=== PATIENT | male | born 1975 | race Caucasian/White ===

== ENCOUNTER 2025-01-15 21:58 | Emergency (ER) | payer SELFPAY ==
--- OUTSIDE RECORDS SUMMARY | 2025-01-15 22:04 | XMS REPORT | Continuity of Care Document ---
Author Name Unknown Address [address] [facility] [address] [place] [address] [facility] Address [address] [place] [address] Care Team Providers Care Splitting Machine Feeder Name Role Phone Pcp, Patient Does Not Have A Primary Care Physic lola Zulma LUCAS, Amol Lucio Attending Clinician [phone] Goldy Hutchinson DO Attending Clinician [phone] Sivan Suh MD Attending Clinician [phone] Orin Kumari MD Attending Clinician [phone] Doctor Unassigned, [place] Attending Clinician U michi Pearson MD, Robert Ornelas Attending Clinician [phone] Zahra Rodriguez MD, Leonard Attending Clinician [phone] Sivan Brock Attending Clinician [phone] SIVAN WOODS Attending Clinician Unavailable Goldy Hutchinson DO Admitting Clinician [phone] SIVAN WOODS Admitting Clinician Unavailable Payers Payer Name Policy Type Policy Number Effective Date Expirati on Date Source Problems Condition Name Condition Details Condition Category Status Onset Date Resolution Date Last Treatment Date Treating Clinician Comments Source GIB (gastroint estinal bleeding) GIB (gastroint estinal bleeding) Disease Active 12-30 00:00: 00 [facility] Hematochez ia Hematochez ia Disease Active 12-30 00:00: 00 [facility] Pancolitis Pancolitis Disease Active 4-13 00:00: 00 [facility] 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 Active 2018-09 022 00:00: 00 [facility] RUQ pain RUQ pain Disease Active 2018-09 020 00:00: 00 [facility] Peptic ulcer disease with hemorrhage Peptic ulcer disease with hemorrhage Disease Active 2018-09 00:00: 00 [facility] Gallbladde r hydrops Gallbladde r hydrops Disease Active 2018-09 00:00: 00 [facility] Acute cholecysti tis Acute cholecysti tis Disease Resolve d 2018-09 00:00: 00 2019-07-08 00:00:00 2019-07-08 18:46:24 [facility] Allergies, Adverse Reactions, Alerts Allergy Name Allergy Type Status Severity Reaction(s) Onset Date Inactive Date Treating Clinician Comments Source Codeine Propensi ty to adverse reaction s Active Itching 3- 00:00: 00 [facility] Morphine Propensi ty to adverse reaction s Active Nausea and/or Vomiting 3-06 00:00: 00 [facility] CODEINE DRUG INGREDI Active ITCHING 3-06 00:00: 00 [facility] MORPHINE DRUG INGREDI Active N/V 3-06 00:00: 00 [facility] Penicill ins Propensi ty to adverse reaction s Active Hives 2018-09 00:00: 00 [facility] PENICILL INS Drug Class Active Hives 2018-09 020 00:00: 00 [facility] Social History Social Habit Start Date Stop Date Quantity Comments Source Exposure to SARS-CoV-2 (event) Not sure [facility] History of tobacco use Smokes tobacco daily [facility] Alcoholic beverage intake 2025-01-04 00:00:00 2025-01-04 00:00:00 Ex-drinker (finding) [facility] Tobacco Comment 2024-12-30 00:00:00 2024-12-30 00:00:00 Pt informed this author that he does not smoke and has never smoked anything. [facility] Alcohol intake 2020-11-22 00:00:00 2020-11-22 00:00:00 Ex-drinker (finding) [facility] History of Social function 2020-04-23 00:00:00 2020-04-23 00:00:00 [facility] Sex assigned at 1975 00:00:00 1975 00:00:00 [facility] Smoking Status Start Date Stop Date Source Smokes tobacco daily 2024-12-30 00:00:00 [facility] Medications Ordered Medication Name Filled Medication Name Start Date Stop Date Current Medication? Ordering Clinician Indication Dosage Frequency Signature (SIG) Comments Components Source ergocalcife rol, vitamin d2, 1,250 mcg (50,000 unit) capsule ergocalcife rol, vitamin d2, 1,250 mcg (50,000 unit) capsule 01-15 00:00: 00 Yes [id number] Take 1 capsule by mouth weekly. [facility] DULoxetine 20 mg capsule DULoxetine 20 mg capsule 01-11 00:00: 00 Yes [id number] 20mg Take 1 capsule by mouth in the morning. [facility] pantoprazol e 40 mg EC tablet pantoprazol e 40 mg EC tablet 01-11 00:00: 00 Yes [id number] 40mg Take 1 tablet by mouth in the morning. [facility] sulfamethox azole-trime thoprim (BACTRIM DS) 800-160 mg per tablet sulfamethox azole-trime thoprim (BACTRIM DS) 800-160 mg per tablet 01-11 00:00: 00 02-07 04:59 :00 Yes [id number] 1{tbl} Take 1 tablet by mouth every Tuesday, Tuesday and Tuesday in the evening for 26 days. [facility] predniSONE (DELTASONE) tablet 40 mg predniSONE (DELTASONE) tablet 40 mg 01-10 14:00: 00 Yes 40mg 40 mg, Oral, DAILY, First dose on Graciela 01/10/25 at 0900, Until Discontinu ed, Routine [facility] HYDROcodone -acetaminop hen 5-325 mg tablet HYDROcodone -acetaminop hen 5-325 mg tablet 01-10 00:00: 00 Yes [id number] 1{tbl} Take 1 tablet by mouth every 8 (eight) hours as needed for Pain (scale 4-6). Indication s: acute pain [facility] Syringe with Needle, Disp, (BD LUER-JENAE SYRINGE) 3 mL 25 x 1 1/2 " Syrg 01-10 00:00: 00 Yes [id number] Use as directed with cyanocobal recio [facility] cyanocobala min 1,000 mcg/mL injection cyanocobala min 1,000 mcg/mL injection 01-10 00:00: 00 03-11 04:59 :00 Yes [id number] 1 mL every 24 (twenty-fo ur) hours for 3 days, THEN 1 mL weekly for 56 days. [facility] predniSONE 5 mg tablet predniSONE 5 mg tablet 01-10 00:00: 00 02-28 04:59 :00 Yes [id number] Take 8 tablets by mouth daily for 6 days, THEN 7 tablets daily for 7 days, THEN 6 tablets daily for 7 days, THEN 5 tablets daily for 7 days, THEN 4 tablets daily for 7 days, THEN 3 tablets daily for 7 days, THEN 2 tablets daily for 7 days. [facility] ondansetron 4 mg tablet ondansetron 4 mg tablet 01-10 00:00: 00 02-10 04:59 :00 Yes [id number] 4mg Take 1 tablet by mouth every 8 (eight) hours as needed for Nausea and Vomiting (N/V) for up to 30 days. [facility] methocarbam oL 500 mg tablet methocarbam oL 500 mg tablet 01-10 00:00: 00 01-25 04:59 :00 Yes [id number] 500mg Take 1 tablet by mouth 4 (four) times daily for 14 days. [facility] acetaminoph en 500 mg tablet acetaminoph en 500 mg tablet 01-10 00:00: 00 01-18 04:59 :00 Yes [id number] 1000mg Take 2 tablets by mouth every 8 (eight) hours as needed for Pain for up to 7 days. [facility] HYDROcodone -acetaminop hen (NORCO 5) tablet 1 tablet HYDROcodone -acetaminop hen (NORCO 5) tablet 1 tablet 01-09 14:10: 54 Yes 1{tbl} 1 tablet, Oral, Q8HPRN, Starting on Tue01/09/25 at 0910, Until Discontinu ed, Routine, Pain (scale 4-6) [facility] acetaminoph en (TYLENOL) tablet 1,000 mg acetaminoph en (TYLENOL) tablet 1,000 mg 01-09 01:00: 00 Yes 1000mg 1,000 mg, Oral, TID, First dose on Tue01/08/25 at 2000, Until Discontinu ed, Routine [facility] methocarbam oL (ROBAXIN) tablet 500 mg methocarbam oL (ROBAXIN) tablet 500 mg 01-08 21:00: 00 Yes 500mg 500 mg, Oral, QID, First dose on Tue01/08/25 at 1600, Until Discontinu ed, Routine [facility] dicyclomine (BENTYL) tablet 20 mg dicyclomine (BENTYL) tablet 20 mg 01-08 21:00: 00 01-10 21:27 :26 Yes 20mg 20 mg, Oral, QID, First dose on Tue01/08/25 at 1600, Until Discontinu ed, Routine [facility] DULoxetine (CYMBALTA) capsule 20 mg DULoxetine (CYMBALTA) capsule 20 mg 01-08 20:45: 00 Yes 20mg 20 mg, Oral, DAILY, First dose (after last modificati on) on Tue01/08/25 at 1545, Until Discontinu ed, Routine [facility] methocarbam oL (ROBAXIN) injection 1,000 mg methocarbam oL (ROBAXIN) injection 1,000 mg 01-08 20:30: 00 01-08 19:57 :00 Yes 1000mg 1,000 mg, Slow IV Push, ONCE, 1 dose, On Tue01/08/25 at 1530, Administer over 3-5 Minutes [facility] morpHINE injection 2 mg morpHINE injection 2 mg 01-08 15:15: 00 01-08 14:34 :00 Yes 2mg 2 mg, Slow IV Push, ONCE, 1 dose, On Tue01/08/25 at 1015, Routine [facility] cyanocobala min (DODEX) injection 1,000 mcg cyanocobala min (DODEX) injection 1,000 mcg 01-07 21:15: 00 01-14 21:14 :00 Yes 1000ug 1,000 mcg, Intramuscu lar, Q24H, 7 doses, First dose (after last modificati on) on Tue01/07/25 at 1615, Last dose on Tue01/13/25 at 1615, Routine [facility] pantoprazol e (PROTONIX) EC tablet 40 mg pantoprazol e (PROTONIX) EC tablet 40 mg 01-07 14:45: 00 Yes 40mg 40 mg, Oral, DAILY, First dose on Tue01/07/25 at 0945, Until Discontinu ed, Routine [facility] acetaminoph en (OFIRMEV) IV piggyback 1,000 mg acetaminoph en (OFIRMEV) IV piggyback 1,000 mg 01-06 22:30: 00 01-06 22:56 :00 Yes 1000mg 1,000 mg, IV Piggyback, at 400 mL/hr Administer over 15 Minutes, ONCE, 1 dose, On Tue01/06/25 at 1730, Routine, Is the patient strict NPO and unable to tolerate oral medication s? Yes [facility] methylpredn isolone sod succ (SOLU-MEDRO L) injection 60 mg methylpredn isolone sod succ (SOLU-MEDRO L) injection 60 mg 01-04 22:15: 01-09 22:02 :42 Yes 60mg 60 mg, Intravenou s, Q24H, First dose (after last reorder) on Tue01/04/25 at 1715, Until Discontinu ed, 2 mL [facility] enoxaparin (LOVENOX) injection 40 mg enoxaparin (LOVENOX) injection 40 mg 01-04 22:00: 00 01-10 21:27 :26 Yes 40mg 40 mg, Subcutaneo us, DAILY AT 1700, First dose on Tue01/04/25 at 1700, Until Discontinu ed, Routine [facility] morpHINE injection 2 mg morpHINE injection 2 mg 01-04 04:45: 00 01-04 03:53 :00 Yes 2mg 2 mg, Slow IV Push, ONCE, 1 dose, On Tue01/03/25 at 2345, Routine [facility] acetaminoph en (OFIRMEV) IV piggyback 1,000 mg acetaminoph en (OFIRMEV) IV piggyback 1,000 mg 01-04 04:45: 00 01-04 08:06 :00 Yes 1000mg 1,000 mg, IV Piggyback, at 400 mL/hr Administer over 15 Minutes, ONCE, 1 dose, On Tue01/03/25 at 2345, Routine, Is the patient strict NPO and unable to tolerate oral medication s? Yes [facility] morpHINE injection 4 mg morpHINE injection 4 mg 01-04 03:49: 32 01-08 20:34 :52 Yes 4mg 4 mg, Slow IV Push, Q6HPRN, Starting on Tue01/03/25 at 2249, Until Tue01/08/25 at 1534, Routine, Pain (scale 7-10) [facility] proMETHazin e (PHENERGAN) 25 mg in NS 50 mL IV piggyback (CNR) proMETHazin e (PHENERGAN) 25 mg in NS 50 mL IV piggyback (CNR) 01-04 03:48: 26 01-07 14:30 :57 Yes 25mg 25 mg, IV Piggyback, at 200 mL/hr Administer over 15 Minutes, Q4HPRN, Starting on Tue01/03/25 at 2248, Until Tue01/07/25 at 0930, Routine, N/V unresponsi ve to Ondansetro n [facility] methylpredn isolone sod succ (SOLU-MEDRO L) injection 60 mg methylpredn isolone sod succ (SOLU-MEDRO L) injection 60 mg 01-03 19:30: 00 01-03 19:00 :00 Yes 60mg 60 mg, Intravenou s, ONCE, 1 dose, On Tue01/03/25 at 1430, 2 mL [facility] simethicone (GAS RELIEF (SIMETHICON E)) 40 mg/0.6 mL drops 01-03 14:59: 00 01-03 16:10 :22 No PRN, Starting on Tue01/03/25 at 0959, Until Tue01/03/25 at 1110, Routine, Intra-op [facility] Potassium Bicarb-Citr ic Acid (EFFER-K) effervescen t tablet 20 mEq Potassium Bicarb-Citr ic Acid (EFFER-K) effervescen t tablet 20 mEq 01-03 13:00: 00 01-03 16:45 :00 Yes 20meq 20 mEq, Oral, Q2H, 2 doses, First dose on Tue01/03/25 at 0800, Last dose on Tue01/03/25 at 1000, Routine [facility] morpHINE injection 2 mg morpHINE injection 2 mg 01-03 11:08: 13 01-04 03:49 :25 Yes 2mg 2 mg, Slow IV Push, Q4HPRN, Starting on Tue01/03/25 at 0608, Until Tue01/03/25 at 2249, Routine, Pain (scale 7-10) [facility] morpHINE injection 6 mg morpHINE injection 6 mg 01-02 15:36: 15 01-03 11:08 :29 Yes 6mg 6 mg, Slow IV Push, Q4HPRN, Starting on Tue01/02/25 at 1036, Until Tue01/03/25 at 0608, Routine, Pain (scale 7-10) [facility] bisacodyL (DULCOLAX) tablet 10 mg 01-02 02:15: 00 01-02 03:09 :00 No 10mg 10 mg, Oral, Once, 1 dose, On Tue01/01/25 at 2115, Routine [facility] ondansetron (ZOFRAN (PF)) injection 4 mg ondansetron (ZOFRAN (PF)) injection 4 mg 01-02 02:06: 42 01-10 21:27 :26 Yes 4mg 4 mg, Slow IV Push, Q6HPRN, Starting on Tue01/01/25 at 2106, Until Tue01/10/25 at 1627, Administer over 2-5 Minutes, 2 mL [facility] acetaminoph en (TYLENOL) tablet 650 mg 01-02 00:55: 02 01-08 20:34 :52 No 650mg 650 mg, Oral, Q6HPRN, Starting on Tue01/01/25 at 1955, Until Tue01/08/25 at 1534, Routine, Pain (scale 1-3), Temp > 38 C [facility] ergocalcife rol (vitamin d2) (CALCIFEROL ) capsule 50,000 Units ergocalcife rol (vitamin d2) (CALCIFEROL ) capsule 50,000 Units 01-01 14:00: 00 Yes [id number] 50,000 Units, Oral, QWEEKLY, First dose on Tue01/01/25 at 0900, Until Discontinu ed, Routine [facility] multivitami n tablet 01-01 14:00: 00 01-10 21:27 :26 No 1{tbl} 1 tablet, Oral, DAILY, First dose on Tue01/01/25 at 0900, Until Discontinu ed, Routine [facility] KCL (KLOR-CON M20) tablet 40 mEq KCL (KLOR-CON M20) tablet 40 mEq 01-01 11:30: 00 01-01 11:38 :00 Yes 40meq 40 mEq, Oral, ONCE, 1 dose, On Tue01/01/25 at 0630, Routine [facility] lactated ringers IV infusion 1,000 mL 12-31 23:45: 00 01-03 18:40 :43 No 1000mL at 100 mL/hr, 1,000 mL, IV Infusion, CONTINUOUS , Starting on Tue12/31/24 at 1845, Until Tue01/03/25 at 1340, Routine [facility] HYDROcodone -acetaminop hen (NORCO 5) tablet 1 tablet HYDROcodone -acetaminop hen (NORCO 5) tablet 1 tablet 12-31 14:58: 23 01-09 14:11 :04 Yes 1{tbl} 1 tablet, Oral, Q6HPRN, Starting on Tue12/31/24 at 0958, Until Tue01/09/25 at 0911, Routine, Pain (scale 4-6) [facility] morpHINE injection 4 mg morpHINE injection 4 mg 12-31 14:57: 55 01-02 15:36 :28 Yes 4mg 4 mg, Slow IV Push, Q4HPRN, Starting on Tue12/31/24 at 0957, Until Tue01/02/25 at 1036, Routine, Pain (scale 7-10) [facility] fentanyl PF (SUBLIMAZE (PF)) injection 12.5 mcg fentanyl PF (SUBLIMAZE (PF)) injection 12.5 mcg 12-31 06:45: 00 12-31 06:38 :00 Yes 12.5ug 12.5 mcg, Slow IV Push, ONCE, 1 dose, On Tue12/31/24 at 0145, DARCIE [facility] KCL (KLOR-CON M20) tablet 40 mEq KCL (KLOR-CON M20) tablet 40 mEq 12-31 04:45: 00 12-31 04:18 :00 Yes 40meq 40 mEq, Oral, ONCE, 1 dose, On Tue12/30/24 at 2345, Routine [facility] potassium chloride in water (KCL) 20 mEq/100 mL IV infusion 20 mEq [id number] 4-14 04:15: 00 12-31 10:08 :00 Yes 20meq 20 mEq, IV Infusion, at 50 mL/hr Administer over 2 Hours, Q2H ES, 3 doses, First dose on Tue12/30/24 at 2315, Last dose on Tue12/31/24 at 0315, Routine [facility] heparin (porcine) injection 5,000 Units [id number] 4-14 01:00: 00 01-04 16:16 :55 Yes 5000U 5,000 Units, Subcutaneo us, Q12H, First dose on Tue12/30/24 at 1999, Until Discontinu ed, Routine [facility] D5W-LR IV infusion 1,000 mL 12-31 00:50: 00 12-31 13:41 :39 No 1000mL at 50 mL/hr, IV Infusion, CONTINUOUS , Starting on Tue12/30/24 at 2000, Until Tue12/31/24 at 0841, Routine [facility] ondansetron (ZOFRAN (PF)) injection 4 mg ondansetron (ZOFRAN (PF)) injection 4 mg 12-31 00:11: 56 01-04 03:49 :25 Yes 4mg 4 mg, Slow IV Push, Q6HPRN, Starting on Tue12/30/24 at 191, Until Graciela 01/03/25 at 2249, Administer over 2-5 Minutes, 2 mL [facility] acetaminoph en (TYLENOL) tablet 650 mg acetaminoph en (TYLENOL) tablet 650 mg 12-31 00:11: 56 01-02 00:55 :24 Yes 650mg 650 mg, Oral, Q6HPRN, Starting on Tue12/30/24 at 191, Until Tue01/01/25 at 1955, Routine, Pain (scale 1-3) [facility] diazePAM (VALIUM) tablet 5 mg 3-07 02:15: 00 11-23 01:24 :00 No 5mg 5 mg, Oral, ONCE, 1 dose, 11/22/20 at 2014, DARCIE [facility] traMADoL (ULTRAM) tablet 50 mg 11-23 02:15: 00 11-23 01:24 :00 No 50mg 50 mg, Oral, ONCE NOW, 1 dose, 11/22/20 at 2015, Routine [facility] methocarbam oL 500 mg tablet 11-22 00:00: 00 12-30 00:00 :00 No [id number] 500mg Take 1 tablet by mouth 4 (four) times daily. [facility] Vital Signs Vital Name Observation Time Observation Value Comments S ource Systolic blood pressure 2025-01-10 20:00:00 128 mm[Hg] [facility] Diastolic blood pressure 2025-01-10 20:00:00 84 mm[Hg] [facility] Heart rate 2025-01-10 20:00:00 73 /min [facility] Body temperature 2025-01-10 20:00:00 36.61 Zita [facility] Respiratory rate 2025-01-10 20:00:00 14 /min [facility] Oxygen saturation in Arterial blood by Pulse oximetry 2025-01-10 20:00:00 95 /min [facility] Body height 2024-12-31 00:09:00 167.6 cm [facility] Body weight 2024-12-31 00:09:00 60.782 kg [facility] BMI 2024-12-31 00:09:00 21.63 kg/m2 [facility] Systolic blood pressure 2025-01-03 13:54:00 133 mm[Hg] [facility] Diastolic blood pressure 2025-01-03 13:54:00 87 mm[Hg] [facility] Heart rate 2025-01-03 13:54:00 92 /min [facility] Body temperature 2025-01-03 13:54:00 36 Zita [facility] Respiratory rate 2025-01-03 13:54:00 20 /min [facility] Oxygen saturation in Arterial blood by Pulse oximetry 2025-01-03 13:54:00 99 /min [facility] Body height 2024-12-31 00:09:00 167.6 cm [facility] Body weight 2024-12-31 00:09:00 60.782 kg [facility] BMI 2024-12-31 00:09:00 21.63 kg/m2 [facility] Systolic blood pressure 2020-11-23 02:00:00 126 mm[Hg] [facility] Diastolic blood pressure 2020-11-23 02:00:00 85 mm[Hg] [facility] Heart rate 2020-11-23 02:00:00 74 /min [facility] Body temperature 2020-11-23 02:00:00 36.44 Zita [facility] Respiratory rate 2020-11-23 02:00:00 13 /min [facility] Oxygen saturation in Arterial blood by Pulse oximetry 2020-11-23 02:00:00 100 /min [facility] Body height 2020-11-23 00:31:00 167.6 cm [facility] Body weight 2020-11-23 00:31:00 60.782 kg [facility] BMI 2020-11-23 00:31:00 21.63 kg/m2 [facility] Systolic blood pressure 2025 20:34:00 131 mm[Hg] [facility] Diastolic blood pressure 2025 20:34:00 83 mm[Hg] [facility] Heart rate 2025 20:34:00 78 /min [facility] Body temperature 2025 20:34:00 37.06 Zita [facility] Respiratory rate 2025 20:34:00 19 /min [facility] Oxygen saturation in Arterial blood by Pulse oximetry 2025 20:34:00 96 /min [facility] Body height 2024-12-31 00:09:00 167.6 cm [facility] Body weight 2024-12-31 00:09:00 60.782 kg [facility] BMI 2024-12-31 00:09:00 21.63 kg/m2 [facility] Procedures Procedure Date / Time Performed Performing Clinician Source MAGNESIUM 2025-01-10 08:52:00 Lilian Carney [facility] BASIC METABOLIC PANEL (NA, K, CL, CO2, GLUCOSE, BUN, CREATININE, CA) 2025-01-10 08:52[facility] 2025-01-10 08:52:00 Lilian Carney [facility] MAGNESIUM 2025-01-09 09:02:00 Rommel [facility] C-REACTIVE PROTEIN 2025-01-09 09:02:00 [facility]OLIC [facility] (NA, K, CL, CO2, GLUCOSE, BUN, CREATININE, CA) 2025-01-09 09:02:00 [facility] 2025-01-09 09:02[facility] 2025-01-09 00:07:23 Nicola Regan [facility] MAGNESIUM 2025-01-08 10:09:00 Rommel [facility] C-REACTIVE PROTEIN 2025-01-08 10:09:00 Maria Teresa Regan ae [facility] BASIC METABOLIC PANEL (NA, K, CL, CO2, GLUCOSE, BUN, CREATININE, CA) 2025-01-08 10:09:00 Rommel [facility] CBC WITH DIFF 2025-01-08 10:09:00 [facility] 2025-01-07 14:41:46 Doctor Unassigned, [place] [facility] MAGNESIUM 2025-01-07 08:56:00 Rommel [facility] VITAMIN B12, LEVEL 2025-01-07 08:56:00 Maria Teresa Regan ae [facility] FOLATE 2025-01-07 08:56:00 Maria Teresa Regan [facility] BASIC METABOLIC PANEL (NA, K, CL, CO2, GLUCOSE, BUN, CREATININE, CA) 2025-01-07 08:56:00 Rommel [facility] CBC WITH DIFF 2025-01-07 08:56:00 Lilian Carney [facility] MAGNESIUM 2025-01-05 08:10:00 Krish [facility] TRANSFERRIN 2025-01-05 08:10:00 Maria Teresa Regan [facility] C-REACTIVE PROTEIN 2025-01-05 08:10:00 Dianne Ha [facility] BASIC METABOLIC PANEL (NA, K, CL, CO2, GLUCOSE, BUN, CREATININE, CA) 2025-01-05 08:10:00 [facility] CBC WITHOUT DIFF 2025-01-05 08:10:00 Krish [facility] MAGNESIUM 2025-01-04 08:10:00 Rommel [facility] BASIC METABOLIC PANEL (NA, K, CL, CO2, GLUCOSE, BUN, CREATININE, CA) 2025-01-04 08:10:00 Rommel [facility] CBC WITH DIFF 2025-01-04 08:10:00 Lilian Carney [facility] MAGNESIUM 2025-01-04 08:10:00 Rommel [facility] BASIC METABOLIC PANEL (NA, K, CL, CO2, GLUCOSE, BUN, CREATININE, CA) 2025-01-04 08:10:00 Rommel [facility] CBC WITH DIFF 2025-01-04 08:10:00 Rommel [facility] COLONOSCOPY (ENDO) 2025-01-03 15:19:00 Sivan Suh [facility] COLONOSCOPY (ENDO) 2025-01-03 15:19:00 Sivan Suh [facility] SURGICAL PATHOLOGY EXAM 2025-01-03 14:56:00 Jm Pearson [facility] SURGICAL PATHOLOGY EXAM 2025-01-03 14:56:00 Jm Pearson [facility] COLONOSCOPY 2025-01-03 14:27:00 [facility] 2025-01-03 14:27:00 Robert Pearson [facility] XR KUB 2025-01-03 11:51:39 Rommel [facility] XR KUB 2025-01-03 11:51:39 Rommel [facility] MAGNESIUM 2025-01-03 09:41:00 Rommel [facility] BASIC METABOLIC PANEL (NA, K, CL, CO2, GLUCOSE, BUN, CREATININE, CA) 2025-01-03 09:41:00 Rommel [facility] CBC WITH DIFF 2025-01-03 09:41:00 Lilian Carney [facility] MAGNESIUM 2025-01-03 09:41:00 Rommel [facility] BASIC METABOLIC PANEL (NA, K, CL, CO2, GLUCOSE, BUN, CREATININE, CA) 2025-01-03 09:41:00 [facility] 2025-01-03 09:41:00 Lilian Carney [facility] XR KUB 2025-01-03 07:38:55 Rahul Esquivel [facility] XR KUB 2025-01-03 07:38:55 Sierra Rahul [facility] XR ABDOMEN 1 VW 2025-01-03 07:12:09 Sierra [facility] XR ABDOMEN 1 VW 2025-01-03 07:12:09 Sierra [facility] CBC WITH DIFF 2025 09:18:00 [facility] (NA, K, CL, CO2, GLUCOSE, BUN, CREATININE, CA) 2025 09:18:00 Rommel [facility] MAGNESIUM 2025 09:18:00 Rommel [facility] MAG[facility]ESIUM [facility]25 [facility] (NA, K, CL, CO2, GLUCOSE, BUN, CREATININE, CA) 2025 09:18:00 Rommel [facility] CBC WITH DIFF 2025 09:18:00 Rommel [facility] MAGNESIUM 2025 09:18:00 Rommel [facility] BASIC METABOLIC PANEL (NA, K, CL, CO2, GLUCOSE, BUN, CREATININE, CA) 2025 09:18:00 Rommel [facility] CBC WITH DIFF 2025 09:18:00 Rommel [facility] CALPROTECTIN, FECAL 2025-01-01 09:38:00 Maria Teresa Regan [facility] CLOSTRIDIUM DIFFICILE TOXIN 2025-01-01 09:38:00 Guerra [facility] CLOSTRIDIUM DIFFICILE TOXIN 2025-01-01 09:38:00 Guerra [facility] CALPROTECTIN, FECAL 2025-01-01 09:38:00 Maria Teresa Regan [facility] CLOSTRIDIUM DIFFICILE TOXIN 2025-01-01 09:38:00 Guerra, [facility] CALPROTECTIN, FECAL 2025-01-01 09:38:00 Maria Teresa Regan [facility] VITAMIN D, 25-[place] 2025-01-01 09:37:00 Maria Teresa Regan [facility] CBC WITH DIFF 2025-01-01 09:37:00 Maria Teresa Regan [facility] MAGNESIUM 2025-01-01 09:37:00 Maria Teresa Regan [facility] BASIC METABOLIC PANEL (NA, K, CL, CO2, GLUCOSE, BUN, CREATININE, CA) 2025-01-01 09:37:00 Maria Teresa Regan [facility] PHOSPHORUS 2025-01-01 09:37:00 Maria Teresa Regan [facility] PHOSPHORUS 2025-01-01 09:37:00 Maria Teresa Regan [facility] MAGNESIUM 2025-01-01 09:37:00 Maria Teresa Regan [facility] BASIC METABOLIC PANEL (NA, K, CL, CO2, GLUCOSE, BUN, CREATININE, CA) 2025-01-01 09:37:00 Maria Teresa Regan [facility] CBC WITH DIFF 2025-01-01 09:37:00 Maria Teresa Regan [facility] VITAMIN D, 25-[place] 2025-01-01 09:37:00 Maria Teresa Regan Mayela [facility] PHOSPHORUS 2025-01-01 09:37:00 Maria Teresa Regan [facility] MAGNESIUM 2025-01-01 09:37:00 Maria Teresa Regan [facility] BASIC METABOLIC PANEL (NA, K, CL, CO2, GLUCOSE, BUN, CREATININE, CA) 2025-01-01 09:37:00 Maria Teresa Regan [facility] CBC WITH DIFF 2025-01-01 09:37:00 Maria Teresa Regan [facility] VITAMIN D, 25-[place] 2025-01-01 09:37:00 Maria Teresa Regan [facility] US GALL BLADDER 2025-01-01 01:01:00 Maria Teresa Regan [facility] US GALL BLADDER 2025-01-01 01:01:00 Maria Teresa Regan [facility] US GALL BLADDER 2025-01-01 01:01:00 Maria Teresa Regan Mayela [facility] CBC WITH DIFF 2024-12-31 11:17:00 Amol Guerra [facility] BASIC METABOLIC PANEL (NA, K, CL, CO2, GLUCOSE, BUN, CREATININE, CA) 2024-12-31 11:17:00 Amol Guerra [facility] MAGNESIUM 2024-12-31 11:17:00 Amol Guerra [facility] GLYCOSYLATED HEMOGLOBIN (A1C) 2024-12-31 11:17:00 Maria Teresa Regan [facility] THYROID STIMULATING HORMONE 2024-12-31 11:17:00 Maria Teresa Regan [facility] LIPASE 2024-12-31 11:17:00 Maria Teresa Regan [facility] LIPASE 2024-12-31 11:17:00 Maria Teresa Regan [facility] MAGNESIUM 2024-12-31 11:17:00 Amol Guerra [facility] THYROID STIMULATING HORMONE 2024-12-31 11:17:00 Maria Teresa Regan [facility] BASIC METABOLIC PANEL (NA, K, CL, CO2, GLUCOSE, BUN, CREATININE, CA) 2024-12-31 11:17:00 Charlie [facility] CBC WITH DIFF 2024-12-31 11:17:00 Amol Guerra [facility] GLYCOSYLATED HEMOGLOBIN (A1C) 2024-12-31 11:17:00 Maria Teresa Regan [facility] LIPASE 2024-12-31 11:17:00 Maria Teresa Regan [facility] MAGNESIUM 2024-12-31 11:17:00 Amol Guerra [facility] THYROID STIMULATING HORMONE 2024-12-31 11:17:00 Maria Teresa Regan [facility] BASIC METABOLIC PANEL (NA, K, CL, CO2, GLUCOSE, BUN, CREATININE, CA) 2024-12-31 11:17:00 Charlie [facility] CBC WITH DIFF 2024-12-31 11:17:00 Charlie [facility] GLYCOSYLATED HEMOGLOBIN (A1C) 2024-12-31 11:17:00 Maria Teresa Regan [facility] ABORH CONFIRMATION (LAB ONLY) 2024-12-31 11:16:00 [place], [facility] ABORH CONFIRMATION (LAB ONLY) 2024-12-31 11:16:00 Evangelina [facility] ABORH CONFIRMATION (LAB ONLY) 2024-12-31 11:16:00 Evangelina [facility] URINALYSIS 2024-12-31 07:58:00 Guerra, [facility] FECAL PATHOGENS BY PCR 2024-12-31 07:58:00 Guerra, Awais [facility] URINALYSIS 2024-12-31 07:58:00 Guerra, [facility] FECAL PATHOGENS BY PCR 2024-12-31 07:58:00 Guerra, Awais [facility] URINALYSIS 2024-12-31 07:58:00 Guerra, [facility] FECAL PATHOGENS BY PCR 2024-12-31 07:58:00 Guerra, Awais [facility] CT ABDOMEN PELVIS W CONTRAST 2024-12-31 05:56:08 Guerra, [facility] CT ABDOMEN PELVIS W CONTRAST 2024-12-31 05:56:08 Guerra, [facility] CT ABDOMEN PELVIS W CONTRAST 2024-12-31 05:56:08 Guerra, [facility] BLOOD CULTURE SCREEN 2024-12-31 03:13:00 Guerra, [facility] BLOOD CULTURE SCREEN 2024-12-31 03:13:00 Guerra, [facility] BLOOD CULTURE SCREEN 2024-12-31 03:13:00 Guerra, [facility] HCV ANTIBODY 2024-12-31 03:03:00 Guerra, [facility] IRON PANEL 2024-12-31 03:03:00 Guerra, [facility] IRON PANEL 2024-12-31 03:03:00 Guerra, [facility] PROTHROMBIN TIME / INR 2024-12-31 03:03:00 GuerraAwais [facility] ACTIVATED PARTIAL THRMPLAS WILBUR 2024-12-31 03:03:00 Guerra, [facility] HEPATITIS B SURFACE ANTIBODY 2024-12-31 03:03:00 Guerra, [facility] HCV ANTIBODY 2024-12-31 03:03:00 Charlie [facility] HBC ANTIBODY (IGM & IGG) 2024-12-31 03:03:00 Humberto Guerra [facility] IRON PANEL 2024-12-31 03:03:00 Charlie [facility] PROTHROMBIN TIME / INR 2024-12-31 03:03[facility]AS WILBUR 2024-12-31 03:03:00 Guerra, [facility] HEPATITIS B SURFACE ANTIBODY 2024-12-31 03:03:00 Guerra, [facility] HCV ANTIBODY 2024-12-31 03:03:00 Charlie [facility] HBC ANTIBODY (IGM & IGG) 2024-12-31 03:03:00 Humberto Guerra [facility] PROTHROMBIN TIME / INR 2024-12-31 03:03:00 Awais Guerra [facility] ACTIVATED PARTIAL THRMPLAS WILBUR 2024-12-31 03:03:00 Charlie [facility] HEPATITIS B SURFACE ANTIBODY 2024-12-31 03:03:00 Charlie [facility] HBC ANTIBODY (IGM & IGG) 2024-12-31 03:03:00 Humberto Guerra [facility] C-REACTIVE PROTEIN 2024-12-31 03:02:00 Amol Guerra [facility] SEDIMENTATION RATE 2024-12-31 03:02:00 Amol Guerra [facility] CBC WITH DIFF 2024-12-31 03:02:00 Amol Guerra [facility] HB ABO GROUPING 2024-12-31 03:02:00 Charlie [facility] THIOPURINE METHYLTRANSFERASE, RBC 2024-12-31 03:02:00 Charlie [facility] C-REACTIVE PROTEIN 2024-12-31 03:02:00 Amol Guerra [facility] SEDIMENTATION RATE 2024-12-31 03:02:00 Charlie [facility] CBC WITH DIFF 2024-12-31 03:02:00 Charlie [facility] HB ABO GROUPING 2024-12-31 03:02:00 Charlie [facility] THIOPURINE METHYLTRANSFERASE, RBC 2024-12-31 03:02:00 Charlie [facility] CBC WITH DIFF 2024-12-31 03:02:00 Charlie [facility] HB ABO GROUPING 2024-12-31 03:02:00 Charlie [facility] SEDIMENTATION RATE 2024-12-31 03:02:00 Amol Guerra [facility] C-REACTIVE PROTEIN 2024-12-31 03:02:00 Amol Guerra [facility] PHOSPHORUS 2024-12-31 03:01:00 Cahrlie [facility] FERRITIN SERUM 2024-12-31 03:01:00 Charlie [facility] HEPATIC FUNCTION PANEL ([id number]) (ALB,T.PRO,BILI T,BU/BC,ALT,AST,ALK PHOS) 2024-12-31 03:01:00 Charlie [facility] BASIC METABOLIC PANEL (NA, K, CL, CO2, GLUCOSE, BUN, CREATININE, CA) 2024-12-31 03:01:00 Charlie [facility] LIPID PANEL ([id number])(TOTAL CHOLESTEROL, TRIGLYCERIDES, HDL) 2024-12-31 03:01:00 Charlie [facility] HEPATITIS B SURFACE ANTIGEN 2024-12-31 03:01:00 Charlie [facility] HAV ANTIBODY (IGG AND IGM) 2024-12-31 03:01:00 Charlie [facility] QUANTIFERON-TB ASSAY 2024-12-31 03:01:00 Charlie [facility] HIV 1/2 AG-AB WITH REFLEX 2024-12-31 03:01:00 Charlie [facility] PHOSPHORUS 2024-12-31 03:01:00 Charlie [facility] FERRITIN SERUM 2024-12-31 03:01:00 Charlie [facility] HEPATIC FUNCTION PANEL (66816) (ALB,T.PRO,BILI T,BU/BC,ALT,AST,ALK PHOS) 2024-12-31 03:01:00 Guerra, [facility] BASIC METABOLIC PANEL (NA, K, CL, CO2, GLUCOSE, BUN, CREATININE, CA) 2024-12-31 03:01:00 Guerra, [facility] LIPID PANEL (59966)(TOTAL CHOLESTEROL, TRIGLYCERIDES, HDL) 2024-12-31 03:01:00 Guerra, [facility] HEPATITIS B SURFACE ANTIGEN 2024-12-31 03:01:00 Guerra, [facility] HAV ANTIBODY (IGG AND IGM) 2024-12-31 03:01:00 Guerra, [facility] QUANTIFERON-TB ASSAY 2024-12-31 03:01:00 Guerra, [facility] HIV 1/2 AG-AB WITH REFLEX 2024-12-31 03:01:00 Guerra, [facility] BASIC METABOLIC PANEL (NA, K, CL, CO2, GLUCOSE, BUN, CREATININE, CA) 2024-12-31 03:01:00 Guerra, [facility] HEPATIC FUNCTION PANEL (67850) (ALB,T.PRO,BILI T,BU/BC,ALT,AST,ALK PHOS) 2024-12-31 03:01:00 Guerra, [facility] PHOSPHORUS 2024-12-31 03:01:00 Guerra, [facility] LIPID PANEL (69849)(TOTAL CHOLESTEROL, TRIGLYCERIDES, HDL) 2024-12-31 03:01:00 Guerra, [facility] QUANTIFERON-TB ASSAY 2024-12-31 03:01:00 Guerra, [facility] HAV ANTIBODY (IGG AND IGM) 2024-12-31 03:01:00 Guerra, [facility] HEPATITIS B SURFACE ANTIGEN 2024-12-31 03:01:00 Guerra, [facility] FERRITIN SERUM 2024-12-31 03:01:00 Guerra, [facility] HIV 1/2 AG-AB WITH REFLEX 2024-12-31 03:01:00 Guerra, Amol [facility] BLOOD CULTURE SCREEN 2024-12-31 03:00:00 Amol Guerra [facility] BLOOD CULTURE SCREEN 2024-12-31 03:00:00 Amol Guerra [facility] BLOOD CULTURE SCREEN 2024-12-31 03:00:00 Amol Guerra [facility] XR LUMBAR SPINE 3 VW 2020-11-23 01:53:41 Sivan Woods [facility] XR CERVICAL SPINE 3 VW 2020-11-23 01:53:41 Liya Woods [facility] XR PELVIS <3 VW 2020-11-23 01:53:41 [facility] CONTRAST 2020-11-23 01:41:51 Sivan Woods [facility] CT HEAD WO CONTRAST 2020-11-23 01:41:51 Sivan Woods [facility] Encounters Start Date/Time End Date/Time Encounter Type Admission Type Attending [facility] Care Department Encounter ID Source 2024-12-30 19:05:00 2025-01-10 16:15:00 Hospital Encounter Amol Maya, Goldy Suh, Orin Morris [facility] ([place]) 1.0.114 350.1.13.10 4.2.7.2.686 [id number] [facility] 2025-01-07 00:00:00 2025-01-08 02:04:31 Orders Only Doctor Unassigned, [place] Doctor Unassigned, [place] [facility] ([place]) 1.20.114 350.1.13.10 4.2.7.2.686 [id number] [facility] 2025-01-03 08:37:00 2025-01-03 09:35:00 Surgery Robert Pearson [facility] [employer] [facility] 1.2840.114 350.1.13.10 4.2.7.2.686 [id number] [facility] 2025 10:55:31 2025 10:55:31 Anesthesia Event Pascual Sweeney [facility] ([place]) 1.2.840.114 350.1.13.10 4.2.7.2.686 [id number] [facility] 2024-12-30 00:00:00 2024-12-30 00:00:00 Travel 1.2.840.1 83411.1.1 3.104.2.7 .[id number] .8 1.2.840.114 350.1.13.10 4.2.7.3.698 [id number] [facility] 2020-11-22 18:30:00 2020-11-22 22:17:00 Emergency Sivan Woods [facility] 1.2.840.114 350.1.13.10 4.2.7.2.686 [id number] [facility] 2020-11-22 18:30:00 2020-11-22 22:17:00 Emergency X SIVAN WOODS [facility] [id number] [facility] Results Test Description Test Time Test Comments Results Resul t Comments Source US Scrotum and contents 2024-12-19 3 13:44:17 EXAM: US SCROTUM AND CONTENTS HISTORY: 50 years-old Male; Provided indication: evaluate for hydrocele . TECHNIQUE: Ultrasound imaging with color Doppler of the scrotum wasperformed. [employer] images were obtained for the record. COMPARISON: None FINDINGS: Right Testicle: The right testicle is normal in size, shape, andechotexture. The right testicle measures 4.2 x 2.0 x 2.8 cm, with a volumeof 12.0 mL. The blood flow is normal. No focal lesion is seen. Left Testicle: The left testicle is normal in size, shape, and echotexture.The left testicle measures 4.4 x 1.7 x 2.8 cm, with a volume of 10.9 mL.The blood flow is normal. No focal lesion is seen. Right Epididymis: The right epididymal head is normal in size anddemonstrates normal blood flow. Left Epididymis: The left epididymal head is normal in size anddemonstrates normal blood flow. No sonographic evidence of varicocele is seen. Small to moderate bilateralhydrocele. [facility] [id number] 14:41:46Ordered by an unspecified provider.[facility] [id number] 16:22:03* Test Item Value Reference Range Interpretation Comme [facility] TRANSFERRN (test code = 0161026698) 114 mg/dL 168-336 L Lab Interpretation (test cod e = 08414-5) Abnormal [facility]2025-04-19 08:36:38* Test Item Value Reference Range Interpretation Comme nts MAGNESIUM (test code = 3704054258) 2.3 mg/dL 1.7-2.4 Lab Interpretation (test cod e = 77756-2) Normal [facility] (NA, K, CL, CO2, GLUCOSE, BUN, CREATININE, CA)2025-01-05 08:36:37* Test Item Value Reference Range Interpretation Comme nts NA (test code = 6323284780) 135 mmol/L 135-145 K (test code = 4586105888) 3.8 mmol/L 3.5-5.0 CL (test code = 6563639795) 96 mmol/L 98-108 L CO2 TOTAL (test code = 9843854302) 34 mmol/L 23-31 H AGAP (test code = 5626210868) 5 2-16 BUN (test code = 3505378143) 14 mg/dL 7-23 GLUCOSE (test code = 2040418053) 157 mg/dL 70-110 H CREATININE (test code = 2160-0) 0.68 mg/dL 0.60-1.25 CALCIUM (test code = 7641106940) 7.5 mg/dL 8.6-10.6 L eGFR (test code = 90152-4) 111.8 mL/min/1.73m2 CKD-EPI eGFR (2020). Assuming creatinine has been stable day-to-day for at least three months, the eGFR indicates Category G1 (>= 90 mL/min/1.73 m2) Lab Interpretation (test code = 27008-9) Abnormal [facility]bc without [id number] 08:24:32* Test Item Value Reference Range Interpretation Comme nts WBC (test code = 6690-2) 6.36 4.20-10.70 RBC (test code = 789-8) 3.61 4.26-5.52 L HGB (test code = 718-7) 11.5 g/dL 12.2-16.4 L HCT (test code = 4544-3) 33.5 % 38.4-49.3 L MCH (test code = 785-6) 31.9 pg 26.1-32.7 MCV (test code = 787-2) 92.8 fL 81.7-95.6 MCHC (test code = 786-4) 34.3 g/dL 31.2-35.0 PLT (test code = 777-3) 465 150-328 H MPV (test code = 03131-0) 8.4 fL 9.8-13.0 L RDW-CV (test code = 788-0) 13.6 % 12.1-15.4 RDW-SD (test code = 15696-7) 46.7 fL 38.5-51.6 NRBC x10^3 (test code = 6373127838) See_Comment [Automated messa ge] The system which generated this result transmitted reference range: 10*3/?L. The reference range was not used to interpret this result as normal/abnormal. NRBC/100 WBC (test code = 7712508704) 0 0.0-10.0 IPF % (test code = 4255510704) Lab Interpretation (test code = 32857-0) Abnormal [facility] [id number] 16:38:51* Test Item Value Reference Range Interpretation Comme [facility] Case Report (test code = 6412079346) Surgical Pathology ?Case: [id number] ? Authorizing Provider: ?Robert Pearson MD ? ? ?Collected: ? 01/03/2025 0956 ?Ordering Location: ? ? GI Endoscopy OR Department Received: ?01/03/2025 1307 ?Pathologist: ? Kyleigh Huddleston MD ? Specimens: ? A) - LARGE INTESTINE, SIGMOID COLON, Sigmoid colon Bx eval for IBD ? B) - RECTUM, Rectal Bx eval for IBD ? Final Diagnosis (test code = 0946488686) [id number] FuZzEwMzNcZnRuYmpcdWMx IHtccnRmMVxhbnNpXGRlZm dmqxyvRFPeBXV0hmZxVAEi OWA2NOZ8XkNdUXXhRgXqMM O5RRBxv8ate2GygMIheFEe TFlezCXidbCanh25bRV5sR 40AQ0xUSDfIqG5LQZooiB8 Hyk2FQHgOZXvzDLzQ485r2 ddb3oyqoFazRX5mBehQHRo hjvgVmK7MQuwUWOukwbdHT r5VYccSGCjvEW8PVMsaIUj J2NiAFSxDM8spft3YQQ6MY vaPXBhBuT9ADKtzHRkKMWl oKhzBVstl931WXX9GtMaCO VprkJemPhfkV5gInRsYCyc IXHsRW1hPYXEW6LuSY9OXB SUJZ7TOZRPTLjJV0uUTHYT EZ5DDDTMSE2AR6j3BHIkax TiSMNfKRFAG5iICsuUPZ1S K33IFRSIFVAAHPPFWLFGIL JNR4IDP2CkMGBKGTCZFClA KKDNRFNBFPTSU1dKNRGNQW AFHNqkXWsVVF2TAJmOKszr VCHaMMAlRG4dHz8zV2DYRx YFQ23XHB2XYQGKH9AJRAZV QSBJREVOVElGSUVEICBccG FyXGZzMjJccGFyXGZzMjAg Lj6fUiYPNZADYQUSHZ0OX5 x3UZIvfzZhYSExMFXGMGPB XBhaDPCZA8IPKZjNHRrcVZ zVJXcINKaMT1ZNWKWGNDJO GJ7PZH2YSVVAOCJJTUWDEt BJTkZJTFRSQVRFIElOXHBh hiJwRDDzBJHkDYQFUA4PWC ARR0ODQUXgkTTsTAPjPHRv KM4KXIKHWNoLKRPUII6QPI CRF0GRESADFFEDFMGVGHgB SUVEICBccGFyXHBhcmRccG DaZMAogbxxTVT5a9ngaSWf XHNzdGVjZjIyMDAwXGFuc2 lcZGVmbGFuZzEwMzNcZnRu YiqbhRNmHENfFoWot2kxq2 67xUKdv6vyJSPlCyW9bZMs QOBzyKrqxip0nZwoNpBmIC Acf5wnymByJyErPTGkCVEb HHSowPYkM455HVRdWBqdp2 zja2VwNVXzgEFmn3W9ZSAK THokHhFlA930e3wma1gbif IylLK8CFPfHFY0HWxyezUt ozZ7REokkQWcCnB4FVhpwv PaEQrobeNtngHgAqd8DFLn R383UIR4uHlqg6ogJZP9YI PjMZLdTzrjGa1tiPUgV803 ZLWkECAGSFQkhFb4VWKnpi VnfcClpBLKy545P912g1fc JHUehsSvoVqSeduiw0nxL6 19XHBhcGVydzEyMjQwXHBh pBPgrJZ7HSZeCT8ovjbnTN yoLCjlLOUhybI1VSZnzVWb K6QeUULfOH6ecxnpDNU8QG auVWPkUVN5JuKzIENxw3Or hxf2YoWlzy8miv62CDI2e0 LdsXhyZGA0VDS0JeRdFo7s iJIoRPSsEE4gShRvzTIkKL Vues48mQhkQDaicyJxaW9g PcIlCHVpsEAbETRdMN6rnC UaJXCiyM3pfggwBTUxDcPh gjdrRKLiqElafcFiGd7ulH uoFBE2XLoxV2jmvB6cDrL3 UIhwS2zdyP2yONt2GVmnsH A9VEDfoL6fJS2btcjtj1ax QOkwLZsbCRYoapT9euT2XQ EghVTqQ5RzhI7jNXXxGS4r qpuwd6zdMUM7LCopAAMwPX L9PuMaABTrc8Atfii2JgYg y7MrrALtDKfcG75gi504UV KgwuNhK5mqwSNcajrjiHSk uiceULwyabW6ALDwGSOkRM luXGYxXGZzMjBcbGFuZzEw MzNcaGljaFxmMVxkYmNoXG JhPLudV6bsOvLvE0CdCXWf ZkDqbDRhJRlmvKU6NROrIL Ybh71hfAh9MJScuogkn3Zo OVHozGWlvNRaeH6vaiAin4 caOPHhYDQfLYSpL4MxNOO4 iXMvEUWzjPOfeJU3FF3hju SbKV7vMMHrPeuhukLsjZOs otUdMKHdVAqwz2pgQO0mMY MtaBhtpQ8vqZB6GVYqe7fu jNOnmCPcx3gka4HusdGmZB hiKXWuLSpwQCGiFAQpVN4p GASipSSwdhPzp8J7VapktQ TxvwqjOukfomP0SGgccyjo LFZjCBhuC8hqLuQcZRArvT ulDfckt0IuHMIfYJLnVeko dQGzjN93ZKI0VwGmp9Y2ZC WrTlSyWXMpOM8pvXseNSEj LF5pYFSnX1jwkG6gwkk7Is AdYOPbMeP2ENNzzuA8Iug2 ROVbNPijc4gmj7PfY4MxgI HefVg0i3hoBPMrLrK9iOGc KRseE1sfdsUxlDZrIAMsWH g4lS79LLNgmT1yxWKmZXcp qnGyYnK1JFwvKVSoEtU7QL BjtHIwWLAuZ2vrRLGnPJto VYSdGCkqgOGqRVS9fKhcc6 S1uYIulYYslEgvVnYfBwEc MEQXx3VkTLe9jWqkU0MfXC GvTwJ7rWPlFZBmYCvrGMSp OBXspwK5cX58JMqtjpI4hY Gtu8Xlt06ik507yH9cmNYx CBO2AVXbGJVksMYfOCZiRG N3BMXepPWfX8qlRGRiMA9m hhdvDCykPNcfAFLcsIU0QF ZjqJZrB6FtFUUbMSpdMEVd xsw3MqVoPh7fkASnkGuaKK vvg5cdy3okuLItVce9MYTd CeYjUbctPEhnr7Diu6dqDB Xtgz43cJOcaZGgsWFbyx7a zyAzkSUhuRRxZJL9mWHzsi KlUAFdjTFlMNEiRM5bdODt UANqgV9tawcuMLJiUnWhbz slROGsvVhuxgZvAb6xnSjd LXI6AJzpJ0wmgD0hNpX3VZ hkY5evvS5iQAa5ZMmqzJG6 RAZzpO4mDN3fuczlh8lzTF xeNUsbURObsxR0sbV5YPNj rLWlT4MfdM0zMKAcBV2kkk luj4rgYKX9QCqfQEGdXLH2 LxBoPCLcr4Axuxg7FeDhw1 VmdFOnPMomZ75qr458NGRh jwKzC7zztCOymdfnzCQagt okJOfwfyG1AWZhucBrm1Ti GRTcPUU1GYaxPFcitVLpLU SjpPkje6gnQ2WuzUMyRSHq YWluXGYxXGZzMjBcbGFuZz EwMzNcaGljaFxmMVxkYmNo DIScZXfoN9crBmJxE3JsMK IxXnUifAGnP7qchUGpZKdd rUP0YNYmSHPev23gtHg1ZS Qttkdbz1XzAFRkfEEfqUAu dP7rsbSew0srEUQlQRTsEU VaU3WtJIH2mDMtLPMytGUr lRD5QZ3tmmVqSQ1tMNGvQi kgcmVzaWRlbnRzLCBmZWxs r8koAH1ePIOsxUgueZ0flI I3RUVwh8pidXMfyDVog1nh q1LqppEwLNziLBLcVHjcUL ZzFXTxEC1pHXJajZSqpxHg h4Q5TtsmaBCzfitoRCrgbc LoZBvchzemVMNoJNcdK3xp ChVfZOXijWfbLVktr0JxEG YxXGNmMlxmczIwXHBhclxw YXJccGFyXHNhMTYwXHNsMj G2PDEgrOEkkGTnzVwcjG2i ZjBcZnMyNFxwbGFpblxmMV hwncF4IQbheobeLSZrVWsg V2dmLoOgRMLkgDnbFQawd6 EhCEZzEVWtWtrgsdJ1SSi4 ttVqYKCrcOifxZ1owII9VA Xtj7Umf4Zsu68exNZyc62p k63htlSymNWzLf7qyOQhIK O1BXHDAASiQFVfI1YrGRGx vNutO9LtwOFmSHMhDeUbKH g2pODwKrWeJKrzuVLKh8M2 dIbrCVDrF8WlUYEdkDadYS XEIDt0ULgaKRKcZLvdSGIk XGZzMjBcbGFuZzEwMzNcaG ljaFxmMVxkYmNoXGYxXGxv Q0tyMmDcB7VyGLUjIbOnuP MoB3xjfNEicU1= Clinical Information (test code = [id number]) Jin Jiménez is a 50 year old male1. 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 Rectal Bx eval for IBD Gross Description (test code = [id number]) l6lkzNMaRLPzlWIHTCTaKK JyMA2enXutpHu0sUwrVGFu xrJ7dJJzSYfcm9mgWSI9q7 krfhGRYstfKPTnLB6pPRzp GEIkQD2lOiZeKSDbIbOyQH BhcGVydzEyMjQwXHBhcGVy oZA5TNBySN3iqsqiHPsrSD vuBMNneiC1CNSryZGaQ6Vt PYObEX3mkfksVMF6NNSLXc smUe1pmQBqyFqoJnQsTgCt KROqWTMaSPUfs2qszrPSyy pviMy3oG0HRLDxH3PcNT9A q8ooAQEjvLTwBMJ1FUrrg9 qeBVifRFZ1OWHcFXZfJFMd EG7JNwGoZHU4OEY5SWP8Gf Z3UDs2VEZUHXXvVGtpNEKl TRM9FGp3OOXkBR9gRBebrA LlJVxiCdyfQTzpY133CAqd IVQiK4WrX7AyPWfiVeOcTA yvXBXeNUVnOMwvBEQtO4ZL NSNxAUw7GTObQkKoKFc7XQ z6RB5TRePqREHtIGr6QmLo OVIgZGl6NNtaQV7WLZZuVB SsYYH0RNgkYKVwLXauOEs8 IDIgXFxzcyAzIFxcZmwgXF xxR22gdRMfIPOQEdorfYBp blxmczIwIFNQRUNJTUVOIE KzqNZwA5bvSjKzWqcjHBJj DQpccGFyZCANClxwbGFpbl xsdHJjaFxmczIyXGVwaWNO CKH8OI3bGPKREsltdZSyST Jrg6BsRSqhvIbzSVJeUxNq BPnVsTTnpL8sewGTGTejFD JuB3MfmwEcXKtyXXUzbg9f bGluLCBsYWJlbGVkIHdpdG ggdGhlIHBhdGllbnQncyBu IQ2sNZLLVLOyeR9lMNAsGM DpZHUrGRSlihTia2FaapSp GLVjZ23krHVcE36yx97uEX PnO66wmLSiV04gq07pVjku LVOihAYgy5VqBLEPAjPfwe XgG42it3ewqGHqe7VgZzZ5 GZ7dtZeqsnYlipBiY6NeUR Ekr14jeTC6xANapNReRsZo A68gcgPoMRbbOtYgXIYqOe AoI72ddP0kX9YhSTWzk2Mw ZMmyWI6fvZ8vFUHiOaywbJ IxAzQpmTEgErBiS86emD8t AAyiioIvEOGmCW5yVOSfXO ZlpNYvkR4bgbVpdvWruNo2 ZXJlZCBpbnRvIGEgYmlvcH N4QKVqMhIhduCgt5GeyHv7 bOWwNLlmHEOhnC8xqV7tZE GqZJscWZXpA69wu6DKs0Id o8cxeZaeh7SgxEUvUD3okS XqEB8Gi5pyIQUquTQmVYU6 VTpoz3clBDxkQRI2SSOhHj BtMAVlUA7VNdZeGGQ7JJD1 LVF7IrZ5UXq0GYIMQqFxCg IkPkc4LzumKRIiOUf8ZMj1 GTjZPzCaWtezVaJyLRA9TE Y6OdK9XXayzYKsYXjba2Kz HdCcBWNqXFalagN7VCVgjb Fpf7KmYIPcXFPmP7gmJcSx NSANClxmczIwIFNQRUNJTU VOIEJcZnMyMlxwYXIgDQpc cGFyZCANClxwbGFpblxsdH JjaFxmczIyXGVwaWNOZXN0 UA2vNZXMMqfivIZcXYBqt1 IzMFxlcGljWHNiMzAgDQpT gBBoaA0eeeRWJSkwZLQgD8 UvmtVtTGpfOWYliv0pzEni LCBsYWJlbGVkIHdpdGggdG wdCPGcmZrrveVnonIdVV4r FYASGFSmbX9yQGKbHAFdFS Z6bU9wEORrL1QogNPODEOm dmFsIGZvciBJQkQiIGFuZC Guh60ouOS1vrUdQkRxaJj2 bMQdKQY3GG3ipNetzsWkaj AwO3FxMUGxx90frZP1bTGj jGUwUqMwJ61fhkMjHRrfYx OuYT09WIHeWCsuIKazWSA6 BKN2QIXqlMIaf8hafpsmLA 9pOFbbTG2rXFakGE0vRWDx XGejCNOkJ1CdD4L5CKeqWN IYrDWnd0FwH4vaVB9taMDi GxkraMTvJUWsxH20dsEcNX Nmq5OrwPHfZFwrAP8oACL0 Hq9boTSnYPXmcwL2w0AoGG luIEIxLlxwYXIgDQpccGFy ZFxsdHJwYXIgDQpccGFyIA 0KSGFvdGlhbiBXdSwgUEEo NSBCNSjedDQnTK0QJESpj3 CwU5M2NEHtVNorg4vmYRHn LZaja5FfFGjFHNTAEL5GVY 0qhEH3PLoHI6BVZ1oFtNQb YOWrPKzlyEKRZI72DSr7jA W2iA84WBFyLLPxrLCjTYxz H057MW2gFu1sLJZ1EMJcEd J4y7zuzXWiIXxnLhxfeZYp rcJ0UZbJBFKOKWiRWcPxNB 2mFUiHKazQDgR0VtIdJLQu oPI6FWRPKCvuxXh0EAc5bS ceRergphMllVAfQnVDqE1z hDqvgL9bkFEtO2jyWoPzEd ldODOhOVoqi2QtANrrrExh IWVxUwBkODcySMNhW78es6 SXy4Eey3lrrHwdz6JkdUGz SL96OKUkfZSrMZH8XQ3giG xwYXIgDQpccGFyZCANClxw bGFpbiANCn0= Disclaimer (test code = [id number]) j4wimHFqXNIjy0blJILdnE FuZzEwMzNcZnRuYmpcdWMx YFojrnKdQSdbk3HbM7YsNb AwMFxhbnNpXGRlZmxhbmcx XFApDAN2rhHqCKHoNVwwJC DfPUwaPr3arURkzDedZxPy ZLVkf4yfscRVQRxvXmNaO1 93GMDlHSfwz8jnv1MgBWNg vOYps1Y4EYLFqyizkYz5oE hvA22rf5A2EjueP2kgZWQx AQSgX0TxBO6zUZYbVen5CT W3EAO6EQWjIYKdA8DdJM6s WEIfnOWkJHj1i6hmcKjiFD BbJUT9r8kzNDxrjuSeIW8c de7erPa6y3mmmuGcDASeNP FlwVPTMCTgW8QbsHkzQc9f lYh8fCifQofuEBE3Wna4KR 8jgo07jop9tVoaADDkptfn BeN3PJvrZTLvgopjJVf1NJ jzTWFpcCD7YGNooNFfC9Ur SWXmCW8nkfb9QAX4CIfxZD KnXaS5DFXcrOQyDIMnqFzb ECbqt396OFK3FaZbSY9uY6 Vdh3Q1dA8wgEBxNJPpcLVd OyOrHDIxqg0laJEaFFnec1 FsWFC1ecA4kLKklXCyTSPe SD44Kicen3XeHbhfu5LfI7 7isNZ1OMxjy6ymZK8rReJ6 qgRvRLpzq4ynxH1zWsS8RA woJQ9hGS8mUIZoqB3ctfxq XHBnYnJkcmhlYWRccGdicm KlMs8riHmlHXP9PWdyY3gq eF8gWbC7JQtpG9tltY6vOY r3VPuguQO7FKHmyA1nZO9k hpcmx9uzMRzkVIanVQOjag I3weE0FZDtaXFzC9SprL4a JOAqVT9wfambn4baJSZ9EC cdNCEqVLN8BsEnTRLxk9Hu lqg9TxYln2FtfOUwDImsF5 9rd878DBWgkyXaK9wbnNCk evezeHMttwqqHAavzfS1TN CflhThl6AuJOVaKHH3KFok GHxfqITtXTNtvVwvz0gmP0 RscGFyXHBsYWluXGYxXGZz MjBcbGFuZzEwMzNcaGljaF rmEKkySgMuFMRxIZxyC3ip JqTcW1NtDJFqQzLzxQLnW7 ggVGhpcyByZXBvcnQgbWF5 EMnsB8l9LPNpawPeuMu1ul XzVkZzXNTuAVK6UXcwcPIv FDOlz2FsktgeoZApIs8goH MvNIUzxL2pYJVrZYYxJOjz FG2rmAa0LRZHiTDonOBcXs EUZGRtYA04uqCrHEIMozwx r9A8OHghXNUoc3MzqXKqJ8 ags8DcJKHbt77sRS9qd7B9 e6jfBIQ4TC0kd9YxUOMkrZ VyuBTgOBOxf9Rpjhwkf5Gt KGRjdyEjq8ZsTSQbteQwxP DfBJCmlyLsjd7aabYlHLJa XUEkN2RotlumfThrwiKyOU Oirb0osrLdEER1GWDSSNIc YICkj9UppH5bgXBXTAU5rH Qrbx4whuODjIZoTJYvat44 PPDvRG4pI2guPSDgOINspg GtbUAri3VrXGXzhGJ9kIOq JR0DWcGJw38aPVEzYZVHro NzPXAxsTfccTU1pgK3hS8p IChGREEpLlx+IFRoZSBGRE FmGB8cgoUuz9GoauXpnGjn YRFpgXEpp3EqnUBuh5LbsF vtc4CgbCZtvKIrQU1hPQGe clxwYXIgVVRNQiBMYWJvcm C7v0NtTYRxBZTnXTX4dZde sew6MFZlxQ0vHWFsW6fciu qwKNujCZIbz3SplW1rlCWC eLUhi8VknOClbTQEdRYfAV 2bonSwHRiUTPzMWCU6brGm VFLor8CkFZvmV4mhD18xeH ybjTa7wWX3AFQ6gL9uFgb+ IFxwYXJccGFyIEFwcHJvcH WvNWHdiWumcwRwM2JpdhJz qX3icMNzojZzAU0dIE0mF6 P9sHXrQORqevSde0ceSAde dmUgYmVlbiByZXZpZXdlZC Eze9KsYBmpVRN8FJayzwEr bmNsdWRpbmcgSCZFLCBTcG GxaJEnJBU4HMfrbbQpreAb FL5pzU1smOjtyW7vzUYvzL D5rbghWGAbXMToyCxtHZGy NN2nhNtszU1hAiUdGlHcGB wjLA6kWWRnP0jwvTOcEQQh MDCzH9cnKvMjsG8fpHgqQT xjZjJcZnMyMFxwYXJccGFy XHBsYWluXGYxXGZzMjBcbG FuZzEwMzNcaGljaFxmMVxk TrRmIELxPKihD2anLeDcN6 VcXZVwYtDiyGXxU6hxSIqe ADP8RBOhGS0nkZSiFX93kJ Mho5veDOfffKfcus4eV64u sVYgRIhvmKssOLUro12wd3 RgLDLsiwJftl7aJNBabwL1 gC2wINVoePelVOCmlFXoYO Wlx2SrRNjiiVExvdGuMEkf SOWvKNLglBEkdcE5loXmeh FywvVcUCVkhRnsQEGzv7Tv AOUwLCdvr2Kxxh6ujWKlBR HfieEByXvlmYLpaE5aS6Yz ZRNaFARecm9qZWYehX1vYQ tzs7EqikdcLYHkIHViPGWn kdZvsd1bOIFazLQUPW4WSR ozaHOwu1WygtErJ7qFKFM9 NUQwNjYwMjgxKSBleGNlcH UmNEMtmd96WLGqbZ9leGun MHKheU0rcR9vdDdmnD5aLj NoTrFvLNeuLU3iEWUkQ1et kRDqKLHoNBNuW1xlMaYmdA 9jaFxmMVxjZjJcZnMyMFxw YXJ9fQ== Embedded Images (test code = [id number]) [facility] [id number] 16:38:51* Test Item Value Reference Range Interpretation Comme nts Case Report (test code = [id number]) Surgical Pathology ?Case: [id number] ? Authorizing Provider: ?Robert Pearson MD ? ? ?Collected: ? 01/03/2025 0956 ?Ordering Location: ? ? GI Endoscopy OR Department Received: ?01/03/2025 1307 ?Pathologist: ? Kyleigh Huddleston MD ? Specimens: ? A) - LARGE INTESTINE, SIGMOID COLON, Sigmoid colon Bx eval for IBD ? B) - RECTUM, Rectal Bx eval for IBD ? Final Diagnosis (test code = [id number]) s3amtPZeYEYdh0vsRWTvvP FuZzEwMzNcZnRuYmpcdWMx IHtccnRmMVxhbnNpXGRlZm ijkcvdITYxQVC1zdKuQQZx GXI2WBV2OrTuDUFfDjUgXV N2TQVya0tyw5GojYMmyATv MTixyWGfflAzfz58aMH5eM 09KN6zFLWcOdI3JWAatdH8 Esk9LIKtDBOpxOUbJ040x0 uul1kwwgHscYA3uZqpLZRz fwedOgA3WJplWXIzgvloZK l8ORfyAAWjnEE5CEKfwMQj U5CmFZYoOW3woad8XGM2QZ mnRRQuPeP5DDXmgNAcMODg hRqzKXibh969ILP5SvRyLH JallUeiVmaeC4xOmGyLXju PCIpFO6hHFUGW5KdJC2KPU RTCJ7UANSGIYeLK2jMHLRT WT5OWLLFWV1JH9i6CGMgis QtHYRePFNWS0dBXydHLA6D Z86HBBRNRUNYVSCMMPLANJ LKD4JKV2FmWFGEVNLHIUrO VGBYHCFYHJXBD0aZQLPNIE JMDZseLUcLEF6NEIjFUtzn PCZwIKTxNT4wLe5wW2FFVz YUN33PPM3VKGXTP4PFVPRX QSBJREVOVElGSUVEICBccG FyXGZzMjJccGFyXGZzMjAg Wx3nDkUDRFBZXDGRKF8QX0 z0ULMajuLoEQQsNHMBNUSW PEfpMJFNU0SQNIwQKOxiHB vLHQtGZZwVJ6QKSSXPENOV NG7JUK2CPYMKAOIOGUQBHs BJTkZJTFRSQVRFIElOXHBh rdNqUMYnIZGaRZDPNR0MEC YZD4FEJIGepFAsNAGqFTYg GW1QBRXYSSfAJMMOBU2MSG PDN5HVTVSZIUAHZINDZTfI SUVEICBccGFyXHBhcmRccG DfFKLdyrxfUOP7b0iwiYAs XHNzdGVjZjIyMDAwXGFuc2 lcZGVmbGFuZzEwMzNcZnRu KrjzuZAnTEUqQdSzp6hfl3 21wMNbq4fjHALvArK8eVFy CPMojWnwciv7tOirJlQtCK Ctn5ksxfBrLaBkCADtTGJk LAWwvKHzC987GPCoQHxih6 fcl5SuFOSqnCFwj8E9ZTRC XJtkIaYcI119c1kne1ndkr HgcHD4JJZfYSH0XDztrzFg boZ2IIjbjTMoBuC2AFxrpy XnQQfmfqYzjfGhUqa3MZQn J137CVV0aFghl9hjQUI3IU ThGZTfLbajOo8jxBDkP669 SGIlFJNWDCChzRr6NKPsqe OvqmNlaUTXw208D594n9cz WUQhbqEyyWqQxuiey0bpY1 19XHBhcGVydzEyMjQwXHBh eSNuoEY5YPMuVU3fqkddAG msBZhcZWWxueV5AMMmbWPx W5LeMRMdBG9xqozrQFM1AW mbZJNnSHH1ZaVpGHJsx0Bt vgt3WwBxqq3nbr55VWT1m7 VipTuhQXT7AHI6NiFuBf5k vSDrUQIlJV8jBoZfoSIyGF Qpoc18jCkrIGuuopFkxW8x TbObJULjpDOtQFSaQB3lsZ QpOOVguT2yrjlkSFXnRoDi lprhQHNdjUlmdtMrHq8suU gsEZK5PLoaY3izjC1sEvO9 QKmnK1madX6zBGa2DTfxfB R6KKWrfH6iBX7zdyhaw1ew QXskSIzfBPHwbdC5kwU9KQ XfxNDbF5JdpI6fBNAlBG9i uktjf9qcJQZ4QNstATUtAN X1JzNkJCLfu0Pbjdb8QnRc u4RsoFNyCXxdR02ot897DC HyrbLhM1gswJUeqthmsFKk rvbmWXpevtK8OWTeBIJvBZ luXGYxXGZzMjBcbGFuZzEw MzNcaGljaFxmMVxkYmNoXG BoWVbbG7acJwWtR4VaSSLl JsLsdQEtQLwupRF0EYLdSY Btn51gcKh5PMPemdygh1Ux JBPeeWUbiEIpiS2fglKht3 nlQAHrIRTjUBQwU5UsJFH2 kZGoVSOncFCzvWJ5FF3rpw NlLG5xEYQdJmdvvzUheMIu tzRbHXYnCMtmf9eeAX6lFM CrrQgdsV5itJR6UXWqw6ab iKXanIWcf9bgu6RwhtAnGR axCLRxKSmvKGFeCRYuMG2v RZWpeIZlkeZno5W1XsmkeK JqygnxQrnwfyS0PZupguyq PWCzCGyaL0xsRlXiPSRphR xnYrtvm0IwHCVmSZXhCtno iNEuzV70SYL7XqAvz9E9EC McBdRhVLZjDG2dmYcbKYQh ZA6pGZYhO3fmhV4hmax9Gb WrZVQoDiU8IHIqqiY5Twi3 TKAhBDven6idh3UiA7UaiI DapPt5h9vkEJMoWiL5oMYo KOdmZ6xrozWcrMIyAYJbCA z5vX05ZMQnfQ2gyFLxOVkf otLaHhT9VFpeBSOcSqL9EB FdvWVaJEXzS4yjPYXzRKrn XDAuJEcgmBMrTDT1cTkrb0 R2qULgtTUfbUteTvSfWoNx DZRYc3WoRZk8gCqiS6AvZH AhZlS3sVElTOEoEOumNMWm JIJbjbA4mM18QHspfeG3yE Iuf8Ume47zb172vN7shVXh VOA8WYIdQHNhpLCsEIQeNQ Z9SLKgeFLmM3oqGHWxFJ8w dsgyKSuaPVihPDYajIQ2ZG DyxRRpA9PnKYMaLArlGRXo qsm1RxFgYf8yvRHidJyhKQ wro9vvq4vibQQiGgw5XWKm FfLrPaqfECrmt2Tdq8eiAR Gkaf92iPUjjRRrrNLxsz2a ziGbfUGffZMiBIF7cNSaut SlGQVfnVGoJKEzVA8otOZo RHMjmJ3bglzcLJThLyGtml lxBIVihBeoqwCvSe2rlSvc OUX7PTtaB7syaJ8zPaG5SI wuS1jldD4uQIf8RYbzeHG4 AGLglI6eTL8vikpcg9tuNN qaEWukGYGxvgT6znT2QPEl vGFmB0EyfS9xJDPpKB2mra olq0nqQRZ0FBfeOBRpUDU8 FpDiQJLph4Czekr3FyTyz0 JffNOzNPyrJ14rh860OXAl bkVlG3bzyCNjayldsJSimy hiQKseawM8AGKdwlZig5Dk RBYfQTZ9ZFioPYmycEEpLA RjyYgft8jkU9BsyKOxRZWv YWluXGYxXGZzMjBcbGFuZz EwMzNcaGljaFxmMVxkYmNo YFSvKJotH3yyTqYhR3HoXT CuZdYdfMLdR0hetRNnTKgy wDU0WHNtCOHbe68icTg1OX Ylyriau2SuHFAitUMbzVZq uG1dvlWgs2mnVZDsUPFnTD ReA2YzSVZ6wZUbMJIbfFFg cPC0UF6fimMdSS2kQHQfXl kgcmVzaWRlbnRzLCBmZWxs j2dsTA6lKKOhiBpacB2blX L0EIOvb9iauGZorHQrr4ad s5FdgyTmDMipQGBcLGswXN IzSASnBB5kBLSymXAvzrVm j2S4RsnuwVDpgyswAEoewm CdVPkvpcrqKTGiTAqnA1ai TfWqCCNtbXoqEVwng2NcCL YxXGNmMlxmczIwXHBhclxw YXJccGFyXHNhMTYwXHNsMj M0EKHwaZWhpDDqfXkzdG7g ZjBcZnMyNFxwbGFpblxmMV fkzrM2AVyjrhpwWSDpLSzp X2czThNeALKziYpqMPygq5 AcADGcDEIuOmkcteG5WGc1 ueBxPDLmjZkrlL3pdEM9MA Tlb5Mnp2Mfx55duYQwq06b h53sjbBupQPuSu5ivOFmCR Q9KXJXRCDmMQBgD9LiHNLt hTmnC2GbjKVfDIJhTnKkFQ h3uUWhCkTjFNusaARWl2F3 jUseNOXgS6WcZNCgzUuiJT IMIPf9BMqtFBGhCWdwKWZy XGZzMjBcbGFuZzEwMzNcaG ljaFxmMVxkYmNoXGYxXGxv S0rqLoSpA4QnOQJgFbUgtY HfH1hafTRiqM8= Clinical Information (test code = [id number]) Jin Jiménez is a 50 year old male1. 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 Rectal Bx eval for IBD Gross Description (test code = [id number]) m9ivjCImDLPofZPJBFOvGM OlKI6ibFtknTg9kIbqWZZh nyB1pWKxYCvcy9noWGU5d8 nkfwFEHtxrKLKmWX5xDPab QUEmKJ2qGaRpOCUpNzBxHK BhcGVydzEyMjQwXHBhcGVy lKK7LIBqRU7lkmsyWCevVY riDMJdqbS2FPImyUCiY6Lw YGKqRT8edxlrMWU1PCVWOm cwNv9jpVRreStzDjYpAdYp TLPcAPUyNTByw1besaYOge acvHv3wO4SBJVrH4KlAC4C n3gnJSKgtERpYXO3GGman4 saYSdrMWU2QBSkDZDyMOSb CW3GRbQwKHT0QBC5MEL0Hk Y5SLc9GUREZLVvVHzeBNKa BJD6LXu4DZTzMN8lHGubgR XfQVkrIdayGZbuR047HBku GDAiJ0AaQ8AbHGanQnHjXO odMXOdOQDxAHlvCJCkT8PX ZAErLWz9AEAsPyRhOEn0IC f7UJ2EGoGoANXkEJf7UnVf JCIzDGw6ZGddQU8XJGUeWV UbKSF9ZXjqAVRmOFhtEHw5 IDIgXFxzcyAzIFxcZmwgXF jfA92azPNyVHZTHuxvkJIr blxmczIwIFNQRUNJTUVOIE XemBTqT2kiBjJeNeplDFGg DQpccGFyZCANClxwbGFpbl xsdHJjaFxmczIyXGVwaWNO LGX0XK6bLHMKGteujXTyXX Iol3BvXLpfbWknQVPvLdCm JOgYoTPjgD0iboVRYEpiDI LqU4YlzfAtHOtuKVXznm4e bGluLCBsYWJlbGVkIHdpdG ggdGhlIHBhdGllbnQncyBu SR5yXLLUGWWamV6bBKIhNY WsGJEoEWFyypNyb7UktmPr ECWeZ08cnXJaY11ez86lSY QaJ35rpAUaM43wq83zEsvw EPOarAIil4EaBWBHYdPcnx ZrL27be0cdqJZfz6BwCbH9 JU7qzPnmwvXfebVlF3AbYF Gra84tfJY8xLOzlYAzJiHq S41ttcPvABhqBcTsTKTyCj ReJ18tcQ4lM9CpOSWcm9Ic CThrLR4ukL6cWKRhVkuzvM BeWqOmrMOzYfCmQ86sfA6r FYfbziHeAFKqZU9aSYNnTK MlrJEjvL5vacMiocJulEt0 ZXJlZCBpbnRvIGEgYmlvcH R6SSBcAmJxzbEep2DwdNz5 aATeIPakZEUteZ4zeN4eZO OuWLzyKJMaG41ry0LBk5Tm w2clmEqzd6GjqVNtOV7ceI QoHK6Xd5vhWYJkwYOcMEA7 BFyti1gzVUpyFZS3SRWpTq ZvBXStOG6MPwSdMEY2ADG2 MVM4QlQ0KVh4OLUYGbUzCw XdKio5LgkxXMRlKLz2HTp5 LPqTFvEbEnfwPjSrJLD7TX O0BuT4UAkciEJgMCygw0Lp MfJrTNOoIWialvR8GZKurc Loc6JrQPWlMTQsN9tpXjAi NSANClxmczIwIFNQRUNJTU VOIEJcZnMyMlxwYXIgDQpc cGFyZCANClxwbGFpblxsdH JjaFxmczIyXGVwaWNOZXN0 RX4eIHSXLdwhnZUkPPNxv6 IzMFxlcGljWHNiMzAgDQpT mPYnmB1abzEDUKanBRZoB1 UuntQmGIgvHUImhj8moFzt LCBsYWJlbGVkIHdpdGggdG mkCKSokJajyrJzgeKlKN7m WJVZHEVqrL0lKPGiVCSrRU C8iJ4zHATpA8ZuyABHUDUk dmFsIGZvciBJQkQiIGFuZC Zde14trAO2jdElUsAphMm5 kEMqVUA1RN3nwLgufqXhxq VgN2AlGMKuz13otKN7yXOw tPHiDxGdZ47xpiVpKZctWq PtHM14TVTaQEuiSHauGVL2 TTI5JOLaqGUwe9qnranfNG 3iSCtwGH5jPQwxMC8hXFYf EVicUYSfY5IoC9U6XZmkRT NViYRbw4ApN9phAG8krSZg MbqheZGyMNLlqK96yeXgOQ Yvb7NxjQMoQNffTJ0qHPZ8 Fk2tlZItZQDkbqS4m1GkWI luIEIxLlxwYXIgDQpccGFy ZFxsdHJwYXIgDQpccGFyIA 0KSGFvdGlhbiBXdSwgUEEo ZEXIAGudbRCdUE4SCWGvr5 GzG0W7WPFwMGdtz3sgYSVq VIwce0GdUCaVTOFAMR6MKO 2xmXE9UDcUA3XHN7dKrNYi DDCsWLcmsINANJ98TFm5rL P1zP38RINtTLZxkZDtOZkn B412WF0iHx6fSRO1BLRtRi I0r7wmhQXjVUosYxtzbNKz bhE0WSjBCWGXAWsROuCcZL 2gTCuYImxQMtH5VaHzEEGr xAJ6OSBQFKuhiGr4CYo1nT siZzxyrzMrkVEuLmNAjU3o tKcqcR7owSFsD0kdDkBrBa wmIBOkRUzag6PrQSthlGad XBCxHwJuKBpyDMMzV34tn6 YUu5Jji5veaRcew1ZaeFOo NF99NUXqzMLwVRY4DC0ywW xwYXIgDQpccGFyZCANClxw bGFpbiANCn0= Disclaimer (test code = [id number]) p5dxkJBuUDJqs6ktLWXbkQ FuZzEwMzNcZnRuYmpcdWMx SHkjfhIdUKlkv7HjM4PgXv AwMFxhbnNpXGRlZmxhbmcx LEPyRJV1vdOsDARdFQzyNY UtIJyjSy9odWZatSzgTxGz EEYgs0kylzDPNAuiMwQvC8 09JVJrUXues0ddg3DePRFj tHRaj9H3UHUXgbopmOi7zZ yrP23dx3U2KhnvB5bxNIEx VHJrA6QzUR8qOWQcSod9BH P2LYT1MXVeDVZbB7YmRD6y GCBceRZhPZj9u4zsqHpkUK OsJWE4q6bfUJmmqlRrEB0n eg1flWy9v8ooigWtCZIlQX RigVANQAKvR1BuaDdiCq2p jRp7gTepAfdnUFR7Jaz2ZW 1zub86uld3gNudAYTmiyng QqV9SPxhEZChstawUHh2ZI egZAMbqCL8QQJxxURaL6Tz NISiZL9jbwy3EMH0UIcjRC OxQzB1NQSgnUUhBYLeeFne UDbes248UDA8LhKdBB7wV9 Ecd4R9oO5oxACjOHJeuAHs VkUqPKDvve6ykEBeVSxib1 JlCOY5meA6oGIojVCvEWBi HY51Qtavg0GoYwnel8OxT3 3nsHF4RGegp7ldQK7qXoD6 yeUiZYfit8vrbW4nFyW6BA alSZ6uAE9jLZRokT7lenjy XHBnYnJkcmhlYWRccGdicm EnRn2drFlfTCJ7FRmjK2se qN0zFcQ8PXjpO8kxvE9mHR g8ILhjsBL7RPQwbK5sQO9t jdtwe7woQJxhTQwlJAXyeh G3fyQ0CJBawBApF0IwrL1b OSXrXB0navdvj7vsEOL8GX feDZWiQST9WdXlEHEtz8Kf qvl0CgHof5KrcOIyGVjjG9 7ku770QDAtkiBrD6ocvCQz lifnbYUybhfcNHjrfqP1CA LxneAuo3WrLHKuZPI8DWjm TXzjwSPdFMFteEcmr7ziR7 RscGFyXHBsYWluXGYxXGZz MjBcbGFuZzEwMzNcaGljaF hcJVrjYdUzKDUvJMbuC1ou JsTtC0DwNRXcIpYosLCpQ0 ggVGhpcyByZXBvcnQgbWF5 EKxpY0q3AZAiwuVfoHs6rp MuDePxAJGwDTI5VUjouZCb XKTyo1EjsooeoNRgXc5wsG PxSKDhjO0nKZPiPDYqLSgf SL4vhCj3HDVAySWjkURyHf DXDTJkFY51vaPrYYKDfzpu k7I2MXvgDXZxl0IupDNoC1 wrw9UgZIFoe28wEB9uu6L7 n1pcWUG7EN3lp9FsAGNnmD HpcVHuJOZdu7Ikdsqzb3Vh RBLmfkTvm6DmVLSsxbVsmD VfOYWafuBoei7crhIvSQRn GBYwW3BibrdlqImcjiPzPS Zzmo9vlrCqVZY9UWNPRKAq BNVte9NddY5wiNLMSLZ8xF Ezvc2tksJKrZClYZYrzj56 WVJaUN8zQ5ejTUJzKTSpar LdhHMhe5YmJRQzbIJ4qNWq OB9FCjKZw50uLOPgEFIKkf HpJFMsvZylbCO3pwR1rK1b IChGREEpLlx+IFRoZSBGRE HmTU4eajZbt8AwhbLysKkb PADmoUOey8ZyoMWxs4OdeC ijr0AnfUQsiENeRT5lIFXu clxwYXIgVVRNQiBMYWJvcm V3s4MkPDImVAMzIXE0fBlc fat5ZKPdqH0lPAJdS3hday yuWIemQHZfe2IccX6vbSBX yMQbw2FljNQwfDAXzWLxAP 1qgiPtQWoBOZuYEFV8eqOz VGWzj4AxUUyiD8jhZ82kzY gzkNo8mUA4DTC0uF5nAnz+ IFxwYXJccGFyIEFwcHJvcH BwVRPhaFzarxQvN3KnbkXb nU1enSHtytZdMV3pQD3kG6 W7kBOnLXHnufWcy8wdAVap dmUgYmVlbiByZXZpZXdlZC Yfg1GhXErcHIJ1VGtgqnKq bmNsdWRpbmcgSCZFLCBTcG IxgYLfPJE5VDavcyKpgzZj SF0xvZ1bqAsmpX9nxPQvtE X2townEEWgMQWstNsuOOSm PE3fzGffhR6gIeGoPxYvOW eyJY0mQBEvA4wjaCViVOBk RGNtM7euTdPefY0lbXurCO xjZjJcZnMyMFxwYXJccGFy XHBsYWluXGYxXGZzMjBcbG FuZzEwMzNcaGljaFxmMVxk YkWuXGZxDSydX0enJuGuR0 ArQAXmOkNgjGYqQ1xlXMtu ABK5NUZyGF3rwLPrPD20zD Qfx2gnLBppaIkola7yX78y rWStDTtmsNvpRZLsd41gy8 WyVBOdxxDwjt9nKTTkfaD6 qY2fIDHfmDuyMTRzfAYiEM Zzm1BtGJnbxETbalDnOXtr IFNeCAAyyUBddvX3gmHlnv JahaYrQZYyfVajRUAai8Ae UCAnSLwmv8Yolu1aeCAjEM CumnIAxJegtATawL0mJ4Su JPIhGZHnnq6zXTLzdA1pEE vab8RubvzlXBRuUNViWPGu dsUlmb0kGYXxzOINHU2RHE xjfQCaw4UtmfFhV4mLJCW7 NUQwNjYwMjgxKSBleGNlcH PzDEQnqr42TSVhrC2lyQus ADXpnP3nzH4zhKsgqU4mSw AmVlIxNBrwMX4wITJmQ1pn hPScULZqLDHdG7raByNpkE 9jaFxmMVxjZjJcZnMyMFxw YXJ9fQ== Embedded Images (test code = 8807123112) [facility] with [id number] 09:46:24* Test Item Value Reference Range Interpretation Comme nts WBC (test code = 6690-2) 6.28 4.20-10.70 RBC (test code = 789-8) 3.65 4.26-5.52 L HGB (test code = 718-7) 11.7 g/dL 12.2-16.4 L HCT (test code = 4544-3) 33.5 % 38.4-49.3 L MCV (test code = 787-2) 91.8 fL 81.7-95.6 MCH (test code = 785-6) 32.1 pg 26.1-32.7 MCHC (test code = 786-4) 34.9 g/dL 31.2-35.0 RDW-SD (test code = 95380-8) 45.9 fL 38.5-51.6 RDW-CV (test code = 788-0) 13.5 % 12.1-15.4 PLT (test code = 777-3) 439 150-328 H MPV (test code = 15377-0) 8.5 fL 9.8-13.0 L NRBC/100 WBC (test code = 5052437380) 0 0.0-10.0 NRBC x10^3 (test code = 3880229510) See_Comment [Automated message] The system which generated this result transmitted reference range: 10*3/?L. The reference range was not used to interpret this result as normal/abnormal. GRAN MAT (NEUT) % (test code = 770-8) 72.4 % IMM GRAN % (test code = 2593260956) 2.2 % LYMPH % (test code = 736-9) 15 % MONO % (test code = 5905-5) 9.6 % EOS % (test code = 713-8) 0 % BASO % (test code = 706-2) 0.8 % GRAN MAT x10^3(ANC) (test code = 8261824524) 4.55 10*3/uL 1.99-6.95 IMM GRAN x10^3 (test code = 4548320427) 0.14 10*3/uL 0.00-0.06 H LYMPH x10^3 (test code = 731-0) 0.94 10*3/uL 1.09-3.23 L MONO x10^3 (test code = 742-7) 0.6 10*3/uL 0.36-1.02 EOS x10^3 (test code = 711-2) 0.06-0.53 L BASO x10^3 (test code = 704-7) 0.05 10*3/uL 0.01-0.09 BANDS (test code = 0762593257) MARKED INCREASED A DOHLE BODIES (test code = 7792-5) Present A TOXIC CHANGES (test code = 803-7) Present A Lab Interpretation (test code = 01403-5) Abnormal [facility] with [id number] 09:46:24* Test Item Value Reference Range Interpretation Comme nts WBC (test code = 6690-2) 6.28 4.20-10.70 RBC (test code = 789-8) 3.65 4.26-5.52 L HGB (test code = 718-7) 11.7 g/dL 12.2-16.4 L HCT (test code = 4544-3) 33.5 % 38.4-49.3 L MCV (test code = 787-2) 91.8 fL 81.7-95.6 MCH (test code = 785-6) 32.1 pg 26.1-32.7 MCHC (test code = 786-4) 34.9 g/dL 31.2-35.0 RDW-SD (test code = 01827-9) 45.9 fL 38.5-51.6 RDW-CV (test code = 788-0) 13.5 % 12.1-15.4 PLT (test code = 777-3) 439 150-328 H MPV (test code = 50710-8) 8.5 fL 9.8-13.0 L NRBC/100 WBC (test code = 1466170976) 0 0.0-10.0 NRBC x10^3 (test code = 1008977370) See_Comment [Automated message] The system which generated this result transmitted reference range: 10*3/?L. The reference range was not used to interpret this result as normal/abnormal. GRAN MAT (NEUT) % (test code = 770-8) 72.4 % IMM GRAN % (test code = 9760620712) 2.2 % LYMPH % (test code = 736-9) 15 % MONO % (test code = 5905-5) 9.6 % EOS % (test code = 713-8) 0 % BASO % (test code = 706-2) 0.8 % GRAN MAT x10^3(ANC) (test code = 8687214006) 4.55 10*3/uL 1.99-6.95 IMM GRAN x10^3 (test code = 8348975721) 0.14 10*3/uL 0.00-0.06 H LYMPH x10^3 (test code = 731-0) 0.94 10*3/uL 1.09-3.23 L MONO x10^3 (test code = 742-7) 0.6 10*3/uL 0.36-1.02 EOS x10^3 (test code = 711-2) 0.06-0.53 L BASO x10^3 (test code = 704-7) 0.05 10*3/uL 0.01-0.09 BANDS (test code = 0039226128) MARKED INCREASED A DOHLE BODIES (test code = 7792-5) Present A TOXIC CHANGES (test code = 803-7) Present A Lab Interpretation (test code = 64423-8) Abnormal [facility] Metabolic Panel (NA, K, CL, CO2, GLUCOSE, BUN, CREATININE, CA)2025-01-04 09:02:34* Test Item Value Reference Range Interpretation Comme nts NA (test code = 1219135154) 135 mmol/L 135-145 K (test code = 1115577552) 3.5 mmol/L 3.5-5.0 CL (test code = 7750239554) 93 mmol/L 98-108 L CO2 TOTAL (test code = 3854218471) 39 mmol/L 23-31 H AGAP (test code = 9342084284) 3 2-16 BUN (test code = 0604764958) 9 mg/dL 7-23 GLUCOSE (test code = 6757817466) 138 mg/dL 70-110 H CREATININE (test code = 2160-0) 0.81 mg/dL 0.60-1.25 CALCIUM (test code = 8214257752) 7.6 mg/dL 8.6-10.6 L eGFR (test code = 21397-6) 106.1 mL/min/1.73m2 CKD-EPI eGFR (2020). Assuming creatinine has been stable day-to-day for at least three months, the eGFR indicates Category G1 (>= 90 mL/min/1.73 m2) Lab Interpretation (test code = 86569-3) Abnormal [facility]2025-04-18 09:02:34* Test Item Value Reference Range Interpretation Comme nts MAGNESIUM (test code = 1517326922) 2.2 mg/dL 1.7-2.4 Lab Interpretation (test cod e = 54567-9) Normal [facility] Metabolic Panel (NA, K, CL, CO2, GLUCOSE, BUN, CREATININE, CA)2025-01-04 09:02:34* Test Item Value Reference Range Interpretation Comme nts NA (test code = 7789664015) 135 mmol/L 135-145 K (test code = 8860883749) 3.5 mmol/L 3.5-5.0 CL (test code = 6157735311) 93 mmol/L 98-108 L CO2 TOTAL (test code = 5294534603) 39 mmol/L 23-31 H AGAP (test code = 6588467680) 3 2-16 BUN (test code = 9872286227) 9 mg/dL 7-23 GLUCOSE (test code = 7647625669) 138 mg/dL 70-110 H CREATININE (test code = 2160-0) 0.81 mg/dL 0.60-1.25 CALCIUM (test code = 0664954591) 7.6 mg/dL 8.6-10.6 L eGFR (test code = 46726-5) 106.1 mL/min/1.73m2 CKD-EPI eGFR (2020). Assuming creatinine has been stable day-to-day for at least three months, the eGFR indicates Category G1 (>= 90 mL/min/1.73 m2) Lab Interpretation (test code = 99520-7) Abnormal [facility]2025-04-18 09:02:34* Test Item Value Reference Range Interpretation Comme nts MAGNESIUM (test code = 0271820931) 2.2 mg/dL 1.7-2.4 Lab Interpretation (test cod e = 63134-9) [facility] [id number] 14:48:38EXAM: XR KUB, XR KUB HISTORY: 50 years-old Male with confirm NGT TECHNIQUE: Supine radiographic view /s of the abdomen. COMPARISON: None FINDINGS: (01/03/2025, 2:17 AM) Interval advancement of the gastric tube with the sidehole and the tipprojecting over the fundus. Nonobstructive bowel gas pattern. Partially visualized gas-filled largebowel loop. (01/03/2025, 6:31 AM) Retraction of the gastric tube with the sidehole projecting near the GEjunction and tip over the gastric fundus. Diffuse large bowel wall thickening and mild dilatation, likely related todiffuse pancolitis as seen on recent CT. Prior fusion across the bilateral sacral iliac joint and left acetabularroof with unchanged broken inferior screw traversing bilateral SI joint.[facility] [id number] 14:48:38EXAM: XR KUB, XR KUB HISTORY: 50 years-old Male with confirm NGT TECHNIQUE: Supine radiographic view/s of the abdomen. COMPARISON: None FINDINGS: (01/03/2025, 2:17 AM) Interval advancement of the gastric tube with the sidehole and the tipprojecting over the fundus. Nonobstructive bowel gas pattern. Partially visualized gas- filled largebowel loop. (01/03/2025, 6:31 AM) Retraction of the gastric tube with the sidehole projecting near the GEjunction and tip over the gastric fundus. Diffuse large bowel wall thickening and mild dilatation, likely related todiffuse pancolitis as seen on recent CT. Prior fusion across the bilateral sacral iliac joint and left acetabularroof with unchanged broken inferior screw traversing bilateral SI joint[facility] To confirm nasogastric tube placement.2025-01-03 12:58:03EXAM: XR ABDOMEN 1 VW HISTORY: 50 years-old Male; confirm NGT placement . TECHNIQUE: Frontal views of the abdomen and pelvis [facility] nas[facility] tube placement. 2025-01-03 12:58:03EXAM: XR ABDOMEN 1 VW HISTORY: 50 years-old Male; confirm NGT placement . TECHNIQUE: Frontal views of the abdomen and pelvis COMPARISON: None [facility] [id number] 16:09:39* Test Item Value Reference Range Interpretation Comme nts Nil (test code = 84003-8) 0.127 IU/mL TB1 minus Nil (test code = 78208-8) 0.008 IU/mL TB2 minus Nil (test code = 7754610978) 0.003 IU/mL Mitogen minus Nil (test code = 39272-8) 6.153 IU/mL QFT Gold Plus Result (test code = 41140-3) Negative Negative PEACE (test code = PEACE) The QuantiFERON? TB Gold Plus (in Tube) assay is intended for use as an aid in diagnosis of TB infection. This test uses a peptide cocktail of CD4+ and CD8+ T cell antigens to stimulate cells in whole blood. ?Detection of interferon-gamma is used to identify in vitro responses to these peptide antigens that are associated with Mycobacterium tuberculosis infection. A negative result suggests that M. tuberculosis infection is unlikely. ?However, in patients with high suspicion of exposure, a negative test should be repeated on a new sample. A positive result indicates an interferon-gamma response to M. tuberculosis antigens, suggesting infection with M. tuberculosis. Positive results in patients at low-risk for tuberculosis should be interpreted with caution and repeat testing on a new sample is advised. ?If repeat testing is positive, treatment may be indicated. ?Consult Infectious Disease Services for further recommendations. False positive results may occur in patients with prior infection with M. marinum, M. szulgai, or M. kansasii. For an indeterminate result, the likelihood of determining infection with M. tuberculosis cannot be determined. ?If clinically indicated, repeat testing on a new sample is advised. Diagnosing or excluding tuberculosis disease, and assessing the probability of LTBI, requires a combination of epidemiological, historical, medical, and diagnostic findings that should be considered when interpreting QFT-Plus results. ?See general guidance on the diagnosis and treatment of TB disease and LTBI https://www.cdc.gov/tb/pu blications/guidelines/def smiley.htm. [facility] [id number] 16:09:39* Test Item Value Reference Range Interpretation Comme nts Nil (test code = 71408-8) 0.127 IU/mL TB1 minus Nil (test code = 70530-4) 0.008 IU/mL TB2 minus Nil (test code = 2753470055) 0.003 IU/mL Mitogen minus Nil (test code = 09286-5) 6.153 IU/mL QFT Gold Plus Result (test code = 03271-8) Negative Negative PEACE (test code = PEACE) The QuantiFERON? TB Gold Plus (in Tube) assay is intended for use as an aid in diagnosis of TB infection. This test uses a peptide cocktail of CD4+ and CD8+ T cell antigens to stimulate cells in whole blood. ?Detection of interferon-gamma is used to identify in vitro responses to these peptide antigens that are associated with Mycobacterium tuberculosis infection. A negative result suggests that M. tuberculosis infection is unlikely. ?However, in patients with high suspicion of exposure, a negative test should be repeated on a new sample. A positive result indicates an interferon-gamma response to M. tuberculosis antigens, suggesting infection with M. tuberculosis. Positive results in patients at low-risk for tuberculosis should be interpreted with caution and repeat testing on a new sample is advised. ?If repeat testing is positive, treatment may be indicated. ?Consult Infectious Disease Services for further recommendations. False positive results may occur in patients with prior infection with M. marinum, M. szulgai, or M. k[place]ii. For an indeterminate result, the likelihood of determining infection with M. tuberculosis cannot be determined. ?If clinically indicated, repeat testing on a new sample is advised. Diagnosing or excluding tuberculosis disease, and assessing the probability of LTBI, requires a combination of epidemiological, historical, medical, and diagnostic findings that should be considered when interpreting QFT-Plus results. ?See general guidance on the diagnosis and treatment of TB disease and LTBI https://www.cdc.gov/tb/pu blications/guidelines/def smiley.htm. [facility] Gall [id number] 05:51:38EXAM: US GALL BLADDER HISTORY: 49 years-old Male with C/f gallbladder pancreatitis . TECHNIQUE: Gallbladder ultrasound was performed. 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 COMPARISON: CTdated 12/30/2024. FINDINGS: GALLBLADDER:No cholelithiasis. Gallbladder sludge is noted.Normal gallbladder wall thickness, 3 mm.Negative Benavides's sign. BILE DUCTS:No intra- or extrahepatic biliary dilatation..Common Duct diameter: 2 mm. PANCREAS: Limited visualization due to shadowing from bowel gas.. OTHER: None.[facility] Gall [id number] 05:51:38EXAM: US GALL BLADDER HISTORY: 49 years-old Male with C/f gallbladder pancreatitis . TECHNIQUE: Gallbladder ultrasound was performed. 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 COMPARISON: CTdated 12/30/2024. FINDINGS: GALLBLADDER:No cholelithiasis. Gallbladder sludge is noted.Normal gallbladder wall thickness, 3 mm.Negative Benavides's sign. BILE DUCTS:No intra- or extrahepatic biliary dilatation..Common Duct diameter: 2 mm. PANCREAS: Limited visualization due to shadowing from bowel gas.. OTHER: None.[facility] Abdomen pelvis w contrast 2024-12-31 22:23:11Interpretation of outside imaging, ?CT ABDOMEN PELVIS W CONTRAST [facility] 12/30/2024.Today's date 12/31/2024 5:13 PM HISTORY: pancolitis COMPARISON: None. PROCEDURE: Axial images of abdomen and pelvis are obtained afterintravenous administration of contrast. Sagittal and coronal reformats areprovided. Findings: ?Agree with outside report. Acute diffuse pancolitis evidence by wall thickening, vascular congestionand mild surrounding pericolonic edema. Fluid-filled and mildly dilatedterminal ileum with wall thickening suggestive of associated terminalileitis. Few subcentimeter reactive appearing mesenteric lymph nodes. Small fat-containing right inguinal hernia. Bilateral small renal cyst up to 3 cm on the left. A couple of 2 mm right nephrolithiasis. Bladder wall thickening, could be secondary to cystitis. Bilateral SI joint fixation and screws and right femoral shaft janna are inplace. A left hemipelvis 1 cm metallic density is noted.[facility] Abdomen pelvis w [id number] 22:23:11Interpretation of outside imaging, ?CT ABDOMEN PELVIS W CONTRAST [facility] 12/30/2024. Today's date 12/31/2024 5:13 PM HISTORY: pancolitis COMPARISON: None. PROCEDURE: Axial images of abdomen and pelvis are obtained afterintravenous administration of contrast. Sagittal and coronal reformats areprovided. Findings: ?Agree with outside report. Acute diffuse pancolitis evidence by wall thickening, vascular congestionand mild surrounding pericolonic edema. Fluid-filled and mildly dilatedterminal ileum with wall thickening suggestive of associated terminalileitis. Few subcentimeter reactive appearing mesenteric lymph nodes. Small fat-containing right inguinal hernia. Bilateral small renal cyst up to 3 cm on the left. A couple of 2 mm right nephrolithiasis. Bladder wall thickening, could be secondary to cystitis. Bilateral SI joint fixation and screws and right femoral shaft janna are inplace. A left hemipelvis 1 cm metallic density is noted. [facility]-Reactive [id number] 13:35:33* Test Item Value Reference Range Interpretation Comme nts CRP (test code = 4943638311) 26.7 mg/dL <=0.8 H Lab Interpretation (test cod e = 17089-3) Abnormal [facility]-Reactive [id number] 13:35:33* Test Item Value Reference Range Interpretation Comme nts CRP (test code = 0163912540) 26.7 mg/dL <=0.8 H Lab Interpretation (test cod e = 37582-5) Abnormal [facility]wayABORH Confirmation (Lab Only)2024-12-31 11:21:00* Test Item Value Reference Range Interpretation Comme nts ABO & RH (test code = 20) O Negative [facility] Confirmation (Lab Only)2024-12-31 11:21:00* Test Item Value Reference Range Interpretation Comme nts ABO & RH (test code = 20) O Negative [facility]wayHIV 1/2 Ag-Ab with [id number] 07:24:49* Test Item Value Reference Range Interpretation Comme nts HIV Semi-quantitative (test code = 99169-6) 0.13 Negative PEACE (test code = PEACE) Non-reactive for HIV-1 antigen and HIV-1/HIV-2 antibodies. ?No laboratory evidence of HIV infection. ?Repeat in 2-4 weeks if acute HIV infection is suspected. [facility] 1/2 Ag-Ab with [id number] 07:24:49* Test Item Value Reference Range Interpretation Comme nts HIV Semi-quantitative (test code = 11641-8) 0.13 Negative PEACE (test code = PEACE) Non-reactive for HIV-1 antigen and HIV-1/HIV-2 antibodies. ?No laboratory evidence of HIV infection. ?Repeat in 2-4 weeks if acute HIV infection is suspected. [facility] Antibody (IgG and IgM)2024-12-31 04:40:22 * Test Item Value Reference Range Interpretation Comme nts HAV Total (test code = 1910264794) Negative HAVT Semi-Quantitative (test code = 2219027630) [facility]2024-12-31 04:40:22 * Test Item Value Reference Range Interpretation Comme nts HAV Total (test code = 7097271344) Negative HAVT Semi-Quantitative (test code = 5286912433) 1.5 [facility] LakewayFerritin [id number] 04:29:01* Test Item Value Reference Range Interpretation Comme nts FERRITIN (test code = 5564234569) 126 ng/mL 18.0-464.0 PEACE (test code = PEACE) Biotin has been reported to cause a negative bias, interpret results relative to patient's use of biotin. Lab Interpretation (test code = 44366-7) Normal [facility]wayFerritin [id number] 04:29:01* Test Item Value Reference Range Interpretation Comme nts FERRITIN (test code = 2634627718) 126 ng/mL 18.0-464.0 PEACE (test code = PEACE) Biotin has been reported to cause a negative bias, interpret results relative to patient's use of biotin. Lab Interpretation (test code = 13572-1) Normal [facility] LakewayHepatitis B Surface [id number] 04:25:00 * Test Item Value Reference Range Interpretation Comme nts HBsAg Semi-Quantitative (kamaljit t code = 5195-3) 0.06 Negative [facility] B Surface [id number] 04:25:00 * Test Item Value Reference Range Interpretation Comme nts HBsAg Semi-Quantitative (kamaljit t code = 5195-3) 0.06 Negative [facility] LakewayProthrombin Time / [id number] 04:08:38* Test Item Value Reference Range Interpretation Comme nts PROTIME PATIENT (test code = 5964-2) 13 10.1-12.6 H INR (test code = 6301-6) 1.2 <=4.5 Normal INR <1.1; Warfarin Therapeutic range 2.0 to 3.0 or 2.5 to 3.5, depending upon the indications. Lab Interpretation (test code = 41505-2) [facility] 04:08:38* Test Item Value Reference Range Interpretation Comme nts APTT Patient (test code = 3173-2) 25 26-36 L Lab Interpretation (test cod e = 76933-0) Abnormal [facility]wayProthrombin Time / [id number] 04:08:38* Test Item Value Reference Range Interpretation Comme nts PROTIME PATIENT (test code = 5964-2) 13 10.1-12.6 H INR (test code = 6301-6) 1.2 <=4.5 Normal INR <1.1; Warfarin Therapeutic range 2.0 to 3.0 or 2.5 to 3.5, depending upon the indications. Lab Interpretation (test code = 28280-2) [facility] 04:08:38* Test Item Value Reference Range Interpretation Comme nts APTT Patient (test code = 3173-2) 25 26-36 L Lab Interpretation (test cod e = 54905-3) [facility]normal [facility] (NA, K, CL, CO2, GLUCOSE, BUN, CREATININE, CA)2024-12-31 04:01:34* Test Item Value Reference Range Interpretation Comme nts NA (test code = 6874519140) 132 mmol/L 135-145 L K (test code = 6457863971) 2.6 mmol/L 3.5-5.0 LL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 Outcome: Adequate for discharge 01/10/2025 1350 by Matilde Campbell RN Outcome: Adequate for discharge Problem: Skin integrity Impaired (Risk or Actual) Goal: Wound healing 01/10/2025 1524 by Matilde Campbell RN Outcome: Adequate for discharge 01/10/2025 1350 by Matilde Campbell RN Outcome: Adequate for discharge Goal: Prevention of new skin breakdown 01/10/2025 1524 by Matilde Campbell RN Outcome: Adequate for discharge 01/10/2025 1350 by Matilde Campbell RN Outcome: Adequate for discharge Matilde Campbell RN [facility] 2025-01-10 13:51:02 Problem: Pain Goal: Control of pain at or below patient's documented comfort goal Outcome: Adequate for discharge Goal: Reduction in pain sensation Outcome: Adequate for discharge Problem: Infection Risk Goal: Absence of infection Outcome: Adequate for discharge Problem: Bleeding, Risk of Goal: Absence of impaired coagulation signs and symptoms Outcome: Adequate for discharge Goal: Absence of active bleeding Outcome: Adequate for discharge Problem: Falls, Risk of Goal: Absence of falls Outcome: Adequate for discharge Problem: Discharge Planning Goal: Adequate for discharge Outcome: Adequate for discharge Goal: Effective communication Outcome: Adequate for discharge Problem: Skin integrity Impaired (Risk or Actual) Goal: Wound healing Outcome: Adequate for discharge Goal: Prevention of new skin breakdown Outcome: Adequate for discharge [facility] 2025-01-10 11:50:33 Images from the original note were not included. CARE MANAGEMENT Care Coordinators/Social Workers/CM Specialists/Utilization Review/Patient Placement & Transfer Center 01/10/2025 11:50 AM Care Management Discharge Disposition Note (DCDN) 5-2-1 Interventions: Disease specific education, Intensive medication reconciliation/management, Teach back, Follow-up appointments, Follow-up phone calls 5-2-1 Providers: Physician, Supply Chain Intern/Telemarketer Supervisor, Nurse 5-2-1 Patient Capacity Improvements: Avoidance of adverse events/readmission Discussed with patient/patient s family involved in decision making: Patient's family or support contact: Discharge Plan for ongoing care and services: Home/Caregiver Home Discharge Location: Discharge Disposition (for note) - 01/01/25 1145 Home/Caregiver address [address] [place] [address] Other Living arrangements: [address] [place] [address] Transportation: [employer] (Voucher # [id number] - [employer] [phone]) Ambulance Service: EMS Date Called: EMS Time Called: EMS ETA: Prior authorization obtained for ambulance: Authorization number: CPT code: Discharge Medications Will the patient be able to obtain his medications? Yes Does the patient have transportation to to obtain the prescription medications? No Expected discharge date: 01/10/25 Time: 1600 Name of RN informed of discharge: Matilde Campbell Additional Information: Post-Acute Care Transition Education: Post-Acute Care Transition Education Completed: Yes Name and Relationship of Person Educated: Patient - Jin Type of Post-Acute Care Service Education Complete: Other (see comments) (county resources) CM/SW Name & Contact number: Sonya Hurtado RN Ph. [phone] The following information has been provided to the facility noted above: reason for the patient discharge or transfer; patient s physical and psychosocial status; summary of care, treatment, services provided to patient; and the patient progress toward goals. [facility] 2025-01-10 04:09:19 Problem: Pain Goal: Control of pain at or below patient's documented comfort goal Outcome: Progressing as expected Goal: Reduction in pain sensation Outcome: Progressing as expected Problem: Infection Risk Goal: Absence of infection Outcome: Progressing as expected Problem: Bleeding, Risk of Goal: Absence of impaired coagulation signs and symptoms Outcome: Progressing as expected Goal: Absence of active bleeding Outcome: Progressing as expected Problem: Falls, Risk of Goal: Absence of falls Outcome: Progressing as expected Problem: Discharge Planning Goal: Adequate for discharge Outcome: Progressing as expected Goal: Effective communication Outcome: Progressing as expected Problem: Skin integrity Impaired (Risk or Actual) Goal: Wound healing Outcome: Progressing as expected Goal: Prevention of new skin breakdown Outcome: Progressing as expected T Evonne Lovell RN [facility] 2025-01-09 15:57:46 Problem: Pain Goal: Control of pain at or below patient's documented comfort goal Outcome: Progressing as expected Goal: Reduction in pain sensation Outcome: Progressing as expected Problem: Infection Risk Goal: Absence of infection Outcome: Progressing as expected Problem: Bleeding, Risk of Goal: Absence of impaired coagulation signs and symptoms Outcome: Progressing as expected Goal: Absence of active bleeding Outcome: Progressing as expected Problem: Falls, Risk of Goal: Absence of falls Outcome: Progressing as expected Problem: Discharge Planning Goal: Adequate for discharge Outcome: Progressing as expected Goal: Effective communication Outcome: Progressing as expected Problem: Skin integrity Impaired (Risk or Actual) Goal: Wound healing Outcome: Progressing as expected Goal: Prevention of new skin breakdown Outcome: Progressing as expected [facility] 2025-01-09 00:28:44 Problem: Pain Goal: Control of pain at or below patient's documented comfort goal Outcome: Progressing as expected Goal: Reduction in pain sensation Outcome: Progressing as expected Problem: Infection Risk Goal: Absence of infection Outcome: Progressing as expected Problem: Bleeding, Risk of Goal: Absence of impaired coagulation signs and symptoms Outcome: Progressing as expected Goal: Absence of active bleeding Outcome: Progressing as expected Problem: Falls, Risk of Goal: Absence of falls Outcome: Progressing as expected Problem: Discharge Planning Goal: Adequate for discharge Outcome: Progressing as expected Goal: Effective communication Outcome: Progressing as expected Problem: Skin integrity Impaired (Risk or Actual) Goal: Wound healing Outcome: Progressing as expected Goal: Prevention of new skin breakdown Outcome: Progressing as expected [facility] 2025-01-08 12:22:34 Problem: Pain Goal: Control of pain at or below patient's documented comfort goal Outcome: Progressing as expected Goal: Reduction in pain sensation Outcome: Progressing as expected Problem: Infection Risk Goal: Absence of infection Outcome: Progressing as expected Problem: Bleeding, Risk of Goal: Absence of impaired coagulation signs and symptoms Outcome: Progressing as expected Goal: Absence of active bleeding Outcome: Progressing as expected Problem: Falls, Risk of Goal: Absence of falls Outcome: Progressing as expected Problem: Discharge Planning Goal: Adequate for discharge Outcome: Progressing as expected Goal: Effective communication Outcome: Progressing as expected Problem: Skin integrity Impaired (Risk or Actual) Goal: Wound healing Outcome: Progressing as expected Goal: Prevention of new skin breakdown Outcome: Progressing as expected Oliva Elizabeth RN [facility] 2025-01-08 02:39:35 Resuming care for pt at this time. Pt assessed and no changes noted from charted shift assessment. Md notified of testicular edema and pain. Dilan Andrew RN [facility] 2025-01-08 01:52:39 Problem: Pain Goal: Control of pain at or below patient's documented comfort goal 01/08/2025151 by Peter Velasquez RN Outcome: Progressing as expected 01/08/2025150 by Peter Velasquez RN Outcome: Progressing as expected Goal: Reduction in pain sensation 01/08/2025151 by Peter Velasquez RN Outcome: Progressing as expected 01/08/2025 015 by Peter Velasquez RN Outcome: Progressing as expected Problem: Infection Risk Goal: Absence of infection 01/08/2025 015 by Peter Velasquez RN Outcome: Progressing as expected 01/08/2025 015 by Peter Velasquez RN Outcome: Progressing as expected Problem: Bleeding, Risk of Goal: Absence of impaired coagulation signs and symptoms 01/08/2025 015 by Peter Velasquez RN Outcome: Progressing as expected 01/08/2025 015 by Peter Velasquez RN Outcome: Progressing as expected Goal: Absence of active bleeding 01/08/2025 015 by Peter Velasquez RN Outcome: Progressing as expected 01/08/2025150 by Peter Velasquez RN Outcome: Progressing as expected Problem: Falls, Risk of Goal: Absence of falls 01/08/2025151 by Peter Velasquez RN Outcome: Progressing as expected 01/08/2025 015 by Peter Velasquez RN Outcome: Progressing as expected Problem: Discharge Planning Goal: Adequate for discharge 01/08/2025151 by Peter Velasquez RN Outcome: Progressing as expected 01/08/2025150 by Peter Velasquez RN Outcome: Progressing as expected Goal: Effective communication 01/08/2025151 by Peter Velasquez RN Outcome: Progressing as expected 01/08/2025150 by Peter Velasquez RN Outcome: Progressing as expected Problem: Skin integrity Impaired (Risk or Actual) Goal: Wound healing 01/08/2025 015 by Peter Velasquez RN Outcome: Progressing as expected 01/08/2025 015 by Peter Velasquez RN Outcome: Progressing as expected Goal: Prevention of new skin breakdown 01/08/2025151 by Peter Velasquez RN Outcome: Progressing as expected 01/08/2025150 by Peter Velasquez RN Outcome: Progressing as expected Peter Velasquez RN [facility] 2025-01-08 01:51:24 Problem: Pain Goal: Control of pain at or below patient's documented comfort goal Outcome: Progressing as expected Goal: Reduction in pain sensation Outcome: Progressing as expected Problem: Infection Risk Goal: Absence of infection Outcome: Progressing as expected Problem: Bleeding, Risk of Goal: Absence of impaired coagulation signs and symptoms Outcome: Progressing as expected Goal: Absence of active bleeding Outcome: Progressing as expected Problem: Falls, Risk of Goal: Absence of falls Outcome: Progressing as expected Problem: Discharge Planning Goal: Adequate for discharge Outcome: Progressing as expected Goal: Effective communication Outcome: Progressing as expected Problem: Skin integrity Impaired (Risk or Actual) Goal: Wound healing Outcome: Progressing as expected Goal: Prevention of new skin breakdown Outcome: Progressing as expected [facility] 2025-01-07 19:16:58 Problem: Infection Risk Goal: Absence of infection Outcome: Progressing as expected Problem: Bleeding, Risk of Goal: Absence of impaired coagulation signs and symptoms Outcome: Progressing as expected Goal: Absence of active bleeding Outcome: Progressing as expected Problem: Falls, Risk of Goal: Absence of falls Outcome: Progressing as expected Problem: Discharge Planning Goal: Adequate for discharge Outcome: Progressing as expected Goal: Effective communication Outcome: Progressing as expected Problem: Skin integrity Impaired (Risk or Actual) Goal: Wound healing Outcome: Progressing as expected Goal: Prevention of new skin breakdown Outcome: Progressing as expected Problem: Pain Goal: Control of pain at or below patient's documented comfort goal Outcome: Not progressing as expected Goal: Reduction in pain sensation Outcome: Not progressing as expected Christopher Gutierrez RN [facility] 2025-01-07 03:21:00 Problem: Pain Goal: Control of pain at or below patient's documented comfort goal Outcome: Progressing as expected Goal: Reduction in pain sensation Outcome: Progressing as expected Problem: Infection Risk Goal: Absence of infection Outcome: Progressing as expected Problem: Bleeding, Risk of Goal: Absence of impaired coagulation signs and symptoms Outcome: Progressing as expected Goal: Absence of active bleeding Outcome: Progressing as expected Problem: Falls, Risk of Goal: Absence of falls Outcome: Progressing as expected Problem: Discharge Planning Goal: Adequate for discharge Outcome: Progressing as expected Goal: Effective communication Outcome: Progressing as expected Problem: Skin integrity Impaired (Risk or Actual) Goal: Wound healing Outcome: Progressing as expected Goal: Prevention of new skin breakdown Outcome: Progressing as expected [facility] 2025-01-06 19:46:37 Problem: Infection Risk Goal: Absence of infection Outcome: Progressing as expected Problem: Bleeding, Risk of Goal: Absence of impaired coagulation signs and symptoms Outcome: Progressing as expected Goal: Absence of active bleeding Outcome: Progressing as expected Problem: Falls, Risk of Goal: Absence of falls Outcome: Progressing as expected Problem: Discharge Planning Goal: Adequate for discharge Outcome: Progressing as expected Goal: Effective communication Outcome: Progressing as expected Problem: Skin integrity Impaired (Risk or Actual) Goal: Wound healing Outcome: Progressing as expected Goal: Prevention of new skin breakdown Outcome: Progressing as expected Problem: Pain Goal: Control of pain at or below patient's documented comfort goal Outcome: Not progressing as expected Goal: Reduction in pain sensation Outcome: Not progressing as expected [facility] 2025-01-05 20:31:24 Problem: Pain Goal: Control of pain at or below patient's documented comfort goal Outcome: Progressing as expected Goal: Reduction in pain sensation Outcome: Progressing as expected Problem: Infection Risk Goal: Absence of infection Outcome: Progressing as expected Problem: Bleeding, Risk of Goal: Absence of impaired coagulation signs and symptoms Outcome: Progressing as expected Goal: Absence of active bleeding Outcome: Progressing as expected Problem: Falls, Risk of Goal: Absence of falls Outcome: Progressing as expected Problem: Discharge Planning Goal: Adequate for discharge Outcome: Progressing as expected Goal: Effective communication Outcome: Progressing as expected Problem: Skin integrity Impaired (Risk or Actual) Goal: Wound healing Outcome: Progressing as expected Goal: Prevention of new skin breakdown Outcome: Progressing as expected Vania Flynn RN [facility] 2025-01-05 10:34:27 Problem: Pain Goal: Control of pain at or below patient's documented comfort goal Outcome: Progressing as expected Goal: Reduction in pain sensation Outcome: Progressing as expected Problem: Infection Risk Goal: Absence of infection Outcome: Progressing as expected Problem: Bleeding, Risk of Goal: Absence of impaired coagulation signs and symptoms Outcome: Progressing as expected Goal: Absence of active bleeding Outcome: Progressing as expected Problem: Falls, Risk of Goal: Absence of falls Outcome: Progressing as expected Problem: Discharge Planning Goal: Adequate for discharge Outcome: Progressing as expected Goal: Effective communication Outcome: Progressing as expected Problem: Skin integrity Impaired (Risk or Actual) Goal: Wound healing Outcome: Progressing as expected Goal: Prevention of new skin breakdown Outcome: Progressing as expected ET Damon Son RN [facility] 2025-01-04 20:14:13 No vomiting overnight. Appears to be tolerating meals- had 3/4 of dinner. Continues to have loose slightly maroon colored stool. C/o of pain especially while/ after passing stool. Problem: Pain Goal: Control of pain at or below patient's documented comfort goal Outcome: Progressing as expected Goal: Reduction in pain sensation Outcome: Progressing as expected Problem: Infection Risk Goal: Absence of infection Outcome: Progressing as expected Problem: Bleeding, Risk of Goal: Absence of impaired coagulation signs and symptoms Outcome: Progressing as expected Goal: Absence of active bleeding Outcome: Progressing as expected Problem: Falls, Risk of Goal: Absence of falls Outcome: Progressing as expected Problem: Discharge Planning Goal: Adequate for discharge Outcome: Progressing as expected Goal: Effective communication Outcome: Progressing as expected Problem: Skin integrity Impaired (Risk or Actual) Goal: Wound healing Outcome: Progressing as expected Goal: Prevention of new skin breakdown Outcome: Progressing as expected [facility] 2025-01-04 12:51:53 Problem: Pain Goal: Control of pain at or below patient's documented comfort goal Outcome: Progressing as expected Goal: Reduction in pain sensation Outcome: Progressing as expected Problem: Infection Risk Goal: Absence of infection Outcome: Progressing as expected Problem: Bleeding, Risk of Goal: Absence of impaired coagulation signs and symptoms Outcome: Progressing as expected Goal: Absence of active bleeding Outcome: Progressing as expected Problem: Falls, Risk of Goal: Absence of falls Outcome: Progressing as expected Problem: Discharge Planning Goal: Adequate for discharge Outcome: Progressing as expected Goal: Effective communication Outcome: Progressing as expected Problem: Skin integrity Impaired (Risk or Actual) Goal: Wound healing Outcome: Progressing as expected Goal: Prevention of new skin breakdown Outcome: Progressing as expected [facility] [employer] [employer] 2025-01-03 22:12:35 Had 3-4 loose BM overnight Problem: Pain Goal: Control of pain at or below patient's documented comfort goal Outcome: Progressing as expected Goal: Reduction in pain sensation Outcome: Progressing as expected Problem: Falls, Risk of Goal: Absence of falls Outcome: Progressing as expected Problem: Discharge Planning Goal: Adequate for discharge Outcome: Progressing as expected Goal: Effective communication Outcome: Progressing as expected Problem: Skin integrity Impaired (Risk or Actual) Goal: Wound healing Outcome: Progressing as expected Goal: Prevention of new skin breakdown Outcome: Progressing as expected [facility] [employer] 2025-01-03 13:35:29 Problem: Pain Goal: Control of pain at or below patient's documented comfort goal Outcome: Progressing as expected Goal: Reduction in pain sensation Outcome: Progressing as expected Problem: Infection Risk Goal: Absence of infection Outcome: Progressing as expected Problem: Bleeding, Risk of Goal: Absence of impaired coagulation signs and symptoms Outcome: Progressing as expected Goal: Absence of active bleeding Outcome: Progressing as expected Problem: Falls, Risk of Goal: Absence of falls Outcome: Progressing as expected Problem: Discharge Planning Goal: Adequate for discharge Outcome: Progressing as expected Goal: Effective communication Outcome: Progressing as expected Problem: Skin integrity Impaired (Risk or Actual) Goal: Wound healing Outcome: Progressing as expected Goal: Prevention of new skin breakdown Outcome: Progressing as expected [facility] 2025-01-03 09:47:16 BRIEF OPERATIVE NOTE Date of Surgery: 01/03/2025 Surgeons and Role: * Robert Pearson MD - Primary * Dirk Anderson MD - Fellow Pre-Op Diagnosis: Pancolitis [K51.00] Post-Op Diagnosis Codes: * Pancolitis [K51.00] Procedures: Procedure(s) (LRB): COLONOSCOPY (N/A) CPT: CODINGHELP, Any Complications Encounters: None Estimated Blood Loss: Minimal Specimens Removed: ID Type Source Tests Collected by Time Destination 1 : Sigmoid colon Bx eval for IBD Tissue LARGE INTESTINE, SIGMOID COLON SURGICAL PATHOLOGY EXAM Dirk Anderson MD 01/03/2025 0956 2 : Rectal Bx eval for IBD Tissue RECTUM SURGICAL PATHOLOGY EXAM Dirk Anderson MD 01/03/2025 0957 * No implants in log * Patient's Condition: Stable Findings: - Preparation of the colon was poor. - Hemorrhoids found on perianal exam. - Scattered severe inflammation was found in the rectum, in the recto-sigmoid colon and in the sigmoid colon. Biopsied. - Stool in the rectum, in the recto-sigmoid colon and in the sigmoid colon. Any other important information: - [facility] patient to [facility] for [facility] care. - Resume previous diet. - Continue present medications. - Use methylprednisolone 60mg IV once a day today. - Repeat colonoscopy date to be determined after pending pathology results are reviewed because the bowel preparation was poor. Please see dictated operative report for additional detail. Dirk Anderson MD Gastroenterology and hepatology fellow, PGY-6 [facility] 2025-01-03 03:34:47 Problem: Pain Goal: Control of pain at or below patient's documented comfort goal Outcome: Progressing as expected Goal: Reduction in pain sensation Outcome: Progressing as expected Problem: Infection Risk Goal: Absence of infection Outcome: Progressing as expected Problem: Bleeding, Risk of Goal: Absence of impaired coagulation signs and symptoms Outcome: Progressing as expected Goal: Absence of active bleeding Outcome: Progressing as expected Problem: Falls, Risk of Goal: Absence of falls Outcome: Progressing as expected Problem: Discharge Planning Goal: Adequate for discharge Outcome: Progressing as expected Goal: Effective communication Outcome: Progressing as expected Problem: Skin integrity Impaired (Risk or Actual) Goal: Wound healing Outcome: Progressing as expected Goal: Prevention of new skin breakdown Outcome: Progressing as expected [facility] Ambar Moseley RN [facility] 2025 10:38:09 Problem: Pain Goal: Control of pain at or below patient's documented comfort goal Outcome: Progressing as expected Goal: Reduction in pain sensation Outcome: Progressing as expected Problem: Infection Risk Goal: Absence of infection Outcome: Progressing as expected Problem: Bleeding, Risk of Goal: Absence of impaired coagulation signs and symptoms Outcome: Progressing as expected Goal: Absence of active bleeding Outcome: Progressing as expected Problem: Falls, Risk of Goal: Absence of falls Outcome: Progressing as expected Problem: Discharge Planning Goal: Adequate for discharge Outcome: Progressing as expected Goal: Effective communication Outcome: Progressing as expected Problem: Skin integrity Impaired (Risk or Actual) Goal: Wound healing Outcome: Progressing as expected Goal: Prevention of new skin breakdown Outcome: Progressing as expected [facility] 2025 04:05:40 Problem: Pain Goal: Control of pain at or below patient's documented comfort goal Outcome: Progressing as expected Goal: Reduction in pain sensation Outcome: Progressing as expected Problem: Infection Risk Goal: Absence of infection Outcome: Progressing as expected Problem: Bleeding, Risk of Goal: Absence of impaired coagulation signs and symptoms Outcome: Progressing as expected Goal: Absence of active bleeding Outcome: Progressing as expected Problem: Falls, Risk of Goal: Absence of falls Outcome: Progressing as expected Problem: Discharge Planning Goal: Adequate for discharge Outcome: Progressing as expected Goal: Effective communication Outcome: Progressing as expected Problem: Skin integrity Impaired (Risk or Actual) Goal: Wound healing Outcome: Progressing as expected Goal: Prevention of new skin breakdown Outcome: Progressing as expected [facility] 2025-01-01 18:03:23 Problem: Pain Goal: Control of pain at or below patient's documented comfort goal Outcome: Progressing as expected Goal: Reduction in pain sensation Outcome: Progressing as expected Problem: Infection Risk Goal: Absence of infection Outcome: Progressing as expected Problem: Bleeding, Risk of Goal: Absence of impaired coagulation signs and symptoms Outcome: Progressing as expected Goal: Absence of active bleeding Outcome: Progressing as expected Problem: Falls, Risk of Goal: Absence of falls Outcome: Progressing as expected Problem: Discharge Planning Goal: Adequate for discharge Outcome: Progressing as expected Goal: Effective communication Outcome: Progressing as expected Problem: Skin integrity Impaired (Risk or Actual) Goal: Wound healing Outcome: Progressing as expected Goal: Prevention of new skin breakdown Outcome: Progressing as expected [facility] [employer] 2025-01-01 00:25:39 Problem: Pain Goal: Control of pain at or below patient's documented comfort goal Outcome: Progressing as expected Goal: Reduction in pain sensation Outcome: Progressing as expected Problem: Infection Risk Goal: Absence of infection Outcome: Progressing as expected Problem: Bleeding, Risk of Goal: Absence of impaired coagulation signs and symptoms Outcome: Progressing as expected Goal: Absence of active bleeding Outcome: Progressing as expected Problem: Falls, Risk of Goal: Absence of falls Outcome: Progressing as expected Problem: Discharge Planning Goal: Adequate for discharge Outcome: Progressing as expected Goal: Effective communication Outcome: Progressing as expected Problem: Skin integrity Impaired (Risk or Actual) Goal: Wound healing Outcome: Progressing as expected Goal: Prevention of new skin breakdown Outcome: Progressing as expected [facility] [employer] 2024-12-31 21:19:11 Name/ MRN / Age / Gender: Jin Jiménez, [id number] 49 year old male BMI: Estimated body mass index is 21.63 kg/m? as calculated from the following: Height as of this encounter: 1.676 m (5' 6"). Weight as of this encounter: 60.8 kg (134 lb). Allergies: Codeine and Pcn [penicillins] Last Vitals: BP Readings from Last 1 Encounters: 12/31/24 124/77 Pulse Readings from Last 1 Encounters: 12/31/24 81 SpO2 Readings from Last 1 Encounters: 12/31/24 98% Date of Surgery: 01/01/2025 Surgeon: Robert Pearson MD Procedure: COLONOSCOPY (Rectum) OR Location: ENDOSCOPY ([facility]) OR LOCATION Anesthesia Preop Screen (no physical exam) Anesthesia Preop: Chart Review Anesthesia History Anesthesia History Negative Previous Anesthetics/Airways Cardiovascular Negative Cardiac ROS Pulmonary Negative Pulmonary ROS (+) Tobacco use Neuro/Musculoskeletal (+) Chronic pain: (back pain from fall) GI/Hepatic Comments: Date of Service: 12/31/2024 CHIEF COMPLAINT: Abdominal pain and hematochezia x 1 week History of Present Illness Jin Jiménez is a 49 year old male with PMH of tobacco and marijuana use who presents with abdominal pain x 1 week associated with nausea, vomiting and red, bloody diarrhea x week. Patient reports constant abdominal pain for over one week. The pain is located in the mid epigastric region and is a 7/10. Patient reports the pain occurs in episodes following small bowel resection after trauma in 2018. He also reports nausea and vomiting for over one week. He denies hematemesis. He reports bloody diarrhea for over one week. He states he has had multiple, red, bloody bowel movements each day. He reports prior episodes of bloody bowel movements in the past, lasting weeks-months. He reports a weight loss of 10 lbs over the past week. He "frequently" uses NSAIDs for pain relief. Denies anticoagulation and alcohol use. Reports a history of smoking and marijuana use. Hematology Hematology ROS Negative per Chart Review Comments: 12/31/24 06:17 WBC x10 3 : 4.77 RBC x10 6 : 4.09 (L) HGB: 13.2 HCT: 37.2 (L) MCV: 91.0 MCH: 32.3 MCHC: 35.5 (H) RDW-SD: 43.8 RDW-CV: 13.2 PLT x10 3 : 383 (H) (L): Data is abnormally low (H): Data is abnormally high Renal Comments: 12/31/24 06:17 NA: 131 (L) K: 3.8 CL: 96 (L) CO2 TOTAL: 33 (H) AGAP: 2 BUN: 8 GLUCOSE: 128 (H) CREATININE: 0.72 (L): Data is abnormally low (H): Data is abnormally high Skin (+) Current IV access Endo/Other Negative Endo/Other ROS Other Comments: Occasional marijuana use. Denies EtOH use and illicit drug use. 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 Hold on DOS. Phentermine: Alert [facility] anesthesiologist SGLT2 Inhibitors: "gliflozins" to be held for 3 days prior to elective surgeries GLP1 Agonosit: stop 7 days prior to surgery MAC Cases: Continue taking SIMON inhibitors and ARBs ASA Classification ASA: 2 Labs: Chemistry 12/31/2024 CBC 12/31/2024 131 (L) 96 (L) 8 128 (H) 4.77 13.2 383 (H) 3.8 33 (H) 0.72 37.2 (L) eGFR: 110.6 Date: 12/31/2024 ANC: 3.32 Date: 12/31/2024 LFTs 12/30/2024 Coags AST: 16 AP: 54 Prot: 5.2 (L) Ca: 7.7 (L) PT: 13.0 (H) Date: 12/30/2024 ALT: 13 T [place]: 0.8 Alb: 2.5 (L) PTT: 25 (L) Date: 12/30/2024 PO4: 2.7 Date: 12/30/2024 INR: 1.2 Date: 12/30/2024 Cardiac Endocrine & other pBNP: - Date: - A1C: 5.2 Date: 12/31/2024 Trop I: - Date: - POCT A1C: - Date: - CK: - Date: - TSH: 0.69 Date: 12/31/2024 CKMB: - Date: - FT4: - Date: - LDL: 46 Date: 12/30/2024 Lact: - Date: - Procal: - Date: - Respiratory -|-|-|-|- D-dimer: - ABG Date: - Date: - Miscellaneous Type and Screen: O Negative Antibody: Negative Date: 12/31/2024 POCT : - Date: - Current Medications: No outpatient medications have been marked as taking for the 12/30/24 encounter (Hospital Encounter). Previous Surgeries: Past Surgical History: Procedure Laterality Date BOWEL RESECTION ESOPHAGOGASTRODUODENOSCOPY N/A 07/10/2019 Surgeon: Dirk Pedraza MD; Location: Endoscopy ([facility]) OR Location HAND/FINGER SURGERY UNLISTED TOTAL HIP ARTHROPLASTY Physical Exam Anesthesia Plan ASA Status: 2 Anesthetic plan on DOS: TIVA Plan to include: IV induction and face mask Post-Operative Analgesia: routine analgesia & antiemetics Recovery Plan: PACU Additional comments: AN-ANESTHESIOLOGY ANESTHESIOLOGIST [facility] 2024-12-31 19:11:01 Problem: Pain Goal: Control of pain at or below patient's documented comfort goal Outcome: Progressing as expected Goal: Reduction in pain sensation Outcome: Progressing as expected Problem: Infection Risk Goal: Absence of infection Outcome: Progressing as expected Problem: Bleeding, Risk of Goal: Absence of impaired coagulation signs and symptoms Outcome: Progressing as expected Goal: Absence of active bleeding Outcome: Progressing as expected Problem: Falls, Risk of Goal: Absence of falls Outcome: Progressing as expected Problem: Discharge Planning Goal: Adequate for discharge Outcome: Progressing as expected Goal: Effective communication Outcome: Progressing as expected Problem: Skin integrity Impaired (Risk or Actual) Goal: Wound healing Outcome: Progressing as expected Goal: Prevention of new skin breakdown Outcome: Progressing as expected [facility] 2024-12-30 23:47:06 Problem: Pain Goal: Control of pain at or below patient's documented comfort goal Outcome: Progressing as expected Goal: Reduction in pain sensation Outcome: Progressing as expected Problem: Infection Risk Goal: Absence of infection Outcome: Progressing as expected Problem: Bleeding, Risk of Goal: Absence of impaired coagulation signs and symptoms Outcome: Progressing as expected Goal: Absence of active bleeding Outcome: Progressing as expected [facility]
[2025-01-15 23:57] LABS: Absolute Lymphocytes (CBC) 1.5 K/uL (0.7-4.9); Absolute Monocytes 0.6 K/uL (0.1-1.3); Basophils % 0.1 % (0-1.3); Eosinophils % 0.4 % (0-4.4); Hematocrit 33.5 % (39.6-49.0); Hemoglobin 11.7 g/dL (13.6-17.9); Lymphocytes % 29.4 % (15.3-44.8); MCH 32.3 pg (27.0-35.0); MCHC 34.9 g/dL (32.0-36.0); MCV 92.4 fL (80-100); MPV 6.4 fL (7.6-11.3); Monocytes % 11.5 % (3.3-12.3); Neutrophils % 58.6 % (41.7-73.7); Nucleated Red Blood Cells % 0.1 % (0-0); Platelets 676 thou/uL (152-406); RBC Red Blood Cell Count 3.62 M/uL (4.33-5.43); Red Cell Distribution Width 14.9 % (12.1-15.2)
[2025-01-16] MEDS ORDERED: METOCLOPRAMIDE 10 MG/2mL INJ ONE (00:04)
[2025-01-16] MEDS ORDERED: ONDANSETRON 4 MG/2 ML VIAL ONE (00:04)
[2025-01-16] MEDS ORDERED: droPERidol 5 MG/2 ML VIAL ONE (00:04)
[2025-01-16] MEDS ORDERED: KETOROLAC 30 MG/ML INJ ONE (00:04)
[2025-01-16] MEDS ORDERED: MORPHINE 4 MG/ML SYR ONE (00:05)
[2025-01-16] MEDS ORDERED: FAMOTIDINE 20 MG/2 ML VIAL IV ONE (00:05)
[2025-01-16] MEDS ORDERED: NA CHLORIDE 0.9% 1,000 ML ONE ×2 (00:05→02:07)
[2025-01-16 00:12] LABS: ALT/SGPT 15 U/L (16-61); Albumin 1.5 g/dL (3.4-5.0); Albumin/Globulin Ratio 0.4 (1.1-1.8); Alkaline Phosphatase 69 U/L (45-117); Anion Gap 7.6 mEq/L (5.0-15.0); BUN Blood Urea Nitrogen 13 mg/dL (7-18); Bicarbonate 31 mEq/L (21-32); Bilirubin Total 0.8 mg/dL (0.2-1.0); Glomerular Filtration Rate 110 ml/min (=/>90); Glucose Level 102 mg/dL (74-106); Lipase 12 U/L (13-75); Potassium 3.6 mEq/L (3.5-5.1); Protein, Total 5.5 g/dL (6.4-8.2); Sodium Level 133 mEq/L (136-145)
[2025-01-16 00:16] LABS: AST/SGOT < 10 U/L (15-37)
[2025-01-16] MEDS ORDERED: HYDROCORTISONE SUC 100 MG INJ ONE (02:07)
--- NOTE | 2025-01-16 03:00 | RAD REPORT ---
EXAM: CT Chest, Abdomen and Pelvis With Intravenous Contrast CLINICAL HISTORY: The patient is 50 years old and is Male; CHEST PAIN TECHNIQUE: Axial computed tomography images of the chest, abdomen and pelvis with intravenous contr ast. Sagittal and coronal reformatted images were created and reviewed. This CT exam was performed using one or more of the following dose reduction techniques: automated exposure control, adjustment of the mA and/or kV according to patient size, and/or use of iterative reconstruction technique. COMPARISON: No relevant prior studies available. FINDINGS: CHEST: Lungs: Emphysematous changes in the lungs. No mass. No consolidation. Pleural space: Unremarkable. No significant effusion. No pneumothorax. Heart: Unremarkable. No cardiomegaly. No significant pericardial effusion. No significant c oronary artery calcifications. Mediastinum: There is some mild diffuse mucosal thickening involving the esophagus. ABDOMEN: Liver: Unremarkable. No mass. Gallbladder and bile ducts: Unremarkable. No calcified stones. No ductal dilation. Pancreas: Unremarkable. No ductal dilation. No mass. Spleen: Unremarkable. No splenomegaly. Adrenals: Unremarkable. No mass. Kidneys and ureters: Simple cysts in the kidneys. No follow-up imaging is recommended. No hydronephrosis. No solid mass. Stomach and bowel: There is some mucosal thickening involving a segment of the sigmoid colon. No obstruction. PELVIS: Appendix: No findings to suggest acute appendicitis. Bladder: Diffuse bladder wall thickening. Reproductive: Unremarkable as visualized. CHEST, ABDOMEN and PELVIS: Intraperitoneal space: Unremarkable. No significant fluid collection. No free air. Bones/joints: Postsurgical changes in the bony pelvis. Postsurgical changes in the right femur. No acute fracture. No dislocation. Soft tissues: Unremarkable. Vasculature: Unremarkable. No aortic aneurysm. Lymph nodes: Unremarkable. No enlarged lymph nodes. IMPRESSION: 1. Emphysematous changes in the lungs. 2. There is some mild diffuse mucosal thickening involving the esophagus. 3. Diffuse bladder wall thickening. Correlate with any concern for cystitis, chronic bladder outl et obstruction, or other infiltrative process. 4. There is some mucosal thickening involving a segment of the sigmoid colon. Correlate with any concern for focal colitis or neoplasm. 5. Additional non-emergent findings as above. Electronically signed by: Amol Monique MD 01/16/2025 02:45 AM CDT 8 Due to temporary technical issues with the [employer] reporting system, reports are being alethea d by the in-house radiologist without review as a courtesy to ensure prompt reporting the interpreting radiologist is fully responsible for the content of the report. Transcribed Date/Time: 01/16/2025 3:00 AM
--- NOTE | 2025-01-16 04:44 | ER ---
Nurse's Notes [facility] Name: Weston Jiménez Age: 50 yrs Sex: Male : 1975 Arrival Date: 01/15/2025 Time: 21:58 Bed 2 Private MD: Diagnosis: Inflammatory bowel disease, Suspected Crohn's colitis, intractable nausea vomiting and diarrhea, unintentional weight loss Presentation: 01/15 23:10 Chief complaint: Patient states: I have been sick for 2 weeks, losing weight, feel vc1 weak, vomiting and diarrhea. Coronavirus screen: Client denies travel out of the [place] in the last 14 days. At this time, the client does not indicate any symptoms associated with coronavirus-19. Ebola Screen: Patient negative for fever greater than or equal to 101.5 degrees Fahrenheit, and additional compatible Ebola Virus Disease symptoms Patient denies exposure to infectious person. Patient denies travel to an Ebola-affected area in the 21 days before illness onset. No symptoms or risks identified at this time. Initial Sepsis Screen: Does the patient meet any 2 criteria? HR > 90 bpm. Does the patient have a suspected source of infection? No. Patient's initial sepsis screen is negative. Risk Assessment: Do you want to hurt yourself or someone else? Patient reports no desire to harm self or others. Onset of symptoms is unknown. 23:10 Method Of Arrival: Wheelchair vc1 23:10 Acuity: SUSIE 3 vc1 Historical: - Allergies: 23:13 PENICILLINS; vc1 - Home Meds: 23:13 duloxetine 20 mg oral capsule,delayed release (e.c.) [Active]; ergocalciferol (vitamin vc1 D2) oral every week [Active]; Zofran Oral 4 mg every 8 hours [Active]; Bactrim DS 800-160 mg Oral tablet MW [Active]; methocarbamol 500 mg Oral tablet 4 times per day [Active]; pantoprazole 40 mg oral tablet, delayed release (enteric coated) [Active]; Prednisone Oral 1 dose pk [Active]; cyanocobalamin (vitamin B-12) 1,000 mcg/mL injection Kit [Active]; - PMHx: 23:13 Broken back; vc1 - PSHx: 23:13 bowel resection; Rods and pins in back; vc1 - Immunization history:: Client reports receiving the 2nd dose of the Covid vaccine. - Infectious Disease History:: Denies. - Social history:: Smoking status: Patient reports the use of cigarette tobacco products, denies chronic smoking, but will smoke occasionally. Screenin:18 [facility] ED Fall Risk Assessment (Adult). Abuse screen: Denies threats or abuse. vc1 Nutritional screening: No deficits noted. Tuberculosis screening: No symptoms or risk factors identified. 01/16 00:00 [facility] ED Fall Risk Assessment (Adult) History of falling in the last 3 months, al5 including since admission No falls in past 3 months (0 pts) Confusion or Disorientation No (0 pts) Intoxicated or Sedated No (0 pts) Impaired Gait No (0 pts) Mobility Assist Device Used No (0 pt) Altered Elimination No (0 pt) Score/Fall Risk Level 0 - 2 = Low Risk Oriented to surroundings, Maintained a safe environment, Hourly rounding (assess needs \T\ fall precautionary measures) done. Assessment: 00:00 General: Appears in no apparent distress. comfortable, Behavior is calm, cooperative. al5 Pain: Complains of pain in abdomen. Neuro: Level of Consciousness is awake, alert, obeys commands, Oriented to person, place, time, situation. Cardiovascular: Capillary refill Patient's skin is warm and dry. Respiratory: Airway is patent Respiratory effort is even, unlabored, Respiratory pattern is regular, symmetrical. GI: Abdomen is flat, non-distended, Reports lower abdominal pain, upper abdominal pain, diarrhea, nausea, vomiting. : No signs and/or symptoms were reported regarding the genitourinary system. EENT: No signs and/or symptoms were reported regarding the EENT system. Derm: Skin is intact, is healthy with good turgor, Skin is pink, warm \T\ dry. normal. Musculoskeletal: No signs and/or symptoms reported regarding the musculoskeletal system. 01:26 Reassessment: Patient appears in no apparent distress at this time. Patient and/or al5 family updated on plan of care and expected duration. Pain level reassessed. Patient is alert, oriented x 3, equal unlabored respirations, skin warm/dry/pink. Patient states feeling better. 02:39 Reassessment: Patient appears in no apparent distress at this time. Patient and/or al5 family updated on plan of care and expected duration. Pain level reassessed. Patient is alert, oriented x 3, equal unlabored respirations, skin warm/dry/pink. Patient states feeling better. Patient states symptoms have improved. 03:39 Reassessment: Patient appears in no apparent distress at this time. No changes from al5 previously documented assessment. Patient and/or family updated on plan of care and expected duration. Pain level reassessed. Patient is alert, oriented x 3, equal unlabored respirations, skin warm/dry/pink. 06:28 Reassessment: Patient appears in no apparent distress at this time. No changes from al5 previously documented assessment. Patient and/or family updated on plan of care and expected duration. Pain level reassessed. Patient is alert, oriented x 3, equal unlabored respirations, skin warm/dry/pink. Vital Signs: 01/15 23:00 BP 111 / 80; Pulse 93; Resp 18; Pulse Ox 99% ; al5 23:10 BP 117 / 74; Pulse 102; Resp 20; Temp 98.4; Pulse Ox 100% ; Weight 56.7 kg; Height 5 vc1 ft. 6 in. ; 23:30 BP 112 / 78; Pulse 89; Resp 16; Pulse Ox 96% ; al5 0430 00:00 BP 110 / 79; Pulse 85; Resp 15; Pulse Ox 97% ; al5 00:30 BP 116 / 70; Pulse 89; Resp 16; Pulse Ox 97% ; al5 01:00 BP 105 / 68; Pulse 85; Resp 15; Pulse Ox 98% ; al5 01:30 BP 102 / 67; Pulse 85; Resp 15; Pulse Ox 99% ; al5 02:00 BP 100 / 69; Pulse 81; Resp 14; Pulse Ox 98% ; al5 02:30 BP 99 / 67; Pulse 80; Resp 15; Pulse Ox 98% ; al5 03:00 BP 103 / 66; Pulse 79; Resp 16; Pulse Ox 99% ; al5 03:30 BP 106 / 67; Pulse 79; Resp 14; Pulse Ox 99% ; al5 04:00 BP 104 / 69; Pulse 79; Resp 15; Pulse Ox 98% ; al5 04:30 BP 112 / 69; Pulse 79; Resp 15; Pulse Ox 98% ; al5 05:00 BP 110 / 69; Pulse 81; Resp 14; Pulse Ox 99% ; al5 05:30 BP 103 / 70; Pulse 79; Resp 14; Pulse Ox 97% ; al5 06:00 BP 107 / 67; Pulse 84; Resp 16; Pulse Ox 97% ; al5 06:15 BP 98 / 71; Pulse 76; Resp 16; Pulse Ox 97% ; al5 01/15 23:10 Body Mass Index 20.18 (56.70 kg, 167.64 cm) vc1 Geary Coma Score: 02:52 Eye Response: spontaneous(4). Motor Response: obeys commands(6). Verbal Response: sp4 oriented(5). Total: 15. ED Course: 01/15 22:01 Patient arrived in ED. jj6 22:17 Benedict Donahue MD is Attending Physician. sp4 23:07 Inserted saline lock: 20 gauge in right forearm, using aseptic technique. Flushed with vk 10 mL NS. 23:12 Triage completed. vc1 23:18 Arm band placed on right wrist. vc1 23:19 Patient has correct armband on for positive identification. Bed in low position. Call vc1 light in reach. Provided Education on: Plan of care. Pulse ox on. NIBP on. 23:42 Initial lab(s) drawn, by me, sent to lab. vk 23:42 Missed attempt(s): 24 gauge MISSED ATTEMPT X2 STRAIGHT STICK 25 GAUGE. vk 23:45 Lipase Sent. vk 23:45 CMP Sent. vk 23:45 CBC with Diff Sent. vk 01/16 00:33 Bernice Malik, RN is Primary Nurse. al5 01:08 CT Chest, Abdomen, Pelvis - W/Contrast In Process Unspecified. EDMS 02:40 No provider procedures requiring assistance completed. al5 04:43 Servando Carney MD is Referral Physician. sp4 06:28 IV discontinued, intact, bleeding controlled, No redness/swelling at site. Pressure al5 dressing applied. Administered Medications: 00:28 Drug: Famotidine IVP 20 mg IVP once; dilute with 10 mL 0.9% NaCl; give over 2 minutes al5 Route: IVP; Site: right antecubital; 02:12 Follow up: Response: No adverse reaction; Pain is decreased al5 00:28 Drug: Ondansetron IVP 4 mg IVP once; over 2 minutes Route: IVP; Site: right antecubital;al5 02:13 Follow up: Response: No adverse reaction; Nausea is decreased al5 00:28 Drug: NS 0.9% IV 1000 ml IV at 1 bolus Per protocol; to be given as a bolus over 60 al5 minutes Route: IV; Rate: 1 bolus; Site: right antecubital; 02:13 Follow up: Response: No adverse reaction; IV Status: Completed infusion; IV Intake: al5 1000ml 00:28 Drug: morphine IVP or IV 4 mg IVP once over 4 mins Route: IVP; Infused Over: 4 mins; al5 Site: right antecubital; 02:12 Follow up: Response: No adverse reaction; Pain is decreased al5 00:28 Drug: Ketorolac IVP 15 mg IVP once Route: IVP; Site: right antecubital; al5 02:12 Follow up: Response: No adverse reaction; Pain is decreased al5 00:28 Drug: Droperidol IVP 2.5 mg IVP once Route: IVP; Site: right antecubital; al5 02:12 Follow up: Response: No adverse reaction; Pain is decreased; Nausea is decreased al5 00:28 Drug: metoCLOPramide IVP 10 mg IVP once; over 1 to 2 minutes Route: IVP; Site: right al5 antecubital; 02:12 Follow up: Response: No adverse reaction; Nausea is decreased al5 02:12 Drug: Solu-CORTEF IVP 100 mg IVP once Route: IVP; Site: right antecubital; al5 06:28 Follow up: Response: No adverse reaction al5 02:12 Drug: NS 0.9% IV 1000 ml IV at 1000 ml once; to be given as a bolus over 60 minutes al5 Route: IV; Rate: 1000 ml; Site: right antecubital; 06:28 Follow up: Response: No adverse reaction; IV Status: Completed infusion; IV Intake: al5 1000ml Medication: 01/15 23:19 VIS not applicable for this client. vc1 Intake: 01/16 02:13 IV: 1000ml; Total: 1000ml. al5 06:28 IV: 1000ml; Total: 2000ml. al5 Outcome: 04:43 Discharge ordered by MD. jo 06:28 Discharged to home ambulatory, al5 06:28 Condition: good 06:28 Discharge instructions given to patient, Instructed on discharge instructions, follow up and referral plans. medication usage, Demonstrated understanding of instructions, follow-up care, medications, Prescriptions given X 2 06:29 Patient left the ED. al5 Signatures: Dispatcher [employer] EDMS Chrissy Alvarado jj6 Mae Tran, RN RN vc1 Benedict Donahue MD MD sp4 Ana Sutton Amanda, RN RN al5
--- NOTE | 2025-01-16 04:44 | EDPHYS ---
Physician Documentation [facility] Name: Weston Jiménez Age: 50 yrs Sex: Male : 1975 Arrival Date: 01/15/2025 Time: 21:58 Bed 2 Private MD: ED Physician Benedict Donahue HPI: 01/15 22:17 This 50 yrs old Other Race Male presents to ER via Unassigned with complaints of sp4 Weakness, Nausea/Vomiting/Diarrhea. 01/16 01:43 Patient presents with complaint of 2 weeks of nausea vomiting diarrhea generalized sp4 weakness and weight loss. Patient apparently was at [facility] from 01/01/2024 until 01/10/2025. Patient was diagnosed with acute pancreatitis and terminal ileitis. CT abdomen pelvis revealed acute pancreatitis and terminal ileitis. Ultrasound of the gallbladder revealed gallbladder sludge without evidence of cholecystitis. No biliary ductal dilatation. Hospital course paperwork reports that patient has history of tobacco and marijuana use and presented with abdominal pain associated with nausea vomiting diarrhea and bloody diarrhea. Patient prior to that was diagnosed at an outside hospital with acute pancolitis and moderate gaseous distention of abdomen. He was transferred to [facility] for pancolitis and GI consult. Infectious workup was negative for age hepatitis C, hepatitis B, HIV, and negative for fecal pathogens, negative for Clostridium. Patient was given DVT prophylaxis. Flexible sigmoidoscope showed scattered inflammation in the rectum and the rectosigmoid colon. Biopsies showed crypt abscesses and increased lymphoplasmacytic infiltrate but no dysplasia. Ultrasound of the scrotum showed bilateral hydroceles. Patient was given IV steroids and transition with oral steroid taper. Patient was clinically stable for discharge with GI follow-up in 3 weeks. Patient's medications on discharge acetaminophen 1000 mg every 8 hours as needed pain, cyanocobalamin mean daily, duloxetine 20 mg daily, ergocalciferol 50,000 unit weekly, hydrocodone/acetaminophen as needed, methocarbamol as needed, ondansetron 4 mg every 8 hours as needed, Protonix 40 mg daily, prednisone 5 mg taper, prednisone taper as follows 8 tablets by mouth daily for 6 days 7 tablets by mouth for 7 days 6 tablets by mouth for 7 days 5 tablets by mouth for 7 days 4 tablets by mouth for 7 days 3 tablets by mouth for 7 days 2 tablets daily for 7 days total of 237 tablets. Additional medication includes Bactrim twice a day and cyanocobalamin injections. Final diagnosis based on paperwork is Crohn's colitis with rectal bleeding.. Historical: - Allergies: 01/15 23:13 PENICILLINS; vc1 - Home Meds: 23:13 duloxetine 20 mg oral capsule,delayed release (e.c.) [Active]; ergocalciferol (vitamin vc1 D2) oral every week [Active]; Zofran Oral 4 mg every 8 hours [Active]; Bactrim DS 800-160 mg Oral tablet MW [Active]; methocarbamol 500 mg Oral tablet 4 times per day [Active]; pantoprazole 40 mg oral tablet, delayed release (enteric coated) [Active]; Prednisone Oral 1 dose pk [Active]; cyanocobalamin (vitamin B-12) 1,000 mcg/mL injection Kit [Active]; - PMHx: 23:13 Broken back; vc1 - PSHx: 23:13 bowel resection; Rods and pins in back; vc1 - Immunization history:: Client reports receiving the 2nd dose of the Covid vaccine. - Infectious Disease History:: Denies. - Social history:: Smoking status: Patient reports the use of cigarette tobacco products, denies chronic smoking, but will smoke occasionally. ROS: 01/16 02:52 Constitutional: Negative for fever, chills, positive for generalized weakness, positive sp4 for nausea vomiting and diarrhea. Positive for unintentional weight loss All other systems are negative, Exam: 02:52 Constitutional: This is a well developed, well nourished patient who is awake, alert, sp4 and in no acute distress. Head/Face: Normocephalic, atraumatic. Eyes: Pupils equal round and reactive to light, extra-ocular motions intact. Lids and lashes normal. Conjunctiva and sclera are not injected. Cornea within normal limits. Periorbital areas with no swelling, redness, or edema. ENT: Nares patent. No nasal discharge, no septal abnormalities noted. Tympanic membranes are normal and external auditory canals are clear. Oropharynx with no redness, swelling, or masses, exudates, or evidence of obstruction, uvula midline. Mucous membranes moist. Neck: Trachea midline, no thyromegaly or masses palpated, and no cervical lymphadenopathy. Supple, full range of motion without nuchal rigidity, or vertebral point tenderness. Chest/axilla: Normal chest wall appearance and motion. Nontender with no deformity. No lesions are appreciated. Cardiovascular: Regular rate and rhythm with a normal S1 and S2. No gallops, murmurs, or rubs. Normal PMI, no JVD. No pulse deficits. Respiratory: Lungs have equal breath sounds bilaterally, clear to auscultation and percussion. No rales, rhonchi or wheezes noted. No increased work of breathing, no retractions or nasal flaring. Abdomen/GI: Soft, with normal bowel sounds. No distension or tympany. No guarding or rebound. No evidence of tenderness throughout. Back: No spinal tenderness. No costovertebral tenderness. Skin: Warm, dry with normal turgor. Normal color with no rashes, no lesions, and no evidence of cellulitis. MS/ Extremity: Pulses equal, no cyanosis. Neurovascular intact. Full, normal range of motion. Neuro: Awake and alert, GCS 15, oriented to person, place, time, and situation. Cranial nerves II-XII grossly intact. Motor strength 5/5 in all extremities. Sensory grossly intact. Psych: Awake, alert, with orientation to person, place and time. Behavior, mood, and affect are within normal limits Vital Signs: 01/15 23:00 BP 111 / 80; Pulse 93; Resp 18; Pulse Ox 99% ; al5 23:10 BP 117 / 74; Pulse 102; Resp 20; Temp 98.4; Pulse Ox 100% ; Weight 56.7 kg; Height 5 vc1 ft. 6 in. ; 23:30 BP 112 / 78; Pulse 89; Resp 16; Pulse Ox 96% ; al5 0430 00:00 BP 110 / 79; Pulse 85; Resp 15; Pulse Ox 97% ; al5 00:30 BP 116 / 70; Pulse 89; Resp 16; Pulse Ox 97% ; al5 01:00 BP 105 / 68; Pulse 85; Resp 15; Pulse Ox 98% ; al5 01:30 BP 102 / 67; Pulse 85; Resp 15; Pulse Ox 99% ; al5 02:00 BP 100 / 69; Pulse 81; Resp 14; Pulse Ox 98% ; al5 02:30 BP 99 / 67; Pulse 80; Resp 15; Pulse Ox 98% ; al5 03:00 BP 103 / 66; Pulse 79; Resp 16; Pulse Ox 99% ; al5 03:30 BP 106 / 67; Pulse 79; Resp 14; Pulse Ox 99% ; al5 04:00 BP 104 / 69; Pulse 79; Resp 15; Pulse Ox 98% ; al5 04:30 BP 112 / 69; Pulse 79; Resp 15; Pulse Ox 98% ; al5 05:00 BP 110 / 69; Pulse 81; Resp 14; Pulse Ox 99% ; al5 05:30 BP 103 / 70; Pulse 79; Resp 14; Pulse Ox 97% ; al5 06:00 BP 107 / 67; Pulse 84; Resp 16; Pulse Ox 97% ; al5 06:15 BP 98 / 71; Pulse 76; Resp 16; Pulse Ox 97% ; al5 01/15 23:10 Body Mass Index 20.18 (56.70 kg, 167.64 cm) vc1 Radha Coma Score: 02:52 Eye Response: spontaneous(4). Motor Response: obeys commands(6). Verbal Response: sp4 oriented(5). Total: 15. MDM: 01/15 22:18 Medical Screening Exam initiated sp4 01/16 02:50 ED course: COMPARISON: No relevant prior studies available. FINDINGS: CHEST: Lungs: sp4 Emphysematous changes in the lungs. No mass. No consolidation. Pleural space: Unremarkable. No significant effusion. No pneumothorax. Heart: Unremarkable. No cardiomegaly. No significant pericardial effusion. No significant coronary artery calcifications. Mediastinum: There is some mild diffuse mucosal thickening involving the esophagus. ABDOMEN: Liver: Unremarkable. No mass. Gallbladder and bile ducts: Unremarkable. No calcified stones. No ductal dilation. Pancreas: Unremarkable. No ductal dilation. No mass. Spleen: Unremarkable. No splenomegaly. Adrenals: Unremarkable. No mass. Kidneys and ureters: Simple cysts in the kidneys. No follow-up imaging is recommended. No hydronephrosis. No solid mass. Stomach and bowel: There is some mucosal thickening involving a segment of the sigmoid colon. No obstruction. PELVIS: Appendix: No findings to suggest acute appendicitis. Bladder: Diffuse bladder wall thickening. Reproductive: Unremarkable as visualized. CHEST, ABDOMEN and PELVIS: Intraperitoneal space: Unremarkable. No significant fluid collection. No free air. Bones/joints: Postsurgical changes in the bony pelvis. Postsurgical changes in the right femur. No acute fracture. No dislocation. Soft tissues: Unremarkable. Vasculature: Unremarkable. No aortic aneurysm. Lymph nodes: Unremarkable. No enlarged lymph nodes. IMPRESSION: 1. Emphysematous changes in the lungs. 2. There is some mild diffuse mucosal thickening involving the esophagus. 3. Diffuse bladder wall thickening. Correlate with any concern for cystitis, chronic bladder outlet obstruction, or other infiltrative process. 4. There is some mucosal thickening involving a segment of the sigmoid colon. Correlate with any concern for focal colitis or neoplasm. 5. Additional non-emergent findings as above. 02:52 Data reviewed: vital signs, nurses notes. 4 04:45 ED course: Patient's records from [facility] indicate that he is now history of sp4 inflammatory bowel disease possibly Crohn's colitis. Patient states that he was not explaining things properly in [place] we have stressed appointment patient has chronic inflammatory bowel disease that needs to be managed by smog technician. Patient was referred to Dr. Jarvis with gastroenterology here in [facility]. Advised to continue all his prescribed medications. As needed Phenergan and Lomotil prescribed. 01/15 22:18 Order name: CBC with Diff; Complete Time: 00:55 [facility] 01/15 22:18 Order name: CMP; Complete Time: 00:55 [facility] 01/15 22:18 Order name: Lipase; Complete Time: 00:55 [facility] 01/15 23:05 Order name: Lactate w/ 2H reflex if indic.; Complete Time: 00:55 [facility] 01/15 23:07 Order name: Blood Culture Adult (2) [facility] 01/15 23:53 Order name: C-Reactive Protein; Complete Time: 00:55 [facility] 01/15 23:53 Order name: Thyroid Stimulating Hormone; Complete Time: 00:55 [facility] 01/15 23:11 Order name: CT Chest, Abdomen, Pelvis - W/Contrast [facility] 01/15 22:18 Order name: IV Saline Lock; Complete Time: 23:24 [facility] 01/15 22:18 Order name: Labs collected and sent; Complete Time: 23:24 [facility] Administered Medications: 00:28 Drug: Famotidine IVP 20 mg IVP once; dilute with 10 mL 0.9% NaCl; give over 2 minutes al5 Route: IVP; Site: right antecubital; 02:12 Follow up: Response: No adverse reaction; Pain is decreased al5 00:28 Drug: Ondansetron IVP 4 mg IVP once; over 2 minutes Route: IVP; Site: right antecubital;al5 02:13 Follow up: Response: No adverse reaction; Nausea is decreased al5 00:28 Drug: NS 0.9% IV 1000 ml IV at 1 bolus Per protocol; to be given as a bolus over 60 al5 minutes Route: IV; Rate: 1 bolus; Site: right antecubital; 02:13 Follow up: Response: No adverse reaction; IV Status: Completed infusion; IV Intake: al5 1000ml 00:28 Drug: morphine IVP or IV 4 mg IVP once over 4 mins Route: IVP; Infused Over: 4 mins; al5 Site: right antecubital; 02:12 Follow up: Response: No adverse reaction; Pain is decreased al5 00:28 Drug: Ketorolac IVP 15 mg IVP once Route: IVP; Site: right antecubital; al5 02:12 Follow up: Response: No adverse reaction; Pain is decreased al5 00:28 Drug: Droperidol IVP 2.5 mg IVP once Route: IVP; Site: right antecubital; al5 02:12 Follow up: Response: No adverse reaction; Pain is decreased; Nausea is decreased al5 00:28 Drug: metoCLOPramide IVP 10 mg IVP once; over 1 to 2 minutes Route: IVP; Site: right al5 antecubital; 02:12 Follow up: Response: No adverse reaction; Nausea is decreased al5 02:12 Drug: Solu-CORTEF IVP 100 mg IVP once Route: IVP; Site: right antecubital; al5 06:28 Follow up: Response: No adverse reaction al5 02:12 Drug: NS 0.9% IV 1000 ml IV at 1000 ml once; to be given as a bolus over 60 minutes al5 Route: IV; Rate: 1000 ml; Site: right antecubital; 06:28 Follow up: Response: No adverse reaction; IV Status: Completed infusion; IV Intake: al5 1000ml Disposition Summary: 01/16/25 04:43 Discharge Ordered Notes: Location: Home sp4 Problem: new sp4 Symptoms: have improved sp4 Condition: Stable sp4 Diagnosis - Inflammatory bowel disease, Suspected Crohn's colitis, intractable nausea sp4 vomiting and diarrhea, unintentional weight loss Followup: sp4 - With: Servando Carney MD - When: 7 - 10 days - Reason: Recheck today's complaints Discharge Instructions: - Discharge Summary Sheet sp4 - Crohn's Disease sp4 Forms: - Patient Portal Instructions sp4 Prescriptions: - Lomotil 2.5-0.025 mg Oral tablet - take 1 tablet ORAL route every 6 hours As needed PRN diarrhea; 30 tablet; sp4 Refills: 0, Product Selection Permitted - promethazine 25 mg Oral tablet - take 1 tablet ORAL route every 6 hours As needed PRN nausea; 30 tablet; sp4 Refills: 0, Product Selection Permitted Signatures: Dispatcher [employer] EDMS Mae Tran, RN RN vc1 Benedict Donahue MD MD sp4 Bernice Malik RN RN al5 Corrections: (The following items were deleted from the chart) 01/15 22:19 22:19 CBC+H.LAB.BRZ ordered. EDMS EDMS 22:19 22:19 COMPREHENSIVE METABOLIC PANEL+C.LAB.BRZ ordered. EDMS EDMS 22:19 22:19 LIPASE+C.LAB.BRZ ordered. EDMS EDMS 22:19 22:19 Urinalysis+U.LAB.BRZ ordered. EDMS EDMS 23:04 23:04 Fecal Leukocyte Stain+BA.LAB.BRZ ordered. EDMS EDMS 23:04 23:04 Ova and Parasites+MR.LAB.BRZ ordered. EDMS EDMS 23:04 23:04 Rotavirus Antigen+BA.LAB.BRZ ordered. EDMS EDMS 23:04 23:04 Stool Culture+BA.LAB.BRZ ordered. EDMS EDMS 23:05 23:05 LACTATE+C.LAB.BRZ ordered. EDMS EDMS 23:08 23:08 BLOOD CULTURE*+BA.LAB.BRZ ordered. EDMS EDMS 23:52 23:04 C-REACTIVE PROTEIN+C.LAB.BRZ ordered. EDMS EDMS 23:52 23:05 THYROID STIMULAT HORMONE+C.LAB.BRZ ordered. EDMS EDMS
[2025-01-16 11:33] VITALS: TEMP 98.4
[2025-01-16 11:55] VITALS: O2SAT 97
[2025-01-16 11:58] VITALS: BP 98/71
== END 2025-01-16 06:29 | disposition home or self-care (01) ==
LOC: ER 21:58
DX: K51.90 Ulcerative colitis, unspecified, without complications (principal); R63.4 Abnormal weight loss; R53.1 Weakness; F17.210 Nicotine dependence, cigarettes, uncomplicated
CPT/HCPCS: 36415; 71260; 74177; 80053; 83605; 83690; 84443; 85025; 86140; 87040; J1720; J1790; J2405; J2765; J7030; Q9967

== ENCOUNTER 2025-01-17 22:38 | Inpatient (IN) | payer OTHER, SELFPAY ==
--- OUTSIDE RECORDS SUMMARY | 2025-01-17 22:44 | XMS REPORT | Continuity of Care Document ---
Author Name Unknown Address [address] [facility] [address] [place] [address] [facility] Address [address] [facility] 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 Name Role Phone Pcp, Patient Does Not Have A Primary Care Physic lola Zulma LUCAS, Amol Lucio Attending Clinician [phone] Goldy Hutchinson DO Attending Clinician [phone] Sivan Suh MD Attending Clinician [phone] Orin Kumari MD Attending Clinician [phone] Doctor Unassigned, [place] Attending Clinician U michi Pearson MD, Robert Ornelas Attending Clinician [phone] Zahra Rodriguez MD, Leonard Attending Clinician Sivan Brock Attending Clinician [phone] SIVAN WOODS Attending Clinician Unavailable Goldy Hutchinson DO Admitting Clinician [phone] SIVAN WOODS Admitting Clinician Unavailable Payers Payer Name Policy Type Policy Number Effective Date Expirati on Date Source Problems Condition Name Condition Details Condition Category Status Onset Date Resolution Date Last Treatment Date Treating Clinician Comments Source GIB (gastroint estinal bleeding) GIB (gastroint estinal bleeding) Disease Active 12-30 00:00: 00 [facility] Hematochez ia Hematochez ia Disease Active 12-30 00:00: 00 [facility] Pancolitis Pancolitis Disease Active 4-13 00:00: 00 [facility] 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 Active 2018-09 022 00:00: 00 [facility] RUQ pain RUQ pain Disease Active 2018-09 020 00:00: 00 [facility] Peptic ulcer disease with hemorrhage Peptic ulcer disease with hemorrhage Disease Active 2018-09 00:00: 00 [facility] Gallbladde r hydrops Gallbladde r hydrops Disease Active 2018-09 00:00: 00 [facility] Acute cholecysti tis Acute cholecysti tis Disease Resolve d 2018-09 00:00: 00 2019-07-08 00:00:00 2019-07-08 18:46:24 [facility] Allergies, Adverse Reactions, Alerts Allergy Name Allergy Type Status Severity Reaction(s) Onset Date Inactive Date Treating Clinician Comments Source Codeine Propensi ty to adverse reaction s Active Itching - 00:00: 00 [facility] Morphine Propensi ty to adverse reaction s Active Nausea and/or Vomiting 3-06 00:00: 00 [facility] CODEINE DRUG INGREDI Active ITCHING 3-06 00:00: 00 [facility] MORPHINE DRUG INGREDI Active N/V 3-06 00:00: 00 [facility] Penicill ins Propensi ty to adverse reaction s Active Hives 2018-09 00:00: 00 [facility] PENICILL INS Drug Class Active Hives 2018-09 00:00: 00 [facility] Social History Social Habit Start Date Stop Date Quantity Comments Source Exposure to SARS-CoV-2 (event) Not sure [facility] History of tobacco use Smokes tobacco daily [facility]ation [facility] Alcoholic beverage intake 2025-01-04 00:00:00 2025-01-04 00:00:00 Ex-drinker (finding) [facility] Tobacco Comment 2024-12-30 00:00:00 2024-12-30 00:00:00 Pt informed this author that he does not smoke and has never smoked anything. [facility] Alcohol intake 2020-11-22 00:00:00 2020-11-22 00:00:00 Ex-drinker (finding) [facility] History of Social function 2020-04-23 00:00:00 2020-04-23 00:00:00 [facility] Sex assigned at 1975 00:00:00 1975 00:00:00 [facility] Smoking Status Start Date Stop Date Source Smokes tobacco daily 2024-12-30 00:00:00 [facility] Medications Ordered Medication Name Filled Medication Name Start Date Stop Date Current Medication? Ordering Clinician Indication Dosage Frequency Signature (SIG) Comments Components Source ergocalcife rol, vitamin d2, 1,250 mcg (50,000 unit) capsule ergocalcife rol, vitamin d2, 1,250 mcg (50,000 unit) capsule 01-15 00:00: 00 Yes [id number] Take 1 capsule by mouth weekly. [facility] DULoxetine 20 mg capsule DULoxetine 20 mg capsule 01-11 00:00: 00 Yes [id number] 20mg Take 1 capsule by mouth in the morning. [facility] pantoprazol e 40 mg EC tablet pantoprazol e 40 mg EC tablet 01-11 00:00: 00 Yes [id number] 40mg Take 1 tablet by mouth in the morning. [facility] sulfamethox azole-trime thoprim (BACTRIM DS) 800-160 mg per tablet sulfamethox azole-trime thoprim (BACTRIM DS) 800-160 mg per tablet 01-11 00:00: 00 02-07 04:59 :00 Yes [id number] 1{tbl} Take 1 tablet by mouth every Tuesday, Tuesday and Tuesday in the evening for 26 days. [facility] predniSONE (DELTASONE) tablet 40 mg predniSONE (DELTASONE) tablet 40 mg 01-10 14:00: 00 Yes 40mg 40 mg, Oral, DAILY, First dose on Tue01/10/25 at 0900, Until Discontinu ed, Routine [facility] HYDROcodone -acetaminop hen 5-325 mg tablet HYDROcodone -acetaminop hen 5-325 mg tablet 01-10 00:00: 00 Yes [id number] 1{tbl} Take 1 tablet by mouth every 8 (eight) hours as needed for Pain (scale 4-6). Indication s: acute pain [facility] Syringe with Needle, Disp, (BD LUER-JENAE SYRINGE) 3 mL 25 x 1 1/2 " Syrg 01-10 00:00: 00 Yes [id number] Use as directed with cyanocobal recio [facility] cyanocobala min 1,000 mcg/mL injection cyanocobala min 1,000 mcg/mL injection 01-10 00:00: 00 03-11 04:59 :00 Yes [id number] 1 mL every 24 (twenty-fo ur) hours for 3 days, THEN 1 mL weekly for 56 days. [facility] predniSONE 5 mg tablet predniSONE 5 mg tablet 01-10 00:00: 00 02-28 04:59 :00 Yes [id number] Take 8 tablets by mouth daily for 6 days, THEN 7 tablets daily for 7 days, THEN 6 tablets daily for 7 days, THEN 5 tablets daily for 7 days, THEN 4 tablets daily for 7 days, THEN 3 tablets daily for 7 days, THEN 2 tablets daily for 7 days. [facility] ondansetron 4 mg tablet ondansetron 4 mg tablet 01-10 00:00: 00 02-10 04:59 :00 Yes [id number] 4mg Take 1 tablet by mouth every 8 (eight) hours as needed for Nausea and Vomiting (N/V) for up to 30 days. [facility] methocarbam oL 500 mg tablet methocarbam oL 500 mg tablet 01-10 00:00: 00 01-25 04:59 :00 Yes [id number] 500mg Take 1 tablet by mouth 4 (four) times daily for 14 days. [facility] acetaminoph en 500 mg tablet acetaminoph en 500 mg tablet 01-10 00:00: 00 01-18 04:59 :00 Yes [id number] 1000mg Take 2 tablets by mouth every 8 (eight) hours as needed for Pain for up to 7 days. [facility] HYDROcodone -acetaminop hen (NORCO 5) tablet 1 tablet HYDROcodone -acetaminop hen (NORCO 5) tablet 1 tablet 01-09 14:10: 54 Yes 1{tbl} 1 tablet, Oral, Q8HPRN, Starting on Tue01/09/25 at 0910, Until Discontinu ed, Routine, Pain (scale 4-6) [facility] acetaminoph en (TYLENOL) tablet 1,000 mg acetaminoph en (TYLENOL) tablet 1,000 mg 01-09 01:00: 00 Yes 1000mg 1,000 mg, Oral, TID, First dose on Tue01/08/25 at 2000, Until Discontinu ed, Routine [facility] methocarbam oL (ROBAXIN) tablet 500 mg methocarbam oL (ROBAXIN) tablet 500 mg 01-08 21:00: 00 Yes 500mg 500 mg, Oral, QID, First dose on Tue01/08/25 at 1600, Until Discontinu ed, Routine [facility] dicyclomine (BENTYL) tablet 20 mg dicyclomine (BENTYL) tablet 20 mg 01-08 21:00: 00 01-10 21:27 :26 Yes 20mg 20 mg, Oral, QID, First dose on Tue01/08/25 at 1600, Until Discontinu ed, Routine [facility] DULoxetine (CYMBALTA) capsule 20 mg DULoxetine (CYMBALTA) capsule 20 mg 01-08 20:45: 00 Yes 20mg 20 mg, Oral, DAILY, First dose (after last modificati on) on Tue01/08/25 at 1545, Until Discontinu ed, Routine [facility] methocarbam oL (ROBAXIN) injection 1,000 mg methocarbam oL (ROBAXIN) injection 1,000 mg 01-08 20:30: 00 01-08 19:57 :00 Yes 1000mg 1,000 mg, Slow IV Push, ONCE, 1 dose, On Tue01/08/25 at 1530, Administer over 3-5 Minutes [facility] morpHINE injection 2 mg morpHINE injection 2 mg 01-08 15:15: 00 01-08 14:34 :00 Yes 2mg 2 mg, Slow IV Push, ONCE, 1 dose, On Tue01/08/25 at 1015, Routine [facility] cyanocobala min (DODEX) injection 1,000 mcg cyanocobala min (DODEX) injection 1,000 mcg 01-07 21:15: 00 01-14 21:14 :00 Yes 1000ug 1,000 mcg, Intramuscu lar, Q24H, 7 doses, First dose (after last modificati on) on Tue01/07/25 at 1615, Last dose on Tue01/13/25 at 1615, Routine [facility] pantoprazol e (PROTONIX) EC tablet 40 mg pantoprazol e (PROTONIX) EC tablet 40 mg 01-07 14:45: 00 Yes 40mg 40 mg, Oral, DAILY, First dose on Tue01/07/25 at 0945, Until Discontinu ed, Routine [facility] acetaminoph en (OFIRMEV) IV piggyback 1,000 mg acetaminoph en (OFIRMEV) IV piggyback 1,000 mg 01-06 22:30: 00 01-06 22:56 :00 Yes 1000mg 1,000 mg, IV Piggyback, at 400 mL/hr Administer over 15 Minutes, ONCE, 1 dose, On Tue01/06/25 at 1730, Routine, Is the patient strict NPO and unable to tolerate oral medication s? Yes [facility] methylpredn isolone sod succ (SOLU-MEDRO L) injection 60 mg methylpredn isolone sod succ (SOLU-MEDRO L) injection 60 mg 01-04 22:15: 00 01-09 22:02 :42 Yes 60mg 60 mg, Intravenou s, Q24H, First dose (after last reorder) on Tue01/04/25 at 1715, Until Discontinu ed, 2 mL [facility] enoxaparin (LOVENOX) injection 40 mg enoxaparin (LOVENOX) injection 40 mg 01-04 22:00: 00 01-10 21:27 :26 Yes 40mg 40 mg, Subcutaneo us, DAILY AT 1700, First dose on Tue01/04/25 at 1700, Until Discontinu ed, Routine [facility] morpHINE injection 2 mg morpHINE injection 2 mg 01-04 04:45: 00 01-04 03:53 :00 Yes 2mg 2 mg, Slow IV Push, ONCE, 1 dose, On Tue01/03/25 at 2345, Routine [facility] acetaminoph en (OFIRMEV) IV piggyback 1,000 mg acetaminoph en (OFIRMEV) IV piggyback 1,000 mg 01-04 04:45: 00 01-04 08:06 :00 Yes 1000mg 1,000 mg, IV Piggyback, at 400 mL/hr Administer over 15 Minutes, ONCE, 1 dose, On Tue01/03/25 at 2345, Routine, Is the patient strict NPO and unable to tolerate oral medication s? Yes [facility] morpHINE injection 4 mg morpHINE injection 4 mg 01-04 03:49: 32 01-08 20:34 :52 Yes 4mg 4 mg, Slow IV Push, Q6HPRN, Starting on Tue01/03/25 at 2249, Until Tue01/08/25 at 1534, Routine, Pain (scale 7-10) [facility] proMETHazin e (PHENERGAN) 25 mg in NS 50 mL IV piggyback (CNR) proMETHazin e (PHENERGAN) 25 mg in NS 50 mL IV piggyback (CNR) 01-04 03:48: 26 01-07 14:30 :57 Yes 25mg 25 mg, IV Piggyback, at 200 mL/hr Administer over 15 Minutes, Q4HPRN, Starting on Tue01/03/25 at 2248, Until Tue01/07/25 at 0930, Routine, N/V unresponsi ve to Ondansetro n [facility] methylpredn isolone sod succ (SOLU-MEDRO L) injection 60 mg methylpredn isolone sod succ (SOLU-MEDRO L) injection 60 mg 01-03 19:30: 00 01-03 19:00 :00 Yes 60mg 60 mg, Intravenou s, ONCE, 1 dose, On Tue01/03/25 at 1430, 2 mL [facility] simethicone (GAS RELIEF (SIMETHICON E)) 40 mg/0.6 mL drops 01-03 14:59: 00 01-03 16:10 :22 No PRN, Starting on Tue01/03/25 at 0959, Until Tue01/03/25 at 1110, Routine, Intra-op [facility] Potassium Bicarb-Citr ic Acid (EFFER-K) effervescen t tablet 20 mEq Potassium Bicarb-Citr ic Acid (EFFER-K) effervescen t tablet 20 mEq 01-03 13:00: 00 01-03 16:45 :00 Yes 20meq 20 mEq, Oral, Q2H, 2 doses, First dose on Tue01/03/25 at 0800, Last dose on Tue01/03/25 at 1000, Routine [facility] morpHINE injection 2 mg morpHINE injection 2 mg 01-03 11:08: 13 01-04 03:49 :25 Yes 2mg 2 mg, Slow IV Push, Q4HPRN, Starting on Tue01/03/25 at 0608, Until Tue01/03/25 at 2249, Routine, Pain (scale 7-10) [facility] morpHINE injection 6 mg morpHINE injection 6 mg 01-02 15:36: 15 01-03 11:08 :29 Yes 6mg 6 mg, Slow IV Push, Q4HPRN, Starting on Tue01/02/25 at 1036, Until Tue01/03/25 at 0608, Routine, Pain (scale 7-10) [facility] bisacodyL (DULCOLAX) tablet 10 mg 01-02 02:15: 00 01-02 03:09 :00 No 10mg 10 mg, Oral, Once, 1 dose, On Tue01/01/25 at 2115, Routine [facility] ondansetron (ZOFRAN (PF)) injection 4 mg ondansetron (ZOFRAN (PF)) injection 4 mg 01-02 02:06: 42 01-10 21:27 :26 Yes 4mg 4 mg, Slow IV Push, Q6HPRN, Starting on Tue01/01/25 at 2106, Until Tue01/10/25 at 1627, Administer over 2-5 Minutes, 2 mL [facility] acetaminoph en (TYLENOL) tablet 650 mg 01-02 00:55: 02 01-08 20:34 :52 No 650mg 650 mg, Oral, Q6HPRN, Starting on Tue01/01/25 at 1955, Until Tue01/08/25 at 1534, Routine, Pain (scale 1-3), Temp > 38 C [facility] ergocalcife rol (vitamin d2) (CALCIFEROL ) capsule 50,000 Units ergocalcife rol (vitamin d2) (CALCIFEROL ) capsule 50,000 Units 01-01 14:00: 00 Yes [id number] 50,000 Units, Oral, QWEEKLY, First dose on Tue01/01/25 at 0900, Until Discontinu ed, Routine [facility] multivitami n tablet 01-01 14:00: 00 01-10 21:27 :26 No 1{tbl} 1 tablet, Oral, DAILY, First dose on Tue01/01/25 at 0900, Until Discontinu ed, Routine [facility] KCL (KLOR-CON M20) tablet 40 mEq KCL (KLOR-CON M20) tablet 40 mEq 2025-0 4-15 11:30: 00 01-01 11:38 :00 Yes 40meq 40 mEq, Oral, ONCE, 1 dose, On Tue01/01/25 at 0630, Routine [facility] lactated ringers IV infusion 1,000 mL 12-31 23:45: 00 01-03 18:40 :43 No 1000mL at 100 mL/hr, 1,000 mL, IV Infusion, CONTINUOUS , Starting on Tue12/31/24 at 1845, Until Tue01/03/25 at 1340, Routine [facility] HYDROcodone -acetaminop hen (NORCO 5) tablet 1 tablet HYDROcodone -acetaminop hen (NORCO 5) tablet 1 tablet 12-31 14:58: 23 01-09 14:11 :04 Yes 1{tbl} 1 tablet, Oral, Q6HPRN, Starting on Tue12/31/24 at 0958, Until Tue01/09/25 at 0911, Routine, Pain (scale 4-6) [facility] morpHINE injection 4 mg morpHINE injection 4 mg 12-31 14:57: 55 01-02 15:36 :28 Yes 4mg 4 mg, Slow IV Push, Q4HPRN, Starting on Tue12/31/24 at 0957, Until Tue01/02/25 at 1036, Routine, Pain (scale 7-10) [facility] fentanyl PF (SUBLIMAZE (PF)) injection 12.5 mcg fentanyl PF (SUBLIMAZE (PF)) injection 12.5 mcg 12-31 06:45: 00 12-31 06:38 :00 Yes 12.5ug 12.5 mcg, Slow IV Push, ONCE, 1 dose, On Tue12/31/24 at 0145, DARCIE [facility] KCL (KLOR-CON M20) tablet 40 mEq KCL (KLOR-CON M20) tablet 40 mEq 12-31 04:45: 00 12-31 04:18 :00 Yes 40meq 40 mEq, Oral, ONCE, 1 dose, On Tue12/30/24 at 2345, Routine [facility] potassium chloride in water (KCL) 20 mEq/100 mL IV infusion 20 mEq [id number] [id number] 4-14 04:15: 00 12-31 10:08 :00 Yes 20meq 20 mEq, IV Infusion, at 50 mL/hr Administer over 2 Hours, Q2H ES, 3 doses, First dose on Tue12/30/24 at 2315, Last dose on Tue12/31/24 at 0315, Routine [facility] heparin (porcine) injection 5,000 Units [id number] 6304-0 4-14 01:00: 00 01-04 16:16 :55 Yes 5000U 5,000 Units, Subcutaneo us, Q12H, First dose on Tue12/30/24 at 1999, Until Discontinu ed, Routine [facility] D5W-LR IV infusion 1,000 mL 12-31 00:50: 00 12-31 13:41 :39 No 1000mL at 50 mL/hr, IV Infusion, CONTINUOUS , Starting on Tue12/30/24 at 1999, Until Tue12/31/24 at 0841, Routine [facility] ondansetron (ZOFRAN (PF)) injection 4 mg ondansetron (ZOFRAN (PF)) injection 4 mg 12-31 00:11: 56 01-04 03:49 :25 Yes 4mg 4 mg, Slow IV Push, Q6HPRN, Starting on Tue12/30/24 at 191, Until Graciela 01/03/25 at 2249, Administer over 2-5 Minutes, 2 mL [facility] acetaminoph en (TYLENOL) tablet 650 mg acetaminoph en (TYLENOL) tablet 650 mg 12-31 00:11: 56 01-02 00:55 :24 Yes 650mg 650 mg, Oral, Q6HPRN, Starting on Tue12/30/24 at 191, Until Tue01/01/25 at 1955, Routine, Pain (scale 1-3) [facility] diazePAM (VALIUM) tablet 5 mg 3-07 02:15: 00 11-23 01:24 :00 No 5mg 5 mg, Oral, ONCE, 1 dose, 11/22/20 at 2014, DARCIE [facility] traMADoL (ULTRAM) tablet 50 mg 11-23 02:15: 00 11-23 01:24 :00 No 50mg 50 mg, Oral, ONCE NOW, 1 dose, 11/22/20 at 2015, Routine [facility] methocarbam oL 500 mg tablet 11-22 00:00: 00 12-30 00:00 :00 No [id number] 500mg Take 1 tablet by mouth 4 (four) times daily. [facility] Vital Signs Vital Name Observation Time Observation Value Comments S ource Systolic blood pressure 2025-01-10 20:00:00 128 mm[Hg] [facility] Diastolic blood pressure 2025-01-10 20:00:00 84 mm[Hg] [facility] Heart rate 2025-01-10 20:00:00 73 /min [facility] Body temperature 2025-01-10 20:00:00 36.61 Zita [facility] Respiratory rate 2025-01-10 20:00:00 14 /min [facility] Oxygen saturation in Arterial blood by Pulse oximetry 2025-01-10 20:00:00 95 /min [facility] Body height 2024-12-31 00:09:00 167.6 cm [facility] Body weight 2024-12-31 00:09:00 60.782 kg [facility] BMI 2024-12-31 00:09:00 21.63 kg/m2 [facility] Systolic blood pressure 2025-01-03 13:54:00 133 mm[Hg] [facility] Diastolic blood pressure 2025-01-03 13:54:00 87 mm[Hg] [facility] Heart rate 2025-01-03 13:54:00 92 /min [facility] Body temperature 2025-01-03 13:54:00 36 Zita [facility] Respiratory rate 2025-01-03 13:54:00 20 /min [facility] Oxygen saturation in Arterial blood by Pulse oximetry 2025-01-03 13:54:00 99 /min [facility] Body height 2024-12-31 00:09:00 167.6 cm [facility] Body weight 2024-12-31 00:09:00 60.782 kg [facility] BMI 2024-12-31 00:09:00 21.63 kg/m2 [facility] Systolic blood pressure 2020-11-23 02:00:00 126 mm[Hg] [facility] Diastolic blood pressure 2020-11-23 02:00:00 85 mm[Hg] [facility] Heart rate 2020-11-23 02:00:00 74 /min [facility] Body temperature 2020-11-23 02:00:00 36.44 Zita [facility] Respiratory rate 2020-11-23 02:00:00 13 /min [facility] Oxygen saturation in Arterial blood by Pulse oximetry 2020-11-23 02:00:00 100 /min [facility] Body height 2020-11-23 00:31:00 167.6 cm [facility] Body weight 2020-11-23 00:31:00 60.782 kg [facility] BMI 2020-11-23 00:31:00 21.63 kg/m2 [facility] Systolic blood pressure 2025 20:34:00 131 mm[Hg] [facility] Diastolic blood pressure 2025 20:34:00 83 mm[Hg] [facility] Heart rate 2025 20:34:00 78 /min [facility] Body temperature 2025 20:34:00 37.06 Zita [facility] Respiratory rate 2025 20:34:00 19 /min [facility] Oxygen saturation in Arterial blood by Pulse oximetry 2025 20:34:00 96 /min [facility] Body height 2024-12-31 00:09:00 167.6 cm [facility] Body weight 2024-12-31 00:09:00 60.782 kg [facility] BMI 2024-12-31 00:09:00 21.63 kg/m2 [facility] Procedures Procedure Date / Time Performed Performing Clinician Source MAGNESIUM 2025-01-10 08:52:00 Lilian Carney [facility] BASIC METABOLIC PANEL (NA, K, CL, CO2, GLUCOSE, BUN, CREATININE, CA) 2025-01-10 08:52[facility] 2025-01-10 08:52:00 Lilian Carney [facility] MAGNESIUM 2025-01-09 09:02:00 Rommel [facility] C-REACTIVE PROTEIN 2025-01-09 09:02:00 [facility] (NA, K, CL, CO2, GLUCOSE, BUN, CREATININE, CA) 2025-01-09 09:02[facility] 2025-01-09 09:02[facility] 2025-01-09 00:07:23 Nicola Regan [facility] MAGNESIUM 2025-01-08 10:09:00 Rommel [facility] C-REACTIVE PROTEIN 2025-01-08 10:09:00 Maria Teresa Regan ae [facility] BASIC METABOLIC PANEL (NA, K, CL, CO2, GLUCOSE, BUN, CREATININE, CA) 2025-01-08 10:09:00 Rommel [facility] CBC WITH DIFF 2025-01-08 10:09:00 [facility]ED[facility] DOCUMENTATION 2025-01-07 14:41:46 Doctor Unassigned, [place] [facility] MAGNESIUM 2025-01-07 08:56:00 Rommel [facility] VITAMIN B12, LEVEL 2025-01-07 08:56:00 Maria Teresa Regan ae [facility] FOLATE 2025-01-07 08:56:[address] [facility] BASIC METABOLIC PANEL (NA, K, CL, CO2, GLUCOSE, BUN, CREATININE, CA) 2025-01-07 08:56:00 Rommel [facility] CBC WITH DIFF 2025-01-07 08:56:00 Lilian Carney [facility] MAGNESIUM 2025-01-05 08:10:00 Krish kalen [facility] TRANSFERRIN 2025-01-05 08:10:00 Maria Teresa Regan [facility] C-REACTIVE PROTEIN 2025-01-05 08:10:00 [facility] BASIC MET[facility]OLIC PAN[facility] (NA, K, CL, CO2, GLUCOSE, BUN, CREATININE, CA) 2025-01-05 08:10:00 Krish [facility] CBC WITHOUT DIFF 2025-01-05 08:10:00 Krish [facility] MAGNESIUM 2025-01-04 08:10:00 Rommel [facility] BASIC METABOLIC PANEL (NA, K, CL, CO2, GLUCOSE, BUN, CREATININE, CA) 2025-01-04 08:10:00 Rommel [facility] CBC WITH DIFF 2025-01-04 08:10:00 Lilian Carney [facility] MAGNESIUM 2025-01-04 08:10:00 Rommel [facility] BASIC METABOLIC PANEL (NA, K, CL, CO2, GLUCOSE, BUN, CREATININE, CA) 2025-01-04 08:10:00 Rommel [facility] CBC WITH DIFF 2025-01-04 08:10:00 Rommel [facility] COLONOSCOPY (ENDO) 2025-01-03 15:19:00 Sivan Suh [facility] COLONOSCOPY (ENDO) 2025-01-03 15:19:00 Sivan Suh [facility] SURGICAL PATHOLOGY EXAM 2025-01-03 14:56:00 Jm Pearson [facility] SURGICAL PATHOLOGY EXAM 2025-01-03 14:56:00 Jm Pearson [facility] COLONOSCOPY 2025-01-03 14:27:00 [facility] 2025-01-03 14:27:00 Robert Pearson [facility] XR KUB 2025-01-03 11:51:39 Rommel [facility] XR KUB 2025-01-03 11:51:39 Rommel [facility] MAGNESIUM 2025-01-03 09:41:00 Rommel [facility] BASIC METABOLIC PANEL (NA, K, CL, CO2, GLUCOSE, BUN, CREATININE, CA) 2025-01-03 09:41:00 Rmomel [facility] CBC WITH DIFF 2025-01-03 09:41:00 [facility] 2025-01-03 09:41:00 Rommel [facility] BASIC METABOLIC PANEL (NA, K, CL, CO2, GLUCOSE, BUN, CREATININE, CA) 2025-01-03 09:41:00 Hira Carneysha [facility] CBC WITH DIFF 2025-01-03 09:41:00 Lilian Carney [facility] XR KUB 2025-01-03 07:38:55 Rahul Esquivel [facility] XR KUB 2025-01-03 07:38:55 Sierra Rahul [facility] XR ABDOMEN 1 VW 2025-01-03 07:12:09 Sierra [facility] XR ABDOMEN 1 VW 2025-01-03 07:12:09 Sierra [facility] CBC WITH DIFF 2025 09:18:00 Carney, [facility] BASIC METABOLIC PANEL (NA, K, CL, CO2, GLUCOSE, BUN, CREATININE, CA) 2025 09:18:00 Rommel [facility] MAGNESIUM 2025 09:18:00 Rommel [facility] MAGNESIUM 2025 09:18:00 [facility] (NA, K, CL, CO2, GLUCOSE, BUN, CREATININE, CA) 2025 09:18:00 Rommel [facility] CBC WITH DIFF 2025 09:18:00 Rommel [facility] MAGNESIUM 2025 09:18:00 Rommel [facility] BASIC METABOLIC PANEL (NA, K, CL, CO2, GLUCOSE, BUN, CREATININE, CA) 2025 09:18:00 Rommel [facility] CBC WITH DIFF 2025 09:18:00 Rommel [facility] CALPROTECTIN, FECAL 2025-01-01 09:38:00 Maria Teresa Regan [facility] CLOSTRIDIUM DIFFICILE TOXIN 2025-01-01 09:38:00 Guerra [facility] CLOSTRIDIUM DIFFICILE TOXIN 2025-01-01 09:38:00 Guerra, [facility] CALPROTECTIN, FECAL 2025-01-01 09:38:00 Maria Teresa Regan [facility] CLOSTRIDIUM DIFFICILE TOXIN 2025-01-01 09:38:00 Guerra, [facility] CALPROTECTIN, FECAL 2025-01-01 09:38:00 Maria Teresa Regan [facility] VITAMIN D, 25-OH 2025-01-01 09:37:00 Maria Teresa Regan [facility] CBC WITH DIFF 2025-01-01 09:37:00 Maria Teresa Regan [facility] MAGNESIUM 2025-01-01 09:37:[address] [facility] BASIC METABOLIC PANEL (NA, K, CL, CO2, GLUCOSE, BUN, CREATININE, CA) 2025-01-01 09:37:00 Maria Teresa Regan [facility] PHOSPHORUS 2025-01-01 09:37:[address] Maria Teresa Regan [facility] PHOSPHORUS 2025-01-01 09:37:[address] [facility] MAGNESIUM 2025-01-01 09:37:00 Maria Teresa Regan [facility] BASIC METABOLIC PANEL (NA, K, CL, CO2, GLUCOSE, BUN, CREATININE, CA) 2025-01-01 09:37:00 Maria Teresa Regan [facility] CBC WITH DIFF 2025-01-01 09:37:00 [facility], 25-OH 2025-01-01 09:37:00 Maria Teresa Regan [facility] PHOSPHORUS 2025-01-01 09:37:00 Maria Teresa Regan [facility] MAGNESIUM 2025-01-01 09:37:00 Maria Teresa Regan [facility] BASIC METABOLIC PANEL (NA, K, CL, CO2, GLUCOSE, BUN, CREATININE, CA) 2025-01-01 09:37:00 Maria Teresa Regan [facility] CBC WITH DIFF 2025-01-01 09:37:00 Maria Teresa Regan Un [facility] VITAMIN D, 25-OH 2025-01-01 09:37:00 Maria Teresa Regan [facility] US GALL BLADDER 2025-01-01 01:01:00 Maria Teresa Regan [facility] US GALL BLADDER 2025-01-01 01:01:00 Maria Teresa Regan [facility] US GALL BLADDER 2025-01-01 01:01:00 Maria Teresa Regan [facility] CBC WITH DIFF 2024-12-31 11:17:00 Amol Guerra [facility] BASIC METABOLIC PANEL (NA, K, CL, CO2, GLUCOSE, BUN, CREATININE, CA) 2024-12-31 11:17:00 Amol Guerra [facility] MAGNESIUM 2024-12-31 11:17:00 Amol Guerra [facility] GLYCOSYLATED HEMOGLOBIN (A1C) 2024-12-31 11:17:00 Maria Teresa Regan [facility] THYROID STIMULATING HORMONE 2024-12-31 11:17:00 Maria Teresa Regan [facility] LIPASE 2024-12-31 11:17:00 Maria Teresa Regan [facility] LIPASE 2024-12-31 11:17:00 Maria Teresa Regan [facility] MAGNESIUM 2024-12-31 11:17:00 Amol Guerra [facility] THYROID STIMULATING HORMONE 2024-12-31 11:17:00 Maria Teresa Regan [facility] BASIC METABOLIC PANEL (NA, K, CL, CO2, GLUCOSE, BUN, CREATININE, CA) 2024-12-31 11:17:00 Charlie [facility] CBC WITH DIFF 2024-12-31 11:17:00 Charlie [facility] GLYCOSYLATED HEMOGLOBIN (A1C) 2024-12-31 11:17:00 Maria Teresa Regan [facility] LIPASE 2024-12-31 11:17:00 Maria Teresa Regan [facility] MAGNESIUM 2024-12-31 11:17:00 Amol Guerra [facility] THYROID STIMULATING HORMONE 2024-12-31 11:17:00 Maria Teresa Regan [facility] BASIC METABOLIC PANEL (NA, K, CL, CO2, GLUCOSE, BUN, CREATININE, CA) 2024-12-31 11:17:00 Charlie [facility] CBC WITH DIFF 2024-12-31 11:17:00 Charlie [facility] GLYCOSYLATED HEMOGLOBIN (A1C) 2024-12-31 11:17:00 Maria Teresa Regan [facility] ABORH CONFIRMATION (LAB ONLY) 2024-12-31 11:16:00 [place], [facility] ABORH CONFIRMATION (LAB ONLY) 2024-12-31 11:16:00 Evangelina [facility] ABORH CONFIRMATION (LAB ONLY) 2024-12-31 11:16:00 Evangelina [facility] URINALYSIS 2024-12-31 07:58:00 Guerra, [facility] FECAL PATHOGENS BY PCR 2024-12-31 07:58:00 Guerra, Awais [facility] URINALYSIS 2024-12-31 07:58:00 Guerra, [facility] FECAL PATHOGENS BY PCR 2024-12-31 07:58:00 Guerra, Awais [facility] URINALYSIS 2024-12-31 07:58:00 Guerra, [facility] FECAL PATHOGENS BY PCR 2024-12-31 07:58:00 Guerra, Awais [facility] CT ABDOMEN PELVIS W CONTRAST 2024-12-31 05:56:08 Guerra, [facility] CT ABDOMEN PELVIS W CONTRAST 2024-12-31 05:56:08 Guerra, [facility] CT ABDOMEN PELVIS W CONTRAST 2024-12-31 05:56:08 Guerra, [facility] BLOOD CULTURE SCREEN 2024-12-31 03:13:00 Guerra, [facility] BLOOD CULTURE SCREEN 2024-12-31 03:13:00 Guerra, [facility] BLOOD CULTURE SCREEN 2024-12-31 03:13:00 Guerra, [facility] HCV ANTIBODY 2024-12-31 03:03:00 Guerra, [facility] IRON PANEL 2024-12-31 03:03:00 Guerra, [facility] IRON PANEL 2024-12-31 03:03:00 Guerra, [facility] PROTHROMBIN TIME / INR 2024-12-31 03:03:00 Guerra, Awais [facility] ACTIVATED PARTIAL THRMPLAS WILBUR 2024-12-31 03:03:00 Guerra, [facility] HEPATITIS B SURFACE ANTIBODY 2024-12-31 03:03:00 Guerra, [facility] HCV ANTIBODY 2024-12-31 03:03:00 Guerra [facility] HBC ANTIBODY (IGM & IGG) 2024-12-31 03:03:00 Guerra, Humberto [facility] IRON PANEL 2024-12-31 03:03:00 Guerra, [facility] PROTHROMBIN TIME / INR 2024-12-31 03:03:[facility] THRMPLAS WILBUR 2024-12-31 03:03:00 Guerra, [facility] HEPATITIS B SURFACE ANTIBODY 2024-12-31 03:03:00 Guerra, [facility] HCV ANTIBODY 2024-12-31 03:03:00 Guerra, [facility] HBC ANTIBODY (IGM & IGG) 2024-12-31 03:03:00 Guerra, Humberto [facility] PROTHROMBIN TIME / INR 2024-12-31 03:03:00 GuerraAwais garcia [facility] ACTIVATED PARTIAL THRMPLAS WILBUR 2024-12-31 03:03:00 Guerra, [facility] HEPATITIS B SURFACE ANTIBODY 2024-12-31 03:03:00 Guerra, [facility] HBC ANTIBODY (IGM & IGG) 2024-12-31 03:03:00 Humberto Guerra [facility] C-REACTIVE PROTEIN 2024-12-31 03:02:00 Amol Guerra [facility] SEDIMENTATION RATE 2024-12-31 03:02:00 Amol Guerra [facility] CBC WITH DIFF 2024-12-31 03:02:00 Amol Guerra [facility] HB ABO GROUPING 2024-12-31 03:02:[address] [facility] THIOPURINE METHYLTRANSFERASE, RBC 2024-12-31 03:02:00 Charlie [facility] C-REACTIVE PROTEIN 2024-12-31 03:02:00 Amol Guerra [facility] SEDIMENTATION RATE 2024-12-31 03:02:00 Charlie [facility] CBC WITH DIFF 2024-12-31 03:02:00 Charlie [facility] HB ABO GROUPING 2024-12-31 03:02:[address] [facility] THIOPURINE METHYLTRANSFERASE, RBC 2024-12-31 03:02:00 Charlie [facility] CBC WITH DIFF 2024-12-31 03:02:00 Charlie [facility] HB ABO GROUPING 2024-12-31 03:02:[address] [facility] SEDIMENTATION RATE 2024-12-31 03:02:00 Amol Guerra [facility] C-REACTIVE PROTEIN 2024-12-31 03:02:00 Aoml Guerra [facility] PHOSPHORUS 2024-12-31 03:01:00 Charlie [facility] FERRITIN SERUM 2024-12-31 03:01:00 Charlie [facility] HEPATIC FUNCTION PANEL ([id number]) (ALB,T.PRO,BILI T,BU/BC,ALT,AST,ALK PHOS) 2024-12-31 03:01:00 Charlie [facility] BASIC METABOLIC PANEL (NA, K, CL, CO2, GLUCOSE, BUN, CREATININE, CA) 2024-12-31 03:01:00 Charlie [facility] LIPID PANEL (91021)(TOTAL CHOLESTEROL, TRIGLYCERIDES, HDL) 2024-12-31 03:01:00 Charlie [facility] HEPATITIS B SURFACE ANTIGEN 2024-12-31 03:01:00 Charlie [facility] HAV ANTIBODY (IGG AND IGM) 2024-12-31 03:01:00 Charlie [facility] QUANTIFERON-TB ASSAY 2024-12-31 03:01:00 Charlie [facility] HIV 1/2 AG-AB WITH REFLEX 2024-12-31 03:01:00 Charlie [facility] PHOSPHORUS 2024-12-31 03:01:00 Charlie [facility] FERRITIN SERUM 2024-12-31 03:01:00 Charlie [facility] HEPATIC FUNCTION PANEL (62444) (ALB,T.PRO,BILI T,BU/BC,ALT,AST,ALK PHOS) 2024-12-31 03:01:00 Guerra, [facility] BASIC METABOLIC PANEL (NA, K, CL, CO2, GLUCOSE, BUN, CREATININE, CA) 2024-12-31 03:01:00 Guerra, [facility] LIPID PANEL (82858)(TOTAL CHOLESTEROL, TRIGLYCERIDES, HDL) 2024-12-31 03:01:00 Guerra, [facility] HEPATITIS B SURFACE ANTIGEN 2024-12-31 03:01:00 Guerra, [facility] HAV ANTIBODY (IGG AND IGM) 2024-12-31 03:01:00 Guerra, [facility] QUANTIFERON-TB ASSAY 2024-12-31 03:01:00 Guerra, [facility] HIV 1/2 AG-AB WITH REFLEX 2024-12-31 03:01:00 Guerra, [facility] BASIC METABOLIC PANEL (NA, K, CL, CO2, GLUCOSE, BUN, CREATININE, CA) 2024-12-31 03:01:00 Guerra, [facility] HEPATIC FUNCTION PANEL (78716) (ALB,T.PRO,BILI T,BU/BC,ALT,AST,ALK PHOS) 2024-12-31 03:01:00 Guerra, [facility] PHOSPHORUS 2024-12-31 03:01:00 Amol Guerra [facility] LIPID PANEL (08010)(TOTAL CHOLESTEROL, TRIGLYCERIDES, HDL) 2024-12-31 03:01:00 Guerra, [facility] QUANTIFERON-TB ASSAY 2024-12-31 03:01:00 Guerra, [facility] HAV ANTIBODY (IGG AND IGM) 2024-12-31 03:01:00 Guerra, [facility] HEPATITIS B SURFACE ANTIGEN 2024-12-31 03:01:00 Guerra, [facility] FERRITIN SERUM 2024-12-31 03:01:00 Amol Guerra [facility] HIV 1/2 AG-AB WITH REFLEX 2024-12-31 03:01:00 Amol Guerra [facility] BLOOD CULTURE SCREEN 2024-12-31 03:00:00 Amol Guerra [facility] BLOOD CULTURE SCREEN 2024-12-31 03:00:00 Amol Guerra [facility] BLOOD CULTURE SCREEN 2024-12-31 03:00:00 Amol Guerra [facility] XR LUMBAR SPINE 3 VW 2020-11-23 01:53:41 Sivan Woods [facility] XR CERVICAL SPINE 3 VW 2020-11-23 01:53:41 Liya Woods [facility] XR PELVIS <3 VW 2020-11-23 01:53:41 [facility]AST 2020-11-23 01:41:51 Sivan Woods [facility] CT HEAD WO CONTRAST 2020-11-23 01:41:51 Sivan Woods [facility] Encounters Start Date/Time End Date/Time Encounter Type Admission Type Attending [facility] Care Department Encounter ID Source 2024-12-30 19:05:00 2025-01-10 16:15:00 Hospital Encounter Amol Maya, Goldy Suh, Orin Mroris [facility] ([place] 1.0.114 350.1.13.10 4.2.7.2.686 [id number] [facility] 2025-01-07 00:00:00 2025-01-08 02:04:31 Orders Only Doctor Unassigned, [place] Doctor Unassigned, [place] [facility] ([place]) 1.2840.114 350.1.13.10 4.2.7.2.686 [id number] [facility] 2025-01-03 08:37:00 2025-01-03 09:35:00 Surgery Robert Pearson [facility] 1.2840.114 350.1.13.10 4.2.7.2.686 [id number] [facility] 2025 10:55:31 2025 10:55:31 Anesthesia Event Pascual Sweeney [facility] ([place]) 1.2.840.114 350.1.13.10 4.2.7.2.686 [id number] [facility] 2024-12-30 00:00:00 2024-12-30 00:00:00 Travel 1.2.840.1 [id number] 3.104.2.7 [id number] .8 1.2.840.114 350.1.13.10 4.2.7.3.698 [id number] [facility] 2020-11-22 18:30:00 2020-11-22 22:17:00 Emergency Nathanael Woodsradha Brice [facility] 1.2.840.114 350.1.13.10 4.2.7.2.686 [id number] [facility] 2020-11-22 18:30:00 2020-11-22 22:17:00 Emergency X SIVAN WOODS [facility] ERT [id number] [facility] Results Test Description Test Time Test Comments Results Resul t Comments Source US Scrotum and contents 2024-12-19 3 13:44:17 EXAM: US SCROTUM AND CONTENTS HISTORY: 50 years-old Male; Provided indication: evaluate for hydrocele . TECHNIQUE: Ultrasound imaging with color Doppler of the scrotum wasperformed. Accounting Auditor images were obtained for the record. COMPARISON: [...] varicocele is seen. Small to moderate bilateralhydrocele. [facility] [id number] 14:41:46Ordered by an unspecified provider.[facility] [id number] 16:22:03* Test Item Value Reference Range Interpretation Comme nts TRANSFERRN (test code = 3306033407) 114 mg/dL 168-336 L Lab Interpretation (test cod e = 47948-9) Abnormal [facility]2025-04-19 08:36:38* Test Item Value Reference Range Interpretation Comme nts MAGNESIUM (test code = 7332595902) 2.3 mg/dL 1.7-2.4 Lab Interpretation (test cod e = 57773-3) Normal [facility] (NA, K, CL, CO2, GLUCOSE, BUN, CREATININE, CA)2025-01-05 08:36:37* Test Item Value Reference Range Interpretation Comme nts NA (test code = 5153225786) 135 mmol/L 135-145 K (test code = 0429756960) 3.8 mmol/L 3.5-5.0 CL (test code = 7459103904) 96 mmol/L 98-108 L CO2 TOTAL (test code = 0149840730) 34 mmol/L 23-31 H AGAP (test code = 9053245027) 5 2-16 BUN (test code = 9971632327) 14 mg/dL 7-23 GLUCOSE (test code = 0246035635) 157 mg/dL 70-110 H CREATININE (test code = 2160-0) 0.68 mg/dL 0.60-1.25 CALCIUM (test code = 6810032458) 7.5 mg/dL 8.6-10.6 L eGFR (test code = 42043-6) 111.8 mL/min/1.73m2 CKD-EPI eGFR (2020). Assuming creatinine has been stable day-to-day for at least three months, the eGFR indicates Category G1 (>= 90 mL/min/1.73 m2) Lab Interpretation (test code = 17794-6) Abnormal [facility] HospitalCbc without [id number] 08:24:32* Test Item Value Reference Range Interpretation [...] 465 150-328 H MPV (test code = 40114-7) 8.4 fL 9.8-13.0 L RDW-CV (test code = 788-0) 13.6 % 12.1-15.4 RDW-SD (test code = 86950-3) 46.7 fL 38.5-51.6 NRBC x10^3 (test code = 0243136713) See_Comment [Automated messa ge] The system which generated this result transmitted reference range: 10*3/?L. The reference range was not used to interpret this result as normal/abnormal. NRBC/100 WBC (test code = 4197750171) 0 0.0-10.0 IPF % (test code = 6553183592) Lab Interpretation (test code = 99394-4) Abnormal [facility] Dlur9729-03-19 16:38:51* Test Item Value Reference Range Interpretation Comme [facility] Case Report (test code = 8356320693) Surgical Pathology ?Case: [id number] ? Authorizing Provider: ?Robert Pearson MD ? ? ?Collected: ? 01/03/2025 0956 ?Ordering Location: ? ? GI Endoscopy OR Department Received: ?01/03/2025 1307 ?Pathologist: ? Kyleigh Huddleston MD ? Specimens: ? A) - LARGE INTESTINE, SIGMOID COLON, Sigmoid colon Bx eval for IBD ? B) - RECTUM, Rectal Bx eval for IBD ? Final Diagnosis (test code = 5364822842) [id number] FuZzEwMzNcZnRuYmpcdWMx IHtccnRmMVxhbnNpXGRlZm iaevitUCIpCJE6etUdOILx TBQ7KUF9BuBpYNGpWbTlPC C5CCTtn0znx1WlgORqpXXa IHvhgVMaqkXapz85hWD4aW 33RG9ySLPoEqJ0NJFjmrG2 Uyw8FKKjGKNkgVYjE922d7 sdw3wnrsPqnWT8aRlcGPCn ngteEwT6YZzaXNGvynvxHS c3SDodAHWieBD4ELVfmYAy B1NwIWEoFA0zlxw2JJU1IB cdERTfRdN8AOHvjYQhCLEl vIcpNKxrd480MGV0XxHxXG GmlcNrhOlgzC7qPbGmWQtz ICBcQS9gXRQEB0LyBS6XKN SXPF0KMFWALZgAO6xRMAJI TL7RXVZMOX9GP2o0ICUive FhJSFxNSNJW2vRTerFPK4J R56AZDUXTLNKNJKZRRDFFX QJG1WLR3AeRYFENYYGFEwR GNDUVNCTLOGFW3aDQMKVDC BUYMhjEFvZAD2GDUpQOncp QLHpYTLeSH6yFe0fV4BVJy NKE04JCG2MRHSFL6GFRSWA QSBJREVOVElGSUVEICBccG FyXGZzMjJccGFyXGZzMjAg Ly1bQwBIIAKJPDSBVF5JY8 b3RWOenwMxVLShTGNWPXYV HIxgKTNXX1GHYMzKKOltIH cZQBvFNDfSX1SDJHSAQCCG YT7KKW5MFTZRFOCLIMCVKv BJTkZJTFRSQVRFIElOXHBh xdKmCLVdZULjMULFAM2IQU EID8PZMPRrkSKeTTHwKUVz LT1BVZKNKZgJWELIVQ9SPN GCM5PBTARQKZSDVYJKRPgK SUVEICBccGFyXHBhcmRccG YmVSKxblfwFHD3z6mqwQOa XHNzdGVjZjIyMDAwXGFuc2 lcZGVmbGFuZzEwMzNcZnRu YrntlFEaSQPhEmCfd8fum1 95qXAgc9fuULObXvG7lMCm FHZygSpxkpr5aOmsUcAaYI Oax0njryCvIfGyKWBmRUAn NUFbpIEgL335DBNnVWcgc4 oxa3RfKSDhuDBck5D5JVZL NPsvCkStC710b0sat4bbcz UlvGI8XGByXPF3DKkwmeKs vbG9COsbuLTgChV8SQxvuj DsCEogkbBxjlOiTqc5MYBv K069OOF9xZzaa8wgYQG0NR ZzHCHkNyeiDt4fjDIqB836 ETIvGRBCWHEfaEm5HKFcgk BzmwTlwNZXb294U368l9mr MPNlxcGzpXxMnystp9jbX6 19XHBhcGVydzEyMjQwXHBh jIIufMF8KPWlFH4tcgctIL anMOxjIPWxwxU9WVFxrRDq B1GsIDSbBI7ujayyZMJ9UB qrLHMiZTT3NcWnLLLqu1Is uxb4GhJyfx6aom47NJL8u0 YynRvpGXW4DHH0MsBsVc3p kBOkUMGbJE3lNyQbmSBvVQ Cutg00qYxcWWseyzNpfM8m MaZfQDQlaOZmHGAjMN8noD LoZKFhfP6dilffZGPgEdFw lscqNXFglUfmpxKjFy2ixI icTZD3VThoM3tnzB1pHsW2 DGkrA1ttqT2eQRb2MMhptJ G6JKOjqG6tZS9bjiibx8hf LUnwDCcwIZCkgoO2sfP7UB YaiTWqF2GikQ3iCJKlFT2v afknj7ngTYF6KNfzJDQxSU R4BxOhTXUto9Vldlc2ChDe l7MauOYnYOeaO30zi792PL NoscQjJ2fovTMycprmuWIa xkjbBPhnouM7PJObWDJiGK luXGYxXGZzMjBcbGFuZzEw MzNcaGljaFxmMVxkYmNoXG AlVWscL9qiIqMqB2BlLYWf YiIiiKSuIBnhzLR3CYPfKB Fvb63zsOg6HETfynlaw5To VAGwhZFqqPRibB2mrwLae4 fbMSBnMQTwKTYcZ3AuVPS5 hMUsGIRvfAJfgHK1CI1kii DnPS5zRDFiNboxxcPwwQEp ykAqDYDjZVglo5xnEI1wOP FilSyiqM0hlTH4HYTkd4ik qBPzyQEai2iig2UgxtYqRL ljTYOdNAvxVWZxNPYmPO7t KSCkgTAigvYkk5Y6ExaazJ HfzulcUoizkyY0YBmbvxjh OULrPSdcY9ygHpZbHCGtmM hsLxnpt3OdXWFcYWCzGrnf hMEkvM48EDT0EyFht2P3PA LtBoKqCQYeNN2efYmfSJZw NE9pCAShO1uitQ4uvar1By ByATNsQtR5WEQyaiF7Fyw1 CSRyWKist7jfu3MaS4GfbS IonAg6m3jcWTShFvD6qQXo DJigL5osyyRxkXHxLCBrWJ r1wN74KCTqlA6mpXXbKHif llJjTwB1REddUGGlFtS0NV DnzGTiRMToB6xdLGQlJNus ENUfGHtpxGYkJYW8bTbpe5 D3mQCmyVKykUqzPdUcGvXh IQNJi8IaVPx4aNtzO5SfDA UqMfB1qWWaOCPcFSdjJRTx CSBbebG9mN29LKnmhfD2zK Waj6Zna80li129yE5ycCXa AHI1PETpMNJgwAJnVLVvFB P5DNLxiQJfN7djVHXzKW0y dkjzQNvbQYevZLCmwXO7KY DosVHjT7UoIQSlXCpfVZYw rbo3CvDmLi5lrLWfaIhrHS ffw3wol2hkuKDhIal5BCGb GyCqAmzjFPqsz9Qmb9wwEI Qycn90lUTmeJWwtHYpmh3z rmMytUAumGOhWAB7sEQtam OkRKZcsEIhEVPxGO2yaXYp UJByxO1wxpvaXHIeOoEjqj chBCPyxGrzqqGhMj0gjFwu PQI2ROdkM9efvP7ySiL4UB obW6ojwZ1pBCu6EMcorAK0 YVSrkB7nHF6dpmyfj2tvTR scQUwwEHIvjmH6zcI0PQPr wQHdP2JqpX2dFFAvML1npk odi1tjUAD2IXreQHKsGPJ5 XaKbSFYqw5Jnhfp4WyZhu2 WjmNJaRZerC41vl282SYVd ikRqJ2lncOWckndghIYbll uhTSfednC1FRPasvMmt5Rf SMWeOQL4IRzmYUbgrJRwRP EamAccu5maO9YloWQrDTBy YWluXGYxXGZzMjBcbGFuZz EwMzNcaGljaFxmMVxkYmNo YMQdBGdgW3mzLlLpX6EzAX VxAqOsjITaN8ixqTEnSKtl vKF8APVoKIPfm52ptIo9ED Uluxhnk1InUGSenPNtjPFd gC9wcbArg2vlCBWuUVRlGV LdO2DpKUC6zJIjTOJarGAj nRY6MA6pgaIoEE3tERIdGl kgcmVzaWRlbnRzLCBmZWxs c6mkDP9jFTRnuCcwdG9geT Q3JWHrw7cqoNYikSHlj5th z7DzsmIjEFhlEDJaIIqkDL SoNKFjQO2gHDTjsTTgddTl c9L5NlufpBQdpokqHZmuzn XdKJsmblcaTLTqEHxdP7hl MwEeWKEynKavVYmpf5CsPE YxXGNmMlxmczIwXHBhclxw YXJccGFyXHNhMTYwXHNsMj N8ODQzeJBbbKKfcZxsbL2j ZjBcZnMyNFxwbGFpblxmMV afvgM1KWyfalshHXFwYQrz S9jmNxUuEEDznKixHOjkr5 FqSAXbZVSwMarxhrX4HIo8 aoJjMKLkmMimwK4jzOL6SO Cku9Upo3Epu90rcUPim80f e00bxqBbiMYvAm8yrHKtDT B3YHEZTZPoHHDwZ7HhWMCl cHcgU6SklQJyGHFeDdZcJO b7rLFqInOlSFtxcINQi7J3 fKfpJWEdF7ArREXlsGymDG RNLCy2GXgyZKUxMJyuUDLs XGZzMjBcbGFuZzEwMzNcaG ljaFxmMVxkYmNoXGYxXGxv U5ujDmPqS0CzQTNoOuUodN LyE4kclJRbhD3= Clinical Information (test code = [id number]) Jin Jiménez is a 50 year old male1. 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 Rectal Bx eval for IBD Gross Description (test code = [id number]) k4cjfDArKGPpgLJMXKLvJO BmJB5hrEnajKa1aOglMAGy ogD5qVZoAEzfe0ytRUI5g2 kwzkEYJkywBHVpQY5rPKgj BCTqOU7aMcCkEMIuHvIhPO BhcGVydzEyMjQwXHBhcGVy qPY2MZAeQP6axwboVIbzND vnPKIlibD6VPQquZCxC8Em GTIiSE8nagmvIYE9URVPJn rnCn0evMWlgPcvZlTdJhPb ATAgCYAsICCqq0wkzcWHji npzBv7xR1GIJGoA0MmVC0R t3kbKJYgmOWfDFT4BKhfw4 mdDBzsSTK8BIBpVYQwGKAu TS2TEdEyPEB1WIL3ZHK6Kw D9YVi5DCZKMFQiTSxwUVAl NSX5TAs2QGWuZG8qQThpqE CrEXawAuidKZumQ591DVwv VHXuA8ZuT4JtEQikAzBaYC qyDOAuDCWdBIcfIXOdM4EY IKXwIWk5TREbQgVfVCx9TG l5LO7VXkHcOGBqKKf5SjNs WWOuIQp7WBkoXT3SFMBeVB HvRHZ2HGxpBFCdRLabDRj4 IDIgXFxzcyAzIFxcZmwgXF mlB24hxNCzGWRJSlskeFGd blxmczIwIFNQRUNJTUVOIE IrqGSbL5vvFkAqFtskEQDg DQpccGFyZCANClxwbGFpbl xsdHJjaFxmczIyXGVwaWNO MTN5EB7nXKUYEzhrsPAuFK Agl6PoDPplzRlhMLYdKrYs DYcJjHXttZ2aeyXSOEswTI GyJ2HrjvTeLQlaMBVvvl7l bGluLCBsYWJlbGVkIHdpdG ggdGhlIHBhdGllbnQncyBu LK7vTAMVEOAijT3uVZRoEI WgNHTtIALmplSwq5EuzjVi APCsQ83twDJoQ84jy58sPV LwV41utPQzT83xf71pBixv TQGviUSxi2LuGQFPXaHpir OsI40pz9kfjPYwk0ZuSbF1 YT4ylFiamoMmukKvG4RfEN Ljw25tbUS1eDFfpJGkQvMk Z89zhqBsRRazYfBvTJQzPo EqO06ajB8fA1ZnIGQgh3Ft EKalMQ4mrF2jVQErFsoitB LgZeNppZGxZxEuS79ldR9k QTsxbyNtNJTnUR5fAUCdXW VjnQRuuQ1ixyBggrIfwBb9 ZXJlZCBpbnRvIGEgYmlvcH G9CFIfPyFffxJbm6DwfAy0 lHAeQYjgZGMduL1cbS8kJD EhNWfaXZFvL91yl3QRt1Tu o4lgxLnui1WlvRNoHK5bqX QqEU4Qt0lxMYOvdCHtWCH8 HGyka9pkDUwpUPN4PNBmFm MyWDOjKG8SKxHuKDW9PRO8 DCT9RkA7RAj1BENVNfPsSs GpXiv7CjiwGVIvZLm9WSc6 ZUgDSoCnItnvYvTzSMX0NE B7ZhB4HDuhqYMoVJfiu9Ze CdBqCLWiQKvjfuV8XCMlya Seo2DjBHBhSKReY8pvXpXt NSANClxmczIwIFNQRUNJTU VOIEJcZnMyMlxwYXIgDQpc cGFyZCANClxwbGFpblxsdH JjaFxmczIyXGVwaWNOZXN0 HJ9hFTTBUenrvDZcZKSqo9 IzMFxlcGljWHNiMzAgDQpT zXLozM1srePQAHyaARReU7 RicfVjTNbbDOBieo3ksWgq LCBsYWJlbGVkIHdpdGggdG dtWKWkrWmpsvXntmDoVH6j TOKIVBItxP1nRUXzHJZdTF R1hK1gAQOyX9ElbEAJUNHt dmFsIGZvciBJQkQiIGFuZC Cmr74dcGC4mfMgKvJaiBg0 mHHlATP1HL6bqEoaemOggo QxG6MrMBSjf52dkWU0yACp qCHlJcUaM04xppXpOZgsXf ZmNJ13QVDcJZccGAbiJZD3 OGC3DNBwzAYlz5ahcngdUP 7dITkvBU4wOTmdSI9mGBCh EVojLHNnI2UzT1B4JWvzQA ZOgHJqz9KbY9diEO6vgJDz ZzigkGCpMSTklB06szEyMC Vpz2QmgBInJNtgBL8lPUR9 Sl1nySCpBJPauoC2u1JkKR luIEIxLlxwYXIgDQpccGFy ZFxsdHJwYXIgDQpccGFyIA 0KSGFvdGlhbiBXdSwgUEEo IAMBVHcisLCzQT0UBXKdp9 HhV6X1GGJlCFvfy0ndFQMm WWksq5TrYEiUUGGBDP5ZMJ 9ucBA6CSzPP5SYI4zAoQPt UFFyDLqjmFCRSO42NLp2wY U9iB25UBPrTTHrqTYoQOsx D648GK7yEg4iVCX7LKJqOc V4f4tjeHGxLXpdOzvmoFPt ayN1TEtXTFUTHZkETlOaPK 8zFGtEMpmQMhN2OiEbDKGt uDR8DVNEHWsekJy2PDe8rO idPbuajmRwiXGqEjYUoY6k kWvozM0joXZzP0etXuToAr tdJEDeVQdvk5CaGLldbMkm LGOyQbHeWZfeWRScP00ze9 BXt8Wwt3tjcSdpj1JymUFu WG64PWNxjZTpYYX1ZJ2pqE xwYXIgDQpccGFyZCANClxw bGFpbiANCn0= Disclaimer (test code = [id number]) k6anoXPrEEPko1fjYGDozD FuZzEwMzNcZnRuYmpcdWMx DFrqqjFfEZxya7PiK4VpLn AwMFxhbnNpXGRlZmxhbmcx XKHoOBO7yvDnVTHaPRjcPU HdAAuuAi5mvXDueTqmQhBb PWIfy6zvdwLKFJlaElUlJ6 12GSAqMRlyy3zlf3EiNXXw zAYaq7P5QKIFcwtnpDb5aD ueY33no6Y7YtlxP5edOBJg NQYmO2VgYI8uQVNaCrs0JF S2VSB5BQFjCSKsX8XuZI2t AMDbkSPeHVb8p1phgGtyJB RuZMY7g5eaYSefphDgZL5w on5jyZm0d8juceZiAQQwRG SpgXGCLRSyO9LyaXaxVe2g kQg4jAvxYqubPVQ7Gvn5RD 3hst62mhy4cZfpUNQtvakp NjZ2WRxbGZLtlsrfBMr3MS yhJEXciBH0WDNoaGUcV6Kr HEWgZV5gwoe1FCK7ODfdJO NzIdP5QPVjrSImQYRghRsm BZycl474ICT2BxKjYH4lR4 Axd8O2gG0rhSBwWANozHId GrZhEHCprj3paVSnHVxde3 EdIGF4hxQ7iIYedVRxCDEh AK71Jwhjz9VhSawwk7BqJ0 0ihVG0UOwzv5ehOQ2qReB8 bsXkWRfod9teiB8gYkF5ZO nyWO8iHW0kYJYaxT1otvmw XHBnYnJkcmhlYWRccGdicm RfMj2ieJbfXFN3VQyvX2mu bC4hTiT4KYfmW7awbO9kMT y5QJgqnFO1ZRWgiW7xZI2t pimnq7wyNIxlTKqqEJSoel P6zfD4WWYilDLlY8LkbT0q AKXqHG7appsuq5mmLMY5KJ dtCGRaGOD0FtEeESKkl5Qy omi9ScXxn2XslBUcQEacR6 2jj833FZRhpqKsZ6nkaPWy hdvjiCXpdkjvDJustrN0TE MnbjKor0BeEHCcXGW1SRrg TZpqlTUvGUZhvQgnw6ncC8 RscGFyXHBsYWluXGYxXGZz MjBcbGFuZzEwMzNcaGljaF tzLSbjPnRqGESlPXmaY7oa CsSyE4XpPWIvTeWcpAXmM7 ggVGhpcyByZXBvcnQgbWF5 IQogJ1e8YORzccPhhTk7ko YoIeTfQCNxDSN0EDxloTAn XVEhy3VzdbxavGWjBt9wjO OwEGIpaO0qUJIzHUJpXMjr VS9moTg1BKWDbFCfvWDjPx TZKBQdHK08zbNfMUOMrtat z1F0NVwnPNVnd8OqjRPjU4 yxn3UzDMYrx43lGI2ut9G9 c4jhCER9VK5ik2BtQGDfiT UpzHKjPISee2Qdenwad3Zi YVIgmuUge2HoKTIbxnCmcG NyKRInkgFopy7bdvMtJMIn RDCdF6ZezovduQyznoFoAH Xwef9altTxLFW1YXJYXERi BKTni4ZngQ3vzABKFSX4yO Kvtc9okpEVsMHiIPJgfr44 RTKjRK3wL9xqDYRbIHMtfl CsrLJrh0IxDSXphAA1gCJk WS3NNzFQl29eFEEaBLKWod JwQEMloBxgfLS1veJ3kS5s IChGREEpLlx+IFRoZSBGRE SlAK7cndAum7HobuOleRou VZKswVTig6WnjXHqd2FojX hgt1HgwZIpxIIpQM1rFVQr clxwYXIgVVRNQiBMYWJvcm H9f3KdPBEjEDHmJSB6pJrb mgg2MWLwxI9eNWVaQ6mxzr hgPPvpSJZsk9MyzW3brJMT xGLnw4BpuLZaxRYJbVWpZN 1ypwDlJYeUYPtDMHF5elSb KLImf2PoMKniR8wiT61uiA qbeGb4wCK1JPK9pK8gRty+ IFxwYXJccGFyIEFwcHJvcH HkQDUokFknpmTxH1DfzuVw xG2onFBahcLiYJ4pZW9aW8 G3dHCnOOVlezKnx6yuPQwq dmUgYmVlbiByZXZpZXdlZC Vjn1SeYBbeEEM7VUvdwyRy bmNsdWRpbmcgSCZFLCBTcG LmbEXtBWY0AKyvbiEnkwOs NH7ywY1ugGvutA0nfWHnbN K1dtohQMXiQDEjcPxnKPWu TY8odPrrrU9wImJrTtCzZM yfFM9vNCGoJ5ionTFqHTJh JXCfB9clLiFhlS5xqZogWE xjZjJcZnMyMFxwYXJccGFy XHBsYWluXGYxXGZzMjBcbG FuZzEwMzNcaGljaFxmMVxk YwAyVFVeRYtwB5bmXsHmA4 BwZEUhLoDtbXCeO0wcUCck SJM2GDKcCZ0btSBdAC98xR Key6waILufnQdwxd3zC85e vFWaJTmjvTtwKUFuk68hl0 RnRBUuflJwpj2nJMXourB6 dU4cMEDfxJqxVKHqySYkPG Ybw4AgSDsvkIMwtkHrQAcp BIXwWRXseGUvsjZ8shRyne PtnpJbZGCwnAtvZDOwg6Lc DFSoISwna8Sbzq8trADwHV EfzwTWcQlbrDYkdI8zJ5Ya ZXXcKPFpjf2eMWFrxV4eDL aeb2OulacyEJRjKADoQNJe muQkuy3pVADglCGZSE0XVW lbfAMze3TapvKmX6qRZCO2 NUQwNjYwMjgxKSBleGNlcH CkXRJusa34OXEzmX1nhEsz EMRohK4ivP7giLapsD7oZp HhGbJdFEltPC0eTABnI3uo xFNeWWBmOROdN1kqCiZvjI 9jaFxmMVxjZjJcZnMyMFxw YXJ9fQ== Embedded Images (test code = [id number]) [facility] [id number] 16:38:51* Test Item Value Reference Range Interpretation Comme nts Case Report (test code = [id number]) Surgical Pathology ?Case: [id number] ? Authorizing Provider: ?Robert Pearson MD ? ? ?Collected: ? 01/03/2025 0956 ?Ordering Location: ? ? GI Endoscopy OR Department Received: ?01/03/2025 1307 ?Pathologist: ? Kyleigh Huddleston MD ? Specimens: ? A) - LARGE INTESTINE, SIGMOID COLON, Sigmoid colon Bx eval for IBD ? B) - RECTUM, Rectal Bx eval for IBD ? Final Diagnosis (test code = [id number]) v1dqqXHhKHPof1wfJAWilM FuZzEwMzNcZnRuYmpcdWMx IHtccnRmMVxhbnNpXGRlZm edhrsmLMPfUML4llKvQQZm HBP0YZH6WfVzAHTvTiAzVH J8WOHxh6rpo0UtnFCarNAa JLfbvPYsqqAxrf89kWQ9nK 25JD5nTOBzQwU7BCTcavP5 Ntn8JRCpXVFmcTViN573n1 kbr8wrulVrlEC8dAgeZIDb dwadVkF6JLedBEFtyglnVU j9FFuwKDXihCA4VGWffAEu V1KcOSKtWK7ljxi1XGV8PJ jgSPOtYcJ7TFUusILfIVSj dIzhRBgct221KMN1CsBuHF CwifUdvVdaxS4hMxOmMQou WGVtAT5vDCEJW6LpLN7OXZ WZUI5IKVOYWQaMM0tZIWUQ YS8DBFWUUA3GH6e0TGBosc XhWZBqXXUYR8xKNtvNZD9Q G33HSRPLDNHMNYBKCRWASU RTE7AVD9HbFBRZAGDCSIiA YPZVLNLFGSLAZ5lIDAKPIS TLPEvrOUhIBY9OGLeHTaxg WQKkCQNgNE4kEd8jO3CXMq PVG10FQD2KPNHFA5LZBRMB QSBJREVOVElGSUVEICBccG FyXGZzMjJccGFyXGZzMjAg Ac6xQfTDAKVGXDWVZW5MZ8 x4DOGyagJaXZNkUKXGQYSB ZCupJYBUZ1XWQCnKRBipWI fXVUzUQQgTO0KAYVOOIBQJ VM1SFV5FKFSSSZDPZQYJQe BJTkZJTFRSQVRFIElOXHBh hbZoXEEzLCKiCFESQD8BMN OJL1WSTWWzgVZfVISlOLOg NB1IRPICWViXYTBLOO4QCY NKH8QZEEMHXWHQQFEERCmT SUVEICBccGFyXHBhcmRccG HvPUPdwmuoKFH1m9otpVNw XHNzdGVjZjIyMDAwXGFuc2 lcZGVmbGFuZzEwMzNcZnRu JjkgeEIxAZIvPvHvl6qnz8 79aIIep8sgTXWvRqN1sNAn UHLscLlwwjf5cNyfDkQaZW Jti3ovrkSnAeAmBGVuMSQk YOEwhYUdT987THBrBGcpc9 wnk8WcMTHipISet9L0SEUJ RTctWvKhE261e7ndl0xfky BwyKR4JMYmKBR8OYcjgdNk gvS8EZwosOGoXrT4OMtzms FaXLicdhSnydSuTby5OYEf Y943YSX1aBnaj7xtHSI1JK YdCSDaPtsvNe8wxJZiY521 RPElCBUNBDLzdWz7IWVmxh PuriIzkUSRm324E899z3jq JTTscwUnlDqQxombi9stA5 19XHBhcGVydzEyMjQwXHBh iAYvuSL6UPFpEK2zzvkbVT quHSqtRFMtvjA4VVQmdMWw Q7LkUSZtID1opzpvXBU5JI btZCQqNRI7GaIuBXBsy3Jd vwy3TfGnog6uxz73KAT0p2 DchKytXZQ8MVY1GoZvZq2s aFXwZZSoXG5cTdIduYVoIW Kjad59fPsnXWxohlLbdQ4l FyCcIMPrwBWyPPUfBU9seS QmBYKxbX1cytxkHFOvUkDu wvowSMBuhLgipiDfMa8psL koGDZ4RGlyC2iwoJ0hGvP3 ZVpkY0hjeF3iQUp7DOjhqC Z7OOBpiL6bKW4khxumg4ml MHgeVEuuXEFanlE6sfB2MI VbnFKfM9RveJ7sDQItIR0j ozncf8blTKZ2QXrzLIIuYM A2CzHoIFQgc1Hnosp6EdHe s5IxiWUrQHjhB84lg477WY FismUhM0qvbPGfwlgjfBMv tizuKZbrieR7JMByANVxCT luXGYxXGZzMjBcbGFuZzEw MzNcaGljaFxmMVxkYmNoXG GyLYjnR6zeKrVjB0WeUVRu WaPysKYvRUtwlNY1IXHgPT Lso19nbOk5AELppzbrd3Kz FHTgqGSdeUUspU7wsvZmh9 vuTTSdEFDlNKArF5PsHWI1 fXJnUEDugEVfzPV4PJ1cek DaNV0lDOUvCrjpziWgyPPw dqJvQOQkFCkkj7tdKQ5sZQ JvaSfqeH5yzJO2ZTIdq6fb eYZewYVpc5uqp8CzmnWtRI ngNZZsYBpvODLjLHFmYP6v HVPaiMVktfTij6R1IdcsmV NeqpfsKdxcysB0VSuflnjw YTBfQNbbS8jqJbRvDINkwZ snBdket9HiMCFkXEMrXkso mOQofE38IRJ1JiXmf3X0MP WjHlPvDJCuBN0jvCbiEXQh WM2ySTNwI9dlxY7dudk0Vf ArHRWhKdW0YUUothL9Vao7 IUXlKEbic2wtv4DxK3BfeO JooEg5r1lhTHXjLxT2cGNe AEoeP6kejiCxgRExDUItYV x7mX64XLJaeG8lrYAlZPdz ivUpOgF2ORmlIGPaJwK6ZM CuzCPeIALnA0knPPEcUFbe JOGwAJzuuIKfNKW0bTacu2 E5xLCfsSKivTfkIuZrDsYe SQRGi0OaMTj9nVnpZ8BzUM FfAbH0iLNbLQFxOVshQGCu TYPtevM7cV61CMnfwgY3cU Rki7Evy33ea564mX4rhSCk ICT8LOLgNIOluIUlXTRdZH G1WQHygYQvO9dfPTFyUE5y tsyaFJatOWttVCHpqSP2OZ BftVRrC6CpAJVyDLqtWXRl jkd7ZoEsHq7lrXUloGimNN adl3drj1eqgJQiKqz7FAYl IjLqCiioFCoay8Rbh9cwUY Homw42nZRryJYliJLjjf8j uiAbjZJjoMAsUWW0cQTtjo RwTVJztZDhESXqUI9vdNNn ODKnlD6balteHHEfZnNkvj ruKSHauPfljbQkFw9rqOya UHH4JNxvM6wbiT8yNuV1BI jlQ1asvT3jJAm9BQrzaJR9 LWOvnS3qDL3cpzade4bpJW ftHKwtTKVhtgL1rgD4YVBi hEIjU0QehY1eHKRfVE5fnb xnq9jzMOQ1NRaaDXJxGPM7 XnZnNXNgu7Lyskl7ZmJrr5 KifOMfEYpwA81dh500DBBa jvLfU4sjbXZvuvjjsIOyjy poTNydloO2BFFbijGjy3Cg DOKrASQ3OSsxAErxiJZrGD AgkDojb0eeP6PdjOGoVLXe YWluXGYxXGZzMjBcbGFuZz EwMzNcaGljaFxmMVxkYmNo YLOxNWmxT0dcHeSqB5BcDD XqSmGxaTMtD7xijRKbFEet pJW9YPVcPLMao91nmYb1FV Rumeicf2FqAHAacJTbkACg pB6ctkDfn0ksJLMaDQXxTQ WzW6MbUFX9cIVaFWMqhLOc rNN8BP7zkrYcYO2yOILpPk kgcmVzaWRlbnRzLCBmZWxs e6paYU3fEHQplYlggX0rlH V1VQDbz6bfpDEzyEWqi0tz b5NzavMbUQvrVKVkECweLE CoVRQgVP1lBZJksHItxfOx z6T2IryeyQNpyuwsVXmpla AkXMjlsipfHBCrKUbiH8wd TtIfBNJzeKyoOSbqd7WgET YxXGNmMlxmczIwXHBhclxw YXJccGFyXHNhMTYwXHNsMj U7SZFggNSsjMBawBjcgO8z ZjBcZnMyNFxwbGFpblxmMV wrioW2QHzauvduAKGqFIxo O3dhAqXfATWksGwwVJweh2 LiWGEeJYDwAbybxjB6CBe3 loGcUHAtmRagvE3itFD0HP Uyd4Vqe6Wgq51hrHXvi13v d25elbWuxDXtFk0osBIyIE S3ELZPJPYmBCGoB9FkFBSc qVbmL1KqgLUkVKNhPaPgNB x5wOXaYzHvQEcaoLZCw8Z8 yTrhDIUuA9SoXOPbjJboZT GRTUc1ZVsmCDDjVJkkSTDz XGZzMjBcbGFuZzEwMzNcaG ljaFxmMVxkYmNoXGYxXGxv I1xcRfNyG5GbZQGoWfToiA BpK1hqiKCjqB6= Clinical Information (test code = [id number]) Jin Jiménez is a 50 year old male1. 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 Rectal Bx eval for IBD Gross Description (test code = [id number]) n1nonUAdWCGsnHDCDKPiEU UwCH6xiQpqmAa9yKrvYRRn aoJ0nAMsTIuje3svTZJ3f0 meryJWMfkqJZYsKS6pZYgp YKHmMT9zWcVyZEHsNhIzHI BhcGVydzEyMjQwXHBhcGVy cRU2WGAhHY4gvpomDKicIH pjBIAtsgC6PMTbgSIyY9Ff FPYrEX6iopnuIHD7QUEPMy ylDq4uyPEulRlqZyYqKhQe UTCvTUTjDVPgk4bsugMDfe azjGc3eN5UWMGqW9WuSF4W w7mtYCTstVNeAXU9RKzxu5 toWDuzZWH7BGVnNPKkKRXb JW7UHlGsJED6PYU2TPC7Bx T5LOk8SNERFEHxZQymORUs OTZ8YMe3RGYkFC6wMTndlK VvQYaxZlniIWzhP240ZWxb NGPiQ5NeC2EoOTgrImJsXR qfUXYgUYPtFYtePCGvS6MB LOKnYOj9QZEeSzYtLQe4NJ z2IK8TLcFtRCHeFHw3DjVl BOUtDNm7EBfqPG9WRGBjQF VbDXG7ZUdrSYTfYXjkCWv7 IDIgXFxzcyAzIFxcZmwgXF knG80ujQUeOUONCqlaeAFg blxmczIwIFNQRUNJTUVOIE AmeEEvP5yoFiFxApomUQJe DQpccGFyZCANClxwbGFpbl xsdHJjaFxmczIyXGVwaWNO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 HEPATIC FUNCTION PANEL (47577) (ALB,T.PRO,BILI T,BU/BC,ALT,AST,ALK PHOS) Magnesium Serum Phosphorus Serum Prothrombin Time / INR aPTT Blood Culture - Peripheral Vein Blood Culture - Peripheral Vein # 2 Urinalysis Type and Screen - ONCE STAT Sedimentation Rate C-Reactive Protein Lipid Panel (10697)(Total Cholesterol, Triglycerides, HDL) THIOPURINE METHYLTRANSFERASE, RBC Quantiferon-Tb [...] Goldy Hutchinson DO Department of Internal Medicine [facility] Notes Date/Time Note Provider Source 2025-01-10 15:25:51 Problem: Pain Goal: Control of pain at or below patient's documented comfort goal 01/10/2025 1524 by Matilde Campbell RN Outcome: Adequate for discharge 01/10/2025 1350 by Matilde Campbell RN Outcome: Adequate for discharge Goal: Reduction in pain sensation 01/10/2025 1524 by Matilde Campbell RN Outcome: [...] Goal: Absence of falls 01/10/2025 1524 by Matidle Campbell RN Outcome: Adequate for discharge 01/10/2025 [...] Outcome: Adequate for discharge Matilde Campbell RN [facility] 2025-01-10 13:51:02 Problem: Pain Goal: Control of [...] new skin breakdown Outcome: Adequate for discharge [facility] 2025-01-10 11:50:33 Images from the original note were not included. CARE MANAGEMENT Care Coordinators/Social Workers/CM Specialists/Utilization Review/Patient Placement & Transfer Center 01/10/2025 11:50 AM Care Management Discharge Disposition Note (DCDN) 5-2-1 Interventions: Disease specific education, Intensive medication reconciliation/management, Teach back, Follow-up appointments, Follow-up phone calls 5-2-1 Providers: Physician, Pinsetter Mechanic Automatic/Slot Machine Floor Person, Nurse 5-2-1 Patient Capacity Improvements: Avoidance of adverse events/readmission Discussed with patient/patient s family involved in decision making: Patient's family or support contact: Discharge Plan for ongoing care and services: Home/Caregiver Home Discharge Location: Discharge Disposition (for note) - 01/01/25 1145 Home/Caregiver address [address] [place] [address] Other Living arrangements: [address] [place] [address] Transportation: [employer] (Voucher # [id number] - [employer] [phone]) Ambulance Service: EMS Date Called: EMS Time [...] & Contact number: Sonya Hurtado RN Ph. [phone] The following information has been provided to the facility noted above: reason for the patient discharge or transfer; patient s physical and psychosocial status; summary of care, treatment, services provided to patient; and the patient progress toward goals. [facility] 2025-01-10 04:09:19 Problem: Pain Goal: Control of [...] new skin breakdown Outcome: Progressing as expected Evonne Lovell RN [facility] [employer] 2025-01-09 15:57:46 Problem: Pain Goal: Control of [...] new skin breakdown Outcome: Progressing as expected [facility] [employer] 2025-01-09 00:28:44 Problem: Pain Goal: Control of [...] new skin breakdown Outcome: Progressing as expected [facility] 2025-01-08 12:22:34 Problem: Pain Goal: Control of [...] Outcome: Progressing as expected Oliva Elizabeth RN [facility] 2025-01-08 02:39:35 Resuming care for pt at this time. Pt assessed and no changes noted from charted shift assessment. Md notified of testicular edema and pain. Dilan Andrew RN [facility] 2025-01-08 01:52:39 Problem: Pain Goal: Control of pain at or below patient's documented comfort goal 01/08/2025151 by Peter Velasquez RN Outcome: Progressing as expected 01/08/2025150 by Peter Velasquez RN Outcome: Progressing as expected Goal: Reduction in pain sensation 01/08/2025151 by Peter Velasquez RN Outcome: Progressing as expected 01/08/2025150 by Peter Velasquez RN Outcome: Progressing as expected Problem: Infection Risk Goal: Absence of infection 01/08/2025151 by Peter Velasquez RN Outcome: Progressing as expected 01/08/2025150 by ePter Velasquez RN Outcome: Progressing as expected Problem: Bleeding, Risk of Goal: Absence of impaired coagulation signs and symptoms 01/08/2025151 by Peter Velasquez RN Outcome: Progressing as expected 01/08/2025150 by Peter Velasquez RN Outcome: Progressing as expected Goal: Absence of active bleeding 01/08/2025151 by Peter Velasquez RN Outcome: Progressing [...] Impaired (Risk or Actual) Goal: Wound healing 01/08/2025151 by Peter Velasquez RN Outcome: Progressing as expected 01/08/2025150 by Peter Velasquez RN Outcome: Progressing as expected Goal: Prevention of new skin breakdown 01/08/2025151 by Peter Velasquez RN Outcome: Progressing as expected 01/08/2025150 by Peter Velasquez RN Outcome: Progressing as expected Y Velasquez RN [facility] 2025-01-08 01:51:24 Problem: Pain Goal: Control of [...] new skin breakdown Outcome: Progressing as expected [facility] 2025-01-07 19:16:58 Problem: Infection Risk Goal: Absence [...] Not progressing as expected Christopher Gutierrez RN [facility] [employer] 2025-01-07 03:21:00 Problem: Pain Goal: Control of [...] new skin breakdown Outcome: Progressing as expected [facility] 2025-01-06 19:46:37 Problem: Infection Risk Goal: Absence [...] pain sensation Outcome: Not progressing as expected [facility] 2025-01-05 20:31:24 Problem: Pain Goal: Control of [...] new skin breakdown Outcome: Progressing as expected [facility] Vania Flynn RN [facility] 2025-01-05 10:34:27 Problem: Pain Goal: Control of [...] new skin breakdown Outcome: Progressing as expected Damon Son RN [facility] 2025-01-04 20:14:13 No vomiting overnight. Appears to [...] new skin breakdown Outcome: Progressing as expected [facility] 2025-01-04 12:51:53 Problem: Pain Goal: Control of [...] new skin breakdown Outcome: Progressing as expected [facility] [employer] 2025-01-03 22:12:35 Had 3-4 loose BM overnight [...] skin breakdown Outcome: Progressing as expected T [facility] [employer] 2025-01-03 13:35:29 Problem: Pain Goal: Control of [...] new skin breakdown Outcome: Progressing as expected [facility] 2025-01-03 09:47:16 BRIEF OPERATIVE NOTE Date of [...] Anderson MD Gastroenterology and hepatology fellow, PGY-6 [facility] [employer] 2025-01-03 03:34:47 Problem: Pain Goal: Control of [...] new skin breakdown Outcome: Progressing as expected [facility] Ambar Moseley RN [facility] 2025 10:38:09 Problem: Pain Goal: Control of [...] skin breakdown Outcome: Progressing as expected T [facility] 2025 04:05:40 Problem: Pain Goal: Control of [...] new skin breakdown Outcome: Progressing as expected [facility] [employer] 2025-01-01 18:03:23 Problem: Pain Goal: Control of [...] new skin breakdown Outcome: Progressing as expected [facility] [employer] 2025-01-01 00:25:39 Problem: Pain Goal: Control of [...] new skin breakdown Outcome: Progressing as expected [facility] [employer] 2024-12-31 21:19:11 Name/ MRN / Age / Gender: Jin Jiménez, [id number] 49 year old male BMI: Estimated body [...] use. 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 Hold on DOS. Phentermine: Alert [facility] anesthesiologist SGLT2 Inhibitors: "gliflozins" to be held [...] Recovery Plan: PACU Additional comments: AN-ANESTHESIOLOGY ANESTHESIOLOGIST [facility] 2024-12-31 19:11:01 Problem: Pain Goal: Control of [...] new skin breakdown Outcome: Progressing as expected [facility] 2024-12-30 23:47:06 Problem: Pain Goal: Control of [...] of active bleeding Outcome: Progressing as expected [facility]
[2025-01-17] MEDS ORDERED: ONDANSETRON 4 MG/2 ML VIAL ONE (23:48)
[2025-01-17] MEDS ORDERED: MORPHINE 4 MG/ML SYR ONE (23:49)
[2025-01-17 23:55] LABS: Absolute Lymphocytes (CBC) 1.1 K/uL (0.7-4.9); Absolute Monocytes 0.6 K/uL (0.1-1.3); Absolute Neutrophil 4.7 K/uL (1.8-8.0); Basophils % 0.1 % (0-1.3); Eosinophils % 0.5 % (0-4.4); Hematocrit 27.9 % (39.6-49.0); Hemoglobin 9.5 g/dL (13.6-17.9); Lymphocytes % 17.6 % (15.3-44.8); MCH 31.9 pg (27.0-35.0); MCHC 34.3 g/dL (32.0-36.0); MCV 93.1 fL (80-100); MPV 6.3 fL (7.6-11.3); Monocytes % 8.6 % (3.3-12.3); Neutrophils % 73.2 % (41.7-73.7); Nucleated Red Blood Cells % 0.2 % (0-0); Platelets 548 thou/uL (152-406); RBC Red Blood Cell Count 2.99 M/uL (4.33-5.43); Red Cell Distribution Width 14.9 % (12.1-15.2)
[2025-01-18 00:07] LABS: ALT/SGPT 15 U/L (16-61); Albumin 1.3 g/dL (3.4-5.0); Albumin/Globulin Ratio 0.4 (1.1-1.8); Alkaline Phosphatase 52 U/L (45-117); Anion Gap 5.9 mEq/L (5.0-15.0); BUN Blood Urea Nitrogen 12 mg/dL (7-18); Bicarbonate 30 mEq/L (21-32); Bilirubin Total 0.6 mg/dL (0.2-1.0); Globulin 3.1 g/dL (2.3-3.5); Glomerular Filtration Rate 119 ml/min (=/>90); Glucose Level 84 mg/dL (74-106); Lipase 13 U/L (13-75); Potassium 2.9 mEq/L (3.5-5.1); Protein, Total 4.4 g/dL (6.4-8.2); Sodium Level 136 mEq/L (136-145)
[2025-01-18 00:08] LABS: AST/SGOT < 10 U/L (15-37)
--- NOTE | 2025-01-18 00:46 | EDPHYS ---
Physician Documentation [facility] Name: Weston Jiménez Age: 50 yrs Sex: Male : 1975 Arrival Date: 01/17/2025 Time: 22:37 Bed 6 Private MD: ED Physician Angela Sylvester HPI: 01/17 23:47 This 50 yrs old Male presents to ER via EMS with complaints of Abdominal Pain. sp3 23:47 50-year-old male with history of inguinal hernia, suspected Crohn's in the past, prior sp3 colitis seen 2 days ago with elevated CRP now presents to the ED for recurrent abdominal pain worsening in nature coupled with symptomatic left inguinal hernia. Patient is still having bowel movements. He denies any bleeding. Review of systems negative for fever, headache, chest pain, shortness of breath, back pain, dysuria, or any other signs or symptoms on ROS at this time.. Historical: - Allergies: 22:45 PENICILLINS; bm8 - Home Meds: 22:45 Bactrim DS 800-160 mg Oral tablet [facility] [Active]; cyanocobalamin (vitamin B-12) 1 bm8 injection kit [Active]; duloxetine 20 mg Oral capsule [Active]; ergocalciferol (vitamin D2) oral every week [Active]; methocarbamol 500 mg Oral tablet 4 times per day [Active]; pantoprazole 40 mg Oral tablet [Active]; Prednisone Oral 1 dose pk [Active]; Zofran Oral 4 mg every 8 hours [Active]; - PMHx: 22:45 broken back; inguinal hernia (Rods and pins in back); bm8 - PSHx: 22:45 bowel resection; Rods and pins in back; bm8 - Immunization history:: Adult Immunizations up to date. - Infectious Disease History:: Denies. - Social history:: Smoking status: Patient reports the use of cigarette tobacco products, smokes one-half pack cigarettes per day. ROS: 23:48 Constitutional: Negative for fever, chills, and weight loss, Eyes: Negative for injury, sp3 pain, redness, and discharge, ENT: Negative for injury, pain, and discharge, Neck: Negative for injury, pain, and swelling, Cardiovascular: Negative for chest pain, palpitations, and edema, Respiratory: Negative for shortness of breath, cough, wheezing, and pleuritic chest pain, Back: Negative for injury and pain, MS/Extremity: Negative for injury and deformity, Skin: Negative for injury, rash, and discoloration, Neuro: Negative for headache, weakness, numbness, tingling, and seizure, Psych: Negative for depression, anxiety, suicide ideation, homicidal ideation, and hallucinations, Allergy/Immunology: Negative for hives, rash, and allergies, Endocrine: Negative for neck swelling, polydipsia, polyuria, polyphagia, and marked weight changes, Hematologic/Lymphatic: Negative for swollen nodes, abnormal bleeding, and unusual bruising, 23:48 All other systems are negative, Exam: 23:49 Constitutional: This is a well developed, well nourished patient who is awake, alert, sp3 and in no acute distress. Head/Face: Normocephalic, atraumatic. Eyes: Pupils equal round and reactive to light, extra-ocular motions intact. Lids and lashes normal. Conjunctiva and sclera are non-icteric and not injected. Cornea within normal limits. Periorbital areas with no swelling, redness, or edema. Neck: Trachea midline, no thyromegaly or masses palpated, and no cervical lymphadenopathy. Supple, full range of motion without nuchal rigidity, or vertebral point tenderness. No Meningismus. Chest/axilla: Normal chest wall appearance and motion. Nontender with no deformity. No lesions are appreciated. Cardiovascular: Regular rate and rhythm with a normal S1 and S2. No gallops, murmurs, or rubs. Normal PMI, no JVD. No pulse deficits. Respiratory: Lungs have equal breath sounds bilaterally, clear to auscultation and percussion. No rales, rhonchi or wheezes noted. No increased work of breathing, no retractions or nasal flaring. Back: No spinal tenderness. No costovertebral tenderness. Full range of motion. Skin: Warm, dry with normal turgor. Normal color with no rashes, no lesions, and no evidence of cellulitis. MS/ Extremity: Pulses equal, no cyanosis. Neurovascular intact. Full, normal range of motion. Neuro: Awake and alert, GCS 15, oriented to person, place, time, and situation. Cranial nerves II-XII grossly intact. Motor strength 5/5 in all extremities. Sensory grossly intact. Cerebellar exam normal. Normal gait. Psych: Awake, alert, with orientation to person, place and time. Behavior, mood, and affect are within normal limits. 23:49 Abdomen/GI: Patient with diffuse lower quadrant abdominal pain without peritoneal sp3 signs, rebound or guarding. Large left inguinal hernia is present which is reducible., Vital Signs: 22:43 BP 110 / 76; Pulse 82; Resp 18; Temp 97.5; Pulse Ox 100% ; Weight 58.97 kg; Height 5 bm8 ft. 6 in. ; Pain 8/10; 23:52 BP 116 / 69; Pulse 76; Resp 16; Temp 97.5; Pulse Ox 97% ; Pain 8/10; bm8 01/18 01:15 BP 97 / 66; Pulse 76; Resp 18; Temp 97.5; Pulse Ox 97% ; Pain 3/10; bm8 01/17 22:43 Body Mass Index 20.98 (58.97 kg, 167.64 cm) 8 01/17 22:43 Pain Scale: Adult bm8 23:52 Pain Scale: Adult 8 01/18 01:15 Pain Scale: Adult bm8 [place] Coma Score: 01/17 23:52 Eye Response: spontaneous(4). Motor Response: obeys commands(6). Verbal Response: bm8 oriented(5). Total: 15. 01/18 01:15 Eye Response: spontaneous(4). Motor Response: obeys commands(6). Verbal Response: bm8 oriented(5). Total: 15. MDM: 01/17 22:45 Medical Screening Exam initiated sp3 23:49 Data reviewed: vital signs, nurses notes, old medical records, lab test result(s), sp3 radiologic studies. ED course: 50-year-old male with recurrent and worsening abdominal pain. CT scan was performed 2 days ago which demonstrated bowel inflammation as well as hernia. Will recheck CRP and labs in likely admit patient for IV antibiotics, pain control and surgical consult for his hernia. Differential diagnosis includes inflammatory bowel disease, inguinal hernia, bowel obstruction, ileus, other surgical pathology, among others.. 01/18 00:39 ED course: CRP trending down. Hemoglobin at 9.5 however platelets also decreased as I sp3 believe patient was dehydrated before. I am not highly suspicious of acute blood loss. Patient has no melena or reported bleeding. Will treat with IV antibiotics, pain control and admit with general surgery consultation. Vital signs remain normal.. 01/17 23:14 Order name: CBC with Diff; Complete Time: 00:34 sp3 01/17 23:14 Order name: CMP; Complete Time: 00:34 sp3 01/17 23:14 Order name: Lipase; Complete Time: 00:34 sp3 01/17 23:14 Order name: UA Rfx Humberto Cult if indicated sp3 01/17 23:14 Order name: CRP; Complete Time: 00:34 sp3 01/17 23:14 Order name: Lactate w/ 2H reflex if indic.; Complete Time: 00:34 sp3 01/18 01:46 Order name: CBC with Automated Diff EDMS 01/18 01:46 Order name: CBC with Automated Diff EDMS 01/18 01:46 Order name: Comprehensive Metabolic Panel EDMS 01/18 01:47 Order name: Comprehensive Metabolic Panel EDMS 01/17 23:14 Order name: IV Saline Lock; Complete Time: 23:47 sp3 01/17 23:14 Order name: Labs collected and sent; Complete Time: 23:47 sp3 Administered Medications: 01/17 23:51 Drug: Ondansetron IVP 4 mg IVP once; over 2 minutes Route: IVP; Site: left antecubital; 8 01/18 01:14 Follow up: Response: No adverse reaction 8 01/17 23:52 Drug: morphine IVP or IV 4 mg IVP once over 4 mins Route: IVP; Infused Over: 4 mins; 8 Site: left antecubital; 01/18 01:14 Follow up: Response: No adverse reaction 8 01:14 Drug: Ciprofloxacin IVPB 400 mg 200 ml IVPB once over 60 mins Volume: 200 ml; Route: bm8 IVPB; Infused Over: 60 mins; Site: left antecubital; 01:18 Follow up: Response: No adverse reaction; IV Status: Infusion continued upon admission bm8 01:14 Drug: metroNIDAZOLE IVPB 500 mg 100 ml IVPB at 200 ml/hr once over 30 mins Volume: 100 bm8 ml; Route: IVPB; Rate: 200 ml/hr; Infused Over: 30 mins; Site: left antecubital; 01:18 Follow up: Response: No adverse reaction; IV Status: Infusion continued upon admission bm8 02:39 Drug: morphine IVP or IV 4 mg IVP once over 4 mins Route: IVP; Infused Over: 4 mins; bm8 Site: left antecubital; 02:39 Follow up: Response: No adverse reaction bm8 Disposition Summary: 01/18/25 00:45 Hospitalization Ordered Notes: Hospitalization Status: Inpatient Admission sp3 Provider: Lee Castaneda sp3 Location: Telemetry/[facility] (Inpatient) sp3 Condition: Stable sp3 Problem: an acute exacerbation sp3 Symptoms: have worsened sp3 Bed/Room Type: Standard sp3 Room Assignment: 423(01/18/25 03:16) Diagnosis - Colitis, abdominal pain, inguinal hernia sp3 Forms: - Medication Reconciliation Form sp3 - SBAR form sp3 - Leadership Thank You Letter sp3 Signatures: Dispatcher [employer] Idania Valdez RN RN Angela Kang MD MD sp3 Jovanny Lee RN RN bm8 Corrections: (The following items were deleted from the chart) 01/17 23:48 23:47 50-year-old male with history of inguinal hernia, Crohn's. sp3 sp3 01/18 03:16 00:45 sp3 kl
--- NOTE | 2025-01-18 00:46 | ER ---
Nurse's Notes [facility] Name: Weston Jiménez Age: 50 yrs Sex: Male : 1975 Arrival Date: 01/17/2025 Time: 22:37 Bed 6 Private MD: Diagnosis: Colitis, abdominal pain, inguinal hernia Presentation: 01/17 22:43 Chief complaint: Patient states: The pain in my groin is killing me. Coronavirus bm8 screen: At this time, the client does not indicate any symptoms associated with coronavirus-19. Ebola Screen: Patient negative for fever greater than or equal to 101.5 degrees Fahrenheit, and additional compatible Ebola Virus Disease symptoms Patient denies exposure to infectious person. Patient denies travel to an Ebola-affected area in the 21 days before illness onset. No symptoms or risks identified at this time. Initial Sepsis Screen: Does the patient meet any 2 criteria? No. Patient's initial sepsis screen is negative. Does the patient have a suspected source of infection? No. Patient's initial sepsis screen is negative. Risk Assessment: Do you want to hurt yourself or someone else? Patient reports no desire to harm self or others. Onset of symptoms is unknown. 22:43 Method Of Arrival: EMS: [facility] bm8 22:43 Acuity: SUSIE 3 bm8 22:51 Care prior to arrival: Medication(s) given: Normal saline infusion, 500 mL, Toradol 15 bm8 mg IVP IV initiated. 18 GA, in the left antecubital area. Triage Assessment: 22:45 General: Appears distressed, uncomfortable, Behavior is calm, cooperative, appropriate bm8 for age. Pain: Complains of pain in groin and left femoral area Pain currently is 8 out of 10 on a pain scale. EENT: No deficits noted. No signs and/or symptoms were reported regarding the EENT system. Neuro: No deficits noted. Level of Consciousness is awake, alert, obeys commands, Oriented to person, place, time, situation, Appropriate for age. Cardiovascular: Heart tones S1 S2 present Capillary refill < 3 seconds in bilateral fingers Patient's skin is warm and dry. Respiratory: Airway is patent Respiratory effort is even, unlabored, Respiratory pattern is regular, symmetrical, Breath sounds are clear bilaterally. GI: Abdomen is flat, non-distended. : Noted swelling in left inguinal area Reports pain scrotum. Derm: No signs and/or symptoms reported regarding the dermatologic system. Musculoskeletal: No signs and/or symptoms reported regarding the musculoskeletal system. Historical: - Allergies: 22:45 PENICILLINS; bm8 - Home Meds: 22:45 Bactrim DS 800-160 mg Oral tablet MWF [Active]; cyanocobalamin (vitamin B-12) 1 bm8 injection kit [Active]; duloxetine 20 mg Oral capsule [Active]; ergocalciferol (vitamin D2) oral every week [Active]; methocarbamol 500 mg Oral tablet 4 times per day [Active]; pantoprazole 40 mg Oral tablet [Active]; Prednisone Oral 1 dose pk [Active]; Zofran Oral 4 mg every 8 hours [Active]; - PMHx: 22:45 broken back; inguinal hernia (Rods and pins in back); bm8 - PSHx: 22:45 bowel resection; Rods and pins in back; bm8 - Immunization history:: Adult Immunizations up to date. - Infectious Disease History:: Denies. - Social history:: Smoking status: Patient reports the use of cigarette tobacco products, smokes one-half pack cigarettes per day. Screenin:[facility] ED Fall Risk Assessment (Adult) History of falling in the last 3 months, bm8 including since admission No falls in past 3 months (0 pts) Confusion or Disorientation No (0 pts) Intoxicated or Sedated No (0 pts) Impaired Gait Yes (1 pt) Mobility Assist Device Used No (0 pt) Altered Elimination No (0 pt) Score/Fall Risk Level 0 - 2 = Low Risk Oriented to surroundings, Maintained a safe environment, Educated pt \T\ family on fall prevention, incl call for assistance when getting out of bed, Assessed \T\ reinforced patient's understanding of fall precautions, Hourly rounding (assess needs \T\ fall precautionary measures) done, Used ambulatory aids as needed (educated on \T\ assisted with), Used gait belt as appropriate. Abuse screen: Denies threats or abuse. Nutritional screening: No deficits noted. Tuberculosis screening: No symptoms or risk factors identified. Assessment: 23:52 Reassessment: Patient appears in no apparent distress at this time. No changes from bm8 previously documented assessment. Patient and/or family updated on plan of care and expected duration. Pain level reassessed. Patient is alert, oriented x 3, equal unlabored respirations, skin warm/dry/pink. 01/18 01:15 Reassessment: Patient appears in no apparent distress at this time. Patient and/or bm8 family updated on plan of care and expected duration. Pain level reassessed. Patient is alert, oriented x 3, equal unlabored respirations, skin warm/dry/pink. Patient states feeling better. Patient states symptoms have improved. 01:17 GI: Bowel sounds present X 4 quads. Abdomen is tender to palpation in left lower bm8 quadrant. Vital Signs: 01/17 22:43 BP 110 / 76; Pulse 82; Resp 18; Temp 97.5; Pulse Ox 100% ; Weight 58.97 kg; Height 5 bm8 ft. 6 in. ; Pain 8/10; 23:52 BP 116 / 69; Pulse 76; Resp 16; Temp 97.5; Pulse Ox 97% ; Pain 8/10; 8 01/18 01:15 BP 97 / 66; Pulse 76; Resp 18; Temp 97.5; Pulse Ox 97% ; Pain 3/10; 8 01/17 22:43 Body Mass Index 20.98 (58.97 kg, 167.64 cm) 8 01/17 22:43 Pain Scale: Adult bm8 23:52 Pain Scale: Adult bm8 01/18 01:15 Pain Scale: Adult bm8 Radha Coma Score: 01/17 23:52 Eye Response: spontaneous(4). Motor Response: obeys commands(6). Verbal Response: bm8 oriented(5). Total: 15. 01/18 01:15 Eye Response: spontaneous(4). Motor Response: obeys commands(6). Verbal Response: bm8 oriented(5). Total: 15. ED Course: 01/17 22:37 Patient arrived in ED. kl 22:43 Angela Sylvester MD is Attending Physician. sp3 22:43 Jovanny Lee, RN is Primary Nurse. bm8 22:45 Triage completed. bm8 22:45 Arm band placed on right wrist. bm8 23:38 Lipase Sent. oe 23:38 CBC with Diff Sent. oe 23:38 CMP Sent. oe 23:39 Lactate w/ 2H reflex if indic. Sent. oe 23:39 CRP Sent. oe 23:53 Patient has correct armband on for positive identification. Bed in low position. Call bm8 light in reach. Side rails up X 1. Client placed on continuous cardiac and pulse oximetry monitoring. NIBP monitoring applied. Pulse ox on. NIBP on. Door closed. Noise minimized. Warm blanket given. Pillow given. Verbal reassurance given. Head of bed lowered. 23:53 No provider procedures requiring assistance completed. Initial lab(s) drawn, by mi, bm8 sent to lab. Maintain EMS IV. Dressing intact. Good blood return noted. Site clean \T\ dry. Gauge \T\ site: 18g lac. Flushed with 10 mL NS. Patient maintains SpO2 saturation greater than 95% on room air. 01/18 00:44 Lee Castaneda MD is Hospitalizing Provider. sp3 01:15 Provided Education on: need for admission. bm8 01:15 Patient admitted, IV remains in place. bm8 Administered Medications: 01/17 23:51 Drug: Ondansetron IVP 4 mg IVP once; over 2 minutes Route: IVP; Site: left antecubital; bm8 01/18 01:14 Follow up: Response: No adverse reaction 8 01/17 23:52 Drug: morphine IVP or IV 4 mg IVP once over 4 mins Route: IVP; Infused Over: 4 mins; bm8 Site: left antecubital; 01/18 01:14 Follow up: Response: No adverse reaction bm8 01:14 Drug: Ciprofloxacin IVPB 400 mg 200 ml IVPB once over 60 mins Volume: 200 ml; Route: bm8 IVPB; Infused Over: 60 mins; Site: left antecubital; 01:18 Follow up: Response: No adverse reaction; IV Status: Infusion continued upon admission bm8 01:14 Drug: metroNIDAZOLE IVPB 500 mg 100 ml IVPB at 200 ml/hr once over 30 mins Volume: 100 bm8 ml; Route: IVPB; Rate: 200 ml/hr; Infused Over: 30 mins; Site: left antecubital; 01:18 Follow up: Response: No adverse reaction; IV Status: Infusion continued upon admission 8 02:39 Drug: morphine IVP or IV 4 mg IVP once over 4 mins Route: IVP; Infused Over: 4 mins; bm8 Site: left antecubital; 02:39 Follow up: Response: No adverse reaction 8 Medication: 01/17 23:53 VIS not applicable for this client. bm8 Outcome: 01/18 00:45 Decision to Hospitalize by Provider. sp3 01:15 Admitted to Tele accompanied by nurse, via stretcher, room 423, with chart, Report bm8 called to Ivonne lopes 01:15 Condition: stable 01:15 Instructed on the need for admit, Demonstrated understanding of follow-up care, medications, 04:55 Patient left the ED. bm8 Signatures: Idania Brown RN RN Monty Kwon Setul, MD MD sp3 Jovanny Lee RN RN bm8 Corrections: (The following items were deleted from the chart) 04:55 01:15 Admitted to ER Hold. Please see [facility] for further documentation. bm8 bm8
[2025-01-18] MEDS ORDERED: METRONIDAZOLE 500mg IVPB 500 MG/100 ML BAG IV ONE (01:09)
[2025-01-18] MEDS ORDERED: CIPROFLOXACIN 400mg IV 400 MG/200 ML BAG IV ONE (01:09)
[2025-01-18] MEDS ORDERED: ACETAMINOPHEN 325 MG TABLET PO PRN (01:42)
--- NOTE | 2025-01-18 01:42 | P.HP ---
Certification for Inpatient Patient admitted to: Inpatient With expected LOS: >2 Midnights Practitioner: I am a practitioner with admitting privileges, knowledge of patient current condition, hospital course, and medical plan of care. Services: Services provided to patient in accordance with Admission requirements found in Title 42 Section 412.3 of the Code of Federal Regulations Patient History Date of Service: 01/18/25 Reason for admission: Abdominal Pain History of Present Illness: 50 yrs old Male with past medical history of anxiety, GERD, history of inguinal hernia, chronic back pain status post rods and pins in the back who presented with abdominal pain which started 2 days ago and has been progressively getting worse and was brought to ER . He has history of inguinal hernia and had possible colitis/in the past. He was assessed in the ER 2 days ago for the similar symptoms and was sent home. He came back to ER with worsening of abdominal pain. No fever or chills. Denies any diarrhea. No nausea vomiting. No sick contacts. Patient was assessed in the ER and is admitted for further management of colitis as well last CT scan - Past Medical/Surgical History Past Medical History: Reviewed- Non-Contributory Past Surgical History: Reviewed- Non-Contributory - Family History Family History: Reviewed- Non-Contributory - Social History Smoking Status: Never smoker Review of Systems 10-point ROS is otherwise unremarkable Physical Examination - Vital Signs Temperature: 97.8 F Blood Pressure: 138/76 Pulse: 66 Respirations: 18 Pulse Ox (%): 94 - Physical Exam General: Alert, Oriented x3, Mild distress HEENT: Atraumatic, Normocephalic Neck: Supple Respiratory: Clear to auscultation bilaterally, Normal air movement Cardiovascular: Regular rate/rhythm, Normal S1 S2 Capillary refill: <2 Seconds Gastrointestinal: Soft and benign, W/out hepatosplenomegaly, Tenderness Musculoskeletal: No clubbing Integumentary: No rashes, No breakdown Neurological: Other (Alert awake nonfocal) Lymphatics: No axilla or inguinal lymphadenopathy - Studies Laboratory Data (last 24 hrs) 01/17/25 01/17/25 23:27 23:27 WBC 6.40 Hgb 9.5 L Hct 27.9 L Plt Count 548 H Sodium 136 Potassium 2.9 L BUN 12 Creatinine 0.55 L Glucose 84 Total Bilirubin 0.6 AST < 10 L ALT 15 L Alkaline Phosphatase 52 Lipase 13 Assessment and Plan - Plan Colitis Started on IV antibiotic Pain control Will repeat CT with contrast Need GI as outpatient Inguinal hernia Reducible Will get a surgical consult Hypokalemia Potassium replaced IV hydration Anemia of chronic disease Monitor CBC daily GI/DVT prophylaxis Advanced directive full code Discharge Plan: Home Plan to discharge in: 48 Hours - Advance Directives Does patient have a Living Will: No Does patient have a Durable POA for Healthcare: No - Code Status/Comfort Care Code Status: Full Code Time Spent Managing Pts Care (In Minutes): 48
[2025-01-18] MEDS ORDERED: MORPHINE 4 MG/ML SYR ONE (02:30)
[2025-01-18] MEDS ORDERED: SODIUM CHLORIDE 0.9% 10ML INJ IV PRN (03:51)
[2025-01-18 04:50] VITALS: BMI 20.9
[2025-01-18] MEDS: NA CHLORIDE 0.9% 1,000 ML IV SCH (05:32)
[2025-01-18] MEDS: KCL 20 MEQ/100 mL IVPB 20 MEQ/100 ML BAG IV SCH ×2 (06:00→13:58)
[2025-01-18] MEDS: MORPHINE 2 MG/ML SYR IV PRN (06:02)
[2025-01-18 06:13] LABS: Calcium Oxalate Crystals- Ur Few /HPF (None Seen); Specific Gravity 1.025 (1.005-1.030); Sqamous Epithelial <5 /HPF (None Seen); Urine Bacteria None Seen /HPF (<20); Urine Bilirubin NEGATIVE (Negative); Urine Blood Negative (Negative); Urine Clarity Turbid (Clear); Urine Color Yellow (Yellow); Urine Culture Reflex Order NOT NEEDED; Urine Glucose NEGATIVE (Negative); Urine Ketones NEGATIVE (Negative); Urine Microscopic Reflex YN ORDER UMIC; Urine Mucus 2+ /HPF (None Seen); Urine Nitrite NEGATIVE (Negative); Urine Protein TRACE (Negative); Urine RBC None Seen /HPF (None Seen); Urine Urobilinogen Normal (Normal); Urine WBC <5 /HPF (<5)
[2025-01-18] MEDS ORDERED: PANTOPRAZOLE 40 MG INJ IVP SCH (09:00)
--- NOTE | 2025-01-18 09:20 | RAD REPORT ---
EXAMINATION: Abdomen Pelvis W Contrast CLINICAL INDICATION: Male, 50 years old.Colitis TECHNIQUE: CT abdomen and pelvis was performed, after the administration of IV contrast, as per [facility] protocol. Axial, sagittal and coronal reconstructions were obtained. One or more of the following dose reduction techniques were used: Automated exposure control, adjustment of the mA and/o r kV according to patient size, and/or iterative reconstruction. Unless otherwise specified, incidental findings do not require dedicated imaging follow-up. [id number]. COMPARISON: 01/16/2025 FINDINGS: LOWER CHEST: No acute process identified.No significant pericardial effusion. UPPER GI: No significant abnormality. LIVER: Mild intrahepatic biliary duct dilatation. Subcentimeter liver lesions which are likely benign . GALLBLADDER/BILE DUCTS: Distended gallbladder. The common bile duct measures 7 mm which is mildly dil ated.? PANCREAS: No mass, ductal dilation, or carl-pancreatic fluid. SPLEEN: Unremarkable. ADRENALS: Adrenal thickening without discrete mass. KIDNEYS AND URETERS: No hydronephrosis.Low density and/or too small to characterize renal lesions whi ch are statistically benign.Nonobstructing renal calculi.No ureteral calculi. ABDOMINAL AORTA AND OTHER VESSELS: Mild atherosclerotic changes. PERITONEUM: Small volume of free fluid present at the right paracolic gutter and subhepatic recess LYMPH NODES: No pathologic lymphadenopathy. ABDOMINAL WALL: Left inguinal hernia containing fluid. Small right inguinal hernia containing fluid. SMALL BOWEL/COLON: Wall thickening of the ascending through proximal sigmoid colon.Partial small leta l resection. The colonic wall at the segments is hyperenhancing. There is slightly more focal enhancement and adjacent free fluid at the proximal colon near location of a suture line. The exact c ourse of the bowel is difficult to ascertain. This may be the cecum. URINARY BLADDER: Nonspecific circumferential bladder wall thickening. REPRODUCTIVE ORGANS: No pathologic process. MUSCULOSKELETAL: Remote posttraumatic changes at the pelvis with prior fixation. No acute fracture. ADDITIONAL FINDINGS: None. IMPRESSION: Colonic wall thickening extending from the proximal colon through the proximal sigmoid consistent wit h the presence of a colitis.The patient has reportedly had a prior partial small bowel resection. Near some suture at the right proximal colon, the enhancement and adjacent fluid is slightly more foc al which could be an area of relatively increased inflammation. No perforation or abscess. Overall, the findings are slightly worsened from prior.
[2025-01-18] MEDS: ENOXAPARIN 40 MG/0.4 ML SQ SCH (10:28)
[2025-01-18] MEDS: methocarbamoL 500 MG TAB PO SCH (10:28)
[2025-01-18] MEDS: DULOXETINE 20 MG CAP PO SCH (10:28)
[2025-01-18] MEDS: CIPROFLOXACIN 400mg IV 400 MG/200 ML BAG IV SCH (10:29)
[2025-01-18] MEDS: PANTOPRAZOLE 40MG TABLET PO SCH (10:29)
[2025-01-18] MEDS: METRONIDAZOLE 500mg IVPB 500 MG/100 ML BAG IV SCH (10:29)
[2025-01-18] MEDS: ONDANSETRON 4 MG/2 ML VIAL IV PRN (18:07)
--- NOTE | 2025-01-18 18:47 | P.PN ---
Date of Service: 01/18/25 Patient seen and examined. Patient reports multiple bouts of diarrhea yesterday. He is also concerned about his left inguinal hernia which is apparently reducible. Patient examined and noted his left inguinal hernia is reduced. CT abdomen pelvis results reviewed. Colitis reported. Diagnosis Infectious colitis Left inguinal hernia Hypokalemia Anemia Plan: Continue IV ciprofloxacin and Flagyl Patient received IV potassium Continue to monitor and replace electrolytes as needed Monitor CBC and transfuse for hemoglobin less than 7 Patient advised to follow-up with surgery as outpatient for evaluation for elective hernia repair.
[2025-01-18] MEDS: ENSURE CLEAR 200 ML CAN PO SCH (20:29)
[2025-01-19] MEDS: HYDROCODONE/APAP 5/325 MG TAB PO PRN (00:24)
[2025-01-19 06:20] LABS: Absolute Lymphocytes (CBC) 0.7 K/uL (0.7-4.9); Absolute Monocytes 0.3 K/uL (0.1-1.3); Absolute Neutrophil 1.8 K/uL (1.8-8.0); Basophils % 0.2 % (0-1.3); Eosinophils % 1.6 % (0-4.4); Hematocrit 26.1 % (39.6-49.0); Hemoglobin 9.1 g/dL (13.6-17.9); Lymphocytes % 24.3 % (15.3-44.8); MCH 32.2 pg (27.0-35.0); MCHC 34.7 g/dL (32.0-36.0); MCV 92.9 fL (80-100); MPV 6.2 fL (7.6-11.3); Monocytes % 12.1 % (3.3-12.3); Neutrophils % 61.8 % (41.7-73.7); Nucleated Red Blood Cells % 0.3 % (0-0); Platelets 453 thou/uL (152-406); RBC Red Blood Cell Count 2.81 M/uL (4.33-5.43); Red Cell Distribution Width 15.2 % (12.1-15.2)
[2025-01-19 06:38] LABS: Albumin 1.1 g/dL (3.4-5.0); Albumin/Globulin Ratio 0.4 (1.1-1.8); Alkaline Phosphatase 49 U/L (45-117); BUN Blood Urea Nitrogen 8 mg/dL (7-18); Bicarbonate 24 mEq/L (21-32); Bilirubin Total 0.6 mg/dL (0.2-1.0); Globulin 3.1 g/dL (2.3-3.5); Glomerular Filtration Rate 125 ml/min (=/>90); Glucose Level 80 mg/dL (74-106); Protein, Total 4.2 g/dL (6.4-8.2); Sodium Level 135 mEq/L (136-145)
[2025-01-19 06:40] LABS: ALT/SGPT < 14 U/L (16-61); AST/SGOT < 10 U/L (15-37)
[2025-01-19] MEDS: POTASSIUM 25 MEQ EFFERV TAB PO ONE (08:32)
--- NOTE | 2025-01-19 14:46 | CON ---
Date of Consultation: 01/19/2025 Brief History Of Present Illness: The patient is a 50-year-old male with a past medical history of a nxiety, GERD, traumatic injury with pelvic fracture, arm fractures, exploratory laparotomy after fall ing out of a tree and having a log land on top him as one of the branches fell upon him in 2018, who was recently seen at [facility] with abdominal pain, worsening cramps and a known left inguinal hernia. He states the hernia has been present since 2018. It has been slowly enlarging and remains stable at t his time. However, he has intermittent episodes where it aches and causes pain. However, he has dirk n in his generalized abdomen, at this point, which is also present in bilateral inguinal regions, lef t worse than right and in his lower abdomen generally. He was unsure of the cause of this. He was r ecently seen an [facility], he states, where he had a colonoscopy and was told he had a diagnosis of Crohn' s disease, was given steroids. He is uncertain of all the medications he was given. He believes samuel t he was given a litany of medications, he cannot recall the details that he keeps in a bag. However , when his pain got progressively worse and he was recently discharged from [facility], he comes in with si milar symptoms as described above. Denies any bowel obstruction. He has been tolerating PO. No adonay sea. No vomiting. No obstructive symptoms. He has been having normal bowel function with respect t o stool. He currently only complains of pain in the left inguinal and lower abdominal regions with s ome radiation through the generalized abdomen, more so on the left side of his abdomen than on the ri ght. Past Medical History: Anxiety, GERD, inguinal hernias, perirectal abscess. Past Surgical History: He has had an incision and drainage of perirectal abscess, right inguinal her ryne repair, exploratory laparotomy for trauma, multiple rods and pins placed during a trauma laparoto my after falling out of a tree in 2018 with significant pelvic fractures, bilateral arm fractures and multiple rods and pinning of his pelvis, right leg and bilateral forearm areas. Social History: He lives with his brother. He is unemployed. He states he has chronic back pain as well which limits his ability for employment. He smokes cigarettes occasionally. Smokes marijuana occasionally. Denies any other recreational drug use. Denies significant alcohol use other than int ermittent. He denies taking any medications other than the ones recently prescribed from [facility], and tyron estevez has not been consistent with these as he was recently discharged and has not really been taking the m as directed. Otherwise, he took no medications prior to his recent hospitalization at [facility]. He does not have a primary care doctor currently. Has no followup with physicians with any regularit y. Review of Systems: 10-point review of systems other than HPI, denies. Physical Examination: Vital Signs: At the time of my examination, his vital signs were blood pressure 129/78, pulse 78, re spiratory rate 16, SpO2 99% on room air. Temperature is 98.0. General: He is awake, alert, and oriented. Psychiatric: He is appropriate and conversive. HEENT: He is normocephalic. He has well-healed surgical scars on his scalp. Sclerae were anicteric . His mucous membranes were moist. His oropharynx was clear. He has very poor dentition with the m ajority of his teeth missing and poor dentition of the remaining. Neck: Supple without JVD. Chest: Normal expansion and excursion. Cardiovascular: Regular rate and rhythm. Pulmonary: Clear to auscultation bilaterally. Abdomen: Soft with well-healed midline laparotomy scar. In addition, he has bilateral palpable ingu inal hernias. There is mild tenderness to the left inguinal hernia. It is partially reducible. No evidence of strangulation. He has some tenderness in the abdomen as well in the suprapubic and bilat eral pelvic regions with some radiation up to the left upper quadrant with examination. He is nondis tended. There is no rebound, no guarding, no focal peritonitis. Extremities: Well-healed surgical scars were evident over 4 extremities. Skin is, otherwise, warm a nd dry. He has minimal what appears to be swelling to bilateral hands and bilateral feet. He states this is present since his trauma surgeries in the past and is unchanged. Skin: Otherwise, warm and dry. Laboratory Data: Revealed a white blood cell count of 2.9, hemoglobin 9.1, hematocrit of 26.1, plate let count is 453. His sodium 135, potassium 3.0, chloride 104, carbon dioxide 24, BUN 8, creatinine 0.47, glucose is 80. His lactic acid was 1.2 on admission on 01/17, total bilirubin 0.6, AST is less than 10, ALT less than 14, alkaline phosphatase is 49, lipase is 13 on admission. UA was essentiall y negative. On 01/18/2025, he had imaging performed, which included a CT of the pelvis and abdomen, which is officially read as colonic wall thickening extending from the proximal colon through the pro ximal sigmoid, consistent with the presence of colitis. The patient reportedly had a prior small bow el resection. Near some suture at the right proximal colon, the enhancement of adjacent fluid is sli ghtly more focal, which could be an area of relative increased inflammation. No perforation or absce ss. Overall, the findings are slightly worsened from prior. Assessment And Plan: This is a 50-year-old male who comes in with signs and symptoms of Crohn's flar e based on previous report at [facility], where he was newly diagnosed with a Crohn's flare exacerbation. In addition, he has longstanding bilateral inguinal hernias, left greater than right. 1. Continue medical management per Dr. Sosa. 2. Recommend GI consultation for his Crohn's colitis/possible small bowel exacerbation treatment and recommend pulse steroid treatment in the interim to help improve his Crohn's symptoms per medical rec ommendations. 3. We will obtain records from [facility] to corroborate the above findings. 4. I recommended the patient be considered for left inguinal hernia repair. However, given his curre nt use of steroids in the recent history and perhaps need for high-dose steroids, I do recommend fausto yed treatment until the optimal period to ensure a better outcome as long as the patient remains mini osmany symptomatic and no significant changes in his symptoms have occurred with respect to the left i nguinal hernia. The patient states his pain is similar in the past with intermittent exacerbations, but currently is stable from previous encounters and is improved from his recent hospitalization at [facility] with respect to pain in the left inguinal region. However, if the patient has symptoms of worsen ing inguinal hernia possibly leading to significant incarceration and/or strangulation, I have recomm ended an inguinal hernia repair with mesh. I have explained the risks, benefits, and alternatives of inguinal hernia repair including, but not limited to, bleeding, infection, damage to surrounding tis sues, need for further operative procedures, recurrence with increased risk of infection, and higher incidence of recurrence should he be on significant dose of steroids, in addition he could have heart attacks, blood clots, strokes, other unforeseen complications in the perioperative period. The leonard ent displayed understanding of the above-stated plan. Agreed to proceed as indicated. I will follow along with you with serial abdominal exams and if I feel that the patient has exacerbat ion of his inguinal hernia, we will revisit the consideration of left inguinal hernia repair; however , at this time, there is no urgent need. Thank you for this interesting consult. IKER/SETH Voice ID: [id number] Report ID: [id number]
[2025-01-19] MEDS: MORPHINE 2 MG/ML SYR IV PRN (14:50)
--- NOTE | 2025-01-19 15:55 | P.PN ---
Subjective Date of Service: 01/19/25 Chief Complaint: Abdominal Pain Patient is complaining of abdominal pain. He also reports pain in the left inguinal area from his hernia. No reported vomiting. No diarrhea since admission. Physical Examination - Vital Signs Temperature: 98.3 F Blood Pressure: 97/62 Pulse: 82 Respirations: 16 Pulse Ox (%): 96 Assessment And Plan - Plan Physical examination General: Alert and oriented x3, NAD, HEENT: Conjunctiva not pale, anicteric sclera Neck: Supple, no elevated JVD Heart: Heart sounds 1 and 2 normal, regular rhythm, normal rate, no pedal edema Lungs: Clear to auscultation bilaterally, adequate breath sounds bilaterally, no rhonchi or crackles. Abdomen: Soft, moderate diffuse tenderness, nondistended, normal bowel sounds. Left inguinal hernia. Extremities: No tenderness, no deformity Skin: Normal skin turgor, no rash, no nodules or ulcers. Neuro: No focal motor deficit. Normal speech. Psychiatry: Normal mood, no agitation. Diagnosis Colitis Crohn's disease Inguinal hernia Hypokalemia Colitis Crohn's disease Patient with a reported history of Crohn's disease Recent hospitalization at [facility] and diagnosed with Crohn disease by colonoscopy Continue IV ciprofloxacin and Flagyl Add oral prednisone Analgesics as needed. Urine toxicology screen Clear liquid diet Continue IV hydration Inguinal hernia Reducible Surgery Dr. Howell. Surgery is not emergent. Patient will need chronic disease flare treated before surgery. Dr. Howell plans to follow and monitor for emergent surgery. Hypokalemia Replace potassium as needed Continue IV hydration. Monitor and optimize electrolytes as needed. Anemia of chronic disease Relatively stable Monitor CBC daily DVT prophylaxis:Lovenox Advanced directive: full code
[2025-01-19] MEDS: predniSONE 20 MG TAB PO SCH (16:58)
[2025-01-19 18:15] LABS: Barbiturates NEGATIVE (NEGATIVE); Benzodiazepines NEGATIVE (NEGATIVE); Cocaine NEGATIVE (NEGATIVE); METHAMPHETAM NEGATIVE (NEGATIVE); Methadone NEGATIVE (NEGATIVE); Opiates POSITIVE (NEGATIVE); Phencyclidine NEGATIVE (NEGATIVE); THC Cannibis POSITIVE (NEGATIVE)
[2025-01-19 22:51] VITALS: O2SAT 97
[2025-01-20 05:46] LABS: Absolute Lymphocytes (CBC) 0.6 K/uL (0.7-4.9); Absolute Monocytes 0.2 K/uL (0.1-1.3); Absolute Neutrophil 3.1 K/uL (1.8-8.0); Basophils % 0.3 % (0-1.3); Hemoglobin 9.9 g/dL (13.6-17.9); Lymphocytes % 16.2 % (15.3-44.8); MCH 31.6 pg (27.0-35.0); MCHC 34.1 g/dL (32.0-36.0); MCV 92.7 fL (80-100); MPV 6.3 fL (7.6-11.3); Neutrophils % 77.5 % (41.7-73.7); Nucleated Red Blood Cells % 0.1 % (0-0); Platelets 455 thou/uL (152-406); RBC Red Blood Cell Count 3.13 M/uL (4.33-5.43); Red Cell Distribution Width 15.2 % (12.1-15.2)
[2025-01-20 06:08] LABS: Anion Gap 8.4 mEq/L (5.0-15.0); Potassium 3.4 mEq/L (3.5-5.1)
--- NOTE | 2025-01-20 11:33 | P.PN ---
Subjective Date of Service: 01/20/25 Chief Complaint: Abdominal Pain Subjective: Improving (Patient has improvement of his symptoms and is able to tolerate more meal and is having bowel movements. His pain is significantly improved in the left inguinal region but continues to have some mild pain in the abdomen generally.) Physical Examination - Vital Signs Temperature: 97.5 F Blood Pressure: 99/67 Pulse: 73 Respirations: 19 Pulse Ox (%): 98 - Physical Exam General: Alert, In no apparent distress, Oriented x3, Cooperative Gastrointestinal: Other (Soft, mild suprapubic and left upper quadrant tenderness to palpation, no rebound or guarding no focal peritonitis, partially reducible left inguinal hernia with less tenderness no rebound no focal peritonitis no signs of incarceration/strangulation. Right inguinal hernia is unremarkable and reduci) Assessment And Plan - Current Problems (Diagnosis) (1) Crohn's disease Current Visit: Yes Status: Acute (2) Inguinal hernia recurrent bilateral Current Visit: Yes Status: Acute Plan: - Patient is a 50-year-old male who presents with Crohn's colitis possible enteritis who is currently be treated with steroids. - Patient's inguinal hernia continues to improve and as such I recommend surgical repair after his Crohn's flare has been completely resolved and patient is preferably off of high-dose steroids. - I have recommended a hernia belt in the interim. - Patient states his symptoms significantly improved after being placed on steroids tolerating better diet having bowel function and would like to proceed in the manner as described above. - I have described that if the patient has worsening symptoms with related to the hernia he needs to immediately contact staff so that we can evaluate to see if patient requires urgent repair of the inguinal hernia.
--- NOTE | 2025-01-20 12:17 | P.DS ---
Admission Date: 01/18/25 Discharge Date: 01/20/25 Disposition: ROUTINE DISCHARGE Discharge Condition: FAIR Reason for Admission: Abdominal Pain Brief History of Present Illness: Patient with a history of anxiety, GERD, history of inguinal hernia, chronic back pain status post rods and pins in the back, recent diagnosis of Crohn's disease by colonoscopy at [facility] who presented with progressive worsening abdominal pain. Patient was assessed in the ER and CT scan suggested colitis. Patient also has left inguinal hernia which is reducible. Patient was admitted for further management. Hospital Course: Diagnosis Colitis Crohn's disease Inguinal hernia Hypokalemia Patient admitted and treated for an possible infectious colitis. Infectious colitis treated with IV antibiotics, Crohn disease with prednisone. Noted patient is supposed to be on maintenance prednisone therapy prior to admission. Patient abdominal pain improved, he tolerated regular diet. He was seen by general surgery Dr. Howell regarding his left inguinal hernia. Patient hernia is reducible, he currently has active bowel inflammation. Dr. Howell at this point recommend elective surgery for the inguinal hernia as needed. Patient has agreed to follow-up with Dr. Howell as outpatient regarding the hernia. Patient is tolerating diet, he is ambulatory and vitals are stable. He is discharged with oral Cipro and Flagyl to continue treatment for possible infectious colitis. He is also discharged with short course prednisone therapy. Patient informed to continue his maintenance prednisone therapy after completing the short course prednisone therapy. Vital Signs/Physical Exam: Temp Pulse Resp BP Pulse Ox 97.5 F 73 19 99/67 98 01/20/25 11:33 01/20/25 11:33 01/20/25 11:33 01/20/25 11:33 01/20/25 11:33 General: Alert, In no apparent distress, Oriented x3 HEENT: Mucous membr. moist/pink Neck: JVD not distended Respiratory: Clear to auscultation bilaterally, Normal air movement Cardiovascular: No edema, Regular rate/rhythm, Normal S1 S2 Gastrointestinal: Normal bowel sounds, Soft and benign, Non-distended, No tenderness Musculoskeletal: No swelling Integumentary: No rashes, No cyanosis Neurological: Normal strength at 5/5 x4 extr Laboratory Data at Discharge: WBC 4.00 thou/uL (4.3-10.9) L 01/20/25 05:32 Hgb 9.9 g/dL (13.6-17.9) L D 01/20/25 05:32 Hct 29.0 % (39.6-49.0) L 01/20/25 05:32 Plt Count 455 thou/uL (152-406) H 01/20/25 05:32 Sodium 136 mEq/L (136-145) 01/20/25 05:32 Potassium 3.4 mEq/L (3.5-5.1) L D 01/20/25 05:32 BUN 5 mg/dL (7-18) L 01/20/25 05:32 Creatinine 0.48 mg/dL (0.70-1.30) L 01/20/25 05:32 Glucose 162 mg/dL (74-106) H 01/20/25 05:32 Total Bilirubin 0.6 mg/dL (0.2-1.0) 01/19/25 06:11 AST < 10 U/L (15-37) L 01/19/25 06:11 ALT < 14 U/L (16-61) L 01/19/25 06:11 Alkaline Phosphatase 49 U/L (45-117) 01/19/25 06:11 Lipase 13 U/L (13-75) 01/17/25 23:27 Home Medications: Cyanocobalamin (Vitamin B-12) [Cyanocobalamin Injection] 1 ml IM EVERY 7TH DAY 01/18/25 Ondansetron [Zofran (Odt)*] 4 mg PO Q8H PRN 01/18/25 Pantoprazole [Protonix Tab*] 40 mg PO DAILY 01/18/25 Sulfamethoxazole/Trimethoprim [Bactrim Ds 800-160 mg Tablet] 1 tab PO M,W,F 01/18/25 methocarbamoL [Methocarbamol] 500 mg PO QID 01/18/25 Ciprofloxacin HCl [Cipro 500 MG Tablet] 500 mg PO BID #10 tab 01/20/25 Duloxetine [Cymbalta *] 20 mg PO DAILY #30 cap 01/20/25 Ensure Clear 237 ml PO BID #30 can 01/20/25 Ergocalciferol (Vitamin D2) [Vitamin D2] 50,000 mcg PO EVERY 7TH DAY #4 cap 01/20/25 Hydrocodone 5/APAP 325 [[place] 5/325*] 1 tab PO Q4H PRN #15 tab 01/20/25 metroNIDAZOLE [Flagyl] 500 mg PO Q8H #15 tab 01/20/25 predniSONE [Prednisone*] 40 mg PO DAILY #10 tab 01/20/25 predniSONE [Prednisone] 5 mg PO BID #60 tab 01/20/25 New Medications: Ciprofloxacin HCl [Cipro 500 MG Tablet] 500 mg PO BID #10 tab Duloxetine [Cymbalta *] 20 mg PO DAILY #30 cap Ensure Clear 237 ml PO BID #30 can metroNIDAZOLE [Flagyl] 500 mg PO Q8H #15 tab Hydrocodone 5/APAP 325 [[place] 5/325*] 1 tab PO Q4H PRN #15 tab PRN Reason: Pain Scale 5-7 (Moderate) predniSONE [Prednisone] 5 mg PO BID #60 tab predniSONE [Prednisone*] 40 mg PO DAILY #10 tab Ergocalciferol (Vitamin D2) [Vitamin D2] 50,000 mcg PO EVERY 7TH DAY #4 cap Physician Discharge Instructions: Patient with a history of anxiety, GERD, history of inguinal hernia, chronic back pain status post rods and pins in the back, recent diagnosis of Crohn's disease by colonoscopy at [facility] who presented with progressive worsening abdominal pain. Patient was assessed in the ER and CT scan suggested colitis. Patient also has left inguinal hernia which is reducible. Patient admitted and treated for an possible infectious colitis. Infectious colitis treated with IV antibiotics, Crohn disease with prednisone. Noted patient is supposed to be on maintenance prednisone therapy prior to admission. Patient abdominal pain improved, he tolerated regular diet. He was seen by general surgery Dr. Howell regarding his left inguinal hernia. Patient hernia is reducible, he currently has active bowel inflammation. Dr. Howell at this point recommend elective surgery for the inguinal hernia as needed. Patient has agreed to follow-up with Dr. Howell as outpatient regarding the hernia. New medications Prednisone 40 mg daily for 5 days. Please do not take your already prescribed prednisone 5 mg twice daily until you are finished taking the prednisone 40 mg daily. Oral ciprofloxacin Oral Flagyl. You have been given refill for vitamin D and Cymbalta. You need to establish care with a primary care physician to help manage her Crohn's disease. It will be helpful to get a health insurance to assist with your medical treatments and physician visits. Diet: Regular Activity: Ad rosa isela Followup: NONE,NONE [Primary Care Provider] - Time spent managing pt's care (in minutes): 38
[2025-01-20 14:02] VITALS: BP 119/74; TEMP 97.9
== END 2025-01-20 15:05 | disposition home or self-care (01) | DRG 392 ==
LOC: ER 22:38 → ERHOLD 01-18 01:42 → 4TH 01-18 04:24
PROVIDERS: ADMIT Family Medicine; ATTEND Internal Medicine
DX: A09 Infectious gastroenteritis and colitis, unspecified (principal); K50.90 Crohn's disease, unspecified, without complications; E87.6 Hypokalemia; E86.0 Dehydration; K21.9 Gastro-esophageal reflux disease without esophagitis; D63.8 Anemia in other chronic diseases classified elsewhere; K40.91 Unilateral inguinal hernia, without obstruction or gangrene, recurrent; F17.210 Nicotine dependence, cigarettes, uncomplicated; Z88.0 Allergy status to penicillin; Z56.0 Unemployment, unspecified; Z79.52 Long term (current) use of systemic steroids; Z79.899 Other long term (current) drug therapy
CPT/HCPCS: 36415; 74177; 80048; 80053; 80307; 81001; 83605; 83690; 85025; 86140; 96374; 96375; 99285; J0744; J1650; J2270; J2405; J3480; J7030; J7512; Q9967

== ENCOUNTER 2025-02-05 07:40 | Emergency (ER) | payer OTHER ==
--- OUTSIDE RECORDS SUMMARY | 2025-02-05 07:46 | XMS REPORT | Continuity of Care Document ---
Author Name Unknown Address [address] [facility]. [address] [place] [address] [facility] [place] Address [address] [facility] [place] [address] Care Team Providers Care Quarter Folder Name Role Phone Pcp, Patient Does Not Have A Primary Care Physic lola Zulma LUCAS, Amol Lucio Attending Clinician [phone] Goldy Hutchinson DO Attending Clinician [phone] Sivan Suh MD Attending Clinician [phone] Kenyetta LUCAS, Orin Attending Clinician [phone] Doctor Unassigned, [place] Attending Clinician U michi Pearson MD, Robert Ornelas Attending Clinician [phone] Zahra Rodriguez MD, Leonard Attending Clinician [phone] Sivan Brcok Attending Clinician [phone] SIVAN WOODS Attending Clinician Unavailable Goldy Hutchinson DO Admitting Clinician [phone] SIVAN WOODS Admitting Clinician Unavailable Payers [facility] Panc[facility] Pancolitis Disease Active 2025-0 4-13 00:00: 00 [facility] ty to adverse reaction s Active Itching 11-22 00:00: 00 [facility] Morphine Propensi ty to adverse reaction s Active Nausea and/or Vomiting 3-06 00:00: 00 [facility] CODEINE DRUG INGREDI Active ITCHING 306 00:00: 00 [facility] MORPHINE DRUG INGREDI Active N/V 3-06 00:00: 00 [facility] Penicill ins Propensi ty to adverse reaction s Active Hives 2018-09 00:00: 00 [facility] PENICILL INS Drug Class Active Hives 2018-09 020 00:00: 00 [facility] Social History Social Habit Start Date Stop Date Quantity Comments Source Exposure to SARS-CoV-2 (event) Not sure [facility] History of tobacco use Smokes tobacco daily [facility] of Occupation [facility] Alcoholic beverage intake 2025-01-04 00:00:00 2025-01-04 00:00:00 Ex-drinker (finding) [facility] Tobacco Comment 2024-12-30 00:00:00 2024-12-30 00:00:00 Pt informed this author that he does not smoke and has never smoked anything. [facility] Alcohol intake 2020-11-22 00:00:00 2020-11-22 00:00:00 Ex-drinker (finding) [facility] History of Social function 2020-04-23 00:00:00 2020-04-23 00:00:00 [facility] Sex assigned at 1975 00:00:00 1975 00:00:00 [facility] Smoking Status Start Date Stop Date Source Smokes tobacco daily 2024-12-30 00:00:00 [facility] Medications Ordered Medication Name Filled Medication Name Start Date Stop Date Current Medication? Ordering Clinician Indication Dosage Frequency Signature (SIG) Comments Components Source ergocalcife rol, vitamin d2, 1,250 mcg (50,000 unit) capsule ergocalcife rol, vitamin d2, 1,250 mcg (50,000 unit) capsule 01-15 00:00: 00 Yes [id number] Take 1 capsule by mouth weekly. [facility] DULoxetine 20 mg capsule DULoxetine 20 mg capsule 01-11 00:00: 00 Yes [id number] 20mg Take 1 capsule by mouth in the morning. [facility] pantoprazol e 40 mg EC tablet pantoprazol e 40 mg EC tablet 01-11 00:00: 00 Yes [id number] 40mg Take 1 tablet by mouth in the morning. [facility] sulfamethox azole-trime thoprim (BACTRIM DS) 800-160 mg per tablet sulfamethox azole-trime thoprim (BACTRIM DS) 800-160 mg per tablet 01-11 00:00: 00 02-07 04:59 :00 Yes [id number] 1{tbl} Take 1 tablet by mouth every Tuesday, Tuesday and Tuesday in the evening for 26 days. [facility] predniSONE (DELTASONE) tablet 40 mg predniSONE (DELTASONE) tablet 40 mg 01-10 14:00: 00 Yes 40mg 40 mg, Oral, DAILY, First dose on Graciela 01/10/25 at 0900, Until Discontinu ed, Routine [facility] HYDROcodone -acetaminop hen 5-325 mg tablet HYDROcodone -acetaminop hen 5-325 mg tablet 2024-01-10 00:00: 00 Yes [id number] 1{tbl} Take 1 tablet by mouth every 8 (eight) hours as needed for Pain (scale 4-6). Indication s: acute pain [facility] Syringe with Needle, Disp, (BD LUER-JENAE SYRINGE) 3 mL 25 x 1 1/2 " Syrg 01-10 00:00: 00 Yes [id number] Use as directed with cyanocobal recio [facility] cyanocobala min 1,000 mcg/mL injection cyanocobala min 1,000 mcg/mL injection 01-10 00:00: 00 03-11 04:59 :00 Yes [id number] 1 mL every 24 (twenty-fo ur) hours for 3 days, THEN 1 mL weekly for 56 days. [facility] predniSONE 5 mg tablet predniSONE 5 mg tablet 01-10 00:00: 00 02-28 04:59 :00 Yes [id number] Take 8 tablets by mouth daily for [...] 01-10 00:00: 00 02-10 04:59 :00 Yes [id number] 4mg Take 1 tablet by mouth every 8 (eight) hours as needed for Nausea and Vomiting (N/V) for up to 30 days. [facility] methocarbam oL 500 mg tablet methocarbam oL 500 mg tablet 01-10 00:00: 00 01-25 04:59 :00 Yes [id number] 500mg Take 1 tablet by mouth 4 (four) times daily for 14 days. [facility] acetaminoph en 500 mg tablet acetaminoph en 500 mg tablet 01-10 00:00: 00 01-18 04:59 :00 Yes [id number] 1000mg Take 2 tablets by mouth every [...] sod succ (SOLU-MEDRO L) injection 60 mg 2024-0 01-04 22:15: 00 01-09 22:02 :42 Yes 60mg 60 mg, Intravenou s, Q24H, First dose (after last reorder) on Tue01/04/25 at 1715, Until Discontinu ed, 2 mL [facility] enoxaparin (LOVENOX) injection 40 mg enoxaparin (LOVENOX) injection 40 mg 01-04 22:00: 00 01-10 21:27 :26 Yes 40mg 40 mg, Subcutaneo us, DAILY AT 1700, First dose on Tue01/04/25 at 1700, Until Discontinu ed, Routine [facility] morpHINE injection 2 mg [...] dose, On Tue01/01/25 at 2115, Routine [facility] ondansetron (ZOFRAN (PF)) injection 4 [...] capsule 50,000 Units 01-01 14:00: 00 Yes [id number] 50,000 Units, Oral, QWEEKLY, First dose on Tue01/01/25 at 0900, Until Discontinu ed, Routine [facility] multivitami n tablet 01-01 14:00: 00 01-10 21:27 :26 No 1{tbl} 1 tablet, Oral, DAILY, First dose on Tue01/01/25 at 0900, Until Discontinu ed, Routine [facility] KCL (KLOR-CON M20) tablet 40 mEq KCL (KLOR-CON M20) tablet 40 mEq 01-01 11:30: 00 01-01 11:38 :00 Yes 40meq 40 mEq, Oral, ONCE, 1 dose, On Tue01/01/25 at 0630, Routine [facility] lactated ringers IV infusion 1,000 [...] 20 mEq/100 mL IV infusion 20 mEq [id number] 7901-0 4-14 04:15: 00 12-31 10:08 :00 Yes 20meq 20 mEq, IV Infusion, at 50 mL/hr Administer over 2 Hours, Q2H ES, 3 doses, First dose on Tue12/30/24 at 2315, Last dose on Tue12/31/24 at 0315, Routine [facility] heparin (porcine) injection 5,000 Units [id number] 6387-0 4-14 01:00: 00 01-04 16:16 :55 Yes 5000U 5,000 Units, Subcutaneo us, Q12H, First dose on Tue12/30/24 at 1999, Until Discontinu ed, Routine [facility] D5W-LR IV infusion 1,000 mL 12-31 00:50: 00 12-31 13:41 :39 No 1000mL at 50 mL/hr, IV Infusion, CONTINUOUS , Starting on Tue12/30/24 at 2000, Until Tue12/31/24 at 0841, Routine [facility] ondansetron (ZOFRAN (PF)) injection 4 mg ondansetron (ZOFRAN (PF)) injection 4 mg 12-31 00:11: 56 01-04 03:49 :25 Yes 4mg 4 mg, Slow IV Push, Q6HPRN, Starting on Tue12/30/24 at 191, Until Tue01/03/25 at 2249, Administer over 2-5 Minutes, 2 [...] 5mg 5 mg, Oral, ONCE, 1 dose, 3/6/21 at 2014, DARCIE [facility] traMADoL (ULTRAM) tablet 50 mg 11-23 02:15: 00 11-23 01:24 :00 No 50mg 50 mg, Oral, ONCE NOW, 1 dose, 11/22/20 at 2015, Routine [facility] methocarbam oL 500 mg tablet 11-22 00:00: 00 12-30 00:00 :00 No [id number] 500mg Take 1 tablet by mouth 4 (four) times daily. [facility] Vital Signs Vital Name Observation Time Observation Value Comments S ource Systolic blood pressure 2025-01-10 20:00:00 128 mm[Hg] [facility] Diastolic blood pressure 2025-01-10 20:00:00 84 mm[Hg] [facility] Heart rate 2025-01-10 20:00:00 73 /min [facility] Body temperature 2025-01-10 20:00:00 36.61 Zita [facility] Respiratory rate 2025-01-10 20:00:00 14 /min [facility] Oxygen saturation in Arterial blood by Pulse oximetry 2025-01-10 20:00:00 95 /min [facility] Body height 2024-12-31 00:09:00 167.6 cm [facility] Body weight 2024-12-31 00:09:00 60.782 kg [facility] BMI 2024-12-31 00:09:00 21.63 kg/m2 [facility] Systolic blood pressure 2025-01-03 13:54:00 133 mm[Hg] [facility] Diastolic blood pressure 2025-01-03 13:54:00 87 mm[Hg] [facility] Heart rate 2025-01-03 13:54:00 92 /min [facility] Body temperature 2025-01-03 13:54:00 36 Zita [facility] Respiratory rate 2025-01-03 13:54:00 20 /min [facility] Oxygen saturation in Arterial blood by Pulse oximetry 2025-01-03 13:54:00 99 /min [facility] Body height 2024-12-31 00:09:00 167.6 cm [facility] Body weight 2024-12-31 00:09:00 60.782 kg Univ [facility] BMI 2024-12-31 00:09:00 21.63 kg/m2 [facility] Systolic blood pressure 2020-11-23 02:00:00 126 mm[Hg] [facility] Diastolic blood pressure 2020-11-23 02:00:00 85 mm[Hg] [facility] Heart rate 2020-11-23 02:00:00 74 /min Unive [facility] Body temperature 2020-11-23 02:00:00 36.44 Zita [facility] Respiratory rate 2020-11-23 02:00:00 13 /min [facility] Oxygen saturation in Arterial blood by Pulse oximetry 2020-11-23 02:00:00 100 /min [facility] Body height 2020-11-23 00:31:00 167.6 cm Univ [facility] Body weight 2020-11-23 00:31:00 60.782 kg Univ [facility] BMI 2020-11-23 00:31:00 21.63 kg/m2 [facility] Systolic blood pressure 2025 20:34:00 131 mm[Hg] [facility] Diastolic blood pressure 2025 20:34:00 83 mm[Hg] [facility] Heart rate 2025 20:34:00 78 /min Unive [facility] Body temperature 2025 20:34:00 37.06 Zita [facility] Respiratory rate 2025 20:34:00 19 /min [facility] Oxygen saturation in Arterial blood by Pulse oximetry 2025 20:34:00 96 /min [facility] Body height 2024-12-31 00:09:00 167.6 cm [facility] Body weight 2024-12-31 00:09:00 60.782 kg [facility] BMI 2024-12-31 00:09:00 21.63 kg/m2 [facility] Procedures Procedure Date / Time Performed Performing Clinician Source MAGNESIUM 2025-01-10 08:52:00 Lilian Canrey [facility] BASIC METABOLIC PANEL (NA, K, CL, CO2, GLUCOSE, BUN, CREATININE, CA) 2025-01-10 08:52:00 [facility]FF 2025-01-10 08:52:00 [facility] 2025-01-09 09:02:[address] [facility] C-REACTIVE PROTEIN 2025-01-09 09:02:[address] [facility] BASIC METABOLIC PANEL (NA, K, CL, CO2, GLUCOSE, BUN, CREATININE, CA) 2025-01-09 09:02:00 Rommel [facility] CBC WITH DIFF 2025-01-09 09:02:00 Rommel [facility] US SCROTUM AND CONTENTS 2025-01-09 00:07:23 Nicola Regan [facility] MAGNESIUM 2025-01-08 10:09:[address] [facility] C-REACTIVE PROTEIN 2025-01-08 10:09:00 Maria Teresa Regan ae [facility] BASIC METABOLIC PANEL (NA, K, CL, CO2, GLUCOSE, BUN, CREATININE, CA) 2025-01-08 10:09:00 Rommel [facility] CBC WITH DIFF 2025-01-08 10:09:00 Rommel [facility] ENDOSCOPY PROCEDURE DOCUMENTATION 2025-01-07 14:41:46 Doctor Unassigned, [place] [facility] MAGNESIUM 2025-01-07 08:56:[address] [facility] VITAMIN B12, LEVEL 2025-01-07 08:56:00 Maria Teresa Regan ae [facility] FOLATE 2025-01-07 08:56:00 Maria Teresa Regan [facility] BASIC METABOLIC PANEL (NA, K, CL, CO2, GLUCOSE, BUN, CREATININE, CA) 2025-01-07 08:56:00 Lilian Carney [facility] CBC WITH DIFF 2025-01-07 08:56:00 Lilian Carney [facility] MAGNESIUM 2025-01-05 08:10:00 Krish kalen [facility] TRANSFERRIN 2025-01-05 08:10:00 Maria Teresa Regan [facility] C-REACTIVE PROTEIN 2025-01-05 08:10:[address] [facility] BASIC METABOLIC PANEL (NA, K, CL, CO2, GLUCOSE, BUN, CREATININE, CA) 2025-01-05 08:10:00 Krish [facility] CBC WITHOUT DIFF 2025-01-05 08:10:00 [facility] MAGNESIUM 2025-01-04 08:10:[address] [facility] BASIC METABOLIC PANEL (NA, K, CL, CO2, GLUCOSE, BUN, CREATININE, CA) 2025-01-04 08:10:00 Rommel [facility] CBC WITH DIFF 2025-01-04 08:10:00 Lilian Carney [facility] MAGNESIUM 2025-01-04 08:10:[address] [facility] BASIC METABOLIC PANEL (NA, K, CL, CO2, GLUCOSE, BUN, CREATININE, CA) 2025-01-04 08:10:00 Rommel [facility] CBC WITH DIFF 2025-01-04 08:10:00 Rommel [facility] COLONOSCOPY (ENDO) 2025-01-03 15:19:00 Sivan Suh [facility] COLONOSCOPY (ENDO) 2025-01-03 15:19:00 Sivan Suh [facility] SURGICAL PATHOLOGY EXAM 2025-01-03 14:56:00 Jm Pearson [facility] SURGICAL PATHOLOGY EXAM 2025-01-03 14:56:00 Jm Pearson [facility] COLONOSCOPY 2025-01-03 14:27:00 Robert Pearson [facility] 2025-01-03 14:27:00 Robert Pearson [facility] XR KUB 2025-01-03 11:51:[address] [facility] XR KUB 2025-01-03 11:51:[address] [facility] MAGNESIUM 2025-01-03 09:41:[address] [facility] BASIC METABOLIC PANEL (NA, K, CL, CO2, GLUCOSE, BUN, CREATININE, CA) 2025-01-03 09:41:00 [facility] WITH DIFF 2025-01-03 09:41:00 Lilian Carney [facility] MAGNESIUM 2025-01-03 09:41:[address] [facility] BASIC METABOLIC PANEL (NA, K, CL, CO2, GLUCOSE, BUN, CREATININE, CA) 2025-01-03 09:41:00 Hira Carneysha [facility] CBC WITH DIFF 2025-01-03 09:41:00 Lilian Carney [facility] XR KUB 2025-01-03 07:38:55 Rahul Esquivel [facility] XR KUB 2025-01-03 07:38:55 Sierra Rahul [facility] XR ABDOMEN 1 VW 2025-01-03 07:12:09 Sierra [facility] XR ABDOMEN 1 VW 2025-01-03 07:12:09 Sierra [facility] CBC WITH DIFF 2025 09:18:00 Lilian Carney [facility] BASIC METABOLIC PANEL (NA, K, CL, CO2, GLUCOSE, BUN, CREATININE, CA) 2025 09:18:00 Rommel [facility] MAGNESIUM 2025 09:18:[address] [facility] MAGNESIUM 2025 09:18:[address] [facility] BASIC METABOLIC PANEL (NA, K, CL, CO2, GLUCOSE, BUN, CREATININE, CA) 2025 09:18:00 Rommel [facility] CBC WITH DIFF 2025 09:18:00 [facility]25 09:18:[address] [facility] BASIC METABOLIC PANEL (NA, K, CL, CO2, GLUCOSE, BUN, CREATININE, CA) 2025 09:18:00 Rommel [facility] CBC WITH DIFF 2025 09:18:00 Rommel [facility] CALPROTECTIN, FECAL 2025-01-01 09:38:00 Maria Teresa Regan [facility] CLOSTRIDIUM DIFFICILE TOXIN 2025-01-01 09:38:00 Guerra, [facility] CLOSTRIDIUM DIFFICILE TOXIN 2025-01-01 09:38:00 Guerra, [facility] CALPROTECTIN, FECAL 2025-01-01 09:38:00 Maria Teresa Regan [facility] CLOSTRIDIUM DIFFICILE TOXIN 2025-01-01 09:38:00 Guerra, [facility] CALPROTECTIN, FECAL 2025-01-01 09:38:00 Maria Teresa Regan [facility] VITAMIN D, 25-OH 2025-01-01 09:37:00 Maria Teresa Regan [facility] CBC WITH DIFF 2025-01-01 09:37:00 Maria Teresa Regan [facility] MAGNESIUM 2025-01-01 09:37:00 Maria Teresa Regan [facility] BASIC METABOLIC PANEL (NA, K, CL, CO2, GLUCOSE, BUN, CREATININE, CA) 2025-01-01 09:37:00 Maria Teresa Regan [facility] PHOSPHORUS 2025-01-01 09:37:00 Maria Teresa Regan [facility] PHOSPHORUS 2025-01-01 09:37:00 Maria Teresa Regan [facility] MAGNESIUM 2025-01-01 09:37:00 Maria Teresa Regan [facility] BASIC METABOLIC PANEL (NA, K, CL, CO2, GLUCOSE, BUN, CREATININE, CA) 2025-01-01 09:37:00 Maria Teresa Regan [facility] CBC WITH DIFF 2025-01-01 09:37:00 Maria Teresa Regan Un [facility] VITAMIN D, 25-OH 2025-01-01 09:37:00 Maria Teresa Regan [facility] PHOSPHORUS 2025-01-01 09:37:00 Maria Teresa Regan [facility] MAGNESIUM 2025-01-01 09:37:00 Maria Teresa Regan [facility] BASIC METABOLIC PANEL (NA, K, CL, CO2, GLUCOSE, BUN, CREATININE, CA) 2025-01-01 09:37:00 Maria Teresa Regan [facility] CBC WITH DIFF 2025-01-01 09:37:[address] Maria Teresa Regan Un [facility] VITAMIN D, 25-OH 2025-01-01 09:37:00 Maria Teresa Regan [facility] US GALL BLADDER 2025-01-01 01:01:00 Maria Teresa Regan [facility] US GALL BLADDER 2025-01-01 01:01:00 Maria Teresa Regan [facility] US GALL BLADDER 2025-01-01 01:01:00 Mraia Teresa Regan [facility] CBC WITH DIFF 2024-12-31 11:17:00 Amol Guerra [facility] BASIC METABOLIC PANEL (NA, K, CL, CO2, GLUCOSE, BUN, CREATININE, CA) 2024-12-31 11:17:[address] [facility] MAGNESIUM 2024-12-31 11:17:00 Amol Guerra [facility] GLYCOSYLATED HEMOGLOBIN (A1C) 2024-12-31 11:17:00 Maria Teresa Regan [facility] THYROID STIMULATING HORMONE 2024-12-31 11:17:00 Maria Teresa Regan [facility] LIPASE 2024-12-31 11:17:00 Maria Teresa Regan [facility] LIPASE 2024-12-31 11:17:00 Maria Teresa Regan [facility] MAGNESIUM 2024-12-31 11:17:00 Amol Guerra [facility] THYROID STIMULATING HORMONE 2024-12-31 11:17:00 Maria Teresa Regan [facility] BASIC METABOLIC PANEL (NA, K, CL, CO2, GLUCOSE, BUN, CREATININE, CA) 2024-12-31 11:17:[address] [facility] CBC WITH DIFF 2024-12-31 11:17:00 Amol Guerra [facility] GLYCOSYLATED HEMOGLOBIN (A1C) 2024-12-31 11:17:00 Maria Teresa Regan [facility] LIPASE 2024-12-31 11:17:00 Maria Teresa Regan [facility] MAGNESIUM 2024-12-31 11:17:00 Amol Guerra [facility] THYROID STIMULATING HORMONE 2024-12-31 11:17:00 Maria Teresa Regan [facility] BASIC METABOLIC PANEL (NA, K, CL, CO2, GLUCOSE, BUN, CREATININE, CA) 2024-12-31 11:17:[address] [facility] CBC WITH DIFF 2024-12-31 11:17:00 Charlie [facility] GLYCOSYLATED HEMOGLOBIN (A1C) 2024-12-31 11:17:00 Maria Teresa Regan [facility] ABORH CONFIRMATION (LAB ONLY) 2024-12-31 11:16:00 oGldy Hutchinson [facility] ABORH CONFIRMATION (LAB ONLY) 2024-12-31 11:16:00 Goldy Hutchinson [facility] ABORH CONFIRMATION (LAB ONLY) 2024-12-31 11:16:00 Goldy Hutchinson [facility] URINALYSIS 2024-12-31 07:58:00 Guerra, [facility] FECAL PATHOGENS BY PCR 2024-12-31 07:58:00 Guerra, Awais [facility] URINALYSIS 2024-12-31 07:58:00 Guerra, [facility] FECAL PATHOGENS BY PCR 2024-12-31 07:58:00 Guerra, Awais [facility] URINALYSIS 2024-12-31 07:58:00 Guerra, [facility] FECAL PATHOGENS BY PCR 2024-12-31 07:58:00 Guerra, Awais [facility] CT ABDOMEN PELVIS W CONTRAST 2024-12-31 05:56:08 Guerra, [facility] CT ABDOMEN PELVIS W CONTRAST 2024-12-31 05:56:08 Guerra, [facility] CT ABDOMEN PELVIS W CONTRAST 2024-12-31 05:56:08 Guerra, [facility] BLOOD CULTURE SCREEN 2024-12-31 03:13:00 Guerra, [facility] BLOOD CULTURE SCREEN 2024-12-31 03:13:00 Guerra, [facility] BLOOD CULTURE SCREEN 2024-12-31 03:13:00 Guerra, [facility] HCV ANTIBODY 2024-12-31 03:03:00 Guerra, [facility] IRON PANEL 2024-12-31 03:03:00 Guerra, [facility] IRON PANEL 2024-12-31 03:03:00 Guerra, [facility] PROTHROMBIN TIME / INR 2024-12-31 03:03:00 Guerra, Awais [facility] ACTIVATED PARTIAL THRMPLAS WILBUR 2024-12-31 03:03:00 Guerra, [facility] HEPATITIS B SURFACE ANTIBODY 2024-12-31 03:03:00 Guerra, [facility] HCV ANTIBODY 2024-12-31 03:03:00 Charlie [facility] HBC ANTIBODY (IGM & IGG) 2024-12-31 03:03:00 Humberto Guerra [facility] IRON PANEL 2024-12-31 03:03:00 Charlie [facility] PROTHROMBIN TIME / INR 2024-12-31 03:03:00 Awais Guerra [facility] ACTIVATED PARTIAL THRMPLAS WILBUR 2024-12-31 03:03:00 Guerra, [facility] HEPATITIS B SURFACE ANTIBODY 2024-12-31 03:03:00 Guerra, [facility] HCV ANTIBODY 2024-12-31 03:03:00 Charlie [facility] HBC ANTIBODY (IGM & IGG) 2024-12-31 03:03:00 Humberto Guerra [facility] PROTHROMBIN TIME / INR 2024-12-31 03:03:00 Awais Guerra [facility] ACTIVATED PARTIAL THRMPLAS WILBUR 2024-12-31 03:03:[address] [facility] HEPATITIS B SURFACE ANTIBODY 2024-12-31 03:03:[address] [facility] HBC ANTIBODY (IGM & IGG) 2024-12-31 03:03:00 Humberto Guerra [facility] C-REACTIVE PROTEIN 2024-12-31 03:02:00 Amol Guerra [facility] SEDIMENTATION RATE 2024-12-31 03:02:00 Amol Guerra [facility] CBC WITH DIFF 2024-12-31 03:02:00 Amol Guerra [facility] HB ABO GROUPING 2024-12-31 03:02:00 Charlie [facility] THIOPURINE METHYLTRANSFERASE, RBC 2024-12-31 03:02:00 Charlie [facility] C-REACTIVE PROTEIN 2024-12-31 03:02:00 Amol Guerra [facility] SEDIMENTATION RATE 2024-12-31 03:02:00 Amol Guerra [facility] CBC WITH DIFF 2024-12-31 03:02:00 [facility] HB [facility]BO GROUPING 2024-12-31 03:02:00 Charlie [facility] THIOPURINE METHYLTRANSFERASE, RBC 2024-12-31 03:02:00 Charlie [facility] CBC WITH DIFF 2024-12-31 03:02:00 Charlie [facility] HB ABO GROUPING 2024-12-31 03:02:00 Charlie [facility] SEDIMENTATION RATE 2024-12-31 03:02:00 Amol Guerra [facility] C-REACTIVE PROTEIN 2024-12-31 03:02:00 Amol Guerra [facility] PHOSPHORUS 2024-12-31 03:01:00 Charlie [facility] FERRITIN SERUM 2024-12-31 03:01:00 Charlie [facility] HEPATIC FUNCTION PANEL ([id number]) (ALB,T.PRO,BILI T,BU/BC,ALT,AST,ALK PHOS) 2024-12-31 03:01:[address] [facility] BASIC METABOLIC PANEL (NA, K, CL, CO2, GLUCOSE, BUN, CREATININE, CA) 2024-12-31 03:01:[address] [facility] LIPID PANEL (65771)(TOTAL CHOLESTEROL, TRIGLYCERIDES, HDL) 2024-12-31 03:01:[address] [facility] HEPATITIS B SURFACE ANTIGEN 2024-12-31 03:01:[address] [facility] HAV ANTIBODY (IGG AND IGM) 2024-12-31 03:01:[address] [facility] QUANTIFERON-TB ASSAY 2024-12-31 03:01:[address] [facility] HIV 1/2 AG-AB WITH REFLEX 2024-12-31 03:01:[address] [facility] PHOSPHORUS 2024-12-31 03:01:00 Charlie [facility] FERRITIN SERUM 2024-12-31 03:01:00 Charlie [facility] HEPATIC FUNCTION PANEL (84373) (ALB,T.PRO,BILI T,BU/BC,ALT,AST,ALK PHOS) 2024-12-31 03:01:00 Guerra, [facility] BASIC METABOLIC PANEL (NA, K, CL, CO2, GLUCOSE, BUN, CREATININE, CA) 2024-12-31 03:01:00 Guerra, [facility] LIPID PANEL (53767)(TOTAL CHOLESTEROL, TRIGLYCERIDES, HDL) 2024-12-31 03:01:00 Guerra, [facility] HEPATITIS B SURFACE ANTIGEN 2024-12-31 03:01:00 Guerra, [facility] HAV ANTIBODY (IGG AND IGM) 2024-12-31 03:01:00 Guerra, [facility] QUANTIFERON-TB ASSAY 2024-12-31 03:01:00 Guerra, [facility] HIV 1/2 AG-AB WITH REFLEX 2024-12-31 03:01:00 Guerra, [facility] BASIC METABOLIC PANEL (NA, K, CL, CO2, GLUCOSE, BUN, CREATININE, CA) 2024-12-31 03:01:00 Guerra, [facility] HEPATIC FUNCTION PANEL (30477) (ALB,T.PRO,BILI T,BU/BC,ALT,AST,ALK PHOS) 2024-12-31 03:01:00 Guerra, [facility] PHOSPHORUS 2024-12-31 03:01:00 Guerra, [facility] LIPID PANEL (45507)(TOTAL CHOLESTEROL, TRIGLYCERIDES, HDL) 2024-12-31 03:01:00 Guerra, [facility] QUANTIFERON-TB ASSAY 2024-12-31 03:01:00 Guerra, [facility] HAV ANTIBODY (IGG AND IGM) 2024-12-31 03:01:00 Guerra, [facility] HEPATITIS B SURFACE ANTIGEN 2024-12-31 03:01:00 Guerra, [facility] FERRITIN SERUM 2024-12-31 03:01:00 Guerra, [facility] HIV 1/2 AG-AB WITH REFLEX 2024-12-31 03:01:00 Guerra, [facility] BLOOD CULTURE SCREEN 2024-12-31 03:00:00 Charlie Amol [facility] BLOOD CULTURE SCREEN 2024-12-31 03:00:00 Charlie Amol [facility] BLOOD CULTURE SCREEN 2024-12-31 03:00:00 Amol Guerra [facility] XR LUMBAR SPINE 3 VW 2020-11-23 01:53:41 Sivan Woods [facility] XR CERVICAL SPINE 3 VW 2020-11-23 01:53:41 Liya Woods [facility] XR PELVIS <3 VW 2020-11-23 01:53:41 [facility]AST 2020-11-23 01:41:51 Sivan Woods [facility] CT HEAD WO CONTRAST 2020-11-23 01:41:51 Sivan Woods [facility] Encounters Start Date/Time End Date/Time Encounter Type Admission Type Attending Clinicians Care Facility Care Department Encounter ID Source 2024-12-30 19:05:00 2025-01-10 16:15:00 Hospital Encounter Amol Maya, Sivan Baeza Sidra [facility] ([place]) 1.0.114 350.1.13.10 4.2.7.2.686 [id number] [facility] 2025-01-07 00:00:00 2025-01-08 02:04:31 Orders Only Doctor Unassigned, [place] Doctor Unassigned, [place] [facility] 1.2840.114 350.1.13.10 4.2.7.2.686 [id number] [facility] 2025-01-03 08:37:00 2025-01-03 09:35:00 Surgery Robert Pearson [facility] 1.2840.114 350.1.13.10 4.2.7.2.686 [id number] [facility] 2025 10:55:31 2025 10:55:31 Anesthesia Event Pascual Sweeney [facility] ([place]) 1.2.840.114 350.1.13.10 4.2.7.2.686 [id number] [facility] 2024-12-30 00:00:00 2024-12-30 00:00:00 Travel 1.2.840.1 [id number] 3.104.2.7 .[id number] .8 1.2.840.114 350.1.13.10 4.2.7.3.698 [id number] [facility] 2020-11-22 18:30:00 2020-11-22 22:17:00 Emergency Sivan Woods Yuniel [facility] 1.2.840.114 350.1.13.10 4.2.7.2.686 [id number] [facility] 2020-11-22 18:30:00 2020-11-22 22:17:00 Emergency X WOODS SIVAN [facility] ERT [id number] [facility] Results Test Description Test Time Test Comments Results Resul t Comments Source US Scrotum and contents 2024-12-19 3 13:44:17 EXAM: US SCROTUM AND CONTENTS HISTORY: 50 years-old Male; Provided indication: evaluate for hydrocele . TECHNIQUE: Ultrasound imaging with color Doppler of the scrotum wasperformed. Skein Y[employer] D[employer] Helper images were obtained for the record. COMPARISON: [...] varicocele is seen. Small to moderate bilateralhydrocele. [facility] [id number] 14:41:46Ordered by an unspecified provider.[facility] Mgmuewgrtwd8263-91-32 16:22:03* Test Item Value Reference Range Interpretation Comme nts TRANSFERRN (test code = 9550952575) 114 mg/dL 168-336 L Lab Interpretation (test cod e = 60184-8) Abnormal [facility]2025-04-19 08:36:38* Test Item Value Reference Range Interpretation Comme nts MAGNESIUM (test code = 4021920152) 2.3 mg/dL 1.7-2.4 Lab Interpretation (test cod e = 41055-4) Normal [facility] (NA, K, CL, CO2, GLUCOSE, BUN, CREATININE, CA)2025-01-05 08:36:37* Test Item Value Reference Range Interpretation Comme nts NA (test code = 2187972220) 135 mmol/L 135-145 K (test code = 9079078054) 3.8 mmol/L 3.5-5.0 CL (test code = 3109108373) 96 mmol/L 98-108 L CO2 TOTAL (test code = 8330380357) 34 mmol/L 23-31 H AGAP (test code = 9414741691) 5 2-16 BUN (test code = 3546026734) 14 mg/dL 7-23 GLUCOSE (test code = 9187285696) 157 mg/dL 70-110 H CREATININE (test code = 2160-0) 0.68 mg/dL 0.60-1.25 CALCIUM (test code = 2995171530) 7.5 mg/dL 8.6-10.6 L eGFR (test code = 71874-0) 111.8 mL/min/1.73m2 CKD-EPI eGFR (2020). Assuming creatinine has been stable day-to-day for at least three months, the eGFR indicates Category G1 (>= 90 mL/min/1.73 m2) Lab Interpretation (test code = 60105-5) Abnormal [facility] CenterCbc without Pnlh0918-61-47 08:24:32* Test Item Value Reference Range Interpretation [...] 465 150-328 H MPV (test code = 10332-5) 8.4 fL 9.8-13.0 L RDW-CV (test code = 788-0) 13.6 % 12.1-15.4 RDW-SD (test code = 37372-0) 46.7 fL 38.5-51.6 NRBC x10^3 (test code = 0760286034) See_Comment [Automated messa ge] The system which generated this result transmitted reference range: 10*3/?L. The reference range was not used to interpret this result as normal/abnormal. NRBC/100 WBC (test code = 4186810930) 0 0.0-10.0 IPF % (test code = 3853996485) Lab Interpretation (test code = 35472-2) Abnormal [facility] Center[facility]ology Ntqa3841-96-57 16:38:51* Test Item Value Reference Range Interpretation Comme [facility] Case Report (test code = 0947498755) Surgical Pathology ?Case: [id number] ? Authorizing Provider: ?Robert Pearson MD ? ? ?Collected: ? 01/03/2025 0956 ?Ordering Location: ? ? GI Endoscopy OR Department Received: ?01/03/2025 1307 ?Pathologist: ? Kyleigh Huddleston MD ? Specimens: ? A) - LARGE INTESTINE, SIGMOID COLON, Sigmoid colon Bx eval for IBD ? B) - RECTUM, Rectal Bx eval for IBD ? Final Diagnosis (test code = 0903639417) r1vgeTLnFTGso0zoGALtxF FuZzEwMzNcZnRuYmpcdWMx IHtccnRmMVxhbnNpXGRlZm fcuxxsGAWzDCV5poOxEXSa JAX6MJG5ZjRkSRXtHpBlFI E3CXBqe3lwy6FabZBilCNi XVsrmVMvpqWpvk57dSH1oP 04KT2fGMGkWuJ7VAPgmyQ7 Ikx1GPRvHGSdfBKlM183i8 bws1dtztOftHJ4kYqwFIQt oazhPiO3UVevYGXwfjzmVE a0YGbrGOVhdXA4XFZwfLHv I4FfWXAyUC1wbfe6STM6BZ vkQNHlWlB8OZYoiPYyKBFo aRdmOXugg201ZGS3RyDkDU FmnpKnjTzdiV5nQzIhRWtr BLLrYJ7eBJOWJ8AfUH8AZI MOOW7ZYTVLYRbZE9yNIPRN WA6IZXOFMN2WE4x0HMTbdh FxDIWrNDAGM8bJArbHKS5R J58TPYTWDWRMPAFRBWTHLE UKV1GJN1PaUFQJHMAQMNuC GIWQOCIRUYGBX0lNHZFIQL LXRNcwLMgLXM5GHWvJVtoe KHWaNUIaGE5wPx7tX7QPKb JJA29TSA3SYZSPZ4ZZPZYM QSBJREVOVElGSUVEICBccG FyXGZzMjJccGFyXGZzMjAg Ev3sXpAMKHHSCIXNRR1AL6 v5XBOoneAkMALhZQJFDTJE GQdoFNJYP1GCIAuZUYulPF sKCAqYXRnDN3JHZRAIZPXD RW4CTN0BKPVOUYLNACQTCi BJTkZJTFRSQVRFIElOXHBh zpFoYREoGWOzUMAXHU3HOJ HBL4MQOMStfBQzCLFaQSEy ZT4NFOMBPZtESWARZF6JCZ BHQ1EXXUWWQVNMPGMOYDuW SUVEICBccGFyXHBhcmRccG SyZXAiooynUPZ8v6xwqAFk XHNzdGVjZjIyMDAwXGFuc2 lcZGVmbGFuZzEwMzNcZnRu KxkcyTVeRHStWmZzd9wlz3 51gCTxr4ydKLKnEmA7lRKq ZDHqtEtpjzh0aCbyMmZsRV Bgm0jcvuUdRzWrMDZrXBTk KWYdcXMlV180FDWiUZowr8 uvm3AhSCDbtCUwb8V5DNGV FZwwWoGtK955u7sut6tmkg AayAR7RRNkJKK0HYivzsIr xyX5MZbhnSEsRjW5EEsinj IgCBivmmPevqTdWsu2NWFt A085EXA3tMhgo4ooHZB7DW IsTRLaLameEj2rnHTbG557 ZDXpZQVNIROglAe3WVYefr NezdNstPNPj757X345i5cn BXAwpfEyvCvLkcfob4dzG9 19XHBhcGVydzEyMjQwXHBh fKDaoUW0SDEcQW1zekhqMZ zbCFkcEGMlckA1BAHiqGBu S7HgXGEbZB3xpvxuAEZ7DL koJQToMAE9SyTfTNHhh3Hr ewn5NyDmoz0jlv92MYS1s5 KznJsoSUY9MVX7ZiInRr3m nIHmKPIjKW1eCwYpcJBlKC Cazg36sYteLRaypuMnpT0y VgVwEBDehHPlXXPaEU0uyR GeVPCrpY7kcewvQGUqUlXc lwffDJZrqGahedVdWo7obN kjZFY6VXwwV4fvzI7kZoZ2 VAduO3drxQ5dGFk5DXdiqO F6KGWfcS0fQT5owndpg2cu TLpwXXnaHZUfgdE5rfH4BL MjrUVnC9LicH3iCCFoOV2j mlwie9mvWOE0YDyfTDQbQC M5LpOaPVGha1Onjad5QxSf k3DeaGQtODxvR26lc273AG TqtjHtR5qeaRCidxpreIPs anloCVvijxW0QNWxGZFcRZ luXGYxXGZzMjBcbGFuZzEw MzNcaGljaFxmMVxkYmNoXG RbXMsoM1chTiNpE6NeUQZc PmFiyFKfLBzwdJZ2KHLnVD Dgz89sxPd8IPFuszhoy6Uv CCLukMSrsALosV5obmLnf7 rdVBIkFOOjENTjA1AeJOJ3 iLDkCWZjmYLasVJ1AD0awf UmSW6lOIEtKccxwjCcjJHr utWaJLPjZNmtw9gfOW0cKQ VrxUtxjJ4oyBI6NGVeh0nt pNRizLXqr7plh5OyjsWhCM fyKKDrWLvdQTOlXKWiWK2a ISEsmUZqjkUyp5E2TgtswV ZihfmdQlwjeqR6EJhqupdh IPBpMQboL0hzEgClGJMycO viOumyw3IbEYBwOCLkZykn bKCwcW09JTJ1SeSdo3V4ZF NyBvWlBIPvRE3eiRvhQYDu RR5qHQLoV1ozxR3dsjy5Nk RkVQJzFjK4FOWrgeH5Cqg1 NYJpZXzax5gvx5OnL4UkkS PjkSw7e8tdJVSfPuE4mCDj LDooT3diamJjqOStVCDeUU g2yH28SSBlrI8fcSUwSJyq bpPaHvV3JAghGQYrHkB3FD VqbAJwEOUuN6cbMTXtUIgz VFPbDGmsnXUgLTZ5xTkym4 U3qSAnvJSpvOysExVsMeFk CXTMw4UjNXl8aCzxS2RlXK MhZhZ9mAGeXRWgSNarWNTr DGRtivG2uB40FPggnjH0fX Xnj9Gjy47gp720eF1upVPj SYF0WKBxRFDanVUxGZVaZY J7CWFpuDPiY2jhDWGoMV3v jjutJVpdFBopWJBnrVD9DD ErbMFtS0DcVHOcCEiyQAWa ssb2OeAtLa6pwZJmrHepCM ahd7mus0tdxINhIbk5DXGr IkPwIykmXWbkm8Aup2jfIB Idmm55qGBalQRxlJArej1i mjAvbYSrmWQlQDI5yWWkew EuZQQcfBItKTEhAY9ncMVf AVJlxE0fpvrcJQCyLfXayu buOVUrkHuaibCcHv0zcAao TVL4PKdvL7qxmO6oZyU5JW waF4segJ1qQTa7XGvenXF9 PSDsbC6aNE7csuepi9mlBR fmZZakQUJalvV8arD7TZQz rUGrN7NpuS6hCGUsNT4pzn yjk8wrPEA8CJvdBIMmUKD9 WgGtZXOxb4Hdtzo1NdXrv7 EqjXEqSKcgQ47zp326SWKl wbTiP9mhxEVlesrdlYKsbf gaNJbjdrI7WCAltrYnp1Ti YIOoETV5TRojRVdgtDPaDR XbvPrto6jqY1OvrGNlTNNz YWluXGYxXGZzMjBcbGFuZz EwMzNcaGljaFxmMVxkYmNo YBIkPHuuD3jsLqUkE0SsVR UuYkVkwIDoX2vmaBLdCStu kAY6MTUbMXZsx90ooXy2SE Rajwant3VjWXOxgKXiqRDi oK3zxrBqt2iwOYYhALWyXM ZmN2DhLCR9cBKkNQBtdWLi jUT7OB1bfiApLW9sRUFhTk kgcmVzaWRlbnRzLCBmZWxs g9vgDI5jFEIscTeqzI2paJ F8NBJyd0vobJPhmUGei7ua q2GvkmYiJLitWLXqDKafKE OjIFPhMK8tJTRtzWFtjyEr v4D1OvrwlCXoneltZTydar CpETuauazmXMUwWQfwI1it AnEgNEUocOokFRcmv5OaJO YxXGNmMlxmczIwXHBhclxw YXJccGFyXHNhMTYwXHNsMj I0VIAhkUGaoZCqhRpkgX4v ZjBcZnMyNFxwbGFpblxmMV sqzvX4AMgnpriuJYOqRTpg D2alDvJlJDPiuPulVGwnz8 JjKUFhSKBlXnbcdaI3KTw8 goAfIVRhtMizlG0ioSJ7GU Xly8Vse9Xpd78hhVWcd02n h24wpvHppTMrRm7wuZFhAD O9SUIRLFLwIYHpG2IlDSTe kWkdO3FuyFRpDCOlYiTyAR f0iSRyKmTvFLpmgCWDo1V1 kLnvADWrH6HbVZMacUotLM ZLPEw6ZFltONOqTZlzTUVw XGZzMjBcbGFuZzEwMzNcaG ljaFxmMVxkYmNoXGYxXGxv X0abNiZmB0OyPBEyFvBokM LjJ8dfwRFdgS3= Clinical Information (test code = 8691504268) Jin Jiménez is a 50 year old male1. 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 Rectal Bx eval for IBD Gross Description (test code = 9651530379) q0wflXUiCGZtkFOFBVKqFR CmMW6akNlpmGy8lHbjLVSg acZ9uVMaYQogg6tjCHI0f6 olgrRAFvyfVVAxLM5mOBox NHMdOM7vTcRpYNAeOeVsDQ BhcGVydzEyMjQwXHBhcGVy dJN3WEVuQD4obfanODofCK ziMIHgjkG3CHMmuZNtB6Cq IKQwNS0vdvtyBCP0QEGDSz evJy5ciJOpsZbnKbUkJnOs DXClZOFzUYJyk7prdjWGvq tghPq8sO7SOXEtZ8MaFN4M z4rjPXKeqNKgQTW1QNdxe9 kjEIrvLQD3UVQwSHJmRCNy QY0BFnUbFLN1XWK4JBZ8Kf B5EXh4WDZHAFLaBAlkKDFy PLQ5MFt7COFsBT6dIGfwdZ SjMQryBcwrLZndO653HTry LMBiV1EoD1LgOMidVgAvAY saROElXAAuITepTQGgT7MR GRToTJm6OWQtYxVuAQi8AU d6AF1LLtJmNCUhNKr0YmBt FNDaNYy2CRioMF8XCQBcFY DwFVZ4IOysHSTcMSldJDa7 IDIgXFxzcyAzIFxcZmwgXF icX05ogVOjMIMWAylnqLVr blxmczIwIFNQRUNJTUVOIE EpaOOqV9xhGzAxIxftEQXa DQpccGFyZCANClxwbGFpbl xsdHJjaFxmczIyXGVwaWNO LSF4DT3eQYHHUmoyqWOiLB Zcm0ImDHfvnFpwQPIeWtVc UIcWgXDspG9nehXXVWekLK QoM3TzkpWzQTpzEZEzea8n bGluLCBsYWJlbGVkIHdpdG ggdGhlIHBhdGllbnQncyBu KF4eBVBICBTkrJ6bRGVmCU NbAXPgWJIoicJqd7DqueYw VRVrQ72zxARzL62rs81zEE OlH88doBQvU30eh27jTcee KWYykLBur3DdREJWLoPlpt PuA15ws1ewxTTfe1HzWnP5 YP4tmCmwrgXnxnGuO3VbHY Ybg52dwIM8wFIquLHbPlXy F04fpiBrGQwsGgSjYOGfMv XdO28spP7rX6AqMZAie9Fe KWqgYU3hoM6sEHLnDuoyhZ WaOiAjqZXcBvMxT43kpU8a OFlnzuUtLSPkTR9vQHCzVL AsrHGmoY0ecmJmixWugVr3 ZXJlZCBpbnRvIGEgYmlvcH N4UZFnGmGzpsBta0KkbCq7 dGZmEZxpRNCasV0tpD8uRK AhCZviBEMcC85nu9BDy4Ao l5kfoUcgw6ZriDNdYN4npM XxRP9Fi9oxQIZzmPLiCUH1 SOcqq5vrZGhwNWN4VLEbPm TzMWMiXV8ZHhTxHNK6VHC9 OTK7VtQ0XDi7UXOLBpZyIl EuZef8OzstOFHlDEa3WMc9 WJaMNkGpSsapSqOkNQT5UB W4JjA6DIofdIRmYPofp5Ka BdToVYLjWZcwnfR1VPEnqp Dme4PmKJDlNPRjP1jsDgQi NSANClxmczIwIFNQRUNJTU VOIEJcZnMyMlxwYXIgDQpc cGFyZCANClxwbGFpblxsdH JjaFxmczIyXGVwaWNOZXN0 ES5kORONSiqkpGZgZXWcn6 IzMFxlcGljWHNiMzAgDQpT iZJtpU9ccqSRMSsqFCCvD5 AqtxBrBAzyGEUxzi6ccIzo LCBsYWJlbGVkIHdpdGggdG lnMNXjfXaoqkAqfbEoXF6h WLMXFFHaxE0iHWPsYHQiCS S4tT7qJUBvG6OmrMUEOTJl dmFsIGZvciBJQkQiIGFuZC Ofl63okAK0afDoRbHjcRg1 tDXaVDL0ES8ekFaolpZxjg CmJ1ZkMJXio37qrWY2pIWe xZKaHqMvU03voyUnIEpvNj IyLS77QRGxNTqeCFwvUED3 GWL2RVQcmJKgr0vhvabpGU 9uKAewED6bEFojKJ4yRVXm HNxgQLOpS2OxR7P6XTdzPS TFhYUzj5RvX1ieTZ5paEKo PjbifCNeKOBnpX50lgSkMR Dzv8WzlZLoTBtaZC5wEDW5 Kj9zyCAdHALgleR1x7UaKW luIEIxLlxwYXIgDQpccGFy ZFxsdHJwYXIgDQpccGFyIA 0KSGFvdGlhbiBXdSwgUEEo DIELTCfshBQdVR7FZZYef9 IeS2L8OOKhHVlxr8cjROUq PLjrb2XwQCdYMTUEHF8ZQD 0gfYZ5IBmVN9DJY6nLuXDl LRQqUOnkeJFSHN49FEg4xB E2fS18AUXmMAEdaCWyRFfw Q471EA7aAv4dZSF2EBSaRm H4m2ofzKKaPHhlAlztvQVc snL1WXtQWKQDQKkMEkBsQA 8vMYoJWmuIDhF6AfRyWJRe rXH3NBDNTGvcfLt5QOe6tU crUrxkipYpvMYpQsVJdJ0v mBjasT8zeJRlT3xlUtOtWi xwHCAxYKqht8GjYPouzBbq OKJlYsLxMNwkFHGwO82iw7 QUc2Fhu3sbbPhtg4DooYUm BP69JRMmlQRwVLU3XB7rgW xwYXIgDQpccGFyZCANClxw bGFpbiANCn0= Disclaimer (test code = [id number]) j2elxLXwPBVak6mfFGZjrG FuZzEwMzNcZnRuYmpcdWMx UPvsfgTfFMjlz3BdN1FdCy AwMFxhbnNpXGRlZmxhbmcx SVWfLFW2vhGeXLUdIVejRW EsHZolZr8vaLZojBilYoZh JMNhw2ggigARLQsyNiAwQ2 09ZGOaBZdjl7syv9ZvAPYj gFIwr4Y0MSQEjolwnDc6pP jhH73uw8Y6TjubW4iqUFCh ROJeM4KpXO0vAPAeDch4WP E9JPS7XFDoUFWeU5DzVB9w OBHwwBBoURv3n0vvnNudOW SbZLD6j9trYItjrfLeZB2i tj8rbLl1d1ijbmRmJCByQJ PlwKPSCXPlY8VadIyjFx2p wGb9wUrxYhyvAZU9Ttj1ZN 5xyy74egf6iCbsDXMpbvoe EfH7BIzkHUUwqohmLMi3RV xyXPRilUB3URCzbVDsC3Dd OWZyQK9hrkz0VYH6EYjyGZ LvPfB4KNAtsRAdBYPjuWaz GBrvn154YPA0KiUoPW9mQ8 Hou4S0eX4ooKUlRBOydTFe XgWzOLSmko7jdMBpMTjkk2 LpEAQ4xnL0jVFebHQtZCKt VP40Kgugb5OpCakfc2ReR4 2dkRQ6GFhsp1bsWI1iEqC1 rzTlLVdxd1nwiW0iIaB1MI ezLZ5nIZ9eBMXauU8ktslm XHBnYnJkcmhlYWRccGdicm ZkAh2isJamSQT7RAhuP7qr gQ4sBzU2MKuqK3monU6cQG k9ARzrpFF9RMEjdN0sGF1o vjcar3shNPxlDIppNKGxbn V7irE7OGTetNXaU0MciA8d TUDlDP0qqwmec7eyRNJ0IK voLSHsBNQ3OzXbXNCzt1Nk sei2JnMnn4QfwPJzDRjqB1 4dg429BWWjkbVhB8rwpZXd nccxhAHimuegZWyxmpA3XX UhrnFdg9GpSMLoOXR4PVme JBkzvBKmYCWnoScpr6koY9 RscGFyXHBsYWluXGYxXGZz MjBcbGFuZzEwMzNcaGljaF krAGkxIaYjKVXkAFlqY1ci HdJzS0GnWWTzQsHjhSUwZ4 ggVGhpcyByZXBvcnQgbWF5 MPnaN7b6KHTpagPadAc4ai MrTrUnWLXcPDC2PErseKNz JUUzk8KirgzxeXCmAr6ksF RtHQCbkY9bKLStJEFlAYpi EC6fgPg9QPQSwOCdyTDuLp XVVWUsZO89muJfRJVHcckq b0O3HPsuGLWnu8IxzAFsI3 rnw8XlQHXzh84sLP5wb5U0 i9bgGNW0PE7qo6IoNKGuhG JeiUXsGRZqi9Qligrab0Hm UFZznwRtf1QgEFFverWelK BuTZFiuzCpab2qruHrOZQa QVTwP3MavfjehHlyfmPsFG Cgid3rclAgNZW4OXZWCTLo TJVnx9NtsD7dlEGGSFJ1oM Beuj8cdqNLdGHlISEcpd01 ECCaXC9uC5rxVTIyQSUqqu TpcIHhs6LqEPFdzQM4gZXi FI7XHiDFk11uGYYdLMEPgh QiEKIndZupoUN6frY0vW6a IChGREEpLlx+IFRoZSBGRE MqXR5cxgHxn1UiwdEbmHrq ZDBklWVkm2CfrHFcn1QnpQ esc9NulWPxgCNxIX5tYWOg clxwYXIgVVRNQiBMYWJvcm E5i9NkSONaXXNfLIO1iQmz uom1MHAasA2zAYOsC4chhp wgYTdlSDZxp1PmiB4asYMT gXBvu1RyhOSinKDWdBVrKI 3cxiExNNfOJVpEQER7spHp LSNex3FxMGiwL9ikN16jxK xhtGq3kCM5DKD6nE7pAnx+ IFxwYXJccGFyIEFwcHJvcH VrWWYwuGtulwLuE9YctgIu gC4pkKRlkaLiYQ0cYJ2iX4 H7xYXoCHKbusVud0ikUJkt dmUgYmVlbiByZXZpZXdlZC Lfp7TfJFgcDFU2RGpznbTk bmNsdWRpbmcgSCZFLCBTcG NsvKYxCUT4BBltajMhakXw RQ9reH8jbBibnW9pjOMyuM N0sjojLYUlEDGpkMftNFNm AZ0ssIauzX0zEoEwNgHwEO lqTS5cSRSbL5nfoGSpHEQg DSTaO2faQcCxhS0ilXysIA xjZjJcZnMyMFxwYXJccGFy XHBsYWluXGYxXGZzMjBcbG FuZzEwMzNcaGljaFxmMVxk NgEcXOZaGFujM1opXqEpX9 MyNQYaIdJjmHIlN6zsGRuj CFE9KGLkIE4azCGfUO88uM Hgn8whRCmtuSpovd6gE56g hBSoTMzfbEpvEMNea90fk1 GmYJCdmsIhbw0cTCGkvjG6 dP4hRKWrcXmkUUAxcZVrVM Vkh3FpMQmklRVvloWhPYvo CCFzJCKqrJUkrlT9tzLopa BnzsVkNYKqdPqlHJQmt7Cs JDJbNXcgq1Exso8udQGdPQ JetjKXgPlmhWYmfC4jE5Lw WVNsZPEyvo6bCZTivP9aYM gjr1PvwapjRXHuAXMmFEZq dpWrpx3cHSGotVPZLK9BXR cnqYUpo1NqtzFzO0lJZDR6 NUQwNjYwMjgxKSBleGNlcH ZsMMEgxf02TRKquY9suIsu TJVyyH3otU2vgIgmeH5uTu JqVmDhGEczSV6lUMObE5sh oTWoMPUdQYGbJ1bkFxKfcP 9jaFxmMVxjZjJcZnMyMFxw YXJ9fQ== Embedded Images (test code = [id number]) [facility] [id number] 16:38:51* Test Item Value Reference Range Interpretation Comme nts Case Report (test code = [id number]) Surgical Pathology ?Case: [id number] ? Authorizing Provider: ?Robert Pearson MD ? ? ?Collected: ? 01/03/2025 0956 ?Ordering Location: ? ? GI Endoscopy OR Department Received: ?01/03/2025 1307 ?Pathologist: ? Kyleigh Huddleston MD ? Specimens: ? A) - LARGE INTESTINE, SIGMOID COLON, Sigmoid colon Bx eval for IBD ? B) - RECTUM, Rectal Bx eval for IBD ? Final Diagnosis (test code = [id number]) x4jhsEBzYSLjc6onIQRsvV FuZzEwMzNcZnRuYmpcdWMx IHtccnRmMVxhbnNpXGRlZm orhmwdQUNsCQG0eiDrXAHo DQL9TPM6JvTyWSBjKeHmTP M3GZQkd9hig2VgaAJlrRBj PQlkvZNwnhIhmn82nXE6tY 99LC9qHDVsNlA5RMRctsA1 Ean4HWTxVZNphPWdE375c6 yjc3znprBfgKE2lSwuZFYa awpbYuC2QOdqXBWpnpwfHB m7TPxwZSUryRU1XFHeiYTt C1NaMHRtRP0lkse8XUL2VZ shGXErCdM0THOuxKJnRURg jJttBIltk095MCQ7RjIrKH SfryCmxZwsoF6lMtRnHQde ZWIkQF3tXKAGU2XhFL5HWR IHAG7VJHGQMYyBB3lVXDAX MR2WNPIZTM5AR5t1PEJlvi WlLLYrDGVTD9dMOjfYYX8U T57ULFDOLCAARUXZNTOTPY RSH5RHR1CcOSZICRBPXSeK EYSZWNFOHCTLP1mECKRTNH HXBXenFKtOYE7GBZvISxqd FGOgQBEkWC7lOl7pE9PQSu DXY74BHI9HCALIS2NFGIEQ QSBJREVOVElGSUVEICBccG FyXGZzMjJccGFyXGZzMjAg Ze8xZrSWZTMPLYDYKJ9EZ6 l5GTEzwbImRKKxHJXDVUIN LOmoOFSCX3TKTSyECXsoWI rJHWrHFDwGX4ODRBIMCUJU CY0XYU2UYTLCRECEOCPRQv BJTkZJTFRSQVRFIElOXHBh kvHjJDEvIRFbZNZAZV5JAR UHP6AVROVufORmNWOlTXYt SG5RQSBQIEsPEWABRL7SIK WFA7QYMIEHABVZZXFJTOcU SUVEICBccGFyXHBhcmRccG MxUUWstbfwJBA7z1kunGTu XHNzdGVjZjIyMDAwXGFuc2 lcZGVmbGFuZzEwMzNcZnRu VftwuJRfUOPvYwMpr7cvc5 51oZNjd2vcKTPmXwA7uTWt VIQqsJilqza7oTqjFxJvVQ Naq3nxflMcQuObQNNzKJDe QCPnuZPnZ090IYHbVCcvs7 afz8ScAUSkkZKnl2W7VWEG WLtcViJeK835r0zdk7qcuf IgvFK8THRgBRO2WWsvwfOk soV1YCqsfRPhWcV3GXvvvy CxTVupxjZzxzFsLfr8VJIo T591XIN4mFerq9ytUYT2VW SkEFAoHplhCn1grDAwA698 DDUaZDBKJQZlrTl1FZGcqv LhiaJgsZTMd239S356q7yk AAQjurZyrOyScdmna4niQ4 19XHBhcGVydzEyMjQwXHBh wJHtzCK8MJVxGX9iuqymDD efDGnzAYZgflN1BBYozEAj F4RqOONfOH7zrtehIYL2OX skVBIbMID1EuXwGUJii5Kt zox3SnQowo0niz72ERU0p6 JfiGozSKS9QRJ8NzVpOn2a iHFrWJXyUM7nVsSwiPGhFH Rmix44mVsbSEvcpxRmbJ7k LlSjSPAgyCGdHXTkQZ6ysP BjVCKjvC0szcafCRUwMxPc siomLNCpsSgutvEdOj9iqM eeEZK6YYggD7aidX6uAtV1 CZfeC6tnyD7tNTj4WRhsfF E2MAGnwX1aZC8jncmpa3kr XMxaLFsvYQLbtaI3tqT9GO FfoLShW8KegL5rRMFlFQ5n dgylu9exKXH3CHwlHXXiIF D7AiMlCQTpb0Cknej0BqKj x6AmsLMgDKzsY79wu086IA BjouBtR2kswWTkviyzuPQa lefcDHzubfA4XMIgRTZdIC luXGYxXGZzMjBcbGFuZzEw MzNcaGljaFxmMVxkYmNoXG KpCGuwZ2vbAmHhD5YuWMJg LlOxaFGcBDbexAY5YGBiFO Wwn73vlIq7QQUvigccu8Wu UDNohGGrxEGkhK1rfoIbg5 ouKAJiWNZmDZFyD3UwQKL3 gXBhTLMddCNksZB2FQ7sgk TrTS9tLCZfJpihjlJozTMa icZfCBUzOBbfb2ymNB5zHY NksHykjQ9xrQU1VTFyf8gx vULtqOYny7cva1LemcDwAO iaCTFxDLgbTUBpQNCuCW7a WRNadXOdzmCeh4J3RcwogD VtxodiUpwqtlR6ZZrsqykl OAIsEVivK5ejMlKgIETocU xaTvfqe5QwMJYaJDIpWudo tIVcjM25ONZ3YzMod7G4QC GzMtKiQPRiRX7ymWnyTCRr JI0vRUJtQ2lpqP0xiat7Zt BrAICsAqC8GOFixuK3Sbn8 TLCqZUzvr7zsi6NmS3YsjG VkfKl5d0nfXUAwGlD8qUFp DUabQ4azzcIcwJEfJZJiUF l2iL30RFHovM3huQFfOVme bxNgJzR9KUifZKChXrT3FH ToeYRsUUVmS2uzOPGvOMfy YWNbZAbikWRoCEB6fZrbo8 L9hNBzvIIpuGriQvVuZnFg QDNIt5DkARb0oTjdD7CpEZ KxUwP1yVUrPJOrRFomWIKj PGLnnsP5pK05SCnxgyJ6uX Stw3Kvj61hd919iK1afPHw GXL3WPJwPEZvoNIqSWQsGK I5QQHpaRAkP3noNNMiSS1x ggzuCXsvFMudAAOrzDV0BT FlrCKbH2NgFDZpPGavIHDx nvr0WkRqBh6mdQRwuYlcNY jhc6fot3unkSZsTte1YIDq GgDiApgoHHzvx2Bbo6vqIP Auho00tJNueUJtxLYnam9a kmJjdORdkYSqFAL5uYHhxx FiVQAeeBLiUIBaGG0euUIq WYCfsA9hurvrZPJoAsYwqu ufYVAgmZjyqqEqMu5bbIwc XKV4CXyjL6jyeJ7pHsI0GZ pzP3clyE4lZBc0JHngjQS8 FRZwxX0wXU5xlewbu8zhNR dyVYjhQESbfeM6qwR9ZUDn wMHuX6TycO9sFCQtXA5gop inb4obZFV5LMuuQPKxHOL4 QlIoRHOda9Zfffl4KyEzi2 JtwCXeOWkmP21hg074FNSx pqJcT8xnbDMumppjsHTwsr uvPXrjybX1GBXodtQhj7Ji YROpETT8ZEywBCydqVHeZK WjyFsxc8igI6LxlUHfBHEl YWluXGYxXGZzMjBcbGFuZz EwMzNcaGljaFxmMVxkYmNo WCObMVmtS4vzXeEsS3JpHT ArDfEsbJVaW5izwHDpLNsu qRT4LVToCIIil00qjWv3QS Ouypcyi8RaRSChbQXkpSXk jT8xjlKuq9xkXNVkMESbCS LkL4IxART3aYAbPJEnpDSi nLM7AU4jjzTnGA4mBKEsYm kgcmVzaWRlbnRzLCBmZWxs f0usZU8kYVAqgRdskZ7bxI X4SFBqq1yphNHnjNFxu5mf l8YdcbSoSFapQZIhSJasKU OaNLTyAU1hMPWumWDsbgZl a3V0GxxlvLQrjnlhJCrubc IjYQluuexwZUIaNIrmA5hg ExRnWGXqlEluMZcik9YwNQ YxXGNmMlxmczIwXHBhclxw YXJccGFyXHNhMTYwXHNsMj L6RDPevPSulBIknVzrsC7i ZjBcZnMyNFxwbGFpblxmMV mhmtR9SBzeivxnSKYzNErn R6lqOmWyYQDquIoeMKceg5 PjLLArAURvOfcdnwI2HDi0 jsVtFAPriZzrtI7dpRF5TZ Uck0Uea9Jkb86npNVfd97r r70iolLudJUuNh9hiSQuTC O6ACWZMXIdRXXnP0DrWPKj lCwcO7XavPRlNSBpFhZiCL i6lQFxZvSsVMjmhEYTt4Z8 oWyhXABpM1UbQIUqcQxxCA LFCKd1NCorTZJlOUbbWIMd XGZzMjBcbGFuZzEwMzNcaG ljaFxmMVxkYmNoXGYxXGxv G0noJyJmA8CgMOEhKsTjpO AlR8ndkXBcxT7= Clinical Information (test code = [id number]) Jin Jiménez is a 50 year old male1. 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 Rectal Bx eval for IBD Gross Description (test code = [id number]) z7bsrKDvNATtaYNGAWXgMZ LfIU4ziZdruNq7lWzyKNKc szN8jUByQVujz9bkFGE6o7 uztjVAZojnTTAvQP2bJTjy HNSiBC4qYrUwXQXyBvSrGM BhcGVydzEyMjQwXHBhcGVy hMC4EQClCW0hnayaUDycHO wqRXPtvdD6GUUrtNLiR7Rg GYRfJM2gubeqYRY7JJEUXj naOf1yaXFqjOeuDdBeSiLa OUYxIEAhEYRsp5nyeqOWzc jdnFk9kC2DULPkZ4SaZS3G d6nmQMAtbWHxOUR4NBbjh9 fkTOazZUC6DVRbMWIzECDp IN9FReFzYQW9SKG3OGU2Te N7AKs3MKUBEKXoVJqfSMKa QDH8LOm9VUMdTC1bADbvhQ TvPOqpLhiyYByvR574NCnk PKCdE7MlF7ZhHSmnFnDjNM nvJCVmLZFeUChmIVQqV9ZQ QLYtOCm1RWExGaLrFFt1YW k4FY0VLrNsRAWpUSi5EqGc KDGnUHd3DEcaUA7ZIOMaPQ InQLQ8QAbtGLFjYPzaFXc8 IDIgXFxzcyAzIFxcZmwgXF zsI28cjNPlOXRTAqyauLCk blxmczIwIFNQRUNJTUVOIE NlvBFmY8gzMbAyBuhzIEPg DQpccGFyZCANClxwbGFpbl xsdHJjaFxmczIyXGVwaWNO NWN2QZ7oOBOCKfmasTYpNH Tri1DaJYuxsRkzPPWgWrEe MHgAzVOamB0aguWNPNhcBT RjP9NeddYlNNtdCPAund3m bGluLCBsYWJlbGVkIHdpdG ggdGhlIHBhdGllbnQncyBu AC5zIBLSDZUfqC4zXLWjFN AtUOBqADVtcbFis5EuruXu HBWsF45hbKJaP73rb64iEO QzO85djYGtL61te20xOofh YWPofKJmy9HrYERVEbZyzk SnK24sb3ftgQFcc6DaCoP8 LG6ltWbkmpBqggSvF0MoQV Rub56kpAU6oQNxqYGsRbPn Z52uvfAlPYeaLiPlPUDnMg TzO86urC9uS8RuVBSwt8Bm IRmxCR5qqF7pEEVyHqpuuC CwMwQarGWtRzUkJ88ulI6u UVblzzUtGBKiTZ9jOZEtSK HwwWGwvK0fvbDrqpSxjLy2 ZXJlZCBpbnRvIGEgYmlvcH A4OTNwFtKgziCjh4MdcOi4 cRAoILncEOPxgV5vsA6tHN TmWQerHNSaW28rw4EZy0Uj l2hzaAtku7LnuHXbTJ6ofT NjUR8Sa3jjJFVyeILjIUR9 XPmai6ahCWfhXHL3TAOqKe JdMYJdWP5FMjKpHQZ8VUW9 LOF4FiN5CYi8HCPRNfYsFq HbXxi3EuxfCJNfSXz5KSg1 QRfPPrFkEtprWxVhITR7RK S5AqX0QNyflWJyKTnkq7Zv YwTlWRVeRAxzsrR1YLRbeo Qhw8GsYSHhTEShM6afLgJr NSANClxmczIwIFNQRUNJTU VOIEJcZnMyMlxwYXIgDQpc cGFyZCANClxwbGFpblxsdH JjaFxmczIyXGVwaWNOZXN0 KT2cTMFIImyhwOOpKEZtx6 IzMFxlcGljWHNiMzAgDQpT rHZrzG0lwwOXCFukWVIrO5 MnihZiSBvlBWDryl0psPrs LCBsYWJlbGVkIHdpdGggdG tdFISakFaqwuWxnwJuEE6k IQEEVYYloY9yFUEiRRHuNU O5jC2jCICoZ2WoyCQWOJWu dmFsIGZvciBJQkQiIGFuZC Lzm77btFJ2raQzQnRunQy9 oCRlDNC6BT6vbJldtjQpev LaO6MbFPLwl63mtYK9lZCo iIHzWhLbC74velGnDIrkWz ObHP90FCQxZWhjGWvjELD3 FVB3CNKfeGSrv0vkwnslVJ 7jSYmlPC8oBIvlLL6bRBNi OIieQOUzD1FnL3H2EFrrRL ATkICsv5AaX9wbYA0faUWk OcrgwHQzVQFfuY23yjAgTL Jfv7AfjWRtLSbwHL7zDUH2 Tl5tjIVcOSZyaoR8c7EuVM luIEIxLlxwYXIgDQpccGFy ZFxsdHJwYXIgDQpccGFyIA 0KSGFvdGlhbiBXdSwgUEEo MGRCYUtmsQQuKF4OTEKdf5 OiU3L7IBZtTIzds4wtLDQe LOheb2JaRVwAXGGVED9NZB 8qvUO2WJiMW9IGY2yNtMMr LYMyNIvpqQJCNH20DVv5fH G4vY75MBTjLSXdwWCoMDcw Z078LY9aIp1nPDV4CHHkLs S9g8pmsIHtXLcxKmmilNIn xpA1ORyYJTKMMYvOArQuFW 5rTRzDNagMQsI5BoJaGSMt nAV3WQOQOXgqqSf7DFu8bT mzQbtaeiXxnENkXnYNiG2w nOgzhC1ixZMtW2kkVqLsBd auPCJaEYagr6LgPTftqIag SKTcZwNhQOpuNTLnB64an4 CTd2Kch1aclFkdo4BlxRVf NW05EFZesCJeFXL8OE6nbH xwYXIgDQpccGFyZCANClxw bGFpbiANCn0= Disclaimer (test code = 9428898410) g2eiuYWwUYIkn8tyVOGbqP FuZzEwMzNcZnRuYmpcdWMx DGkowkNqSDaxd1NoB7MxFl AwMFxhbnNpXGRlZmxhbmcx DSMaTTR0okUtLNUrPTacMF BbELzfKo5aeQRbqZtiDoKq EOBcj0vpenMUUWfrOvPtD4 17SGWjQUwie3nik1XkABJn vUCjb4V2KFPPejfqnLs9fG iyW61ia7Z2DviaU6pcZOZn YBTkG3UdEN9sGDFqXoi7JG B3NZN8GAHzSUZjM1MlPF1s ZRLojEXxIVp4e4rqzTigYW LfNGX5m3atGOzssdYtNT3l uk4leSf6p6ijypYlQDXeVF LaoRJNGQGaU6FzrJmbQr1b dPf8xDyzFvatQZP6Ldz7IT 6bav38zyc8wFicBRKwgimb DjW5KAeeRCHdszghHGo2HY izXALexJF1AJDmjHIkO0Ap KKNvXU4sdpb8TCX5EYplXS FeXaW6NTAyaUWwTRQpiNsx VBpjk750EUZ7MuFvVB4gK3 Aqi6T8tZ8wvEOfDYImvYEx CoTaWZJqrn1iwIQcRQuff4 EdCMX5thS1yNWrmTPaEKYz GW38Zhadh1DfIptbv2QiT1 4esRJ6ZVewq6qhKY4nRxE8 bpFaLSstd6sicK0tPtK0WK ucOA8gFF2fXKAawA2rfpnd XHBnYnJkcmhlYWRccGdicm FhPz7ozJcmBBS5XPflN9od gC5iVgH1UKayR6mcfT0gHC h7XNaykVL8TTMfkM5mCX2v mvkus6suENszLMtfCIAxju X4pnT1TTZoqFYfI9PctD2j URJnYC1sflsij5snHRX4OY pdZLDuCGB9QuWyIMFam5Wo wrt2EpUzh3SxaVNtKWxmF7 7rt742NIFzlhJcV6tzzIEi dljwgNZwuaxyOArknkE0BS HmtsAuz3GvKZVqHRK2STsi RZrfwSQoPGTolVhdd6pnQ1 RscGFyXHBsYWluXGYxXGZz MjBcbGFuZzEwMzNcaGljaF biUXxqIeFkYYMnWJcrU9op ThKkV8YhJYZqIjDmuLIxC4 ggVGhpcyByZXBvcnQgbWF5 CHglX7d1ZKHbtnBtnCi6th MsFsOfRPDpSAM2VKfwbOPx MJMda4UjgslfnNArBu5msP LiFMYmyA9bKXFwCUFrHLzs OC3eiRq1WXFHvUIrtVQxRt XJKRCbDR63uqCvSIMRtfit h6Q7FJeuJVPno2YszVQxE0 wdo1LnDISnz55kTD8lu9O4 b9ygZZA0KY9jn5OeZMGexN GumWMgHRJcs3Nujgopw3Vg LUIfggVnq3DoJBQrwfUmsQ FyXNPsxdWgda0ctsQpHCIc MIJiD8KaghgenOaqttUbYW Ynsn5jvjUuJIX9KDQPLXMq GCVxh3SgoZ0dkKLRBWV1xN Azqj5wkjXBnNTtLZBfbq55 ALIvFS6oE2xvYWNkACNsek WkxCDtu9KjMKYdlGS4pATg WA8XOxLEp93dGHDsYZTYll ZcNHSgzOkixNN4xqU8eU0f IChGREEpLlx+IFRoZSBGRE MiBI1cwyJlo4EgltNkaVzj WSVcnKXcr6ZqxWAsu3EsxW mpp1DlpJGuuATlCU0nCYGh clxwYXIgVVRNQiBMYWJvcm E5f6DkHGVrTYRkJVP5oHmg rxo4LWMgnU7rYTRtZ3kzra qgMBbrEMUxz5JdvR3jkSRN bKFhk5ZvzIOjwBDHpPPtJN 4uxjUtOKuMABtOYKE5nkCu URDqf1XrBYuwO0qoM96aiE nhlOu9uBV9LNT2uU2sBzg+ IFxwYXJccGFyIEFwcHJvcH OdCOFmbIgoadXiO7UorfNd fA3dmHEtjaMzLD0mCJ8mG5 G3sLPrVHDzjaJoa8aiPCcs dmUgYmVlbiByZXZpZXdlZC Liy0MgYWiqROB8RDmounTv bmNsdWRpbmcgSCZFLCBTcG QesLXvOFL6CWcffgVcjySy VY6yhU1roVchgR3wcNTzdB E2kxfiSVQcSPKooEkkUFEa BU1mcOxfvC4yJtSlTpRmRO hdDG8uLJUhK9dkvIZtAHSk RCYlS2huYkIpyM0kfXbjPA xjZjJcZnMyMFxwYXJccGFy XHBsYWluXGYxXGZzMjBcbG FuZzEwMzNcaGljaFxmMVxk PvRrSXRxDNanM1qaLrUxY6 NnLGBlZzAhqFKlS5ioYIhs TWV5EWEzUZ2kwJGxKU61xF Xoi8wyDBdarSipht8yK52c mHMhNSgzfOnlXJVeh30va2 NrDPRfnbFhkb0cLKLsoiB4 yA7rODJxjXpfNVJsrFDeBX Ypj0IvJUodsSOlafSmXBot ZQDfRYUfsDVwocS1udLyet AtikKhJDRwpKlqPLIur9Tf KDNvHKhoq0Mtzi4nhKKfTO SgunZLsAmrrGYxvJ8qU1Bp PQOiFMNahk7vNBGjpU4gDK vtc1PypbpuDQNdPYCxJBDl tyXgvv1sRQBzqXOZSQ0XEB avvBQfb7OlwcYxE5zSUOS4 NUQwNjYwMjgxKSBleGNlcH BdPRPsvi71BIAlxF2dfMof WKPkvD7fnX2vrAokrY2qJo UnTaRsMVolLP7sCGDxH9xi xSAhJAMrGGAhR5xhTxIofG 9jaFxmMVxjZjJcZnMyMFxw YXJ9fQ== Embedded Images (test code = 2961951137) [facility] with Dvey9639-11-61 09:46:24* Test Item Value Reference Range Interpretation [...] 34.9 g/dL 31.2-35.0 RDW-SD (test code = 89110-7) 45.9 fL 38.5-51.6 RDW-CV (test code = 788-0) 13.5 % 12.1-15.4 PLT (test code = 777-3) 439 150-328 H MPV (test code = 24458-2) 8.5 fL 9.8-13.0 L NRBC/100 WBC (test code = 0228669791) 0 0.0-10.0 NRBC x10^3 (test code = 4730506422) See_Comment [Automated message] The system which generated this result transmitted reference range: 10*3/?L. The reference range was not used to interpret this result as normal/abnormal. GRAN MAT (NEUT) % (test code = 770-8) 72.4 % IMM GRAN % (test code = 9364251076) 2.2 % LYMPH % (test code = 736-9) 15 % MONO % (test code = 5905-5) 9.6 % EOS % (test code = 713-8) 0 % BASO % (test code = 706-2) 0.8 % GRAN MAT x10^3(ANC) (test code = 1864191288) 4.55 10*3/uL 1.99-6.95 IMM GRAN x10^3 (test code = 8215654360) 0.14 10*3/uL 0.00-0.06 H LYMPH x10^3 (test code = 731-0) 0.94 10*3/uL 1.09-3.23 L MONO x10^3 (test code = 742-7) 0.6 10*3/uL 0.36-1.02 EOS x10^3 (test code = 711-2) 0.06-0.53 L BASO x10^3 (test code = 704-7) 0.05 10*3/uL 0.01-0.09 BANDS (test code = 0904137693) MARKED INCREASED A DOHLE BODIES (test code = 7792-5) Present A TOXIC CHANGES (test code = 803-7) Present A Lab Interpretation (test code = 66944-5) Abnormal [facility] with Kfzr9382-05-22 09:46:24* Test Item Value Reference Range Interpretation [...] 34.9 g/dL 31.2-35.0 RDW-SD (test code = 67492-0) 45.9 fL 38.5-51.6 RDW-CV (test code = 788-0) 13.5 % 12.1-15.4 PLT (test code = 777-3) 439 150-328 H MPV (test code = 26307-1) 8.5 fL 9.8-13.0 L NRBC/100 WBC (test code = 7588217771) 0 0.0-10.0 NRBC x10^3 (test code = 5463624486) See_Comment [Automated message] The system which generated this result transmitted reference range: 10*3/?L. The reference range was not used to interpret this result as normal/abnormal. GRAN MAT (NEUT) % (test code = 770-8) 72.4 % IMM GRAN % (test code = 6176351816) 2.2 % LYMPH % (test code = 736-9) 15 % MONO % (test code = 5905-5) 9.6 % EOS % (test code = 713-8) 0 % BASO % (test code = 706-2) 0.8 % GRAN MAT x10^3(ANC) (test code = 5707067941) 4.55 10*3/uL 1.99-6.95 IMM GRAN x10^3 (test code = 3608159955) 0.14 10*3/uL 0.00-0.06 H LYMPH x10^3 (test code = 731-0) 0.94 10*3/uL 1.09-3.23 L MONO x10^3 (test code = 742-7) 0.6 10*3/uL 0.36-1.02 EOS x10^3 (test code = 711-2) 0.06-0.53 L BASO x10^3 (test code = 704-7) 0.05 10*3/uL 0.01-0.09 BANDS (test code = 3213981419) MARKED INCREASED A DOHLE BODIES (test code = 7792-5) Present A TOXIC CHANGES (test code = 803-7) Present A Lab Interpretation (test code = 99293-8) Abnormal [facility] Metabolic Panel (NA, K, CL, CO2, GLUCOSE, BUN, CREATININE, CA)2025-01-04 09:02:34* Test Item Value Reference Range Interpretation Comme nts NA (test code = 3369799762) 135 mmol/L 135-145 K (test code = 4544798860) 3.5 mmol/L 3.5-5.0 CL (test code = 7934877814) 93 mmol/L 98-108 L CO2 TOTAL (test code = 7285659074) 39 mmol/L 23-31 H AGAP (test code = 0492968326) 3 2-16 BUN (test code = 8008816926) 9 mg/dL 7-23 GLUCOSE (test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
[2025-02-05] MEDS ORDERED: NA CHLORIDE 0.9% 1,000 ML ONE (08:10)
[2025-02-05 08:51] LABS: ALT/SGPT 22 U/L (16-61); Albumin 1.5 g/dL (3.4-5.0); Albumin/Globulin Ratio 0.4 (1.1-1.8); Alkaline Phosphatase 71 U/L (45-117); Anion Gap 10.2 mEq/L (5.0-15.0); BUN Blood Urea Nitrogen 13 mg/dL (7-18); Bicarbonate 25 mEq/L (21-32); Bilirubin Total 0.3 mg/dL (0.2-1.0); Globulin 3.8 g/dL (2.3-3.5); Glomerular Filtration Rate 116 ml/min (=/>90); Glucose Level 94 mg/dL (74-106); Lipase 25 U/L (13-75); Potassium 3.2 mEq/L (3.5-5.1); Protein, Total 5.3 g/dL (6.4-8.2); Sodium Level 140 mEq/L (136-145)
[2025-02-05 08:53] LABS: AST/SGOT < 10 U/L (15-37)
[2025-02-05] MEDS ORDERED: HYDROMORPHONE HCL 1 MG/ML INJ ONE (08:57)
[2025-02-05] MEDS ORDERED: ONDANSETRON 4 MG/2 ML VIAL ONE (08:57)
[2025-02-05 09:03] LABS: Absolute Lymphocytes (CBC) 1.2 K/uL (0.7-4.9); Absolute Monocytes 0.6 K/uL (0.1-1.3); Absolute Neutrophil 5.7 K/uL (1.8-8.0); Basophils % 0.2 % (0-1.3); Eosinophils % 0.3 % (0-4.4); Hematocrit 28.5 % (39.6-49.0); Hemoglobin 9.6 g/dL (13.6-17.9); Lymphocytes % 15.6 % (15.3-44.8); MCH 30.9 pg (27.0-35.0); MCHC 33.6 g/dL (32.0-36.0); MCV 91.8 fL (80-100); Monocytes % 8.1 % (3.3-12.3); Neutrophils % 75.8 % (41.7-73.7); Platelets 404 thou/uL (152-406); RBC Red Blood Cell Count 3.11 M/uL (4.33-5.43); Red Cell Distribution Width 15.8 % (12.1-15.2)
--- NOTE | 2025-02-05 09:12 | RAD REPORT ---
EXAMINATION: CT ABDOMEN AND PELVIS WITH CONTRAST CLINICAL INDICATION: Abdominal pain. Bloody stool TECHNIQUE: CT abdomen and pelvis was performed, after the administration of 100 cc Isovue-300.. Sagit filomena and coronal reconstructions were obtained. One or more of the following dose reduction techniques were used: Automated exposure control, adjustment of the mA and kV according to patient si ze, and iterative reconstruction. Unless otherwise specified, incidental findings do not require dedicated imaging follow-up. [id number]. Oral contrast was not given which limits evaluation of bowel and appendix. COMPARISON: December and.January 18, 2025 FINDINGS: Liver, spleen, pancreas, adrenals and right kidney appear unremarkable. Left renal cysts Large left inguinal hernia contains sigmoid colon. Mild to moderate thickening of the wall of the sig moid and descending colon. Mild thickening wall of the distal transverse colon.. Pneumatosis intestinalis not noted Post surgical changes involve the bowel. Small right inguinal hernia contains fat. Mild chronic compression deformity L1 vertebral body. Post surgical changes pelvis : IMPRESSION: Large left inguinal hernia contains sigmoid colon Mild to moderate wall thickening of predominantly sigmoid and descending colon having the appearance of a colitis.
--- NOTE | 2025-02-05 09:56 | ER ---
Nurse's Notes [facility] Name: Weston Jiménez Age: 50 yrs Sex: Male : 1975 Arrival Date: 02/05/2025 Time: 07:40 Bed 6 Private MD: Diagnosis: Colitis Presentation: 02/05 08:01 Chief complaint: Patient states: "my hernia pain is flaring up again ever since I ran ss out of my medication." Pt reports he is supposed to have surgery with Dr. Howell, but has to get his insurance situated first. Coronavirus screen: Client denies travel out of the [place] in the last 14 days. Ebola Screen: Patient denies exposure to infectious person. Patient denies travel to an Ebola-affected area in the 21 days before illness onset. Initial Sepsis Screen: Does the patient meet any 2 criteria? No. Patient's initial sepsis screen is negative. Does the patient have a suspected source of infection? No. Patient's initial sepsis screen is negative. Risk Assessment: Do you want to hurt yourself or someone else? Patient reports no desire to harm self or others. Onset of symptoms is unknown. 08:01 Method Of Arrival: Ambulatory ss 08:01 Acuity: SUSIE 3 ss Historical: - Allergies: 08:03 PENICILLINS; ss - PMHx: 08:03 broken back; inguinal hernia (Rods and pins in ba); ss - PSHx: 08:03 bowel resection; Rods and pins in back; ss - Immunization history:: NA. - Infectious Disease History:: Denies. - Social history:: Smoking status: Patient reports the use of cigarette tobacco products, denies chronic smoking, but will smoke occasionally. Screenin:04 [facility] ED Fall Risk Assessment (Adult) History of falling in the last 3 months, bp including since admission No falls in past 3 months (0 pts) Confusion or Disorientation No (0 pts) Intoxicated or Sedated No (0 pts) Impaired Gait No (0 pts) Mobility Assist Device Used No (0 pt) Altered Elimination No (0 pt) Score/Fall Risk Level 0 - 2 = Low Risk Oriented to surroundings. Abuse screen: Denies threats or abuse. Denies injuries from another. Nutritional screening: No deficits noted. Tuberculosis screening: No symptoms or risk factors identified. Assessment: 09:03 General: Appears in no apparent distress. uncomfortable, Behavior is calm, cooperative, bp appropriate for age. Pain: Complains of pain in abdomen. Neuro: No deficits noted. Cardiovascular: No deficits noted. Respiratory: No deficits noted. GI: Bowel sounds present X 4 quads. Abd is soft X 4 quads. : No signs and/or symptoms were reported regarding the genitourinary system. EENT: No deficits noted. Derm: No deficits noted. Musculoskeletal: No deficits noted. Vital Signs: 08:01 BP 117 / 76; Pulse 88; Resp 16; Temp 98.3(TE); Pulse Ox 99% on R/A; Weight 44.45 kg; ss Height 5 ft. 6 in. ; Pain 7/10; 09:03 BP 113 / 75; Pulse 76; Resp 16; Pulse Ox 98% ; bp 10:25 BP 111 / 80; Pulse 75; Resp 16; Pulse Ox 99% ; bp 08:01 Body Mass Index 15.82 (44.45 kg, 167.64 cm) ss 08:01 Pain Scale: Adult ss ED Course: 07:45 Patient arrived in ED. im 08:03 Triage completed. ss 08:03 Arm band placed on right wrist. ss 08:08 Keith Garcia, RN is Primary Nurse. bp 08:10 Angela Sylvester MD is Attending Physician. sp3 08:15 Initial lab(s) drawn, by me, sent to lab. Inserted saline lock: 20 gauge in right bp forearm, using aseptic technique. Blood collected. Flushed with 10 mL NS. 08:29 CT Abd/Pelvis - IV Contrast Only In Process Unspecified. EDMS 09:04 Patient has correct armband on for positive identification. bp 10:25 No provider procedures requiring assistance completed. IV discontinued, intact, bp bleeding controlled, No redness/swelling at site. Pressure dressing applied. 10:26 Provided Education on: NA. bp Administered Medications: 08:18 Drug: NS 0.9% IV 1000 ml IV at 1 bolus Per protocol; to be given as a bolus over 60 ph minutes Route: IV; Rate: 1 bolus; Site: right forearm; 10:26 Follow up: IV Status: Completed infusion bp 09:02 Drug: HYDROmorphone IVP 1 mg IVP once Route: IVP; Site: right forearm; bp 10:26 Follow up: Response: No adverse reaction bp 09:02 Drug: Ondansetron IVP 4 mg IVP once; over 2 minutes Route: IVP; Site: right forearm; bp 10:26 Follow up: Response: No adverse reaction bp Medication: 10:26 VIS not applicable for this client. bp Outcome: 09:55 Discharge ordered by MD. [email or web address] 10:25 Discharged to home ambulatory, bp 10:25 Condition: stable 10:25 Discharge instructions given to patient, Instructed on discharge instructions, follow up and referral plans. medication usage, Demonstrated understanding of instructions, follow-up care, medications, Prescriptions given X 3, 10:27 Patient left the ED. bp Signatures: Dispatcher [employer] EDMS Shanon Phipps RN RN Rivka Martinez RN RN Keith Garcia RN RN bp Angela Sylvester MD MD sp3 Lynda Bonner
--- NOTE | 2025-02-05 09:56 | EDPHYS ---
Physician Documentation [facility] Name: Weston Jiménez Age: 50 yrs Sex: Male : 1975 Arrival Date: 02/05/2025 Time: 07:40 Bed 6 Private MD: ED Physician Angela Sylvester HPI: 02/05 08:47 This 50 yrs old Male presents to ER via Ambulatory with complaints of Abdominal Pain, sp3 Diarrhea, Bloody Stools. 08:47 50-year-old male with history of inguinal hernia, broken/fractured back with rods and sp3 pins as per patient, and prior diarrhea episodes now presents with recurrent diffuse abdominal pain and bloody stools. Patient describes as purulent stool mixed with blood. He denies any melena. He denies any vomiting or coffee grounds. ROS negative for headache, neck pain, chest pain, shortness of breath, fever, potential bad food, travel history, known sick contacts, or any other signs or symptoms on ROS at this time.. Historical: - Allergies: 08:03 PENICILLINS; ss - PMHx: 08:03 broken back; inguinal hernia (Rods and pins in ba); ss - PSHx: 08:03 bowel resection; Rods and pins in back; ss - Immunization history:: NA. - Infectious Disease History:: Denies. - Social history:: Smoking status: Patient reports the use of cigarette tobacco products, denies chronic smoking, but will smoke occasionally. ROS: 08:48 Constitutional: Negative for fever, chills, and weight loss, Eyes: Negative for injury, sp3 pain, redness, and discharge, ENT: Negative for injury, pain, and discharge, Neck: Negative for injury, pain, and swelling, Cardiovascular: Negative for chest pain, palpitations, and edema, Respiratory: Negative for shortness of breath, cough, wheezing, and pleuritic chest pain, Back: Negative for injury and pain, MS/Extremity: Negative for injury and deformity, Skin: Negative for injury, rash, and discoloration, Neuro: Negative for headache, weakness, numbness, tingling, and seizure, Psych: Negative for depression, anxiety, suicide ideation, homicidal ideation, and hallucinations, Allergy/Immunology: Negative for hives, rash, and allergies, Endocrine: Negative for neck swelling, polydipsia, polyuria, polyphagia, and marked weight changes, Hematologic/Lymphatic: Negative for swollen nodes, abnormal bleeding, and unusual bruising, 08:48 All other systems are negative, Exam: 08:48 Constitutional: This is a well developed, well nourished patient who is awake, alert, sp3 and in no acute distress. Head/Face: Normocephalic, atraumatic. Eyes: Pupils equal round and reactive to light, extra-ocular motions intact. Lids and lashes normal. Conjunctiva and sclera are non-icteric and not injected. Cornea within normal limits. Periorbital areas with no swelling, redness, or edema. Neck: Trachea midline, no thyromegaly or masses palpated, and no cervical lymphadenopathy. Supple, full range of motion without nuchal rigidity, or vertebral point tenderness. No Meningismus. Chest/axilla: Normal chest wall appearance and motion. Nontender with no deformity. No lesions are appreciated. Cardiovascular: Regular rate and rhythm with a normal S1 and S2. No gallops, murmurs, or rubs. Normal PMI, no JVD. No pulse deficits. Respiratory: Lungs have equal breath sounds bilaterally, clear to auscultation and percussion. No rales, rhonchi or wheezes noted. No increased work of breathing, no retractions or nasal flaring. Back: No spinal tenderness. No costovertebral tenderness. Full range of motion. Skin: Warm, dry with normal turgor. Normal color with no rashes, no lesions, and no evidence of cellulitis. MS/ Extremity: Pulses equal, no cyanosis. Neurovascular intact. Full, normal range of motion. Neuro: Awake and alert, GCS 15, oriented to person, place, time, and situation. Cranial nerves II-XII grossly intact. Motor strength 5/5 in all extremities. Sensory grossly intact. Cerebellar exam normal. Normal gait. Psych: Awake, alert, with orientation to person, place and time. Behavior, mood, and affect are within normal limits. 08:48 Abdomen/GI: Diffuse abdominal pain to palpation without peritoneal signs, rebound or guarding. Abdomen is soft. Vital signs are normal and patient is had no bloody diarrhea in the ED thus far., Vital Signs: 08:01 BP 117 / 76; Pulse 88; Resp 16; Temp 98.3(TE); Pulse Ox 99% on R/A; Weight 44.45 kg; ss Height 5 ft. 6 in. ; Pain 7/10; 09:03 BP 113 / 75; Pulse 76; Resp 16; Pulse Ox 98% ; bp 10:25 BP 111 / 80; Pulse 75; Resp 16; Pulse Ox 99% ; bp 08:01 Body Mass Index 15.82 (44.45 kg, 167.64 cm) ss 08:01 Pain Scale: Adult ss MDM: 08:10 Medical Screening Exam initiated sp3 08:48 Data reviewed: vital signs, nurses notes, lab test result(s), radiologic studies. ED sp3 course: 50-year-old male with PMH above now with abdominal pain and bloody diarrhea. Differential diagnosis includes enteritis versus foodborne illness versus versus diverticular process versus some other process. I am not highly suspicious for bowel obstruction, acute surgical abdomen, pathology, vascular pathology or any other critical process at this time including sepsis or shock. Workup will include CT scan of the abdomen pelvis with IV contrast, general labs, IV fluids and supportive care including pain and nausea medication as needed. Disposition pending workup patient course.. 09:55 ED course: CT demonstrates colitis. Vital signs normal. Patient is hungry which is a sp3 good sign. Will discharge patient home on p.o. antibiotics and tramadol.. 02/05 08:11 Order name: CBC with Diff; Complete Time: 09:15 sp3 02/05 08:11 Order name: CMP; Complete Time: 09:15 sp3 02/05 08:11 Order name: Lipase; Complete Time: 09:15 sp3 02/05 08:11 Order name: Lactate w/ 2H reflex if indic.; Complete Time: 09:15 sp3 02/05 08:11 Order name: CT Abd/Pelvis - IV Contrast Only; Complete Time: 09:15 sp3 02/05 08:11 Order name: IV Saline Lock; Complete Time: 08:18 sp3 02/05 08:11 Order name: Labs collected and sent; Complete Time: 08:18 sp Administered Medications: 08:18 Drug: NS 0.9% IV 1000 ml IV at 1 bolus Per protocol; to be given as a bolus over 60 ph minutes Route: IV; Rate: 1 bolus; Site: right forearm; 10:26 Follow up: IV Status: Completed infusion bp 09:02 Drug: HYDROmorphone IVP 1 mg IVP once Route: IVP; Site: right forearm; bp 10:26 Follow up: Response: No adverse reaction bp 09:02 Drug: Ondansetron IVP 4 mg IVP once; over 2 minutes Route: IVP; Site: right forearm; bp 10:26 Follow up: Response: No adverse reaction bp Disposition Summary: 02/05/25 09:55 Discharge Ordered Notes: Location: Home sp3 Condition: Stable sp3 Diagnosis - Colitis sp3 Followup: sp3 - With: Private Physician - When: Upon discharge from the Emergency Department - Reason: Continuance of care Discharge Instructions: - Discharge Summary Sheet sp3 - Colitis sp3 Forms: - Medication Reconciliation Form sp3 - Antibiotic Education sp3 - Prescription Opioid Use sp3 - Patient Portal Instructions sp3 - Leadership Thank You Letter sp3 Prescriptions: - Flagyl 500 mg Oral tablet - take 1 tablet ORAL route every 8 hours for 7 days; 21 tablet; Refills: 0, sp3 Product Selection Permitted - Cipro 500 mg Oral Tablet - take 1 tablet ORAL route every 12 hours for 7 days; 14 tablet; Refills: 0, sp3 Product Selection Permitted - Tramadol 50 mg Oral Tablet - take 1 tablet ORAL route every 8 hours as needed; 12 tablet; Refills: 0, sp3 Product Selection Permitted Signatures: Dispatcher [employer] EDShanon Smith RN Rivka Kwok, RN RN Keith Fitch, RN RN Angela Soriano MD MD sp3 Corrections: (The following items were deleted from the chart) 08:11 08:11 CBC+H.LAB.BRZ ordered. EDMS EDMS 08:11 08:11 COMPREHENSIVE METABOLIC PANEL+C.LAB.BRZ ordered. EDMS EDMS 08:11 08:11 LIPASE+C.LAB.BRZ ordered. EDMS EDMS 08:11 08:11 LACTATE+C.LAB.BRZ ordered. EDMS EDMS 08:11 08:11 Abdomen Pelvis W Con+CT.RAD.BRZ ordered. EDMS EDMS
[2025-02-05 10:59] VITALS: TEMP 98.3
[2025-02-05 11:02] VITALS: BP 111/80; O2SAT 99
== END 2025-02-05 10:27 | disposition home or self-care (01) ==
LOC: ER 07:40
DX: K52.9 Noninfective gastroenteritis and colitis, unspecified (principal); F17.210 Nicotine dependence, cigarettes, uncomplicated
CPT/HCPCS: 96361; 85025; 36415; 83605; 83690; 80053; 74177; 96375; 96374; 99284; Q9967; J1171; J2405; J7030

== ENCOUNTER 2025-02-12 02:10 | Emergency (ER) | payer OTHER ==
--- OUTSIDE RECORDS SUMMARY | 2025-02-12 02:17 | XMS REPORT | Continuity of Care Document ---
Author Name Unknown Address [address] [facility] [place] [address] [facility] Address [address] [facility] [place] [address] Care Team Providers Care [employer] Name Role Phone Pcp, Patient Does Not Have A Primary Care Physic lola Zulma LUCAS, Amol Lucio Attending Clinician [phone] Goldy Hutchinson DO Attending Clinician [phone] Sivan Suh MD Attending Clinician [phone] Kenyetta LUCAS, Orin Attending Clinician [phone] Doctor Unassigned, [place] Attending Clinician U michi Pearson MD, Robert Ornelas Attending Clinician Zahra Rodriguez MD, Leonard Attending Clinician Sivan Brock Attending Clinician [phone] SIVAN WOODS Attending Clinician Unavailable Goldy Hutchinson DO Admitting Clinician [phone] SIVAN WOODS Admitting Clinician Unavailable Payers Payer Name Policy Type Policy Number Effective Date Expirati on Date Source Problems Condition Name Condition Details Condition Category Status Onset Date Resolution Date Last Treatment Date Treating Clinician Comments Source GIB (gastroint estinal bleeding) GIB (gastroint estinal bleeding) Disease Active 12-30 00:00: 00 [facility] Hematochez ia Hematochez ia Disease Active 12-30 00:00: 00 [facility] Pancolitis Pancolitis Disease Active 2025-0 4-13 00:00: 00 [facility] 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 Active 2018-09 022 00:00: 00 [facility] RUQ pain RUQ pain Disease Active 2018-09 020 00:00: 00 [facility] Peptic ulcer disease with hemorrhage Peptic ulcer disease with hemorrhage Disease Active 2018-09 00:00: 00 [facility] Gallbladde r hydrops Gallbladde r hydrops Disease Active 2018-09 00:00: 00 [facility] Acute cholecysti tis Acute cholecysti tis Disease Resolve d 2018-09 00:00: 00 2019-07-08 00:00:00 2019-07-08 18:46:24 [facility] Allergies, Adverse Reactions, Alerts Allergy Name Allergy Type Status Severity Reaction(s) Onset Date Inactive Date Treating Clinician Comments Source Codeine Propensi ty to adverse reaction s Active Itching 11-22 00:00: 00 [facility] Morphine Propensi ty to adverse reaction s Active Nausea and/or Vomiting 3-06 00:00: 00 [facility] CODEINE DRUG INGREDI Active ITCHING 306 00:00: 00 [facility] MORPHINE DRUG INGREDI Active N/V 3-06 00:00: 00 [facility] Penicill ins Propensi ty to adverse reaction s Active Hives 2018-09 00:00: 00 [facility] PENICILL INS Drug Class Active Hives 2018-09 0 00:00: 00 [facility] Social History Social Habit Start Date Stop Date Quantity Comments Source Exposure to SARS-CoV-2 (event) Not sure [facility] History of tobacco use Smokes tobacco daily [facility] of Occupation [facility] Alcoholic beverage intake 2025-01-04 00:00:00 2025-01-04 00:00:00 Ex-drinker (finding) [facility] Tobacco Comment 2024-12-30 00:00:00 2024-12-30 00:00:00 Pt informed this author that he does not smoke and has never smoked anything. [facility] Alcohol intake 2020-11-22 00:00:00 2020-11-22 00:00:00 Ex-drinker (finding) [facility] History of Social function 2020-04-23 00:00:00 2020-04-23 00:00:00 [facility] Sex assigned at 1975 00:00:00 1975 00:00:00 [facility] Smoking Status Start Date Stop Date Source Smokes tobacco daily 2024-12-30 00:00:00 [facility] Medications Ordered Medication Name Filled Medication Name Start Date Stop Date Current Medication? Ordering Clinician Indication Dosage Frequency Signature (SIG) Comments Components Source ergocalcife rol, vitamin d2, 1,250 mcg (50,000 unit) capsule ergocalcife rol, vitamin d2, 1,250 mcg (50,000 unit) capsule 01-15 00:00: 00 Yes [id number] 40022L Take 1 capsule by mouth weekly. [facility] DULoxetine 20 mg capsule DULoxetine 20 mg capsule 01-11 00:00: 00 Yes [id number] 20mg Take 1 capsule by mouth in the morning. [facility] pantoprazol e 40 mg EC tablet pantoprazol e 40 mg EC tablet 01-11 00:00: 00 Yes [id number] 40mg Take 1 tablet by mouth in the morning. [facility] sulfamethox azole-trime thoprim (BACTRIM DS) 800-160 mg per tablet sulfamethox azole-trime thoprim (BACTRIM DS) 800-160 mg per tablet 01-11 00:00: 00 02-07 04:59 :00 Yes [id number] 1{tbl} Take 1 tablet by mouth every Tuesday, Tuesday and Tuesday in the evening for 26 days. [facility] predniSONE (DELTASONE) tablet 40 mg predniSONE (DELTASONE) tablet 40 mg 01-10 14:00: 00 Yes 40mg 40 mg, Oral, DAILY, First dose on Graciela 01/10/25 at 0900, Until Discontinu ed, Routine [facility] HYDROcodone -acetaminop hen 5-325 mg tablet HYDROcodone -acetaminop hen 5-325 mg tablet 2024-01-10 00:00: 00 Yes [id number] 1{tbl} Take 1 tablet by mouth every 8 (eight) hours as needed for Pain (scale 4-6). Indication s: acute pain [facility] Syringe with Needle, Disp, (BD LUER-JENAE SYRINGE) 3 mL 25 x 1 1/2 " Syrg 01-10 00:00: 00 Yes [id number] Use as directed with cyanocobal recio [facility] cyanocobala min 1,000 mcg/mL injection cyanocobala min 1,000 mcg/mL injection 01-10 00:00: 00 03-11 04:59 :00 Yes [id number] 1 mL every 24 (twenty-fo ur) hours for 3 days, THEN 1 mL weekly for 56 days. [facility] predniSONE 5 mg tablet predniSONE 5 mg tablet 01-10 00:00: 00 02-28 04:59 :00 Yes [id number] Take 8 tablets by mouth daily for 6 days, THEN 7 tablets daily for 7 days, THEN 6 tablets daily for 7 days, THEN 5 tablets daily for 7 days, THEN 4 tablets daily for 7 days, THEN 3 tablets daily for 7 days, THEN 2 tablets daily for 7 days. [facility] ondansetron 4 mg tablet ondansetron 4 mg tablet 01-10 00:00: 00 02-10 04:59 :00 Yes [id number] 4mg Take 1 tablet by mouth every 8 (eight) hours as needed for Nausea and Vomiting (N/V) for up to 30 days. [facility] methocarbam oL 500 mg tablet methocarbam oL 500 mg tablet 01-10 00:00: 00 01-25 04:59 :00 Yes [id number] 500mg Take 1 tablet by mouth 4 (four) times daily for 14 days. [facility] acetaminoph en 500 mg tablet acetaminoph en 500 mg tablet 01-10 00:00: 00 01-18 04:59 :00 Yes [id number] 1000mg Take 2 tablets by mouth every 8 (eight) hours as needed for Pain for up to 7 days. [facility] HYDROcodone -acetaminop hen (NORCO 5) tablet 1 tablet HYDROcodone -acetaminop hen (NORCO 5) tablet 1 tablet 01-09 14:10: 54 Yes 1{tbl} 1 tablet, Oral, Q8HPRN, Starting on Tue01/09/25 at 0910, Until Discontinu ed, Routine, Pain (scale 4-6) [facility] acetaminoph en (TYLENOL) tablet 1,000 mg acetaminoph en (TYLENOL) tablet 1,000 mg 01-09 01:00: 00 Yes 1000mg 1,000 mg, Oral, TID, First dose on Tue01/08/25 at 2000, Until Discontinu ed, Routine [facility] methocarbam oL (ROBAXIN) tablet 500 mg methocarbam oL (ROBAXIN) tablet 500 mg 01-08 21:00: 00 Yes 500mg 500 mg, Oral, QID, First dose on Tue01/08/25 at 1600, Until Discontinu ed, Routine [facility] dicyclomine (BENTYL) tablet 20 mg dicyclomine (BENTYL) tablet 20 mg 01-08 21:00: 00 01-10 21:27 :26 Yes 20mg 20 mg, Oral, QID, First dose on Tue01/08/25 at 1600, Until Discontinu ed, Routine [facility] DULoxetine (CYMBALTA) capsule 20 mg DULoxetine (CYMBALTA) capsule 20 mg 01-08 20:45: 00 Yes 20mg 20 mg, Oral, DAILY, First dose (after last modificati on) on Tue01/08/25 at 1545, Until Discontinu ed, Routine [facility] methocarbam oL (ROBAXIN) injection 1,000 mg methocarbam oL (ROBAXIN) injection 1,000 mg 01-08 20:30: 00 01-08 19:57 :00 Yes 1000mg 1,000 mg, Slow IV Push, ONCE, 1 dose, On Tue01/08/25 at 1530, Administer over 3-5 Minutes [facility] morpHINE injection 2 mg morpHINE injection 2 mg 01-08 15:15: 00 01-08 14:34 :00 Yes 2mg 2 mg, Slow IV Push, ONCE, 1 dose, On Tue01/08/25 at 1015, Routine [facility] cyanocobala min (DODEX) injection 1,000 mcg cyanocobala min (DODEX) injection 1,000 mcg 01-07 21:15: 00 01-14 21:14 :00 Yes 1000ug 1,000 mcg, Intramuscu lar, Q24H, 7 doses, First dose (after last modificati on) on Tue01/07/25 at 1615, Last dose on Tue01/13/25 at 1615, Routine [facility] pantoprazol e (PROTONIX) EC tablet 40 mg pantoprazol e (PROTONIX) EC tablet 40 mg 01-07 14:45: 00 Yes 40mg 40 mg, Oral, DAILY, First dose on Tue01/07/25 at 0945, Until Discontinu ed, Routine [facility] acetaminoph en (OFIRMEV) IV piggyback 1,000 mg acetaminoph en (OFIRMEV) IV piggyback 1,000 mg 01-06 22:30: 00 01-06 22:56 :00 Yes 1000mg 1,000 mg, IV Piggyback, at 400 mL/hr Administer over 15 Minutes, ONCE, 1 dose, On Tue01/06/25 at 1730, Routine, Is the patient strict NPO and unable to tolerate oral medication s? Yes [facility] methylpredn isolone sod succ (SOLU-MEDRO L) injection 60 mg methylpredn isolone sod succ (SOLU-MEDRO L) injection 60 mg 2024-0 01-04 22:15: 00 01-09 22:02 :42 Yes 60mg 60 mg, Intravenou s, Q24H, First dose (after last reorder) on Tue01/04/25 at 1715, Until Discontinu ed, 2 mL [facility] enoxaparin (LOVENOX) injection 40 mg enoxaparin (LOVENOX) injection 40 mg 01-04 22:00: 00 01-10 21:27 :26 Yes 40mg 40 mg, Subcutaneo us, DAILY AT 1700, First dose on Tue01/04/25 at 1700, Until Discontinu ed, Routine [facility] morpHINE injection 2 mg morpHINE injection 2 mg 01-04 04:45: 00 01-04 03:53 :00 Yes 2mg 2 mg, Slow IV Push, ONCE, 1 dose, On Tue01/03/25 at 2345, Routine [facility] acetaminoph en (OFIRMEV) IV piggyback 1,000 mg acetaminoph en (OFIRMEV) IV piggyback 1,000 mg 01-04 04:45: 00 01-04 08:06 :00 Yes 1000mg 1,000 mg, IV Piggyback, at 400 mL/hr Administer over 15 Minutes, ONCE, 1 dose, On Tue01/03/25 at 2345, Routine, Is the patient strict NPO and unable to tolerate oral medication s? Yes [facility] morpHINE injection 4 mg morpHINE injection 4 mg 01-04 03:49: 32 01-08 20:34 :52 Yes 4mg 4 mg, Slow IV Push, Q6HPRN, Starting on Tue01/03/25 at 2249, Until Tue01/08/25 at 1534, Routine, Pain (scale 7-10) [facility] proMETHazin e (PHENERGAN) 25 mg in NS 50 mL IV piggyback (CNR) proMETHazin e (PHENERGAN) 25 mg in NS 50 mL IV piggyback (CNR) 01-04 03:48: 26 01-07 14:30 :57 Yes 25mg 25 mg, IV Piggyback, at 200 mL/hr Administer over 15 Minutes, Q4HPRN, Starting on Tue01/03/25 at 2248, Until Tue01/07/25 at 0930, Routine, N/V unresponsi ve to Ondansetro n [facility] methylpredn isolone sod succ (SOLU-MEDRO L) injection 60 mg methylpredn isolone sod succ (SOLU-MEDRO L) injection 60 mg 01-03 19:30: 00 01-03 19:00 :00 Yes 60mg 60 mg, Intravenou s, ONCE, 1 dose, On Tue01/03/25 at 1430, 2 mL [facility] simethicone (GAS RELIEF (SIMETHICON E)) 40 mg/0.6 mL drops 01-03 14:59: 00 01-03 16:10 :22 No PRN, Starting on Tue01/03/25 at 0959, Until Tue01/03/25 at 1110, Routine, Intra-op [facility] Potassium Bicarb-Citr ic Acid (EFFER-K) effervescen t tablet 20 mEq Potassium Bicarb-Citr ic Acid (EFFER-K) effervescen t tablet 20 mEq 01-03 13:00: 00 01-03 16:45 :00 Yes 20meq 20 mEq, Oral, Q2H, 2 doses, First dose on Tue01/03/25 at 0800, Last dose on Tue01/03/25 at 1000, Routine [facility] morpHINE injection 2 mg morpHINE injection 2 mg 01-03 11:08: 13 01-04 03:49 :25 Yes 2mg 2 mg, Slow IV Push, Q4HPRN, Starting on Tue01/03/25 at 0608, Until Tue01/03/25 at 2249, Routine, Pain (scale 7-10) [facility] morpHINE injection 6 mg morpHINE injection 6 mg 01-02 15:36: 15 01-03 11:08 :29 Yes 6mg 6 mg, Slow IV Push, Q4HPRN, Starting on Tue01/02/25 at 1036, Until Tue01/03/25 at 0608, Routine, Pain (scale 7-10) [facility] bisacodyL (DULCOLAX) tablet 10 mg 01-02 02:15: 00 01-02 03:09 :00 No 10mg 10 mg, Oral, Once, 1 dose, On Tue01/01/25 at 2115, Routine [facility] ondansetron (ZOFRAN (PF)) injection 4 mg ondansetron (ZOFRAN (PF)) injection 4 mg 01-02 02:06: 42 01-10 21:27 :26 Yes 4mg 4 mg, Slow IV Push, Q6HPRN, Starting on Tue01/01/25 at 2106, Until Tue01/10/25 at 1627, Administer over 2-5 Minutes, 2 mL [facility] acetaminoph en (TYLENOL) tablet 650 mg 01-02 00:55: 02 01-08 20:34 :52 No 650mg 650 mg, Oral, Q6HPRN, Starting on Tue01/01/25 at 1955, Until Tue01/08/25 at 1534, Routine, Pain (scale 1-3), Temp > 38 C [facility] ergocalcife rol (vitamin d2) (CALCIFEROL ) capsule 50,000 Units ergocalcife rol (vitamin d2) (CALCIFEROL ) capsule 50,000 Units 01-01 14:00: 00 Yes [id number] 50,000 Units, Oral, QWEEKLY, First dose on Tue01/01/25 at 0900, Until Discontinu ed, Routine [facility] multivitami n tablet 01-01 14:00: 00 01-10 21:27 :26 No 1{tbl} 1 tablet, Oral, DAILY, First dose on Tue01/01/25 at 0900, Until Discontinu ed, Routine [facility] KCL (KLOR-CON M20) tablet 40 mEq KCL (KLOR-CON M20) tablet 40 mEq 01-01 11:30: 00 01-01 11:38 :00 Yes 40meq 40 mEq, Oral, ONCE, 1 dose, On Tue01/01/25 at 0630, Routine [facility] lactated ringers IV infusion 1,000 mL 12-31 23:45: 00 01-03 18:40 :43 No 1000mL at 100 mL/hr, 1,000 mL, IV Infusion, CONTINUOUS , Starting on Tue12/31/24 at 1845, Until Tue01/03/25 at 1340, Routine [facility] HYDROcodone -acetaminop hen (NORCO 5) tablet 1 tablet HYDROcodone -acetaminop hen (NORCO 5) tablet 1 tablet 12-31 14:58: 23 01-09 14:11 :04 Yes 1{tbl} 1 tablet, Oral, Q6HPRN, Starting on Tue12/31/24 at 0958, Until Tue01/09/25 at 0911, Routine, Pain (scale 4-6) [facility] morpHINE injection 4 mg morpHINE injection 4 mg 12-31 14:57: 55 01-02 15:36 :28 Yes 4mg 4 mg, Slow IV Push, Q4HPRN, Starting on Tue12/31/24 at 0957, Until Tue01/02/25 at 1036, Routine, Pain (scale 7-10) [facility] fentanyl PF (SUBLIMAZE (PF)) injection 12.5 mcg fentanyl PF (SUBLIMAZE (PF)) injection 12.5 mcg 12-31 06:45: 00 12-31 06:38 :00 Yes 12.5ug 12.5 mcg, Slow IV Push, ONCE, 1 dose, On Tue12/31/24 at 0145, DARCIE [facility] KCL (KLOR-CON M20) tablet 40 mEq KCL (KLOR-CON M20) tablet 40 mEq 12-31 04:45: 00 12-31 04:18 :00 Yes 40meq 40 mEq, Oral, ONCE, 1 dose, On Tue12/30/24 at 2345, Routine [facility] potassium chloride in water (KCL) 20 mEq/100 mL IV infusion 20 mEq [id number] 1079-0 4-14 04:15: 00 12-31 10:08 :00 Yes 20meq 20 mEq, IV Infusion, at 50 mL/hr Administer over 2 Hours, Q2H ES, 3 doses, First dose on Tue12/30/24 at 2315, Last dose on Tue12/31/24 at 0315, Routine [facility] heparin (porcine) injection 5,000 Units [id number] 1606-0 4-14 01:00: 00 01-04 16:16 :55 Yes 5000U 5,000 Units, Subcutaneo us, Q12H, First dose on Tue12/30/24 at 1999, Until Discontinu ed, Routine [facility] D5W-LR IV infusion 1,000 mL 12-31 00:50: 00 12-31 13:41 :39 No 1000mL at 50 mL/hr, IV Infusion, CONTINUOUS , Starting on Tue12/30/24 at 2000, Until Tue12/31/24 at 0841, Routine [facility] ondansetron (ZOFRAN (PF)) injection 4 mg ondansetron (ZOFRAN (PF)) injection 4 mg 12-31 00:11: 56 01-04 03:49 :25 Yes 4mg 4 mg, Slow IV Push, Q6HPRN, Starting on Tue12/30/24 at 191, Until Tue01/03/25 at 2249, Administer over 2-5 Minutes, 2 mL [facility] acetaminoph en (TYLENOL) tablet 650 mg acetaminoph en (TYLENOL) tablet 650 mg 12-31 00:11: 56 01-02 00:55 :24 Yes 650mg 650 mg, Oral, Q6HPRN, Starting on Tue12/30/24 at 191, Until Tue01/01/25 at 1955, Routine, Pain (scale 1-3) [facility] diazePAM (VALIUM) tablet 5 mg 3-07 02:15: 00 11-23 01:24 :00 No 5mg 5 mg, Oral, ONCE, 1 dose, 3/6/21 at 2014, DARCIE [facility] traMADoL (ULTRAM) tablet 50 mg 11-23 02:15: 00 11-23 01:24 :00 No 50mg 50 mg, Oral, ONCE NOW, 1 dose, 11/22/20 at 2015, Routine [facility] methocarbam oL 500 mg tablet 11-22 00:00: 00 12-30 00:00 :00 No [id number] 500mg Take 1 tablet by mouth 4 (four) times daily. [facility] Vital Signs Vital Name Observation Time Observation Value Comments [place] [facility] [place] blood pressure 2025-01-10 20:00:00 128 mm[Hg] [facility] Diastolic blood pressure 2025-01-10 20:00:00 84 mm[Hg] [facility] Heart rate 2025-01-10 20:00:00 73 /min [facility] Body temperature 2025-01-10 20:00:00 36.61 Zita [facility] Respiratory rate 2025-01-10 20:00:00 14 /min [facility] Oxygen saturation in Arterial blood by Pulse oximetry 2025-01-10 20:00:00 95 /min [facility] Body height 2024-12-31 00:09:00 167.6 cm [facility] Body weight 2024-12-31 00:09:00 60.782 kg [facility] BMI 2024-12-31 00:09:00 21.63 kg/m2 [facility] Systolic blood pressure 2025-01-03 13:54:00 133 mm[Hg] [facility] Diastolic blood pressure 2025-01-03 13:54:00 87 mm[Hg] [facility] Heart rate 2025-01-03 13:54:00 92 /min [facility] Body temperature 2025-01-03 13:54:00 36 Zita [facility] Respiratory rate 2025-01-03 13:54:00 20 /min [facility] Oxygen saturation in Arterial blood by Pulse oximetry 2025-01-03 13:54:00 99 /min [facility] Body height 2024-12-31 00:09:00 167.6 cm [facility] Body weight 2024-12-31 00:09:00 60.782 kg [facility] BMI 2024-12-31 00:09:00 21.63 kg/m2 [facility] Systolic blood pressure 2020-11-23 02:00:00 126 mm[Hg] [facility] Diastolic blood pressure 2020-11-23 02:00:00 85 mm[Hg] [facility] Heart rate 2020-11-23 02:00:00 74 /min [facility] Body temperature 2020-11-23 02:00:00 36.44 Zita [facility] Respiratory rate 2020-11-23 02:00:00 13 /min [facility] Oxygen saturation in Arterial blood by Pulse oximetry 2020-11-23 02:00:00 100 /min [facility] Body height 2020-11-23 00:31:00 167.6 cm [facility] Body weight 2020-11-23 00:31:00 60.782 kg [facility] BMI 2020-11-23 00:31:00 21.63 kg/m2 [facility] Systolic blood pressure 2025 20:34:00 131 mm[Hg] [facility] Diastolic blood pressure 2025 20:34:00 83 mm[Hg] [facility] Heart rate 2025 20:34:00 78 /min [facility] Body temperature 2025 20:34:00 37.06 Zita [facility] Respiratory rate 2025 20:34:00 19 /min [facility] Oxygen saturation in Arterial blood by Pulse oximetry 2025 20:34:00 96 /min [facility] Body height 2024-12-31 00:09:00 167.6 cm [facility] Body weight 2024-12-31 00:09:00 60.782 kg [facility] BMI 2024-12-31 00:09:00 21.63 kg/m2 [facility] Procedures Procedure Date / Time Performed Performing Clinician Source MAGNESIUM 2025-01-10 08:52:00 Lilian Carney [facility] BASIC METABOLIC PANEL (NA, K, CL, CO2, GLUCOSE, BUN, CREATININE, CA) 2025-01-10 08:52:00 [facility]FF 2025-01-10 08:52:00 Lilian Carney [facility] MAGNESIUM 2025-01-09 09:02:00 Rommel [facility] C-REACTIVE PROTEIN 2025-01-09 09:02:00 Dianne Ha [facility] BASIC METABOLIC PANEL (NA, K, CL, CO2, GLUCOSE, BUN, CREATININE, CA) 2025-01-09 09:02:00 Rommel [facility] CBC WITH DIFF 2025-01-09 09:02:00 [facility] 2025-01-09 00:07:23 Nicola Regan [facility] MAGNESIUM 2025-01-08 10:09:00 Rommel [facility] C-REACTIVE PROTEIN 2025-01-08 10:09:00 Maria Teresa Regan ae [facility] BASIC METABOLIC PANEL (NA, K, CL, CO2, GLUCOSE, BUN, CREATININE, CA) 2025-01-08 10:09:00 Rommel [facility] CBC WITH DIFF 2025-01-08 10:09:00 Rommel [facility] ENDOSCOPY PROCEDURE DOCUMENTATION 2025-01-07 14:41:46 Doctor Unassigned, [place] [facility] MAGNESIUM 2025-01-07 08:56:00 Rommel [facility] VITAMIN B12, LEVEL 2025-01-07 08:56:00 Maria Teresa Regan ae [facility] FOLATE 2025-01-07 08:56:00 Maria Teresa Regan [facility] BASIC METABOLIC PANEL (NA, K, CL, CO2, GLUCOSE, BUN, CREATININE, CA) 2025-01-07 08:56:00 Lilian Carney [facility] CBC WITH DIFF 2025-01-07 08:56:00 Lilian Carney [facility] MAGNESIUM 2025-01-05 08:10:00 Krish kalen [facility] TRANSFERRIN 2025-01-05 08:10:00 Maria Teresa Regan [facility] C-REACTIVE PROTEIN 2025-01-05 08:10:00 Dianne Ha [facility] BASIC METABOLIC PANEL (NA, K, CL, CO2, GLUCOSE, BUN, CREATININE, CA) 2025-01-05 08:10:00 Krish [facility] CBC WITHOUT DIFF 2025-01-05 08:10:00 Krish [facility] MAGNESIUM 2025-01-04 08:10:00 Rommel [facility] BASIC METABOLIC PANEL (NA, K, CL, CO2, GLUCOSE, BUN, CREATININE, CA) 2025-01-04 08:10:00 [facility] WITH DIFF 2025-01-04 08:10:00 Lilian Carney [facility] MAGNESIUM 2025-01-04 08:10:00 Rommel [facility] BASIC METABOLIC PANEL (NA, K, CL, CO2, GLUCOSE, BUN, CREATININE, CA) 2025-01-04 08:10:00 Rommel [facility] CBC WITH DIFF 2025-01-04 08:10:00 Rommel [facility] COLONOSCOPY (ENDO) 2025-01-03 15:19:00 Sivan Suh [facility] COLONOSCOPY (ENDO) 2025-01-03 15:19:00 Sivan Suh [facility] SURGICAL PATHOLOGY EXAM 2025-01-03 14:56:00 Jm Pearson [facility] SURGICAL PATHOLOGY EXAM 2025-01-03 14:56:00 Jm Pearson [facility] COLONOSCOPY 2025-01-03 14:27:00 [facility] 2025-01-03 14:27:00 Robert Pearson [facility] XR KUB 2025-01-03 11:51:39 Rommel [facility] XR KUB 2025-01-03 11:51:39 Rommel [facility] MAGNESIUM 2025-01-03 09:41:00 Rommel [facility] BASIC METABOLIC PANEL (NA, K, CL, CO2, GLUCOSE, BUN, CREATININE, CA) 2025-01-03 09:41:00 [facility] WITH DIFF 2025-01-03 09:41:00 Lilian Carney [facility] MAGNESIUM 2025-01-03 09:41:00 Rommel [facility] BASIC METABOLIC PANEL (NA, K, CL, CO2, GLUCOSE, BUN, CREATININE, CA) 2025-01-03 09:41:00 Hira Carneysha [facility] CBC WITH DIFF 2025-01-03 09:41:00 Lilian Carney [facility] XR KUB 2025-01-03 07:38:55 Rahul Esquivel [facility] XR KUB 2025-01-03 07:38:55 Rahul Esquivel [facility] XR ABDOMEN 1 VW 2025-01-03 07:12:09 [facility] XR ABDOMEN 1 VW 2025-01-03 07:12:09 [facility] CBC WITH DIFF 2025 09:18:00 Lilian Carney [facility] BASIC METABOLIC PANEL (NA, K, CL, CO2, GLUCOSE, BUN, CREATININE, CA) 2025 09:18:00 Rommel [facility] MAGNESIUM 2025 09:18:00 Rommel [facility] MAGNESIUM 2025 09:18:[facility]IC [facility] (NA, K, CL, CO2, GLUCOSE, BUN, CREATININE, CA) 2025 09:18:00 Rommel [facility] CBC WITH DIFF 2025 09:18:00 Rommel [facility] MAGNESIUM 2025 09:18:00 Rommel [facility] BASIC METABOLIC PANEL (NA, K, CL, CO2, GLUCOSE, BUN, CREATININE, CA) 2025 09:18:00 Rommel [facility] CBC WITH DIFF 2025 09:18:00 Rommel [facility] CALPROTECTIN, FECAL 2025-01-01 09:38:00 Maria Teresa Regan [facility] CLOSTRIDIUM DIFFICILE TOXIN 2025-01-01 09:38:00 Guerra [facility] CLOSTRIDIUM DIFFICILE TOXIN 2025-01-01 09:38:00 Guerra, [facility] CALPROTECTIN, FECAL 2025-01-01 09:38:00 Maria Teresa Regan [facility] CLOSTRIDIUM DIFFICILE TOXIN 2025-01-01 09:38:00 Guerra, [facility] CALPROTECTIN, FECAL 2025-01-01 09:38:00 Maria Teresa Regan [facility] VITAMIN D, 25-OH 2025-01-01 09:37:00 Maria Teresa Regan [facility] CBC WITH DIFF 2025-01-01 09:37:00 Maria Teresa Regan [facility] MAGNESIUM 2025-01-01 09:37:00 Maria Teresa Regan [facility] BASIC METABOLIC PANEL (NA, K, CL, CO2, GLUCOSE, BUN, CREATININE, CA) 2025-01-01 09:37:00 Maria Teresa Regan [facility] PHOSPHORUS 2025-01-01 09:37:00 Maria Teresa Regan [facility] PHOSPHORUS 2025-01-01 09:37:00 Maria Teresa Regan [facility] MAGNESIUM 2025-01-01 09:37:00 Maria Teresa Regan [facility] BASIC METABOLIC PANEL (NA, K, CL, CO2, GLUCOSE, BUN, CREATININE, CA) 2025-01-01 09:37:00 Maria Teresa Regan [facility] CBC WITH DIFF 2025-01-01 09:37:00 Maria Teresa Regan Un [facility] VITAMIN D, 25-OH 2025-01-01 09:37:00 Maria Teresa Regan [facility] PHOSPHORUS 2025-01-01 09:37:00 Maria Teresa Regan [facility] MAGNESIUM 2025-01-01 09:37:00 Maria Teresa Regan [facility] BASIC METABOLIC PANEL (NA, K, CL, CO2, GLUCOSE, BUN, CREATININE, CA) 2025-01-01 09:37:00 Maria Teresa Regan [facility] CBC WITH DIFF 2025-01-01 09:37:00 Maria Teresa Regan Un [facility] VITAMIN D, 25-OH 2025-01-01 09:37:00 Maria Teresa Regan [facility] US GALL BLADDER 2025-01-01 01:01:00 Maria Teresa Regan [facility] US GALL BLADDER 2025-01-01 01:01:00 Maria Teresa Regan [facility] US GALL BLADDER 2025-01-01 01:01:00 Maria Teresa Regan [facility] CBC WITH DIFF 2024-12-31 11:17:[address] [facility] BASIC METABOLIC PANEL (NA, K, CL, CO2, GLUCOSE, BUN, CREATININE, CA) 2024-12-31 11:17:00 Amol Guerra [facility] MAGNESIUM 2024-12-31 11:17:00 Amol Guerra [facility] GLYCOSYLATED HEMOGLOBIN (A1C) 2024-12-31 11:17:00 Maria Teresa Regan [facility] THYROID STIMULATING HORMONE 2024-12-31 11:17:00 Maria Teresa Regan [facility] LIPASE 2024-12-31 11:17:00 Maria Teresa Regan [facility] LIPASE 2024-12-31 11:17:00 Maria Teresa Regan [facility] MAGNESIUM 2024-12-31 11:17:00 Amol Guerra [facility] THYROID STIMULATING HORMONE 2024-12-31 11:17:00 Maria Teresa Regan [facility] BASIC METABOLIC PANEL (NA, K, CL, CO2, GLUCOSE, BUN, CREATININE, CA) 2024-12-31 11:17:00 Charlie [facility] CBC WITH DIFF 2024-12-31 11:17:00 Amol Guerra [facility] GLYCOSYLATED HEMOGLOBIN (A1C) 2024-12-31 11:17:00 Maria Teresa Regan [facility] LIPASE 2024-12-31 11:17:00 Maria Teresa Regan [facility] MAGNESIUM 2024-12-31 11:17:00 Amol Guerra [facility] THYROID STIMULATING HORMONE 2024-12-31 11:17:00 Maria Teresa Regan [facility] BASIC METABOLIC PANEL (NA, K, CL, CO2, GLUCOSE, BUN, CREATININE, CA) 2024-12-31 11:17:00 Charlie [facility] CBC WITH DIFF 2024-12-31 11:17:00 Charlie [facility] GLYCOSYLATED HEMOGLOBIN (A1C) 2024-12-31 11:17:00 Maria Teresa Regan [facility] ABORH CONFIRMATION (LAB ONLY) 2024-12-31 11:16:00 Goldy Hutchinson [facility] ABORH CONFIRMATION (LAB ONLY) 2024-12-31 11:16:00 EvangelinaGoldy [facility] ABORH CONFIRMATION (LAB ONLY) 2024-12-31 11:16:00 Goldy Hutchinson [facility] URINALYSIS 2024-12-31 07:58:00 Guerra, [facility] FECAL PATHOGENS BY PCR 2024-12-31 07:58:00 Guerra, Awais [facility] URINALYSIS 2024-12-31 07:58:00 Guerra, [facility] FECAL PATHOGENS BY PCR 2024-12-31 07:58:00 Guerra, Awais [facility] URINALYSIS 2024-12-31 07:58:00 Guerra, [facility] FECAL PATHOGENS BY PCR 2024-12-31 07:58:00 Guerra, Awais [facility] CT ABDOMEN PELVIS W CONTRAST 2024-12-31 05:56:08 Guerra, [facility] CT ABDOMEN PELVIS W CONTRAST 2024-12-31 05:56:08 Guerra, [facility] CT ABDOMEN PELVIS W CONTRAST 2024-12-31 05:56:08 Guerra, [facility] BLOOD CULTURE SCREEN 2024-12-31 03:13:00 Guerra, [facility] BLOOD CULTURE SCREEN 2024-12-31 03:13:00 Guerra, [facility] BLOOD CULTURE SCREEN 2024-12-31 03:13:00 Guerra, [facility] HCV ANTIBODY 2024-12-31 03:03:00 Guerra, [facility] IRON PANEL 2024-12-31 03:03:00 Guerra, [facility] IRON PANEL 2024-12-31 03:03:00 Guerra, [facility] PROTHROMBIN TIME / INR 2024-12-31 03:03:00 Guerra, Awais [facility] ACTIVATED PARTIAL THRMPLAS WILBUR 2024-12-31 03:03:00 Guerra, [facility] HEPATITIS B SURFACE ANTIBODY 2024-12-31 03:03:00 Guerra, [facility] HCV ANTIBODY 2024-12-31 03:03:00 Charlie [facility] HBC ANTIBODY (IGM & IGG) 2024-12-31 03:03:00 Humberto Guerra [facility] IRON PANEL 2024-12-31 03:03:00 Charlie [facility] PROTHROMBIN TIME / INR 2024-12-31 03:03[facility]00 [facility] THRMPLAS WILBUR 2024-12-31 03:03:00 Guerra, [facility] HEPATITIS B SURFACE ANTIBODY 2024-12-31 03:03:00 Guerra, [facility] HCV ANTIBODY 2024-12-31 03:03:00 Charlie [facility] HBC ANTIBODY (IGM & IGG) 2024-12-31 03:03:00 Humberto Guerra [facility] PROTHROMBIN TIME / INR 2024-12-31 03:03:00 Awais Guerra [facility] ACTIVATED PARTIAL THRMPLAS WILBUR 2024-12-31 03:03:00 Charlie [facility] HEPATITIS B SURFACE ANTIBODY 2024-12-31 03:03:00 Guerra, [facility] HBC ANTIBODY (IGM & IGG) 2024-12-31 03:03:00 Humberto Guerra [facility] C-REACTIVE PROTEIN 2024-12-31 03:02:00 Amol Guerra [facility] SEDIMENTATION RATE 2024-12-31 03:02:00 Amol Guerra [facility] CBC WITH DIFF 2024-12-31 03:02:00 Amol Guerra [facility] HB ABO GROUPING 2024-12-31 03:02:00 Charlie [facility] THIOPURINE METHYLTRANSFERASE, RBC 2024-12-31 03:02:00 Charlie [facility] C-REACTIVE PROTEIN 2024-12-31 03:02:00 Amol Guerra [facility] SEDIMENTATION RATE 2024-12-31 03:02:00 Amol Guerra [facility] CBC WITH DIFF 2024-12-31 03:02:00 Guerra, [facility] HB ABO GROUPING 2024-12-31 03:02:00 Charlie [facility] THIOPURINE METHYLTRANSFERASE, RBC 2024-12-31 03:02:00 Charlie [facility] CBC WITH DIFF 2024-12-31 03:02:00 Charlie [facility] HB ABO GROUPING 2024-12-31 03:02:00 Charlie [facility] SEDIMENTATION RATE 2024-12-31 03:02:00 Amol Guerra [facility] C-REACTIVE PROTEIN 2024-12-31 03:02:00 Amol Guerra [facility] PHOSPHORUS 2024-12-31 03:01:00 Charlie [facility] FERRITIN SERUM 2024-12-31 03:01:00 Charlie [facility] HEPATIC FUNCTION PANEL ([id number]) (ALB,T.PRO,BILI T,BU/BC,ALT,AST,ALK PHOS) 2024-12-31 03:01:00 Charlie [facility] BASIC METABOLIC PANEL (NA, K, CL, CO2, GLUCOSE, BUN, CREATININE, CA) 2024-12-31 03:01:00 Charlie [facility] LIPID PANEL ([id number])(TOTAL CHOLESTEROL, TRIGLYCERIDES, HDL) 2024-12-31 03:01:00 Charlie [facility] HEPATITIS B SURFACE ANTIGEN 2024-12-31 03:01:00 Charlie [facility] HAV ANTIBODY (IGG AND IGM) 2024-12-31 03:01:00 Charlie [facility] QUANTIFERON-TB ASSAY 2024-12-31 03:01:00 Charlie [facility] HIV 1/2 AG-AB WITH REFLEX 2024-12-31 03:01:00 Charlie [facility] PHOSPHORUS 2024-12-31 03:01:00 Charlie [facility] FERRITIN SERUM 2024-12-31 03:01:00 Charlie [facility] HEPATIC FUNCTION PANEL ([id number]) (ALB,T.PRO,BILI T,BU/BC,ALT,AST,ALK PHOS) 2024-12-31 03:01:00 Guerra, [facility] BASIC METABOLIC PANEL (NA, K, CL, CO2, GLUCOSE, BUN, CREATININE, CA) 2024-12-31 03:01:00 Guerra, [facility] LIPID PANEL ([id number])(TOTAL CHOLESTEROL, TRIGLYCERIDES, HDL) 2024-12-31 03:01:00 Guerra, [facility] HEPATITIS B SURFACE ANTIGEN 2024-12-31 03:01:00 Guerra, [facility] HAV ANTIBODY (IGG AND IGM) 2024-12-31 03:01:00 Guerra, [facility] QUANTIFERON-TB ASSAY 2024-12-31 03:01:00 Guerra, [facility] HIV 1/2 AG-AB WITH REFLEX 2024-12-31 03:01:00 Guerra, [facility] BASIC METABOLIC PANEL (NA, K, CL, CO2, GLUCOSE, BUN, CREATININE, CA) 2024-12-31 03:01:00 Guerra, [facility] HEPATIC FUNCTION PANEL ([id number]) (ALB,T.PRO,BILI T,BU/BC,ALT,AST,ALK PHOS) 2024-12-31 03:01:00 Guerra, [facility] PHOSPHORUS 2024-12-31 03:01:00 Guerra, [facility] LIPID PANEL ([id number])(TOTAL CHOLESTEROL, TRIGLYCERIDES, HDL) 2024-12-31 03:01:00 Guerra, [facility] QUANTIFERON-TB ASSAY 2024-12-31 03:01:00 Guerra, [facility] HAV ANTIBODY (IGG AND IGM) 2024-12-31 03:01:00 Guerra, [facility] HEPATITIS B SURFACE ANTIGEN 2024-12-31 03:01:00 Guerra, [facility] FERRITIN SERUM 2024-12-31 03:01:00 Charlie [facility] HIV 1/2 AG-AB WITH REFLEX 2024-12-31 03:01:00 Guerra, [facility] BLOOD CULTURE SCREEN 2024-12-31 03:00:00 Amol Guerra [facility] BLOOD CULTURE SCREEN 2024-12-31 03:00:00 Amol Guerra [facility] BLOOD CULTURE SCREEN 2024-12-31 03:00:00 Amol Guerra [facility] XR LUMBAR SPINE 3 VW 2020-11-23 01:53:41 Sivan Woods [facility] XR CERVICAL SPINE 3 VW 2020-11-23 01:53:41 Liya Woods [facility] XR PELVIS <3 VW 2020-11-23 01:53:41 [facility]MANDIBLE WO CONTRAST 2020-11-23 01:41:51 Sivan Woods [facility] CT HEAD WO CONTRAST 2020-11-23 01:41:51 Sivan Woods [facility] Encounters Start Date/Time End Date/Time Encounter Type Admission Type Attending Clinicians Care Facility Care Department Encounter ID Source 2024-12-30 19:05:00 2025-01-10 16:15:00 Hospital Encounter Amol Maya, Sivan Baeza Sidra [facility] 1.0.114 350.1.13.10 4.2.7.2.686 [id number] [facility] 2025-01-07 00:00:00 2025-01-08 02:04:31 Orders Only Doctor Unassigned, [place] Doctor Unassigned, [place] [facility] [id number] 350.1.13.10 4.2.7.2.686 [id number] [facility] 2025-01-03 08:37:00 2025-01-03 09:35:00 Surgery Robert Pearson [facility] 1.2840.114 350.1.13.10 4.2.7.2.686 [id number] [facility] 2025 10:55:31 2025 10:55:31 Anesthesia Event Pascual Sweeney [facility] 1.2.840.114 350.1.13.10 4.2.7.2.686 [id number] [facility] 2024-12-30 00:00:00 2024-12-30 00:00:00 Travel 1.2.840.1 04154.1.1 3.104.2.7 .[id number] .8 [id number] 350.1.13.10 4.2.7.3.698 [id number] [facility] 2020-11-22 18:30:00 2020-11-22 22:17:00 Emergency Sivan Woods [facility] 1.2.840.114 350.1.13.10 4.2.7.2.686 [id number] [facility] 2020-11-22 18:30:00 2020-11-22 22:17:00 Emergency X WOODSSIVAN MATA [facility] ERT [id number] [facility] Results Test Description Test Time Test Comments Results Resul t Comments Source US Scrotum and contents 2024-12-19 3 13:44:17 EXAM: US SCROTUM AND CONTENTS HISTORY: 50 years-old Male; Provided indication: evaluate for hydrocele . TECHNIQUE: Ultrasound imaging with color Doppler of the scrotum wasperformed. [employer] images were obtained for the record. COMPARISON: [...] varicocele is seen. Small to moderate bilateralhydrocele. [facility] [id number] 14:41:46Ordered by an unspecified provider.[facility] [id number] 16:22:03* Test Item Value Reference Range Interpretation Comme nts TRANSFERRN (test code = 3843487988) 114 mg/dL 168-336 L Lab Interpretation (test cod e = 20923-2) Abnormal [facility] 08:36:38* Test Item Value Reference Range Interpretation Comme nts MAGNESIUM (test code = 6273821035) 2.3 mg/dL 1.7-2.4 Lab Interpretation (test cod e = 90042-7) Normal [facility] (NA, K, CL, CO2, GLUCOSE, BUN, CREATININE, CA)2025-01-05 08:36:37* Test Item Value Reference Range Interpretation Comme nts NA (test code = 0038164743) 135 mmol/L 135-145 K (test code = 3175618966) 3.8 mmol/L 3.5-5.0 CL (test code = 5902517411) 96 mmol/L 98-108 L CO2 TOTAL (test code = 0408913135) 34 mmol/L 23-31 H AGAP (test code = 9920143282) 5 2-16 BUN (test code = 7108014068) 14 mg/dL 7-23 GLUCOSE (test code = 5748657841) 157 mg/dL 70-110 H CREATININE (test code = 2160-0) 0.68 mg/dL 0.60-1.25 CALCIUM (test code = 1506125322) 7.5 mg/dL 8.6-10.6 L eGFR (test code = 95910-3) 111.8 mL/min/1.73m2 CKD-EPI eGFR (2020). Assuming creatinine has been stable day-to-day for at least three months, the eGFR indicates Category G1 (>= 90 mL/min/1.73 m2) Lab Interpretation (test code = 08007-6) Abnormal [facility] Center[facility]b without [id number] 08:24:32* Test Item Value Reference Range Interpretation [...] 465 150-328 H MPV (test code = 16447-3) 8.4 fL 9.8-13.0 L RDW-CV (test code = 788-0) 13.6 % 12.1-15.4 RDW-SD (test code = 18320-6) 46.7 fL 38.5-51.6 NRBC x10^3 (test code = 0745545416) See_Comment [Automated messa ge] The system which generated this result transmitted reference range: 10*3/?L. The reference range was not used to interpret this result as normal/abnormal. NRBC/100 WBC (test code = 1484285659) 0 0.0-10.0 IPF % (test code = 1778049113) Lab Interpretation (test code = 19982-2) Abnormal [facility] [id number] 16:38:51* Test Item Value Reference Range Interpretation Comme nts Case Report (test code = 0109085318) Surgical Pathology ?Case: [id number] ? Authorizing Provider: ?Robert Pearson MD ? ? ?Collected: ? 01/03/2025 0956 ?Ordering Location: ? ? GI Endoscopy OR Department Received: ?01/03/2025 1307 ?Pathologist: ? Kyleigh Huddleston MD ? Specimens: ? A) - LARGE INTESTINE, SIGMOID COLON, Sigmoid colon Bx eval for IBD ? B) - RECTUM, Rectal Bx eval for IBD ? Final Diagnosis (test code = 4276194575) [id number] FuZzEwMzNcZnRuYmpcdWMx IHtccnRmMVxhbnNpXGRlZm ugagjrNPDlIOJ5seWwHZEf OHV8IDZ2JjNzUHUjMuKbZQ Y1PAKvm9tnx5FswEQctYBk XMdihWHbslOwhw42pZZ6qT 66NE9oEKWsGpH2OEObeoV4 Erh4IIBzUYNbuSXgK500o1 grc1oitoRavTM7dOfgOPDd toymYxA7SSvkWEDftwufVJ k8KJhhZORxpFA6ZYQkyZUi H1PpDRJwPA0hgsr5BRD4PB ryUIHsImC4NYBljSTaMOVa tRlwHHyxe241VQI4YcMqRI ZhbxKwjSqlfF1zBiEbPHws DUQkFZ5dEPDUM7SkFK2HNJ AASL3OCLBEMPaPG9pJKNMP GP4HRKZFMH3KJ8y3PRSblr UgNALoVSARZ1iKRkxUQK6R N51JYABHZYCEYBXQTOOLRT OIL0UMY0OeYPMCEMYLDPvL LGSSGQLLIEKSR0qCSYUCBG ZDLShzZObMRF7WCScJMfia JYHgQJJhFW3hTz9cN9GVCx UPT08TOZ4OLJSEK1HRRFDP QSBJREVOVElGSUVEICBccG FyXGZzMjJccGFyXGZzMjAg By5sYyAATJHQXAGCGH5VC2 n0SLCzocOaPQXtVKVFJRMV TQjzMBMLS4QFKFrBHCsrBC xAOWvFEJpWE9YEGSOVYZFT DY2ZWJ1CWASNZEEXFPUNKv BJTkZJTFRSQVRFIElOXHBh ulUzXVVoFKBrWMNXKX1VZV ZFX2GZTYNfaLRrJWJtWLUw XW7CHXHMWUwDEFACPM1KCY IIN5ICCIADSJAETMGZIMrF SUVEICBccGFyXHBhcmRccG XyRGHjggrhBQV4w7bbaEZm XHNzdGVjZjIyMDAwXGFuc2 lcZGVmbGFuZzEwMzNcZnRu LohplGEqZISvMvMwu9nou0 44lBPms1ncJMRxYoB2hEKy EOLqtQtbvbn4jSjoKuLaRT Bdd3kbwaOqIvHkXZXvTTGu YPSbuIHgX755RNAxXYene6 eqb7GvHUWsnMMsz1Y6HEUI ZTrgDpTbH970a3pxp1lhey DroLO1YXMbUEV7HKtqwyXe gjM6QXlyqDOtPzC5YFomqx YnLDskfcAzimXkGwt0ZSXa U576STZ8uFhdz2wmWWO8KH TeHSQyHlwgUz2gaXXbZ200 UNBuISITMQSjmCd0NFEzpk MubdJznSSIi336N991n2xs EKVcuwFwvHlAkosvh5jsL4 19XHBhcGVydzEyMjQwXHBh oFCjvQU1AOEeKN4zywwxQK glUPnhILKlmzH7ULMrlUCz D2MgXQEmBD1ffnecWZV3BD vaQQPlHGJ3PvZtLIWdy2Ob avi8BbSdhf1fzo57JNZ1t0 AhdJqfHCA1JOD7SkXwNv5v cXGxKCFfBF5rTxJwyOOuVM Oxws74yWbiDGshmjDkpW1f DiZyGTXacYQsKYPvJJ4vgW LeVSRkvM2xcovcKHJqQyMc kbwbKWYgdAabbjTgCl0ypH qvDHF8NQvfT2hfoP1uHmN7 PJmzN6alhJ2rNLv3CCnfzE T2TDGqsG2iYR0qjuogd8lq NFuhXSysCZYsbkS4ghE8KL TqkZSlG8BeuU7fCVZeCO9b jlxpr7dtWHK4JPofZEPiJM A7ElQpCULse3Mmcaf9KgTk d8QoiGJvAQltM92ul509AA DqdqCiS3lfvCLtfqyjsVFz xvhyXQrrxjK2EIXpNLIgPO luXGYxXGZzMjBcbGFuZzEw MzNcaGljaFxmMVxkYmNoXG MrSTebD6wnLwAvI2OrKWJx QaMajSPpENiiaQQ5DSEdAJ Fsl89ydFz2OJWvajskv9Zo GCUlqBEswRUueJ7wfxZgj5 agMWPuLPVmBTNrA9QyEDY1 xIOpNAUdzBMunCV1EL0poy EkVL5hRZGfAtdxgkWkfYNp nyJmUMHsOWgyk7seCE1mMK KieRoqyL6mnBL5KDDla2xc nXZiwYHcq8xbh4MjrzGwKX hiKNKtJVmuMEShINDqMI6r RIFaaAKtnsErw1D3HebdbP EexlhcMxmwewW6PKjcfwcr UWSyELkiE7aoLbNlGHDjlM fyMxhcb8MbWRShVCGlTpsm uDTgwY40OKL5JaTxq5L1ZK EeVsFhOOTqJI3zqHktMCHl WX1uASXiN0rxcC5dbro1Ig EkSUYvAbG8MNArisN5Jty2 VLXqDXklx2ala2HwS6GtkG HpfRz7c2ipJPYzTlD3tQGo MJqtM3rutgBkfDAiCJQcGQ y1jU08AVAeiX3cyHSzAUke pfRtFdU0OSpkQZAaCpT1SR NzzWFlNTIbU5yrJOKxSHxv LUEwNVntaRJfLQS9pPsqi8 Q0lWEclXZouRaaUjWbGsRv QOIGh8UgOXb9xPojX2MsSF ZuJaN3oERpHIEhDDteAXMv USNggzY9oD41HJkqchE1vE Eeq8Ykt88av212nS0khIKu SMY2MCCaBERevRAsUSXaRO Y3ADWfaMXyC4ziSBXhZC2j makqUStaMCzhYYYlcGN5KF TcbINmS0ErWGFaYMacTTZi aik8RjGeXq9tyJEwqQqzRR ecl2bnj8eaaKKlOil4VLBa QpQvVelsDNoam3Qne5gcVC Krxt24iCRnmMOueKWykl3c fdElqTJsqVOjVWB9kUGpmt FdZNSrwZUjYCHkPT2mzVDz KHMlhB7yrukcGMHwUaUgba rgKQYmlIxquvOhGs5pyXts QZK4PRknP9srhK2nYvW4TM bkP5wtvJ2kFUy3YOftwYZ7 VSAotC0xVQ9bmmyfx3snYN fzIZxaCUBgayI7djJ9OBYr pJZvI8QcuQ8cGSPyFQ4dmr lpq3mcCZB8PXyyFYOiUZQ6 YuWlVMFqc1Ogvvy8UsXhn4 BucNYcCYeiP82qr397QCFm kiSrQ9xcrXWbdijhbKTojb xwFObbnoG9NFCoqhLtf2Io YMRuFTZ8IJgqNIchjQXmGL AyxCdpu6biT8SmxNCvRTYj YWluXGYxXGZzMjBcbGFuZz EwMzNcaGljaFxmMVxkYmNo YZYxSAftH4mdHcTrE1IeYC ZzMmPzxAPsV3hipBIuKFzn pZC5DIPpOFAiy62rwSb5ET Rjoyggt4XlDZGtuCEcjEVb hW6qqkYxp5zkEXSeRATwID MzO3TnXZB2jKXsMNXnpHKm rJJ0ZT2onaDvNS0lNPGrJc kgcmVzaWRlbnRzLCBmZWxs t6geHP4kRPWgmOqccT4ptA N0BEOxj2spoQCugOIxr9cc h8RtbuPoCUovIAMkRBjfNU XoKANjUL6vVBLrmNHwvaQy b6Y0JomwcNIqkduiGFdyoi PqYBndclxrTWElHLkwV7re KcPbMIDcpItzOOxns0DeOI YxXGNmMlxmczIwXHBhclxw YXJccGFyXHNhMTYwXHNsMj D0MSXscRQonFCogJmnjO7u ZjBcZnMyNFxwbGFpblxmMV abowX7HTvgwskrRWLmNPqh Q1spAdMwIDOmdWarVAild1 XwKUIgPDHqAorpioW1JDi2 zyQjAJOurMicxS0oqSY6VJ Bee5Yqt3Gsy99plDCjq06v p60lisXcaWPdAp4clJHjAQ J5PQYLAHXeINXjN6EyTQDq pPucL1XotZCwSDIgVaAkGS d9xCBwLkWxBWdjaDAVj8A7 fUocOBSnI7OrIIRbzZcwLI XUTBc6JQhtIBMyDLxaOWZf XGZzMjBcbGFuZzEwMzNcaG ljaFxmMVxkYmNoXGYxXGxv L2cnHnAnN6MoQJWhPgGqlM OjP3xplAHnqZ9= Clinical Information (test code = [id number]) Jin Jiménez is a 50 year old male1. 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 Rectal Bx eval for IBD Gross Description (test code = [id number]) b0malZFbXPOpyPBYLGDkTD MmKY4uwNcreGx1bOljZINp ecK2yMQnLXuyy6ppYFE6c9 waovFFXnnoTGRgAP1yPCki VCVsUW0kZfYpEEEaBrVqZM BhcGVydzEyMjQwXHBhcGVy rXB6QAZlIU7xfydoLVikYR nsPQRhssN9ZQNnxCEuL2Gr YUJePY8ginkjQMK7CJJKMf sgKo4hnNZiqCfbOvRtPqUg YDMeQTEbLKIfz1krqvCEao zuqUh2wQ4ILOUgJ8EeZA9X g6zzMJZywBPwROD1FJhxi2 diVCimNKJ5XWGsZHHqEKXf EL6AIyRnIZR1AJD8YZK7Bk U1SOc2CUKKTSDrXAkkVVZi BTW3NKt1WSYcHS7gAMcpaC AyNHikOipiNBpsG129PArk KVWaM0LyO5UfXBikAdFdUO nxQOVdPGShWHvsQGZcS7NQ UECoIIo6BUSeOqHlZJe9CX i7WU2OTzVvCPEbFYh2XaKc RAXdXZk7MBuhTM5OWFUtTY MqIBT2UChcYEAnUXkeBXs5 IDIgXFxzcyAzIFxcZmwgXF dxS30gyEQiIXVCCrnvvVZf blxmczIwIFNQRUNJTUVOIE CpcTNgT9rzYaGgGohkILXo DQpccGFyZCANClxwbGFpbl xsdHJjaFxmczIyXGVwaWNO ELJ0JB8yYAOWKnaukKVbHV Txc2ZkNLqwnGtlTVDnPhHb DUsNvREuzZ8eqcQFYPgqTN LjO8BtjwSxDHjmZTWrcd5k bGluLCBsYWJlbGVkIHdpdG ggdGhlIHBhdGllbnQncyBu DS1nUPFQYHVgsX1kMJXpHD CrNSGqFHByaeFtd3KyhiAw NPVhA46lxQGuL72li33sKS CpV22plSYfA96su20iIkff BWLoyOPmj9QyMPALIiVryr EdA31fj6iwlFCdw1LyXfU6 VW7mtGdtntZngyMqM1UwAE Nqw01ngSC0xOEddJHvUnKa I44nkkCmOQkxJpAmCBOsAg AwS56qhW7wB7UwMQMba1Fh UQiiML8giC0bGFWgDahsdK UmNfAgqHHrXxGrJ73kmQ4d KGungoTxBROhFX5tUCReXU IitSLnnE9lzlMuzlYmoWo2 ZXJlZCBpbnRvIGEgYmlvcH X7TIKgBxLpxqQda5LwyKx9 lYQbNRkjFJGotN0ayH6fUW BdBEnxNVAxL72ql1EAg4Vs v0mniBegn8FlpXJiIB0sqL DsDD9Gi0xrLTWotPLvITN7 THcgx2hqBSpnUSJ8VPYxNm WpQQMgWE8OVnAxJLO5FNX0 EKW0ZuU7ZWf6RGZRZfTeQa VuHdz1MkscKCFzWDn8FOt1 ZNvPWqYhTghrHbHoLFU7IJ I2JtF7ILsynNCxDJojq5Kl MlLyQRWcTOpgeaH0LOWiex Kqj2DqXDWwTTAcH5kwTyKy NSANClxmczIwIFNQRUNJTU VOIEJcZnMyMlxwYXIgDQpc cGFyZCANClxwbGFpblxsdH JjaFxmczIyXGVwaWNOZXN0 PB0rKNNXInpczORhOZHyn9 IzMFxlcGljWHNiMzAgDQpT mFDnqC5bqzSAWBcgBBByC1 CsqbVjGIriVIQsjh1ioChd LCBsYWJlbGVkIHdpdGggdG vcTOUqyUfgkzMczoGuRF3p TNPVRYJuvP9zSLBtMQRcXD X0aB2oRZTgK9LrqCPLBIIe dmFsIGZvciBJQkQiIGFuZC Sco86weZF5ytVgLaHqdZy3 xRUwVRR6XK0dwGcwbpZyaz VmM5ElRGAdl74gmNF7xFMr bXRdAjYpC38bbqIjETpfMx AeAS21UAQqEFxdSOoyWGZ7 XAF8XWTznUApk4okeivcDM 5lKBfmHJ3qSCicWA0yRVFv WSnmNTUbI6PkR6B0KZyfQB FMbRLkm5PwZ4deXQ4czUOs JaajpKCuYWUsfD45pvDhFA Daw7SetNZzXRrgHL1eXOQ4 Ac2cvZOkBOYltbK2s3BgPL luIEIxLlxwYXIgDQpccGFy ZFxsdHJwYXIgDQpccGFyIA 0KSGFvdGlhbiBXdSwgUEEo TGNEUAyvqILeWH6REVOok8 EyL6X6KWAgLOedj9jpWQLa FYldg8YxYSqLRRQVQY0GSW 0eoAF5LHeGF4FFA2kLtKYn FVBuSEtozAKRZE73SLs3bO U6oC37FXCtDBZraECwQWqk I641CR8dZd9zMYV0ZRVwTf Q5k2fdnRWvELutCrkvaTXb fnY3RTuRRGWNQDgGTsFcTK 2yNMxIYxmVMuU0RgOaOHUz yTG6ZSBSWScqbMx8PGx5zH jeBuxnhpLddRLsHtZJvR7n pAfvuR8bfLOfR6gjMaHdIe gkHBLbESmqx5ZzDYgcqQlh TACnFbXkWVsbCTYxO50ag8 PNt0Ukp1cgtPkej7UktWRb GR20FSRzhXBwPVP4WE0zsQ xwYXIgDQpccGFyZCANClxw bGFpbiANCn0= Disclaimer (test code = [id number]) h1ssrPJmWEIug7kxGTXbwQ FuZzEwMzNcZnRuYmpcdWMx PXfwyzQfXUxyd0EeS2YsDt AwMFxhbnNpXGRlZmxhbmcx ZAMhXOV1pjGqBTJzTErcOZ KeCPlyMl8uqDGwqKpvYwOl MKFvd7mdkkVZNVewDdEjC2 89IWHrOQipc0kct5OnWJGu mJCte3D7FCCUnmxlgTw0gH xtD86wp8U8IrwqP4ybZUEo VBVwE8PlZP8oGOOfQyu8UJ I2ROK2CQJwYBCoX5BvUR8i HXPabZEuAHl1c3acmPusAJ NnMPW5k4khGVdxyqCgWF0g mm0vhPk2w3ylynQhIEVsDW ZkxNXYXQHiG3YiaVafKn6n lZv5yIxeUhpcORZ7Rmf4KK 8rtb58pzv4jNfmTETjcxyf JbZ1GPztLLZunetqQFe5OY cvGCNpzWF0GPPqoPOiR2Ok ZRCzFN5uhyw2CNB1XQtxJH LeKrC2VGDdsNOpGQQdbUwl RXunw386YGF0BkRuJC4lD5 Efp5Z2cT8jpUQiBRDyhGWx SvJaIYMwly2gqSBpXHpje9 TcTOD7yeI3nQBgtNPxFDCa XB17Vwbnk2RsNsuxj1BtD0 1rqYE6LPehl8pfIE7iLbI6 jsWpHOmfy6fzuO6lEpD2KS ywWS4bEV1hQSRvbX9wmnrw XHBnYnJkcmhlYWRccGdicm ZzGw0tjQqtWFW2EAaiX4vr aB0eMuU3NPmbX8wuxF9dSC d6AQqsrJI8MNOruA2uBQ4m thrdw1dkEGosEFliDVRwmg I0plT4DFCtlTOdT6PffF5g DBFmCT0hjoeay4vkDVB6EI plLCTxLER1CjYhNAAkt2Xk juy3RmWwx9MgyHNaRTaaX8 2ks170YVDiswRiL8bzcKEv nzycrUBeetwuGJssdyW5NL CzmuObm7IiKVLkJCJ6NRso IAadfTNwYKVuaJrus4heZ9 RscGFyXHBsYWluXGYxXGZz MjBcbGFuZzEwMzNcaGljaF boVVpgQrMeOLHgYEggS3wz YtZvE8UoACJhIbEanRCaQ6 ggVGhpcyByZXBvcnQgbWF5 ABxhL1j6MIIabzGedIc9fk SgAtMmYLGrWDD5TZhdnEBp NBYmq9SgvzscxUBxNu6xeV ZjJRTcoZ4xWEYeMPLvRNqh DX5jsOn2MWIKaDVvrOAjHk QSMNEbYU68vtOaOFQRxlae g3G0HQlgQDAql8GkoWGrT1 jzs1KgQWMpd42dTA1cv5V6 v3hyEDU1JL1ar6MoGNFmeG UysHBrSNChh2Bmbtdxb7Vi JYBtqeJci0ErDSDthqHgcB PfBNWxkhNvbp9srlYaHXYn MQKuH5NvtyaxdZiznxMwLI Rsqc3ilyRwEMN4GUEBZWVu CBKxn0AcpD4daIQOJPR8yG Uizs4uzmYCgMRdBOXphb22 QDQkRK7sC2zcIPKsPTUbrg XvxOUbi4XnYUJhcDF4yUDv HW5GBnCUw32vZOXkLHSUuw UrKMNebTdqtDD5mcI3pY5g IChGREEpLlx+IFRoZSBGRE LiUO2bnvQut8KluwKciQdu YPNhtMMxx6DehFGcb1NdfU evm7NdmKHitQOqNG8lNUEh clxwYXIgVVRNQiBMYWJvcm Z4e1JlSAXlJEYdGOE9rZls zrl3EECibS3fDYMwL5gotw xcYWtzQEOng8OygC0vmBQI sVEcc6DzjGJfiBISkSNmKR 6nikUwLMoRBNlCLHS8arZa YWNwt9TcFUpfB8duI10wmV nlyNt1jFS3MHP3yM4cQqg+ IFxwYXJccGFyIEFwcHJvcH DgXPYhxElpccJwJ8AezeGj zL9itGOamjPbIM6tJD5uY2 H1qQYrQPQrzzQqi6mkLAsn dmUgYmVlbiByZXZpZXdlZC Ryb1MaQRztKCU8OOrbwpAo bmNsdWRpbmcgSCZFLCBTcG LthQIuQBJ0IGrugtJzhbRb DI1iyG3qbSaikY6neIEhxL J7dgutRILhQJIojMeyXLDp RG2lyMiloF9fQhXkGoHxDO kpOQ7hCJKkH0zkhKZdJNCo KNNrX0tzGeQgtV3etFitPX xjZjJcZnMyMFxwYXJccGFy XHBsYWluXGYxXGZzMjBcbG FuZzEwMzNcaGljaFxmMVxk GtZvVJWyASzzC4neSsHtC6 DhTIEqSuRuvFPxQ6cbONnw MOH1ZMZyPF9veEYrET89oO Wvh8fzYArxnQphwd6uL84f tWImGIkqwFnoBJPyu97yd8 YkWMKjslYtyl8lPRDevgX7 jR0dLMKmzXwtDCZrbJPpUE Qml6CzHBqqaDNblbTwQYzr BGLbUEOcnXItqaW9idUhgx CxawCcNEIrzCfdEBUew9Vr TQPwWNvdq1Kgfa3txTHmCZ MncpIFaPkkgDGpjA3jW1Iw PRKpHBVotb6mTPWcnX0pKP smu3QtwuxzHHGiYXChLHPc lxZjbl5ePVIvmMWZHB3NJW jtsTUgd8HwpzJbW6gWANT5 NUQwNjYwMjgxKSBleGNlcH GbMFEqka06UARomA6qeFdc PFSfaW3zkK3wkJwzaL0eXi UfDqFpFIxvUD7qUZIlP2tg rIEbCJQcKSAcF3mxIjEjzC 9jaFxmMVxjZjJcZnMyMFxw YXJ9fQ== Embedded Images (test code = [id number]) [facility] Jmbk8417-31-07 16:38:51* Test Item Value Reference Range Interpretation Comme nts Case Report (test code = 6952976421) Surgical Pathology ?Case: [id number] ? Authorizing Provider: ?Robert Pearson MD ? ? ?Collected: ? 01/03/2025 0956 ?Ordering Location: ? ? GI Endoscopy OR Department Received: ?01/03/2025 1307 ?Pathologist: ? Kyleigh Huddleston MD ? Specimens: ? A) - LARGE INTESTINE, SIGMOID COLON, Sigmoid colon Bx eval for IBD ? B) - RECTUM, Rectal Bx eval for IBD ? Final Diagnosis (test code = [id number]) i9luhWCgVPQis3cbZCXxaT FuZzEwMzNcZnRuYmpcdWMx IHtccnRmMVxhbnNpXGRlZm nwujsuSWEuEKX6cuFdHYPl FIR9XJT6XcBsDVTzDnUfYW Y8PZDah7dyb0FwzIVrpHIa HFrshLOezmScot12vTO4gW 38UA2uIBVvLqE1QGTwxoU1 Fgo6VSTuWVXajGKgF141e1 rxf7bsxuZstRI3qIydGLBo ntvlMnM4YVjdZELstlubTS m4JRkgGXOmgDB1EQAyoQPk K0SrIEXiOS5qwil7LER4LS rzFHFpDdA4WWJipZHnZGWd mOnnCKjbu436RHX6ReMcHT IqwuQjfBrgsT6qEsRuEMyx SPZiCI5uHIMJI6UuKY7FTV TOBU1ZCDTSNVeUE0bHGWQN OY9MAKUJPT9HC8x4KOAady EaVWAgUSNWF9aSPqzHQD8T B80SFFKQAPRPJBLSJANXME RZF5NLM5UwVYBFFVEXASlB BMKYZTAZEABEJ4zGPZZUZC PFKLodIBdLIZ0DYPjQIjou XKYkRRTfYD7tLd5pP8NAFe UCQ83ANP8GIGLKE8KGELZH QSBJREVOVElGSUVEICBccG FyXGZzMjJccGFyXGZzMjAg Vn3sNwVZYQWAUPQPIX1BY5 s2IHMzfsRnIDNwRBWDUUGB QDsvRMRQN5HGFQmUINlhXH wUVOdYJHoHW2OSCZKWYVFP FB0JED9OZPBFOUTRCJMTMt BJTkZJTFRSQVRFIElOXHBh jqDfQWDpJRZiYVUKBH4LZI FEI4NFIMPfjOOqSZAcPLKy BN7EXZSORIzQYGEDDM8MYI ADU9TEPFAZIXDVOUWNEZdB SUVEICBccGFyXHBhcmRccG TbKEVmepyoRGT3x3hdhMKa XHNzdGVjZjIyMDAwXGFuc2 lcZGVmbGFuZzEwMzNcZnRu IuvjbYAiXSWlGhCpo8hqr9 13cUGhi0usCAHhHbZ2dDGq WLMukCfpxwl7nOhaXwHgQZ Dbh4rcmtLdBsAeBCVtOTVf CTAtwNMoQ121PYLtSLbeu1 ysn9VaETVccBKra6D0XVHW ZZitLuKgK687x3tvs6hvlk PpvCC7SLXaBMS1WIrqcnZb iqG7PMkcaWGpOlI7VHgbyk EsPOztaeVnnxEzKfa8MZRc H266KZP6wNlxk5vqOKG9SK SnUNZoProvCo7zhOShB689 ZOLsIXEICAXbnEu5XRInaq FsabEhiHYYy544F909i3fn OHRiiaOdoRmEwmuyv4qvO0 19XHBhcGVydzEyMjQwXHBh mXVhrWI5YYFqKK3mkzfeMU etGPiyZNVpzqG0RPOozTPu S0XvMMHlXW5bpuboKNQ9GQ mtHIZsNVL9PjQvCXKjo5Rf lts6RqGqkw2dsc41IKX0v9 PdbIhjHDC9TGA0HnWsVv2z wIQpLMYbTK1fZbAxnTLiIQ Stfn96rXhoEFlptmFlqO8w SeOzIXCaqJQzQEAeUC7nkC UjWDOpyW4mjclqBYBwTdAa qyswOUHekAauzcGxJi4ecP owNLV8DDuxK6kmnI8vBbV7 OKiqB1kotP3hCNg3QMvisC O6HZMoyM5pFL5smhgyr1yg WLvcEAwkUSYreiF1hcJ6NG FsgVIoA1WplL7gDJHdIX3z vdqib4ffEOK0HGkbMPMcAR N1CcGyPZUun4Nrqiw4XeWy j6ChmWRoYZngQ50jl718BO FoknKoR9ecgOFnoinuhUXd abinQMoihoE0NMFbGVVkPA luXGYxXGZzMjBcbGFuZzEw MzNcaGljaFxmMVxkYmNoXG BvFVyzZ6ghQmUeL7ZqDFQz YeGgeIWiAWryeNF7CHKwSA Dqz36rvBv7RLSsvjxvh8Pg HJEkvBYscWPjlY2xzgTyh5 ioGPVkTEThIJOrG6FuZDJ3 yXKiQLHybSFxmJK8MC2ewr SaYH1cMJLvNhvfwyMidNQb gfKnRXDjQCqyp3rjMR9aPP PpvBrezA6nbDC2LJRwb7gm hYCuePVgi1zlr3SpeqExEY xzUYZmCQodYHGwPTWvIT8b ZVVkpKLzobChd9I5SshduF BrotwuKzuujiA9LOynqpzp WCImUGukQ1paHhVqHKAkxD phPzjnp4XqDIRwVCDcZejr cBOdjK23GYN5DpUtf5Z0KE LeYuNbCEAvPD9khKlvKUJn AR1aPEUaY6jggU4vdxs8Sh HvXUMwJhN4TVYxubB2Cja2 LVHoSRqzt7spg9LgC4YgrO WtbZw2p6nqVGSnKuW8mQNg CPukQ1zgjrCgaJJcLVReEO a9eP73GOBnlI6dyXMcVVkl tzHeNhH2PBlhYXEvYwU0EP JzjKMtFTLbU8krUAQpGQqm XVPxVTehlQDpNMO3bLxco2 H2oZYaoLVmyFhiAfEwExWi QAROm1QrPXl9nUjjL3EoOD OgKkD9aYPzXILzQBiqRHMj BPRrylI4vR57EPffbuS9vX Olk6Wry75hb056lN4tgXQc KSA8MAIhPTUimWWqASKuWK W6LLPqeTToN1vkITTuQZ6j qwxoIWsbRPjzZRDedBR4PA LujENtQ7MlHIFxRYrlUKCl cyq0AsLmMq2smMGtcQvlHW rug2kiy7aisFUxVht1CWZu BiCuHlorEEcqg4Csl3diWM Jfau15pKDmjQDdkSBulq3u sqYfmMWqyQUsIHU0jIYhmv BkWUAobKQvAQNdYS6rbOQn KJRmoT0pkbcbDUOhRcAdwo ncBFQreJtfstIjOp4urHoc GUD9IMchS4kbhH4hByN6GD zwJ3zeoL2gWFh1KQzclEQ6 VQLcpN5lQX5hpjbmi0ecMI odWRtkNGAesaP1sxO0FHFp mOFsM0EttS3gBYGmGY6hns fvk8gcKRZ2NIibENOwJUS7 FvMdCJAzf1Uvyjn4BvAqn1 SlwFKlAKskV93qr665XHJl soIoA3tzuNUyhgxfqLGugd grVWqctkU1ZVNcdqSzv0Ot JHQsIKI9MTkrSFlpcJNjGC EaxAdoh9gqN6JjcBHqYWIa YWluXGYxXGZzMjBcbGFuZz EwMzNcaGljaFxmMVxkYmNo LUFmBEhhF4baEjWcG4KcMO SlCkLulUEjV1eekOLiKKyn kGE0RGWtVTDss53kwRj1AT Zrfevch4UlFJRouAAsfRXt pU1gfgGof3kvDFLhLALtQC QqD5GvGDW7bOGoREBugSOc jGF4WE4sggNnER9yBNOhIo kgcmVzaWRlbnRzLCBmZWxs q5fzAN1hHDAeaDmctW0haA O1LZIyz0xxnXXozVZeh0ji x1AkknZeRCrdZJSoSQukYE ElUBTsEI9rCMTqmJAvhnNl q7M7OogtzNRitbsjAHvbht OnLEwouduxYUQkOJlyL2ja CwRxZDBbjOhfXRnxa6ErKB YxXGNmMlxmczIwXHBhclxw YXJccGFyXHNhMTYwXHNsMj W3XWEhiWVkdCKltFhoaI1c ZjBcZnMyNFxwbGFpblxmMV hyjsD5YCeudydaUHScGVtd E0siMqIbZZYldOmbGMoqm7 ScPTCuDDHgXqwhozB3ZIr2 pnOhYEWawWigbI3qqDB1LM Cjj1Ias9Njp86efYCxt00z z16axyKrvEDsGl5qsZNlJE C0ZIJMEPPdZIWiX7VlEYSp cPghQ7JqlMBmEUYxSaEuEK k3hTUmBrMxGUlluBFWg0C9 gArqYYYoS4QaJCFfnEemHR BEXYg9CQlgKNYcPVsdAFYp XGZzMjBcbGFuZzEwMzNcaG ljaFxmMVxkYmNoXGYxXGxv F6wiEzPwH8ElXPJvHgZsmG TpA1yjoUMkbX5= Clinical Information (test code = [id number]) Jin Jiménez is a 50 year old male1. 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 Rectal Bx eval for IBD Gross Description (test code = [id number]) t8bodACaIUWcxYNTJZRzGO PkBT7ziSnrjTa3kUpsURYk qwY9dFVtCGcfx0bzZAC0y8 nydpPFWbuzYIDcUV9yCWtn HCGlLJ9sCjMcWOLrQsFcZL BhcGVydzEyMjQwXHBhcGVy wIK1TAKlRK8vcfhsHWwgET ppYHWbayS9FRGrmUSxM7Vh DLYgHG9iuijcUTS7XBBRSb grVd4moMRagEzhLfRyWkTs EMRmARUhKZBfi9uhppOChg mjdFu3uK8BIXRvR4BqKB8M u6zhFRTmkSOwIHF5JBrye0 rnGSotVGE0DYXdXMMfRLEq GV7RTbKiORR1ODP7TCW1Fh X4SGm7APXDNVEkCPneLJPl UDG8UQi0PMNfCI5wUJmlpL JaTMthMddsASfzF299USyn CUPsU2HwC0HdBPozFpKxWS kdEOStRLVfOPkmDAPqJ0WF DVNiNAu6SZLuJgZcCDa1WB k0XI4STqWpZOCvIIo0MfDo SOSdBTw6BKrqIY0PMFJfXU ZyTHQ9FAsdZXGeJYavHLe1 IDIgXFxzcyAzIFxcZmwgXF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 [facility] to [facility] for pancolitis management and GI consultation. [...] a 49-year-old male with CT proven pancolitis. [place] Protocol was initiated for suspected UC. Mesalamine [...] GLUCOSE, BUN, CREATININE, CA) HEPATIC FUNCTION PANEL (68924) (ALB,T.PRO,BILI T,BU/BC,ALT,AST,ALK PHOS) Magnesium Serum Phosphorus Serum Prothrombin Time / INR aPTT Blood Culture - Peripheral Vein Blood Culture - Peripheral Vein # 2 Urinalysis Type and Screen - ONCE STAT Sedimentation Rate C-Reactive Protein Lipid Panel (24309)(Total Cholesterol, Triglycerides, HDL) THIOPURINE METHYLTRANSFERASE, RBC Quantiferon-Tb [...] Goldy Hutchinson DO Department of Internal Medicine [facility] Notes Date/Time Note Provider Source 2025-01-10 [...] Outcome: Adequate for discharge Matilde Campbell RN [facility] 2025-01-10 13:51:02 Problem: Pain Goal: Control [...] Outcome: Adequate for discharge [facility] 2025-01-10 11:50:33 Images from the original note were not included. CARE MANAGEMENT Care Coordinators/Social Workers/CM Specialists/Utilization Review/Patient Placement & Transfer Center 01/10/2025 11:50 AM Care Management Discharge Disposition Note (DCDN) 5-2-1 Interventions: Disease specific education, Intensive medication reconciliation/management, Teach back, Follow-up appointments, Follow-up phone calls 5-2-1 Providers: Physician, Purse Seining Hand/Foundry Metallurgist, Nurse 5-2-1 Patient Capacity Improvements: Avoidance of adverse events/readmission Discussed with patient/patient s family involved in decision making: Patient's family or support contact: Discharge Plan for ongoing care and services: Home/Caregiver Home Discharge Location: Discharge Disposition (for note) - 01/01/25 1145 Home/Caregiver address [address] [place] [address] Other Living arrangements: [address] [place] [address] Transportation: [employer] (Voucher # [id number] - Ready [employer] Go [phone]) Ambulance Service: EMS Date Called: EMS Time Called: EMS ETA: Prior authorization obtained for ambulance: Authorization number: CPT code: Discharge Medications Will the patient be able to obtain his medications? Yes Does the patient have transportation to to obtain the prescription medications? No Expected discharge date: 01/10/25 Time: 1600 Name of RN informed of discharge: MaxwelljoseMatilde fonseca Additional Information: Post-Acute Care Transition Education: Post-Acute Care Transition Education Completed: Yes Name and Relationship of Person Educated: Patient - Jin Type of Post-Acute Care Service Education Complete: Other (see comments) ([place] resources) CM/SW Name & Contact number: Sonya Hurtado RN Ph. [phone] The following information has been provided to the facility noted above: reason for the patient discharge or transfer; patient s physical and psychosocial status; summary of care, treatment, services provided to patient; and the patient progress toward goals. [facility] 2025-01-10 04:09:19 Problem: Pain Goal: Control [...] Progressing as expected T Evonne Lovell RN [facility] 2025-01-09 15:57:46 Problem: Pain Goal: Control [...] skin breakdown Outcome: Progressing as expected [facility] 2025-01-09 00:28:44 Problem: Pain Goal: Control of [...] new skin breakdown Outcome: Progressing as expected [facility] 2025-01-08 12:22:34 Problem: Pain Goal: Control [...] Outcome: Progressing as expected Y Elizabeth RN [facility] 2025-01-08 02:39:35 Resuming care for pt at this time. Pt assessed and no changes noted from charted shift assessment. Md notified of testicular edema and pain. Dilan Andrew RN [facility] 2025-01-08 01:52:39 Problem: Pain Goal: Control [...] Outcome: Progressing as expected Peter Velasquez RN [facility] 2025-01-08 01:51:24 Problem: Pain Goal: Control [...] new skin breakdown Outcome: Progressing as expected [facility] [employer] 2025-01-07 19:16:58 Problem: Infection Risk Goal: Absence [...] progressing as expected Christopher Gutierrez RN [facility] 2025-01-07 03:21:00 Problem: Pain Goal: Control of [...] Outcome: Progressing as expected [facility] 2025-01-06 19:46:37 Problem: Infection Risk Goal: [...] Not progressing as expected [facility] 2025-01-05 20:31:24 Problem: Pain Goal: Control [...] [facility] Vania Flynn RN [facility] 2025-01-05 10:34:27 Problem: Pain Goal: Control [...] Outcome: Progressing as expected Damon Son RN [facility] 2025-01-04 20:14:13 No vomiting overnight. Appears [...] new skin breakdown Outcome: Progressing as expected [facility] 2025-01-04 12:51:53 Problem: Pain Goal: Control [...] skin breakdown Outcome: Progressing as expected [facility] 2025-01-03 22:12:35 Had 3-4 loose BM overnight [...] skin breakdown Outcome: Progressing as expected [facility] 2025-01-03 13:35:29 Problem: Pain Goal: Control of [...] skin breakdown Outcome: Progressing as expected T [facility] [employer] 2025-01-03 09:47:16 BRIEF OPERATIVE NOTE Date of [...] Anderson MD Gastroenterology and hepatology fellow, PGY-6 [facility] [employer] 2025-01-03 03:34:47 Problem: Pain Goal: Control of [...] skin breakdown Outcome: Progressing as expected T Ambar Moseley RN [facility] 2025 10:38:09 Problem: Pain Goal: Control [...] new skin breakdown Outcome: Progressing as expected [facility] 2025 04:05:40 Problem: Pain Goal: Control [...] skin breakdown Outcome: Progressing as expected T [facility] [employer] 2025-01-01 18:03:23 Problem: Pain Goal: Control of [...] skin breakdown Outcome: Progressing as expected T [facility] [employer] 2025-01-01 00:25:39 Problem: Pain Goal: Control of [...] skin breakdown Outcome: Progressing as expected T [facility] [employer] 2024-12-31 21:19:11 Name/ MRN / Age / Gender: Jin Jiménez, [id number] 49 year old male BMI: Estimated body [...] use. (+) Tobacco use (+) Drug use [employer] N/A Pediatric Pediatric N/A N/A Preoperative Medication Instructions Continue taking all prescribed medications except: SIMON inhibitors, ARBs, diuretics, all oral diabetes medications Anticoagulant Therapy: Defer to surgeons Insulin: Take 1/2 dose the night prior to surgery. Hold on DOS. Phentermine: Alert [facility] anesthesiologist SGLT2 Inhibitors: "gliflozins" to be [...] Recovery Plan: PACU Additional comments: AN-ANESTHESIOLOGY ANESTHESIOLOGIST [facility] 2024-12-31 19:11:01 Problem: Pain Goal: Control [...] new skin breakdown Outcome: Progressing as expected [facility] 2024-12-30 23:47:06 Problem: Pain Goal: Control [...] of active bleeding Outcome: Progressing as expected [facility]
[2025-02-12] MEDS ORDERED: MORPHINE 4 MG/ML SYR ONE (02:37)
[2025-02-12] MEDS ORDERED: ONDANSETRON 4 MG/2 ML VIAL ONE (02:37)
[2025-02-12] MEDS ORDERED: NA CHLORIDE 0.9% 1,000 ML ONE (02:37)
[2025-02-12 02:57] LABS: Absolute Lymphocytes (CBC) 4.2 K/uL (0.7-4.9); Absolute Monocytes 0.9 K/uL (0.1-1.3); Absolute Neutrophil 6.6 K/uL (1.8-8.0); Basophils % 0.3 % (0-1.3); Eosinophils % 0.1 % (0-4.4); Hematocrit 29.1 % (39.6-49.0); Hemoglobin 9.8 g/dL (13.6-17.9); Lymphocytes % 35.6 % (15.3-44.8); MCH 30.5 pg (27.0-35.0); MCHC 33.6 g/dL (32.0-36.0); MCV 90.6 fL (80-100); MPV 6.9 fL (7.6-11.3); Monocytes % 7.9 % (3.3-12.3); Neutrophils % 56.1 % (41.7-73.7); Nucleated Red Blood Cells % 0.1 % (0-0); Platelets 510 thou/uL (152-406); RBC Red Blood Cell Count 3.21 M/uL (4.33-5.43); Red Cell Distribution Width 16.5 % (12.1-15.2)
[2025-02-12 03:02] LABS: PT Prothrombin Time 12.6 SECONDS (10-13.0); Protime INR 1.11
[2025-02-12 03:23] LABS: ALT/SGPT 20 U/L (16-61); AST/SGOT 14 U/L (15-37); Albumin 1.5 g/dL (3.4-5.0); Albumin/Globulin Ratio 0.4 (1.1-1.8); Alkaline Phosphatase 80 U/L (45-117); Anion Gap 8.9 mEq/L (5.0-15.0); BUN Blood Urea Nitrogen 11 mg/dL (7-18); Bicarbonate 27 mEq/L (21-32); Bilirubin Total 0.3 mg/dL (0.2-1.0); Globulin 4.1 g/dL (2.3-3.5); Glomerular Filtration Rate 114 ml/min (=/>90); Glucose Level 84 mg/dL (74-106); Lipase 14 U/L (13-75); Potassium 2.9 mEq/L (3.5-5.1); Protein, Total 5.6 g/dL (6.4-8.2); Sodium Level 136 mEq/L (136-145)
[2025-02-12 03:27] LABS: Bilirubin Direct < 0.2 mg/dL (0-0.2); Bilirubin Indirect, Calculated 0.1 mg/dL (0.2-0.8)
[2025-02-12] MEDS ORDERED: KETOROLAC 10 MG TAB ONE (04:42)
[2025-02-12] MEDS ORDERED: PROMETHAZINE 25 MG TABLET ONE (04:42)
[2025-02-12] MEDS ORDERED: metroNIDAZOLE 500 MG TABLET ONE (04:42)
[2025-02-12] MEDS ORDERED: CIPROFLOXACIN HCL 500 MG TAB ONE (04:42)
[2025-02-12] MEDS ORDERED: PANTOPRAZOLE 40MG TABLET PO ONE (04:42)
[2025-02-12] MEDS ORDERED: POTASSIUM 25 MEQ EFFERV TAB ONE (05:34)
--- NOTE | 2025-02-12 05:55 | RAD REPORT ---
CLINICAL HISTORY: Abdominal pain. COMPARISON: CT Abdomen Pelvis 02/05/2025. TECHNIQUE: CT ABDOMEN PELVIS WITHOUT IV CONTRAST on 02/12/2025 4:36 AM CDT This exam was performed according to our departmental dose-optimization program, which includes autom ated exposure control, adjustment of the mA and/or kV according to patient size and/or use of iterative reconstruction technique. FINDINGS: Lower lungs are clear. Abdomen: The liver is normal in appearance. There is no biliary dilatation. Gallbladder is normal in appearance. The pancreas and spleen are normal in appearance. Adrenal glands are normal. Left kidney contains several cysts measuring up to 2.6 cm. There is a 2 mm mid pole right renal calculus. There is no hydronephrosis. Abdominal aorta is normal in course and caliber without aneurysm. There is no free air. There is no r etroperitoneal adenopathy. Pelvis: There is fluid distention of much of the distal colon with thickening of the proximal two thi rds of the colon. Urinary bladder is diffusely thickened with wall thickness of 7 mm. There is no free fluid. Appendix is not clearly seen. Skeleton: There are extensive postoperative changes of the pelvis including multiple sacral screws, l eft inferior pubic arch fracture as well as an intramedullary janna in the right femur. IMPRESSION: Suspect scattered areas of colitis. Nonobstructing right renal calculus. Diffuse urinary bladder wall thickening. Left Bosniak I/Bosniak II benign renal cyst measuring 2.6 cm. No follow-up imaging is recommended. JA CR 2018 Oct; 264-273, Management of the Incidental Renal Mass on CT, [employer] 2020; [id number], Bosniak Classification of Cystic Renal Masses, Version 2019. Electronically signed by: Thomas Ramos MD 02/12/2025 05:40 AM CDT RP Due to temporary technical issues with the PACS/[employer] reporting system, reports are being alethea d by the in-house radiologist without review as a courtesy to ensure prompt reporting the interpreting radiologist is fully responsible for the content of the report. Transcribed Date/Time: 02/12/2025 5:55 AM
--- NOTE | 2025-02-12 06:52 | EDPHYS ---
Physician Documentation [facility] Name: Weston Jiménez Age: 50 yrs Sex: Male : 1975 Arrival Date: 02/12/2025 Time: 02:10 Bed 8 Private MD: ED Physician Benedict Donahue HPI: 02/12 02:18 This 50 yrs old Male presents to ER via Unassigned with complaints of Rectal sp4 Bleeding, Hernia. 06:45 This is a 50-year-old male with a history of Crohn's colitis, inguinal hernia, chronic sp4 back pain, crushing injury to the pelvis in the past, anxiety, and hypokalemia, presents with mood reports abdominal discomfort and complaint of rectal bleeding. Patient's medications include vitamin B12, ondansetron as needed, Protonix 40 daily, Bactrim every Tuesday, ciprofloxacin twice daily, duloxetine 20 mg daily, Ensure twice daily, ergocalciferol every week, hydrocodone as needed, Flagyl every 8 hours, prednisone 5 mg p.o. twice daily. Last admission 01/18/2025 3 01/20/2025 for Crohn's disease and colitis.. Historical: - Allergies: 02:45 PENICILLINS; bm8 - PMHx: 02:45 broken back; inguinal hernia (Rods and pins in ba); bm8 - PSHx: 02:45 bowel resection; Rods and pins in back; bm8 - Immunization history:: Adult Immunizations unknown. - Infectious Disease History:: Denies. - Family history:: not pertinent. - Social history:: Smoking status: Patient reports the use of cigarette tobacco products, denies chronic smoking, but will smoke occasionally. ROS: 06:45 Constitutional: Negative for fever, chills, and weight loss, positive for abdominal sp4 pain positive for inguinal hernia positive for rectal bleeding 06:45 All other systems are negative, Exam: 06:45 Constitutional: This is a well developed, well nourished patient who is awake, alert, sp4 and in no acute distress. Head/Face: Normocephalic, atraumatic. Eyes: Pupils equal round and reactive to light, extra-ocular motions intact. Lids and lashes normal. Conjunctiva and sclera are not injected. Cornea within normal limits. Periorbital areas with no swelling, redness, or edema. ENT: Nares patent. No nasal discharge, no septal abnormalities noted. Tympanic membranes are normal and external auditory canals are clear. Oropharynx with no redness, swelling, or masses, exudates, or evidence of obstruction, uvula midline. Mucous membranes moist. Neck: Trachea midline, no thyromegaly or masses palpated, and no cervical lymphadenopathy. Supple, full range of motion without nuchal rigidity, or vertebral point tenderness. Chest/axilla: Normal chest wall appearance and motion. Nontender with no deformity. No lesions are appreciated. Cardiovascular: Regular rate and rhythm with a normal S1 and S2. No gallops, murmurs, or rubs. Normal PMI, no JVD. No pulse deficits. Respiratory: Lungs have equal breath sounds bilaterally, clear to auscultation and percussion. No rales, rhonchi or wheezes noted. No increased work of breathing, no retractions or nasal flaring. Abdomen/GI: Soft, with normal bowel sounds. No distension or tympany. No guarding or rebound. No evidence of tenderness throughout. Large size abdominal scar from prior exploratory laparotomy. Back: No spinal tenderness. No costovertebral tenderness. Male : Normal genitalia with no discharge or lesions. Reducible left inguinal hernia. Skin: Warm, dry with normal turgor. Normal color with no rashes, no lesions, and no evidence of cellulitis. MS/ Extremity: Pulses equal, no cyanosis. Neurovascular intact. Full, normal range of motion. Neuro: Awake and alert, GCS 15, oriented to person, place, time, and situation. Cranial nerves II-XII grossly intact. Motor strength 5/5 in all extremities. Sensory grossly intact. Psych: Awake, alert, with orientation to person, place and time. Behavior, mood, and affect are within normal limits 06:49 Abdomen/GI: Rectal exam reveals no blood, no melena, no fissure, no fistula, no sp4 abscess, no mass. , Vital Signs: 02:14 BP 114 / 87; Pulse 97; Resp 18 S; Temp 97.9(O); Pulse Ox 99% on R/A; Weight 49.44 kg; ha1 Height 5 ft. 3 in. ; 03:31 BP 106 / 63; Pulse 88; Resp 19; Pulse Ox 100% on R/A; kd3 04:14 BP 111 / 82; Pulse 84; Resp 18; Temp 97.9; Pulse Ox 100% ; Pain 0/10; bm8 05:26 BP 110 / 70; Pulse 87; Resp 18; Temp 98; Pulse Ox 98% ; Pain 3/10; bm8 06:44 BP 101 / 77; Pulse 80; Resp 19; Temp 97.8; Pulse Ox 99% ; Pain 0/10; bm8 02:14 Body Mass Index 19.31 (49.44 kg, 160.02 cm) ha1 04:14 Pain Scale: Adult bm8 05:26 Pain Scale: Adult bm8 06:44 Pain Scale: Adult bm8 Radha Coma Score: 02:43 Eye Response: spontaneous(4). Motor Response: obeys commands(6). Verbal Response: bm8 oriented(5). Total: 15. 04:14 Eye Response: spontaneous(4). Motor Response: obeys commands(6). Verbal Response: bm8 oriented(5). Total: 15. 05:26 Eye Response: spontaneous(4). Motor Response: obeys commands(6). Verbal Response: bm8 oriented(5). Total: 15. 06:44 Eye Response: spontaneous(4). Motor Response: obeys commands(6). Verbal Response: bm8 oriented(5). Total: 15. 06:45 Eye Response: spontaneous(4). Motor Response: obeys commands(6). Verbal Response: sp4 oriented(5). Total: 15. MDM: 04:27 ED course: CT report from 02/05/2025 - COMPARISON: December and.January 18, 2025 FINDINGS: sp4 Liver, spleen, pancreas, adrenals and right kidney appear unremarkable. Left renal cysts Large left inguinal hernia contains sigmoid colon. Mild to moderate thickening of the wall of the sigmoid and descending colon. Mild thickening wall of the distal transverse colon.. Pneumatosis intestinalis not noted Post surgical changes involve the bowel. Small right inguinal hernia contains fat. Mild chronic compression deformity L1 vertebral body. Post surgical changes pelvis : IMPRESSION: Large left inguinal hernia contains sigmoid colon Mild to moderate wall thickening of predominantly sigmoid and descending colon having the appearance of a colitis. . 06:22 ED course: CLINICAL HISTORY: Abdominal pain. COMPARISON: CTAbdomen Pelvis 02/05/2025. sp4 TECHNIQUE: CTABDOMEN PELVIS WITHOUT IV CONTRAST on 02/12/2025 4:36 AM CDT This exam was performed according to our departmental dose-optimization program, which includes automated exposure control, adjustment of the mA and/or kV according to patient size and/or use of iterative reconstruction technique. FINDINGS: Lower lungs are clear. Abdomen: The liver is normal in appearance. There is no biliary dilatation. Gallbladder is normal in appearance. The pancreas and spleen are normal in appearance. Adrenal glands are normal. Left kidney contains several cysts measuring up to 2.6 cm. There is a 2 mm mid pole right renal calculus. There is no hydronephrosis. Abdominal aorta is normal in course and caliber without aneurysm. There is no free air. There is no retroperitoneal adenopathy. Pelvis: There is fluid distention of much of the distal colon with thickening of the proximal two thirds of the colon. Urinary bladder is diffusely thickened with wall thickness of 7 mm. There is no free fluid. Appendix is not clearly seen. Skeleton: There are extensive postoperative changes of the pelvis including multiple sacral screws, left inferior pubic arch fracture as well as an intramedullary janna in the right femur. IMPRESSION: Suspect scattered areas of colitis. Non obstructing right renal calculus. Diffuse urinary bladder wall thickening. Left Bosniak I/Bosniak II benign renal cyst measuring 2.6 cm. No follow-up imaging is recommended. JACR 2018 Oct; 264-273, Management of the Incidental Renal Mass on CT, [employer] 2020; [id number], Bosniak Classification of Cystic Renal Masses, Version 2019. Electronically signed by: Thomas Ramos MD 02/12/2025 05:40 AM. 06:49 Differential diagnosis: hemorrhoids, fissure, pilonidal cyst, condyloma. Data reviewed: sp4 vital signs, nurses notes, old medical records, lab test result(s), radiologic studies. 06:50 Medical Screening Exam initiated sp4 02/12 02:23 Order name: Basic Metabolic Panel; Complete Time: 06:22 sp4 02/12 02:23 Order name: CBC with Diff; Complete Time: 06:22 sp4 02/12 02:23 Order name: LFT's; Complete Time: 06:22 sp4 02/12 02:23 Order name: PT-INR; Complete Time: 06:22 sp4 02/12 02:25 Order name: Lipase; Complete Time: 06:22 sp4 02/12 04:36 Order name: CT Abd/Pelvis - Without Contrast sp4 02/12 02:23 Order name: Cardiac monitoring; Complete Time: 02:35 sp4 02/12 02:23 Order name: IV Saline Lock; Complete Time: 02:35 sp4 02/12 02:23 Order name: Labs collected and sent; Complete Time: 02:35 sp4 02/12 02:23 Order name: O2 Per Protocol; Complete Time: 02: sp4 02/12 02:23 Order name: O2 Sat Monitoring; Complete Time: :35 Administered Medications: 02:42 Drug: NS 0.9% IV 1000 ml IV at 1000 ml once; to be given as a bolus over 60 minutes bm8 Route: IV; Rate: 1000 ml; Site: left forearm; 04:15 Follow up: Response: No adverse reaction; IV Status: Completed infusion bm8 02:43 Drug: morphine IVP or IV 4 mg IVP once over 4 mins Route: IVP; Infused Over: 4 mins; bm8 Site: left forearm; 04:15 Follow up: Response: No adverse reaction bm8 02:43 Drug: Ondansetron IVP 4 mg IVP once; over 2 minutes Route: IVP; Site: left forearm; bm8 04:15 Follow up: Response: No adverse reaction bm8 04:44 Drug: Pantoprazole PO 40 mg PO once Route: PO; bm8 05:27 Follow up: Response: No adverse reaction bm8 04:44 Drug: Ketorolac PO 10 mg PO once Route: PO; bm8 05:27 Follow up: Response: No adverse reaction bm8 04:45 Drug: Ciprofloxacin PO 500 mg PO once Route: PO; bm8 05:27 Follow up: Response: No adverse reaction bm8 04:45 Drug: metroNIDAZOLE PO 500 mg PO once Route: PO; bm8 05:27 Follow up: Response: No adverse reaction bm8 04:45 Drug: Promethazine PO 25 mg PO once Route: PO; bm8 05:27 Follow up: Response: No adverse reaction bm8 05:45 Drug: Potassium PO Effervescent Tablet 50 mEq PO once; dissolve in 4 ounces of water or bm8 juice Route: PO; 06:00 Follow up: Response: No adverse reaction bm8 Disposition Summary: 02/12/25 06:50 Discharge Ordered Notes: Location: Home sp4 Problem: new sp4 Symptoms: have improved sp4 Condition: Stable sp4 Diagnosis - Acute mild colitis, history of Crohn's disease, reducible left inguinal hernia sp4 - Hypokalemia sp4 Followup: sp4 - With: Tin Howell MD - When: 7 - 10 days - Reason: Recheck today's complaints Discharge Instructions: - Discharge Summary Sheet sp4 - Colitis sp4 Forms: - Patient Portal Instructions sp4 Prescriptions: - ketorolac 10 mg Oral tablet - take 1 tablet ORAL route every 8 hours PRN pain; 30 tablet; Refills: 0, Product sp4 Selection Permitted - Potassium Chloride 10 mEq Oral capsule, extended release - take 1 tablet ORAL route every 12 hours for 10 days; 20 tablet; Refills: 0, sp4 Product Selection Permitted - Prednisone 20 mg Oral tablet - take 1 tablet ORAL route once daily for 10 days; 10 tablet; Refills: 0, Product sp4 Selection Permitted Signatures: Dispatcher [employer] Benedict Rivera MD MD sp4 Jovanny Lee, RN RN bm8 Corrections: (The following items were deleted from the chart) 02:25 02:25 LIPASE+C.LAB.BRZ ordered. EDKY EDMS
--- NOTE | 2025-02-12 06:52 | ER ---
Nurse's Notes [facility] Name: Weston Jiménez Age: 50 yrs Sex: Male : 1975 Arrival Date: 02/12/2025 Time: 02:10 Bed 8 Private MD: Diagnosis: Acute mild colitis, history of Crohn's disease, reducible left inguinal hernia;Hypokalemia Presentation: 02/12 02:14 Chief complaint: Patient states: RECTAL BLEEDING, LEFT INGUINAL HERNIA. PELVIC PAIN. ha1 02:14 Coronavirus screen: Client denies travel out of the [place] in the last 14 days. Ebola ha1 Screen: No symptoms or risks identified at this time. Initial Sepsis Screen: Does the patient meet any 2 criteria? No. Patient's initial sepsis screen is negative. Does the patient have a suspected source of infection? No. Patient's initial sepsis screen is negative. Risk Assessment: Do you want to hurt yourself or someone else? Patient reports no desire to harm self or others. Onset of symptoms was February 12, 2025. 02:14 Method Of Arrival: Ambulatory ha1 02:14 Acuity: SUSIE 3 ha1 Historical: - Allergies: 02:45 PENICILLINS; bm8 - PMHx: 02:45 broken back; inguinal hernia (Rods and pins in ba); bm8 - PSHx: 02:45 bowel resection; Rods and pins in back; bm8 - Immunization history:: Adult Immunizations unknown. - Infectious Disease History:: Denies. - Family history:: not pertinent. - Social history:: Smoking status: Patient reports the use of cigarette tobacco products, denies chronic smoking, but will smoke occasionally. Screenin:45 [facility] ED Fall Risk Assessment (Adult) History of falling in the last 3 months, bm8 including since admission No falls in past 3 months (0 pts) Confusion or Disorientation No (0 pts) Intoxicated or Sedated No (0 pts) Impaired Gait No (0 pts) Mobility Assist Device Used No (0 pt) Altered Elimination No (0 pt) Score/Fall Risk Level 0 - 2 = Low Risk Oriented to surroundings, Maintained a safe environment, Educated pt \T\ family on fall prevention, incl call for assistance when getting out of bed, Assessed \T\ reinforced patient's understanding of fall precautions, Hourly rounding (assess needs \T\ fall precautionary measures) done, Used ambulatory aids as needed (educated on \T\ assisted with), Used gait belt as appropriate. Abuse screen: Denies threats or abuse. Nutritional screening: No deficits noted. Tuberculosis screening: No symptoms or risk factors identified. Assessment: 02:43 General: Appears in no apparent distress. comfortable, Behavior is calm, cooperative, bm8 appropriate for age. Pain: Complains of pain in left lower quadrant, groin, left femoral area, left inguinal area and left iliac crest Pain currently is 7 out of 10 on a pain scale. Quality of pain is described as aching, crampy. Neuro: No deficits noted. Level of Consciousness is awake, alert, obeys commands, Oriented to person, place, time, situation, Appropriate for age. Cardiovascular: Denies chest pain, Capillary refill < 3 seconds in bilateral fingers toes Patient's skin is warm and dry. Respiratory: Airway is patent Respiratory effort is even, unlabored, Respiratory pattern is regular, symmetrical. GI: Abdomen is flat, non-distended, Reports rectal bleeding, bloody stool, nausea, Pain is 7 out of 10 on a pain scale. : No signs and/or symptoms were reported regarding the genitourinary system. EENT: No signs and/or symptoms were reported regarding the EENT system. Derm: No signs and/or symptoms reported regarding the dermatologic system. Musculoskeletal: No signs and/or symptoms reported regarding the musculoskeletal system. 04:14 Reassessment: Patient appears in no apparent distress at this time. Patient and/or bm8 family updated on plan of care and expected duration. Pain level reassessed. Patient is alert, oriented x 3, equal unlabored respirations, skin warm/dry/pink. Patient denies pain at this time. Patient states feeling better. Patient states symptoms have improved. 05:26 Reassessment: Patient appears in no apparent distress at this time. Patient and/or bm8 family updated on plan of care and expected duration. Pain level reassessed. Patient is alert, oriented x 3, equal unlabored respirations, skin warm/dry/pink. Patient states feeling better. Patient states symptoms have improved. 06:44 Reassessment: Patient appears in no apparent distress at this time. Patient and/or bm8 family updated on plan of care and expected duration. Pain level reassessed. Patient is alert, oriented x 3, equal unlabored respirations, skin warm/dry/pink. Patient denies pain at this time. Patient states feeling better. Patient states symptoms have improved. Vital Signs: 02:14 BP 114 / 87; Pulse 97; Resp 18 S; Temp 97.9(O); Pulse Ox 99% on R/A; Weight 49.44 kg; ha1 Height 5 ft. 3 in. ; 03:31 BP 106 / 63; Pulse 88; Resp 19; Pulse Ox 100% on R/A; kd3 04:14 BP 111 / 82; Pulse 84; Resp 18; Temp 97.9; Pulse Ox 100% ; Pain 0/10; bm8 05:26 BP 110 / 70; Pulse 87; Resp 18; Temp 98; Pulse Ox 98% ; Pain 3/10; bm8 06:44 BP 101 / 77; Pulse 80; Resp 19; Temp 97.8; Pulse Ox 99% ; Pain 0/10; bm8 02:14 Body Mass Index 19.31 (49.44 kg, 160.02 cm) ha1 04:14 Pain Scale: Adult bm8 05:26 Pain Scale: Adult bm8 06:44 Pain Scale: Adult bm8 [place] Coma Score: 02:43 Eye Response: spontaneous(4). Motor Response: obeys commands(6). Verbal Response: bm8 oriented(5). Total: 15. 04:14 Eye Response: spontaneous(4). Motor Response: obeys commands(6). Verbal Response: bm8 oriented(5). Total: 15. 05:26 Eye Response: spontaneous(4). Motor Response: obeys commands(6). Verbal Response: bm8 oriented(5). Total: 15. 06:44 Eye Response: spontaneous(4). Motor Response: obeys commands(6). Verbal Response: bm8 oriented(5). Total: 15. 06:45 Eye Response: spontaneous(4). Motor Response: obeys commands(6). Verbal Response: sp4 oriented(5). Total: 15. ED Course: 02:13 Patient arrived in ED. jj6 02:18 Vanessa Jackson RN is Primary Nurse. kd3 02:18 Benedict Donahue MD is Attending Physician. sp4 02:34 Triage completed. ha1 02:45 Patient has correct armband on for positive identification. Bed in low position. Call bm8 light in reach. Side rails up X 1. Client placed on continuous cardiac and pulse oximetry monitoring. NIBP monitoring applied. monitoring specialist on. Pulse ox on. NIBP on. Door closed. Noise minimized. Warm blanket given. Pillow given. Verbal reassurance given. Head of bed lowered. 02:45 No provider procedures requiring assistance completed. Initial lab(s) drawn, by , lanre sent to lab. Inserted saline lock: 20 gauge in left forearm, using aseptic technique. Blood collected. Flushed with 10 mL NS. Patient maintains SpO2 saturation greater than 95% on room air. 05:00 CT Abd/Pelvis - Without Contrast In Process Unspecified. EDMS 06:44 Provided Education on: post er care. bm8 06:44 IV discontinued, intact, bleeding controlled, No redness/swelling at site. Pressure bm8 dressing applied. 06:50 Tin Howell MD is Referral Physician. sp4 06:57 Arm band placed on right wrist. kd3 Administered Medications: 02:42 Drug: NS 0.9% IV 1000 ml IV at 1000 ml once; to be given as a bolus over 60 minutes bm8 Route: IV; Rate: 1000 ml; Site: left forearm; 04:15 Follow up: Response: No adverse reaction; IV Status: Completed infusion bm8 02:43 Drug: morphine IVP or IV 4 mg IVP once over 4 mins Route: IVP; Infused Over: 4 mins; bm8 Site: left forearm; 04:15 Follow up: Response: No adverse reaction bm8 02:43 Drug: Ondansetron IVP 4 mg IVP once; over 2 minutes Route: IVP; Site: left forearm; bm8 04:15 Follow up: Response: No adverse reaction bm8 04:44 Drug: Pantoprazole PO 40 mg PO once Route: PO; bm8 05:27 Follow up: Response: No adverse reaction bm8 04:44 Drug: Ketorolac PO 10 mg PO once Route: PO; bm8 05:27 Follow up: Response: No adverse reaction bm8 04:45 Drug: Ciprofloxacin PO 500 mg PO once Route: PO; bm8 05:27 Follow up: Response: No adverse reaction bm8 04:45 Drug: metroNIDAZOLE PO 500 mg PO once Route: PO; bm8 05:27 Follow up: Response: No adverse reaction bm8 04:45 Drug: Promethazine PO 25 mg PO once Route: PO; bm8 05:27 Follow up: Response: No adverse reaction bm8 05:45 Drug: Potassium PO Effervescent Tablet 50 mEq PO once; dissolve in 4 ounces of water or bm8 juice Route: PO; 06:00 Follow up: Response: No adverse reaction bm8 Medication: 02:45 VIS not applicable for this client. bm8 Outcome: 06:50 Discharge ordered by . spMerrill 06:57 Discharged to home ambulatory, kd3 06:57 Condition: stable 06:57 Discharge instructions given to patient, Instructed on discharge instructions, follow up and referral plans. medication usage, Demonstrated understanding of instructions, follow-up care, medications, Prescriptions given X 3, 06:58 Patient left the ED. kd3 Signatures: Dispatcher [employer] EDMS Chrissy Alvarado [id number] Vanessa Jackson RN RN kd3 Raine Marquis RN RN 1 Benedict Donahue MD MD sp4 Jovanny Lee RN RN bm8 Corrections: (The following items were deleted from the chart) 06:00 06:00 Potassium PO Effervescent Tablet 50 mEq PO bm8 bm8
[2025-02-12 07:10] VITALS: BP 101/77; TEMP 97.8; O2SAT 99
== END 2025-02-12 06:58 | disposition home or self-care (01) ==
LOC: ER 02:10
DX: K52.9 Noninfective gastroenteritis and colitis, unspecified (principal); E87.6 Hypokalemia; K40.90 Unilateral inguinal hernia, without obstruction or gangrene, not specified as recurrent; K50.90 Crohn's disease, unspecified, without complications; F17.210 Nicotine dependence, cigarettes, uncomplicated
CPT/HCPCS: 96361; 85025; 80048; 36415; 85610; 80076; 83690; 74176; 96375; 96374; 99285; Q0169; J2405; J7030